=== PATIENT | female | born 1970 | race American Indian/Alaskan Native ===

== ENCOUNTER 2024-09-02 13:36 | Outpatient (AMB) | payer OTHER, SELFPAY ==
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
[2024-09-02 13:46] VITALS: BP 128/78; PULSE 73; BMI 44.6
== END 2024-09-02 14:50 | disposition home or self-care (01) ==
PROVIDERS: PCP Nurse Practitioner Family; Visit Provider Student in an Organized Health Care Education/Training Program
DX: E89.0 Postprocedural hypothyroidism (principal); E04.2 Nontoxic multinodular goiter; E66.813 Obesity, class 3; E66.01 Morbid (severe) obesity due to excess calories; Z68.41 Body mass index [BMI] 40.0-44.9, adult; R73.03 Prediabetes
CPT/HCPCS: 99204

== ENCOUNTER → 2024-09-02 13:36 | Outpatient (BNVA) | payer OTHER, SELFPAY | PROVIDERS: PCP Nurse Practitioner Family; Visit Provider Student in an Organized Health Care Education/Training Program | DX: E89.0 Postprocedural hypothyroidism (principal); E04.2 Nontoxic multinodular goiter; E66.01 Morbid (severe) obesity due to excess calories; E66.813 Obesity, class 3; R73.03 Prediabetes; Z68.41 Body mass index [BMI] 40.0-44.9, adult | CPT/HCPCS: 99202 ==

== ENCOUNTER 2024-09-04 15:09 | Outpatient (REF) | payer OTHER, SELFPAY ==
[2024-09-04 15:57] LABS: Estimated Average Glucose 126 mg/dL; Hemoglobin A1C 128.0057 umol/L; Total Hemoglobin (HGBA1C) 3021.5311 umol/L
[2024-09-04 16:56] LABS: Free T4 (Free Thyroxine) 1.19 ng/dL (0.71-1.85); Thyroid Stimulating Hormone 1.13 uIU/mL (0.32-4.0)
[2024-09-09 18:03] LABS: Thyroid Stimulating Immunoglob <89 % baseline (<140)
[2024-09-09 20:19] LABS: Thyroid Peroxidase Antibodies 153 IU/mL (<9)
== END 2024-09-04 15:10 | disposition home or self-care (01) ==
LOC: HO.LAB 15:09
PROVIDERS: PCP Nurse Practitioner Family; Visit Provider Student in an Organized Health Care Education/Training Program
DX: E03.9 Hypothyroidism, unspecified (principal); E66.9 Obesity, unspecified; R73.03 Prediabetes
CPT/HCPCS: 36415; 83036; 84439; 84443; 84445; 86376

== ENCOUNTER 2024-09-14 13:53 | Outpatient (REF) | payer OTHER, SELFPAY | END 2024-09-14 13:54 | disposition home or self-care (01) | LOC: HO.US 13:53 | PROVIDERS: PCP Nurse Practitioner Family; Visit Provider Student in an Organized Health Care Education/Training Program | DX: E04.2 Nontoxic multinodular goiter (principal) | CPT/HCPCS: 76536 ==

== ENCOUNTER → 2024-09-14 13:55 | Outpatient (BNV) | payer OTHER, SELFPAY | PROVIDERS: PCP Nurse Practitioner Family; Visit Provider Radiology Diagnostic Radiology | DX: E04.2 Nontoxic multinodular goiter (principal) | CPT/HCPCS: 76536 ==

== ENCOUNTER 2024-10-26 10:43 | Outpatient (AMB) | payer OTHER, SELFPAY ==
[2024-10-26 10:58] VITALS: BP 114/78; PULSE 54; BMI 43.6
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
--- OUTSIDE RECORDS SUMMARY | 2024-10-26 15:28 | XMS_ITS | Encounter Summary ---
Author Organization [facility] Address [address] [place] [address] Care Team Providers Care Ui Engineer Name Role Phone Marycruz Martinez MD Primary Care Provider [phone] Deepthi Parada DOCK LOADER Primary Care Provide r Reason for Visit * Reason Comments E-prescribing Refill Request Encounter Details Date Type Department Care Team (Late st Contact Info) Description 06/28/2023 Refill [facility] Urology [address] [facility] [address] [place] [address] Suly Martinez, DOCK LOADER [address] [place] [address] E-prescribing Refill Request Social History Tobacco Use Types Packs/Day Years Used Date Smoking Tobacco: Never Smokeless Tobacco: Never Alcohol Use Standard Drinks/Week Comments Yes 0 (1 standard drink = 0.6 oz pure alcohol) socially - wine or beer/cider on weekends Intimate Partner Violence Answer Date R ecorded Fear of Current or Ex-Partner Not on file Emotionally Abused Not on file 05/31/2023 Physically Abused Not on file 05/31/2023 Sexually Abused Not on file 05/31/2023 Feel Safe at Home Not on file 05/31/2023 Comments No Sex and Gender Information Value Date Recorded Sex Assigned at Female 04/27/2022 2:04 PM EDT Legal Sex Female 2:36 AM EDT Gender Identity Female 04/27/2022 2:04 PM EDT Sexual Orientation Straight 04/27/2022 2: 04 PM EDT documented as of this encounter Miscellaneous Notes * Telephone Encounter - Adam Montana LPN - 06/28/2023 7:56 AM EDT Seen 06/10/2020 documented in this encounter Plan of Treatment Not on file documented as of this encounter Visit Diagnoses Not on filedocumented in this encounter Care Teams Ui Engineer Relationship Specialty Start Date End Date Marycruz Martinez MD [address] [address] PCP - General Family Medicine 10/05/20 11/21/23 Deepthi Parada NP [facility], [address] [place] [address] PCP - General Family Medicine 11/22/23 documented as of this encounter
--- OUTSIDE RECORDS SUMMARY | 2024-10-26 15:28 | XMS_ITS | Encounter Summary ---
Author Organization [facility] Address [address] [place] [address] Care Team Providers Care Library Attendant Name Role Phone Jericho Braun MD Primary Care Provider [phone] Estrella Zamudio NP Primary Care Provider Marycruz Martinez MD Primary Care Provider Deepthi Parada CLAIMS COLLECTOR Primary Care Provide r Encounter Details Date Type Department Care Team (Late st Contact Info) Description 04/20/2019 Orders Only [facility] Orthopedic Surgery [address] [address] Prasanna Zaragoza MD [address] [place] [address] Social History Tobacco Use Types Packs/Day Years Used Date Smoking Tobacco: Never Smokeless Tobacco: Never Alcohol Use Standard Drinks/Week Comments Yes 0 (1 standard drink = 0.6 oz pure alcohol) socially - wine or beer/cider on weekends Comments No Sex and Gender Information Value Date Recorded Sex Assigned at Female 04/27/2022 2:04 PM EDT Legal Sex Female 2:36 AM EDT Gender Identity Female 04/27/2022 2:04 PM EDT Sexual Orientation Straight 04/27/2022 2: 04 PM EDT documented as of this encounter Plan of Treatment Scheduled Orders Name Type Priority Associated Diagnoses Orde r Schedule XR KNEE ORTHO - LT (DX: KNEE PAIN *NO INJURY* M25.562/ 719.46)(AGE>=35, CAN WEIGHT-BEAR) FC Imaging Routine Left knee pain, unspecified chronicity Expected: 04/20/2019 (Approximate), Expires: 04/20/2022 documented as of this encounter Visit Diagnoses Diagnosis Left knee pain, unspecified chronicity documented in this encounter Additional Health Concerns Infection Onset Date Last Indicated Resolved Time COVID-19 Rule-Out 02/07/2021 02/07/2021 2021 4:16 AM EDT documented as of this encounter Care Teams Library Attendant Relationship Specialty Start Date End Date Jericho Braun MD PCP - General Family Medicine 04/22/19 06/09/20 Estrella Zamudio NP [address] [address] PCP - General Nurse Practitioner 06/10/20 10/04/20 Marycruz Martinez MD [address] [address] PCP - General Family Medicine 10/05/20 11/21/23 Deepthi Parada NP [facility], [address] [place] [address] PCP - General Family Medicine 11/22/23 documented as of this encounter
--- OUTSIDE RECORDS SUMMARY | 2024-10-26 15:28 | XMS_ITS | Encounter Summary ---
Author Organization [facility] Address [address] [place] [address] Care Team Providers Care Animal Laboratory Helper Name Role Phone Marycruz Martinez MD Primary Care Provider [phone] Deepthi Parada NP Primary Care Provide r Reason for Visit * Reason Onset Date Comments Labs/orders 05/14/2022 Creatinine Order for Radiology with Contrast Encounter Details Date Type Department Care Team (Late st Contact Info) Description 05/14/2022 Telephone CALL CENTER [facility] [address] [place] [id number] Benny Foley MD [address] [place] [id number] Labs/orders (Creatinine Order for Radiology with Contrast) Social History Tobacco Use Types Packs/Day Years [...] encounter Miscellaneous Notes * Telephone Encounter - Martell Oconnor - 05/14/2022 5:05 PM EDT Benny Foley MD In compliance with established guidelines for the appropriate administration of intravenous contrast media during MRI studies, the Department of Radiology will require a Serum Creatinine within 30 days prior to the study date on all patients who meet the criteria. A creatinine order has been pended and attached for the patient in the appropriate time frame. Please sign the order. documented in this encounter Plan of Treatment Scheduled Orders Name Type Priority Associated Diagnoses Orde r Schedule CREATININE WITH GLOMERULAR FILTRATION RATE, ESTIMATED (EGFR) Lab Routine Paresthesia Expected: 05/15/2022 (Approximate), Expires: 05/14/2023 documented as of this encounter Visit Diagnoses Diagnosis Paresthesia Disturbance of skin sensation documented in this encounter Care Teams Animal Laboratory Helper Relationship Specialty Start Date End Date Marycruz Martinez MD [address] [address] PCP - General Family Medicine 10/05/20 11/21/23 Deepthi Parada NP [facility], [address] [place] [address] PCP - General Family Medicine 11/22/23 documented as of this encounter
--- OUTSIDE RECORDS SUMMARY | 2024-10-26 15:28 | XMS_ITS | Encounter Summary ---
Author Organization [facility] Address [address] [place] [address] Care Team Providers Care Professor Of Education Name Role Phone Deepthi Parada Aliza NAVIGATION OFFICER Primary Care Provide r Encounter Details Date Type Department Care Team (Latest Contact Info) Description 12/13/2023 Professional Billing [facility] [address] [place] [address] Steve Mahmood, MARCIA [address] [place] [address] Painful orthopaedic hardware (HCC) [T84.84XA] Social History Tobacco Use Types Packs/Day Years [...] as of this encounter Plan of Treatment Not on file documented as of this encounter Visit Diagnoses Diagnosis Painful orthopaedic hardware (HCC) [T84.84XA] Other complications due to other internal orthopedic device, implant, and graft documented in this encounter Care Teams Professor Of Education Relationship Specialty Start Date End Date Deepthi Parada NP [facility], [address] [place] [address] PCP - General Family Medicine 11/22/23 documented as of this encounter
--- OUTSIDE RECORDS SUMMARY | 2024-10-26 15:28 | XMS_ITS | Encounter Summary ---
Author Organization [facility] Address [address] [place] [address] Care Team Providers Care Proposal Review Analyst Name Role Phone Marycruz Martinez MD Primary Care Provider [phone] Deepthi Parada NP Primary Care Provide r Encounter Details Date Type Department Care Team (Late st Contact Info) Description 11/08/2022 Telephone [facility] [address] [place] [address] [address] [place] [address] Tristan Gonzales MD Social History Tobacco Use Types Packs/Day Years [...] encounter Miscellaneous Notes * Telephone Encounter - Gena Flores - 11/08/2022 10:[address] Ellis calling wanting to schedule a peer to peer with provider. Can be reached at [phone] documented in this encounter Plan of Treatment Not on file documented as of this encounter Visit Diagnoses Not on filedocumented in this encounter Care Teams Proposal Review Analyst Relationship Specialty Start Date End Date Marycruz Martinez MD [address] [address] PCP - General Family Medicine 10/05/20 11/21/23 Deepthi Parada NP [facility], [address] [place] [address] PCP - General Family Medicine 11/22/23 documented as of this encounter
--- OUTSIDE RECORDS SUMMARY | 2024-10-26 15:28 | XMS_ITS | Patient Health Record ---
Author Organization [facility] Address [address] [place] [id number] Care Team Providers Care Splitter Tender Name Role Phone LETY ADAIR, VICK Primary Care Provider Reji Davis [phone] ALLERGIES Allergen (clinical drug ingredient) Drug/Non Drug Allergy documented on EMR Reaction Allergy Type Onset Date Status morphine morphine Unknown Drug Allergy Active REASON FOR REFERRAL No Information MEDICATIONS Medication SIG (Take, Route, Frequency, Duration) Notes Start Date End Date Status traZODone 150 mg 1 tab(s) orally once a day (at bedtime) Active LaMICtal 150 mg 1 tab(s) orally 2 ti mes a day Active Neurontin 300 mg 1 cap(s) orally 3 ti mes a day Active Paxil 20 mg 1 tab(s) orally once a day Active diclofenac sodium 75 mg 1 tab(s) orally 2 times a day Active Valium 5 mg 1 tab(s) orally 3 ti mes a day Active Levoxyl 100 mcg (0.1 mg) 1 tab(s) orally once a day Active raNITIdine 150 mg 1 cap(s) orally 2 ti mes a day Active SOCIAL HISTORY Sex Assigned At : Social History Observation Description Sex Assigned At Unknown PROBLEMS Problem Type ICD Code Onset Dates Problem Status W/U Status Risk SNOMED Code Notes Problem Pain in left knee (M25.562) Active confirmed 77700281 Problem Pain in right knee (M25.561) Active confirmed 78500574 Problem Difficulty in walking (R26.2) Active confirmed [id number] PLAN OF TREATMENT No Information Insurance Providers Payer Name Payer Address Payer Phone Subscriber Number Group Number Insured Name Patient Relationship to Insured Coverage Start Date Coverage End Date [facility] [address] [place] [phone] [facility] [id number] JANEE BEY Self - patient is the insured MEDICAL (GENERAL) HISTORY Medical History History ICD Code bipolar disorder I PTSD multiple suicide attempts recurrent bilateral patella tendon ruptu res chronic bilateral knee pain Surgical History Surgery Date(Month/Year) 3 patella tendon surgeries on left knee, 1 meniscus surgery 2 patella tendon surgeries on right knee [phone] Hospitalization History Reason Date(Month/Year) 4 hospitalizations for suicide attempts from
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
--- OUTSIDE RECORDS SUMMARY | 2024-10-26 15:29 | XMS_ITS | Encounter Summary ---
Author Organization [facility] Address [phone] [facility] [address] [address] Care Team Providers Care Mussel Opener Name Role Phone Marycruz Martinez MD Primary Care Provider [phone] Unknown, Unknown Primary Care Provider Deepthi Rodriguez UTILIZATION ENGINEER Primary Care Provid er Ila Elder MELT SUPERVISOR Primary Care Provide r Reason for Visit * Reason Comments Med Change Request Encounter Details Date Type Department Care Team (Late st Contact Info) Description 08/19/2023 Refill [facility] Department of Orthopaedics [address] [place] [address] Shaun Leon MD [address] [place] [address], [facility] [address] [email or web address] Change Request Social History Tobacco Use Types Packs/Day [...] as of this encounter Plan of Treatment Upcoming Encounters Date Type Department Care Team (Late st Contact Info) Description 11/06/2024 1:00 PM EST Office Visit [facility] Pain Management [address] [place] [id number] Alejo Crespo MD [address] [place] [address] Department of Anesthesiology, Perioperative [place] [address] [email or web address] 12/22/2024 11:15 AM EDT Office Visit [facility] Department of [facility]opaedics [address] [place] [address] James Minaya MD [address] [place] [id number] 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 07/21/2024 1:22 AM EDT documented as of this encounter Care Teams Mussel Opener Relationship Specialty Start Date End Date Marycruz Martinez MD [address] [place] [phone] PCP - General Family Medicine 08/03/21 11/21/23 Unknown, Unknown, PCP - General 12/24/23 01/20/24 Deepthi Parada CNP [address] [place] [address], [address] [place] [address] [email or web address] PCP - General Family Medicine 01/21/24 03/01/24 Ila Elder NP [address] [place] [id number] PCP - General 03/02/24 Chika Tovar CNP Nurse Practitioner 08/10/22 documented as of this encounter Additional Source Comments The information contained in this document represents components of the legal health record. It is not the complete legal health record.[facility]
--- OUTSIDE RECORDS SUMMARY | 2024-10-26 15:29 | XMS_ITS | Clinical Summary ---
Author Organization [facility] Address [phone] Formerly [facility], [facility] [place] [address] Care Team Providers Care Parks Recreation Coordinator Name Role Phone Ila Elder NP Primary Care Provide r Allergies Active Allergy Reactions Criticality Noted Date Comments Ciprofloxacin Dermatitis Medium 01/23/2019 The patient was found to have spread of rash identified on 01/20 to her face and extremities after ~ 2 doses of daptomycin and ~4 doses of ciprofloxacin. It is not clear if this is new reaction or extension of prior drug rash. Daptomycin Dermatitis Medium 01/23/2019 The patient was found to have spread of rash identified on 01/20 to her face and extremities after ~ 2 doses of daptomycin and ~4 doses of ciprofloxacin. It is not clear if this is new reaction or extension of prior drug rash. Formaldehyde 08/31/2021 Latex Rash Low 05/13/2023 Morphine Unknown 04/10/2013 Ondansetron Hcl 08/10/2022 Piperacillin-Tazobacta m Dermatitis High 01/20/2019 Developed morbilliform rash after receiving 24 days of IV vancomycin and IV piperacillin-tazobact am with concurrent eosinophilia Vancomycin Dermatitis,Maculopa pular Rash High 01/20/2019 Severe Rash and diarrhea Rash developed while on both vancomycin and pieracillin-tazobacta m Medications Medication Sig Dispensed Refills Start Date End Date Status traZODone (DESYREL) 100 MG tablet Take 200 mg by mouth nightly at bedtime. Active hydrOXYzine (ATARAX) 25 MG tablet Take 25 mg by mouth as needed. Active famotidine (PEPCID) 20 MG tablet Take 20 mg by mouth daily. Active PARoxetine (PAXIL) 20 MG tablet Take 20 mg by mouth daily. Active therapeutic multivitamin tablet Take 1 tablet by mouth daily. Active docusate (COLACE) 100 mg tablet Take 1 tablet (100 mg total) by mouth 2 (two) times a day. 28 tablet 2 Active esomeprazole (NEXIUM) 20 MG capsule Take 20 mg by mouth nightly at bedtime. Active fluticasone propionate (FLONASE) 50 mcg/actuation nasal spray SPRAY 2 SPRAYS BY INTRANASAL ROUTE EVERY DAY 3 Active loratadine (CLARITIN) 10 mg tablet Take 10 mg by mouth daily. Active magnesium oxide (MAG-OX) 400 mg (241.3 mg elemental) tablet Take 400 mg by mouth daily. Active cholecalciferol (VITAMIN D3) 25 MCG (1,000 unit) tablet Take 1,000 Units by mouth daily. Active Medication-Free Text Take 500 mg by mouth daily. Turmeric/Curcumi n: Nekoma (OTC Brand) Active potassium gluconate 550 mg (90 mg) Tab Take 1 tablet by mouth daily. Active tiZANidine (ZANAFLEX) 4 MG tablet Take 1 tablet (4 mg total) by mouth nightly at bedtime as needed (spasm). 12 tablet 3 Active gabapentin (NEURONTIN) 300 MG capsule Take 1 capsule (300 mg total) by mouth 2 (two) times a day. 60 capsule 3 Active semaglutide (OZEMPIC) 0.25 mg or 0.5 mg (2 mg/3 mL) subcutaneous injection pen 0.25 mg. Active fluconazole (DIFLUCAN) 150 MG tabletIndication s:Infected prosthetic knee joint, subsequent encounter,Receiv ing intravenous antibiotic treatment as outpatient Takeone tablet for thrush; repeat if needed while on antibiotics 30 tablet 3 5 Active sulfamethoxazole -trimethoprim (BACTRIM DS) 800-160 mg per tablet TAKE 2 TABLETS BY MOUTH TWO TIMES A DAY 120 tablet 11 5 Active sulfamethoxazole -trimethoprim (BACTRIM DS) 800-160 mg per tablet Take 2 tablets (320 mg of trimethoprim total) by mouth 2 (two) times a day. 120 tablet 11 3 10/21/19 25 Discontinued fluconazole (DIFLUCAN) 150 MG tabletIndication s:Infected prosthetic knee joint, subsequent encounter,Receiv ing intravenous antibiotic treatment as outpatient Takeone tablet for thrush; repeat if needed while on antibiotics 30 tablet 3 4 10/13/19 25 Discontinued(Re order) Hospital, Clinic, or Other Facility Administered Medication Ordered Dose Route Frequency Start Date End Date Status iohexoL (OMNIPAQUE-180) 180 mg iodine/mL solution 0.5-10 mL 0.5 - 10 mL See Adm Inst Once 10/06/2024 10/06/2024 End ed BUPivacaine (PF) (MARCAINE) 0.25% injection 0.5-10 mL 0.5 - 10 mL See Adm Inst Once 10/06/2024 10/06/2024 En ded lidocaine (PF) (XYLOCAINE-MPF) 0.5% injection 0.5-50 mL 0.5 - 50 mL See Adm Inst Once 10/06/2024 10/06/2024 En ded methylprednisolone acetate (DEPO-Medrol) injection 2-40 mg 2 - 40 mg See Adm Inst Once 10/06/2024 10/06/2024 Ended Active Problems Patient Care Coordination No te Formatting of this note is d ifferent from the original. Risk Assessment and Prediction Tool (RAPT) Value Score 1. What is your age group? 50-65 years 66-75 years >75 years =2 2. Gender? Male Female =1 3. How far on average can you walk? (a block is 200 meters) Two blocks or more (+/- rest) 1-2 blocks (+/- rest) Housebound (most of time) =0 4. Which gait aid do you use? (more often than not) None Single-point stick Crutches/frame =0 5. Do you use community supports? (home help, meals on wheels, district nursing) None or one per week Two or more per week =1 6. Will you live with someone who can care for you after your operation? Yes No =3 Your score (out of 12) 7 Aviles: Destination at discharge from acute care predicted by score. ? ? Scores <6 -- extended inpatient rehabilitation ? ? Score 6-9 -- additional intervention to discharge directly home (ie home care services) ? ? Score >9 -- directly home Problem Noted Date Diagnosed Date Pain in joint of right shoulder 12/04/2023 Assessment & Plan (12/04/2023 1:57 PM EST): S/p ORIF at outside hospital. Now well healed and functioning nicely but with some crepitus. PT should help Gastroesophageal reflux disease 07/21/2023 07/21/2023 DEVORA (obstructive sleep apnea) 07/21/2023 Infection 07/18/2023 S/P TKR (total knee replacement), left Status post spinal surgery 08/17/2022 Anemia 01/13/2019 07/21/2023 Overview (07/21/2023): Last Assessment & Plan: Patient with past medical history of gastric ulcer, who presented with abdominal pain and diarrhea. Her hemoglobin on presentation was 8.2 from 10.7 on December 19, 2018. Patient reports bloody diarrhea. At the time of our evaluation, patient had a bowel movement which was orange in color. Patient reports that she had EGDs in the past showed gastric ulcer. She is on Pepcid 20 mg p.o. daily. Is unclear why she had this drop in her hemoglobin over the last month. - Trend H/H, stable - Hold Pepcid - On Protonix 40 mg IV daily - Iron study showed anemia of chronic disease Primary osteoarthritis of left knee Patellar tendon rupture, left, sequela DJD (degenerative joint disease) Encounters Date Type Department Care Team Description 10/19/2024 Refill [facility] Infectious Disease Medicine [address] [place] [address] Shaun Leon MD Medication Refill 10/15/2024 1:19 PM EST - 10/15/2024 11:59 PM EST Hospital Encounter [facility], X-Ray - [address] [place] [address] James Minaya MD Discharge Disposition: Home or Self Care 10/13/2024 Refill [facility] Infectious Disease Medicine [address] [place] [address] Shaun Leon MD Medication Refill 10/13/2024 Refill [facility] Infectious Disease Medicine [address] [place] [address] Shaun Leon MD Medication Refill 10/06/2024 2:40 PM EST Office Visit [facility] Pain Management [address] [address] Alejo Crespo MD Pain in joint of right shoulder (Primary Dx); AC joint arthropathy; Other chronic pain 09/29/2024 Orders Only [facility] Pain Management [address] [place] [id number] Mindy Alexandra Other chronic pain (Primary Dx) 09/28/2024 Orders Only [facility] Center for Inf[facility] & Reproductive Surgery [address] [facility] [place] [address] James Minaya MD Aftercare following left knee joint replacement surgery (Primary Dx); Pain 09/09/2024 12:50 PM EST Office Visit DEPARTMENT OF UROLOGY [address] [place] [address] Krista Sullivan MD Urinary frequency (Primary Dx); Urinary urgency 09/07/2024 3:00 PM EST Office Visit [facility] Pain Management [address] [place] [phone] Alejo Crespo MD Post-traumatic osteoarthritis of both knees (Primary Dx); Other chronic pain; AC joint arthropathy 08/31/2024 Orders Only [facility] Pain Management [address] [place] [address] Marah Key [place] Other chronic pain (Primary Dx) 08/05/2024 2:45 PM EST Office Visit [facility] Pain Management [address] [place] [address] Alejo Crespo MD Post-traumatic osteoarthritis of both knees (Primary Dx) from Last 3 Months Immunizations Name Administration Dates Next Due Influenza Quadrivalent Prese rvative Free IM 07/26/2023(Deferred: Patient Refused) Social History Tobacco Use Types Packs/Day Years Used Date Smoking Tobacco: Never Smokeless Tobacco: Never Tobacco Cessation:Counseling Given: Not Answered Alcohol Use Standard Drinks/Week Comments Not Currently [...] Orientation Straight 08/03/2021 12 :35 PM EDT Last Filed Vital Signs Vital Sign Reading Time Taken Comments Blood Pressure 135/81 10/06/2024 2:43 PM EST Pulse 90 10/06/2024 2:43 PM EST Temperature 36.6 ??C (97.9 ??F) 09/04/2023 1:22 PM ES T Respiratory Rate 18 07/26/2023 9:00 AM EDT Oxygen Saturation 98% 10/06/2024 2:43 PM EST Inhaled Oxygen Concentration 40% 05/13/2023 5 :00 PM EDT Weight 111.1 kg (245 lb) 04/01/2024 10:43 AM EDT Height 162.6 cm (5' 4 ) 04/01/2024 10:43 AM EDT Body Mass Index 42.05 04/01/2024 10:43 AM EDT Plan of Treatment Upcoming Encounters Date Type Department Care Team (Late st Contact Info) Description 11/06/2024 1:00 PM EST Office Visit [facility] Pain Management [address] [facility] [address] [place] [address] Alejo Crespo MD [address] [facility], [address] Department of Anesthesiology, Perioperative [place] [address] [email or web address] 12/22/2024 11:15 AM EDT Office Visit [facility] [address] [place] [address] James Minaya MD [address] [place] [address] [email or web address] Health Maintenance Due Date Last Done Comments HEPATITIS B SCREENING 02/09/1988 HEPATITIS C SCREENING 02/09/1988 HIV ONE-TIME SCREENING (18-65 YEARS) 02/09/1988 HEPATITIS B VACCINES (1 of 3 - 19+ 3-dose series) 1989 PAP SMEAR 1991 MAMMOGRAM 2010 COLOGUARD 2015 COLONOSCOPY 2015 COLORECTAL CANCER SCREENING 2015 FIT TEST 2015 FOBT 2015 SIGMOIDOSCOPY 2015 VIRTUAL COLONOSCOPY 2015 DEPRESSION SCREENING 07/16/2023 07/16/2022 INFLUENZA VACCINE (#1) 2024 05/31/2014, 2011 COVID-19 VACCINE ( season) 2024 POTASSIUM LEVEL 06/26/2025 06/26/2024, 12/30, 12/04/2023, Additional history exists SCREENING FOR DIABETES 06/26/2027 , 01/10/2023, 07/10/2017 LIPID PANEL 01/19/2029 01/20/2024 Adult Td,Tdap Booster 04/13/2032 04/13/2022 , 07/05/2017, 08/01/2015, Additional history exists ZOSTER VACCINES Completed 06/18/2021, 04/16/2021 PNEUMOCOCCAL VACCINES (50+ years) Completed 01/29/2022, 11/29/2011 SMOKING STATUS SCREENING (Once After 26 Yrs) Completed 04/07/2024 HEPATITIS A VACCINES Aged Out No long er eligible based on patient's age to complete this topic HIB VACCINES Aged Out No longer eligi ble based on patient's age to complete this topic MENINGOCOCCAL VACCINES (ACWY) Aged Out No longer eligible based on patient's age to complete this topic Medical Devices Implanted Type Area Sandblast Operator Device Identifier Shelf Expiration Date Model / Serial / Lot Mesh Synthetic 30cmxabdominal Non Absorbable Square Polypropylene Bx/3ea - [id number] Implanted:Qty: 1 on 05/13/2023 by James Minaya MD at [facility] STANDARD Left: Knee JNJ ETHICON / DIVISION OF J [id number] 12/29/2027 PML / / [id number] Restrictor Bone 25mm Cement Femoral Hand Hip 16b Bx/3ea - [id number] Implanted:Qty: 1 on 05/13/2023 by James Minaya MD at [facility] STANDARD Left: Knee GUERRIER [id number] 01/02/2033 [id number] / / [id number] Restrictor Bone 25mm Cement Femoral Hand Hip 16b Bx/3ea - [id number] Implanted:Qty: 1 on 05/13/2023 by James Minaya MD at [facility] STANDARD Left: Knee GUERRIER [id number] 01/02/2033 [id number] / / [id number] Knee Baseplate Sz 2 Legion Hk Cement Female Tapered Tibial Lt - [id number] Implanted:Qty: 1 on 05/13/2023 by James Minaya MD at [facility] STANDARD Left: Knee GUERRIER [id number] 06/30/2023 [id number] / / [id number] Knee Stem 120mm Od 10 Technical Staff Engineer Std Femoral Primary Cemented Straight Impl Legion - [id number] Implanted:Qty: 1 on 05/13/2023 by James Minaya MD at [facility] STANDARD Left: Knee GUERRIER [id number] 2031 [id number] / / [id number] Assembly Cemented Size 3 Component Femoral Knee Legion Hk Left - [id number] Implanted:Qty: 1 on 05/13/2023 by James Minaya MD at [facility] STANDARD Left: Knee GUERRIER [id number] 11/20/2028 [id number] / / [id number] Knee Stem 120mm Od 10 Technical Staff Engineer Std Femoral Primary Cemented Straight Impl Legion - [id number] Implanted:Qty: 1 on 05/13/2023 by James Minaya MD at [facility] STANDARD Left: Knee GUERRIER [id number] 09/09/2032 [id number] / / [id number] L Knee Screws B Foot Pins R Elbow Pin Screw Right: Shoulder Shoulder Screw Custom Bone [id number] - Replaced By Ps # [id number] - [id number] Implanted:Qty: 3 on 08/17/2022 by Nicola Jensen MD at [facility] N/A: Spine Cervical MEDTRONIC SPINE [id number] / / Screw Bone 5.0x3.0mm Spine Pedicle Centerpiece Self Tapping Posterior - [id number] Implanted:Qty: 3 on 08/17/2022 by Nicola Jensen MD at [facility] N/A: Spine Cervical [employer]IC SPINE [id number] / / Screw Custom Bone [id number] - Replaced By Ps # [id number] - [id number] Implanted:Qty: 6 on 08/17/2022 by Nicola Jensen MD at [facility] N/A: Spine Cervical MEDTRONIC SPINE [id number] / / Medtronic 14 Mm Plate Implanted:Qty: 1 on 08/17/2022 by Nicoal Jensen MD at [facility] N/A: Spine Cervical [id number] / / Kit Cement Bone Simplex P Tobramycin Antibiotic Impregnated Full Single Dose Bx/1ea - Discontinued Per Supplier [employer]om Issue Use Ps# [id number] - [id number] Implanted:Qty: 3 on 05/13/2023 by James Minaya MD at [facility] Left: Knee [employer] 07/30/2023 [id number] Knee Cone 18mm Tibial Short Legion - [id number] Implanted:Qty: 1 on 05/13/2023 by James Minaya MD at [facility] Left: Knee GUERRIER [id number] 09/29/2032 [id number] / / [id number] Knee Cone 22mm Tibial Short Legion - [id number] Implanted:Qty: 1 on 05/13/2023 by James Minaya MD at [facility] Left: Knee GUERRIER [id number] 02/07/2032 [id number] / / [id number] Knee Insert 3 18mm Size 2 Tibial Hinge Legion Gd Motion Left - [id number] Implanted:Qty: 1 on 05/13/2023 by James Minaya MD at [facility] Left: Knee GUERRIER [id number] 11/04/2031 [id number] / / [id number] [place] Spine 18mm Legion Hinge Coupling - [id number] Implanted:Qty: 1 on 05/13/2023 by James Minaya MD at [facility] Left: Knee FAREED [id number] 03/30/2025 [id number] / / [id number] Procedures Procedure Name Priority Date/Time Associated Diagnosis Comments XR KNEE 4 OR MORE VIEWS (BILATERAL) Routine 10/15/2024 1:59 PM EST Pain FL FLUOROSCOPY Routine 10/06/2024 2:19 PM EST Other chronic pain POCT URINE DIPSTICK Routine 09/09/2024 2 :25 PM EST Urinary frequency FL FLUOROSCOPY Routine 09/07/2024 3:19 PM EST Other chronic pain COMPREHENSIVE METABOLIC PANEL Routine 06/26/2024 11:52 AM EDT Infected prosthetic knee joint, subsequent encounter 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 Postsurgical and posttraumatic changes of the right knee with moderate to severe superimposed degenerative changes. Narrative 10/16/2024 12:49 PM EST XR KNEE 4 OR MORE VIEWS (BILATERAL) Referring clinician's provided indication for this examination in [facility]: Pain COMPARISON: XR KNEE 3 VIEW (LEFT) FINDINGS: Left Knee: Total knee arthroplasty. Hardware is intact and in anatomic position. No periprosthetic lucency or fracture. No effusion. Right Knee: Status post proximal tibia ORIF with fixation of the proximal tibiofibular syndesmosis which has partially ossified. Remote fracture deformity of the proximal fibula. Surgical hardware is intact without evidence of loosening. No acute fracture or dislocation. ??Moderate to severe superimposed degenerative changes. No joint effusion. Procedure Note Aaron Cerda MD - 10/16/2024 XR KNEE 4 OR MORE VIEWS (BILATERAL) Referring clinician's provided indication for this examination in [facility]:Pain COMPARISON: XR KNEE 3 VIEW (LEFT) FINDINGS: Left Knee: Total knee arthroplasty. Hardware is intact and in anatomicposition. No periprosthetic lucency or fracture. No effusion. Right Knee: Status post proximal tibia ORIF with fixation of the proximaltibiofibular syndesmosis which has partially ossified. Remote fracturedeformity of the proximal fibula. Surgical hardware is intact withoutevidence of loosening. No acute fracture or dislocation. Moderate tosevere superimposed degenerative changes. No joint effusion. IMPRESSION: Left total knee arthroplasty, no complication. Postsurgical and posttraumatic changes of the right knee with moderate tosevere superimposed degenerative changes. James Minaya MD IMG XR LOWER EX TREMITY * FL Fluoroscopy (10/06/2024 2:19 PM EST) Narrative [facility] - 10/06/2024 2:19 PM EST Fluoroscopy was provided during this procedure. Alejo Crespo MD [facility] Performing Organization Address [facility]/ZIP Co de Phone Number [facility] * (ABNORMAL) POCT Urine Dipstick [POC5] (09/09/2024 2:25 PM EST) Glucose, Urine - POC Negative Negative Ketones, Urine - POC Negative Negative Specific [place], Urine - POC 1.025 1.005, 1.010, 1.015, 1.020, 1.025, 1.030 Blood, Urine - POC Negative Negative pH, Urine - POC 7.0 5.0, 6.0, 7.0, 5.5, 5.8, 6.2, 6.4, 6.6, 6.8, 7.5, 6.5 Protein, Urine - POC 1+(A) Negative Nitrite, Urine - POC Negative Negative Leukocyte Esterase, Urine - POC Negative Negative Other 09/09/2024 2:25 PM EST Krista Sullivan MD POINT OF CARE TEST O RDERABLES * FL Fluoroscopy (09/07/2024 3:19 PM EST) Narrative [facility] - 09/07/2024 3:19 PM EST Fluoroscopy was provided during this procedure. Alejo Crespo MD [facility] Performing Organization Address City/[facility]/ZIP Co de Phone Number [facility] * (ABNORMAL) Comprehensive metabolic panel (06/26/2024 11:52 AM EDT) SODIUM 140 133 - 146 mmol/L [facility] POTASSIUM 4.5 3.3 - 5.1 mmol/L [facility] CHLORIDE 102 96 - 108 mmol/L [facility] CO2 29 21 - 35 mmol/L [facility] BUN 13 6 - 19 mg/dL [facility] CREATININE 0.50 0.5 - 1.5 mg/dL [facility] GLUCOSE 76 70 - 99 mg/dL [facility] ALBUMIN 3.8(L) 3.9 - 4.8 g/dL [facility] TOTAL PROTEIN 6.8 6.5 - 8.0 g/dL [facility] CALCIUM 9.2 8.4 - 10.3 mg/dL [facility] ALKALINE PHOSPHATASE 138(H) 39 - 117 U/L [facility] TOTAL BILIRUBIN <0.2 0.0 - 1.2 mg/dL [facility] AST 20 0 - 37 U/L [facility] ALT 20 0 - 40 U/L [facility] GLOBULIN 3.0 1 - 4.8 g/dL [facility] EGFR 111 >59 mL/min/1.7 3m2 [facility] Comment:Estimated glomerular filtration rate calculated using the CKD-EPI refit equation. ANION GAP 14 10 - 20 mmol/L [facility] Blood 06/26/2024 11:5 2 AM EDT 06/26/2024 12:02 PM EDT Shaun Leon MD LAB BLOOD ORDERABLES Performing Organization Address City/State/[facility] Co de Phone Number [address] [address] * (ABNORMAL) Lipid panel (01/20/2024 11:49 AM EDT) HDL 47 mg/dL [facility] Comment: ? Interpretation <40 mg/dL: Low HDL cholesterol (major risk factor for CHD) Greater than or equal to 60 mg/dL: High HDL cholesterol ( negative risk factor for CHD) HDL - cholesterol is affected by a number of factors, e.g. smoking, excerise, hormones, sex and age. CHOLESTEROL 247(H) 0 - 240 mg/dL [facility] TRIGLYCERIDES 340(H) 30 - 160 mg/dL [facility] LDL 132(H) 50 - 129 mg/dL [facility] Comment: LDL levels in terms of risk for coronary heart disease: <100 mg/dL: Optimal 100-129 mg/dL: Near or above optimal 130-159 mg/dL: Borderline high 160-189 mg/dL: High >190 mg/dL: Very High CARDIAC RISK RATIO 5.3(H) 3.3 - 4.4 [facility] Blood 01/20/2024 11:4 9 AM EDT 01/20/2024 11:54 AM EDT Edouard Lowe MD LAB BLOOD ORDERABLES [facility] [address] [place] [address] from Last 3 Months or Most Recently Relevant to Health Maintenance Additional Health Concerns Infection Onset Date Last Indicated 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 01/10/2023 Advance Directives Documents on File Type Date Recorded Patient Nurse Clinical Expl anation Healthcare Proxy 06/14/2022 2:35 PM healct hcare proxy 06/12/22 * Full Code (Latest Code Status on File) Date Activated Date Inactivated Comments 07/22/2023 3:15 PM Question Answer Comments Code Status Confirmed With: Patient * Full Code Date Activated Date Inactivated Comments 08/17/2022 7:05 PM 07/22/2023 3:15 PM Question Answer Comments Code Status Confirmed With: Patient Care Teams Parks Recreation Coordinator Relationship Specialty Start Date End Date Ila Elder NP [address] [place] [address] PCP - General 03/02/24 Chika Tovar CNP Nurse Practitioner 08/10/22 Additional Source Comments The information contained in this document represents components of the legal health record. It is not the complete legal health record.[facility]
--- OUTSIDE RECORDS SUMMARY | 2024-10-26 15:29 | XMS_ITS | Encounter Summary ---
Author Organization [facility] Address [address] [place] [address] Care Team Providers Care Optical Element Coater Name Role Phone Marycruz Martinez MD Primary Care Provider [phone] Deepthi Parada NP Primary Care Provide r Encounter Details Date Type Department Care Team ([facility] st Contact Info) Description 12/27/2020 Orders Only [facility] Orthopedic Surgery [address] [facility] [address] [place] [address] Arie Wilson MD 123 [facility] [address] [place] [address] Social History Tobacco Use Types Packs/Day Years [...] Orientation Straight 04/27/2022 2: 04 PM EDT COVID-19 Exposure Response Date Recorded In the last month, have you been in contact with someone who was confirmed or suspected to have Coronavirus / COVID-19? Unable to assess 12/27/2020 12:24 PM EDT documented as of this encounter Plan of Treatment Not on file documented as of this encounter Results * Due to [place] state law, this organization might not be sharing negative HIV tests. * XRAY SPINE, CERVICAL; 3 VIEWS OR LESS FC (12/27/2020 1:54 PM EDT) Anatomical Region Laterality Modality Spine Radiographic Ghislaine ging 12/27/2020 4:02 PM EDT Narrative 12/27/2020 4:02 PM EDT 2 views cervical spine Comparison: None Findings: There is 4 mm retrolisthesis C3 upon C4 which appears degenerative in nature. ?? Remaining vertebral heights and alignment are maintained.. No fractures, or traumatic subluxation. ??There is vertebral body spurring diffusely, more prominent C5-7, with some disc space narrowing at these levels. ??Findings are compatible degenerative disease. ??Bilateral facet arthropathy is present. ?? Prevertebral soft tissues normal. Lung apices are unremarkable. Impression: 1. ??Cervical degenerative changes described above. Procedure Note Faheem Palmer MD - 12/27/2020 2 views cervical spine Comparison: None Findings: There is 4 mm retrolisthesis C3 upon C4 which appears degenerative innature. Remaining vertebral heights and alignment are maintained.. No fractures,or traumatic subluxation. There is vertebral body spurring diffusely, more prominent C5-7, with some disc space narrowing at these levels. Findingsare compatible degenerative disease. Bilateral facet arthropathy is present. Prevertebral soft tissues normal. Lung apices are unremarkable. Impression: 1. Cervical degenerative changes described above. Arie Wilson MD IMG XRAY NO CONTRAST ORDERAB LES Final Result documented in this encounter Visit Diagnoses Diagnosis Back pain, unspecified back location, unspecified back pain laterality, unspecified chronicity Back pain, unspecified back location, unspecified back pain laterality, unspecified chronicity documented in this encounter Additional Health Concerns Infection Onset Date Last Indicated Resolved Time COVID-19 Rule-Out 02/07/2021 02/07/2021 2021 4:16 AM EDT documented as of this encounter Care Teams Optical Element Coater Relationship Specialty Start Date End Date Marycruz Martinez MD [address] [address] PCP - General Family Medicine 10/05/20 11/21/23 Deepthi Paraad NP [facility], [address] [place] [address] PCP - General Family Medicine 11/22/23 documented as of this encounter
--- OUTSIDE RECORDS SUMMARY | 2024-10-26 15:29 | XMS_ITS | Encounter Summary ---
Author Organization [facility] Address [phone] [place] [address] Care Team Providers Care Sliver Handler Name Role Phone Ila Elder FLOWER SHOP MANAGER Primary Care Provide r Encounter Details Date Type Department Care Team (Latest Contact Info) Description 10/15/2024 1:19 PM EST - 10/15/2024 11:59 PM EST Hospital Encounter [facility], X-Ray - [address] [place] [address] James Minaya MD [address] [place] [address] [email or web address] Discharge Disposition: Home or Self Care Social History Tobacco Use Types Packs/Day Years [...] PM EDT documented as of this encounter Medications at Time of Discharge Medication Sig Dispensed Refills Start Date End Date cholecalciferol (VITAMIN D3) 25 MCG (1,000 unit) tablet Take 1,000 Units by mouth daily. docusate (COLACE) 100 mg tablet Take 1 tablet (100 mg total) by mouth 2 (two) times a day. 28 tablet 08/18/2022 esomeprazole (NEXIUM) 20 MG capsule Take 20 mg by mouth nightly at bedtime. famotidine (PEPCID) 20 MG tablet Take 20 mg by mouth daily. fluconazole (DIFLUCAN) 150 MG tabletIndications:Inf ected prosthetic knee joint, subsequent encounter,Receiving intravenous antibiotic treatment as outpatient Takeone tablet for thrush; repeat if needed while on antibiotics 30 tablet 3 10/14/2024 fluticasone propionate (FLONASE) 50 mcg/actuation nasal spray SPRAY 2 SPRAYS BY INTRANASAL ROUTE EVERY DAY 07/10/2023 gabapentin (NEURONTIN) 300 MG capsule Take 1 capsule (300 mg total) by mouth 2 (two) times a day. 60 capsule 08/06/2023 hydrOXYzine (ATARAX) 25 MG tablet Take 25 mg by mouth as needed. loratadine (CLARITIN) 10 mg tablet Take 10 mg by mouth daily. magnesium oxide (MAG-OX) 400 mg (241.3 mg elemental) tablet Take 400 mg by mouth daily. Medication-Free Text Take 500 mg by mouth daily. Turmeric/Curcumin: [place] (OTC Brand) PARoxetine (PAXIL) 20 MG tablet Take 20 mg by mouth daily. potassium gluconate 550 mg (90 mg) Tab Take 1 tablet by mouth daily. semaglutide (OZEMPIC) 0.25 mg or 0.5 mg (2 mg/3 mL) subcutaneous injection pen 0.25 mg. therapeutic multivitamin tablet Take 1 tablet by mouth daily. tiZANidine (ZANAFLEX) 4 MG tablet Take 1 tablet (4 mg total) by mouth nightly at bedtime as needed (spasm). 12 tablet 07/25/2023 traZODone (DESYREL) 100 MG tablet Take 200 mg by mouth nightly at bedtime. sulfamethoxazole-trim ethoprim (BACTRIM DS) 800-160 mg per tablet Take 2 tablets (320 mg of trimethoprim total) by mouth 2 (two) times a day. 120 tablet 11 08/20/2023 10/21/2024 documented as of this encounter Plan of Treatment Upcoming Encounters Date Type Department Care Team (Late st Contact Info) Description 11/06/2024 1:00 PM EST Office Visit [facility] Pain Management [address] [address] Alejo Crespo MD [address] [place] [address] [address] Department of Anesthesiology, Perioperative [place] [address] [email or web address] 12/22/2024 11:15 AM EDT Office Visit [facility] Department of Orthopaedics 60 [place] [address] James Minaya MD [address] [place] [phone] [email or web address] documented as of this encounter Procedures Procedure Name Priority Date/Time Associated Diagnosis Comments XR KNEE 4 OR MORE VIEWS (BILATERAL) Routine 10/15/2024 1:59 PM EST Pain documented in this encounter Results * XR KNEE 4 OR MORE [...] clinician's provided indication for this examination in [facility]: Pain COMPARISON: XR KNEE 3 VIEW [...] clinician's provided indication for this examination in [facility]:Pain COMPARISON: XR KNEE 3 VIEW (LEFT) [...] Minaya MD IMG XR LOWER EX TREMITY documented in this encounter Visit Diagnoses Diagnosis Pain Generalized pain documented in this encounter Additional Health Concerns Infection Onset Date Last Indicated Resolved Time 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 01/10/2023 documented as of this encounter Care Teams Sliver Handler Relationship Specialty Start Date End Date Ila Elder NP [address] [place] [address] PCP - General 03/02/24 Chika Tovar LEAD JAVASCRIPT ENGINEER Nurse Practitioner 08/10/22 documented as of this encounter Additional Source Comments The information contained in this document represents components of the legal health record. It is not the complete legal health record.[facility]
--- OUTSIDE RECORDS SUMMARY | 2024-10-26 15:29 | XMS_ITS | Encounter Summary ---
Author Organization [facility] Address [phone] On license of [facility] [address] [place] [address] Care Team Providers Care Manager Investment Banking Name Role Phone Ila Elder BIOMASS FACILITATOR Primary Care Provide r Reason for Visit * Reason Comments Medication Refill Encounter Details Date Type Department Care Team (Late st Contact Info) Description 10/19/2024 Refill [facility] Infectious Disease Medicine [address] [place] [address] Shaun Leon MD [address] [place] [phone] [email or web address] Medication Refill Social History Tobacco Use Types Packs/Day Years [...] with a working camera? Not on file 05 / Intimate Partner Violence Answer Date R ecorded [...] Description 11/06/2024 1:00 PM EST Office Visit [facility] Pain Management [address] [place] [address] Alejo Crespo MD 850 [facility] 320 Department of Anesthesiology, Perioperative [place] [address] [email or web address] 12/22/2024 11:15 AM EDT Office Visit [facility] and Women's Department of Orthopaedics 60 [place] [address] James Minaya MD [address] [place] [phone] [email or web address] documented as of this encounter Visit Diagnoses Not on filedocumented in this encounter Additional Health Concerns Infection Onset Date Last Indicated Resolved Time 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 01/10/2023 documented as of this encounter Care Teams Manager Investment Banking Relationship Specialty Start Date End Date Ila Elder NP [address] [place] [address] PCP - General 03/02/24 Chika Tovar CNP Nurse Practitioner 08/10/22 documented as of this encounter Additional Source Comments The information contained in this document represents components of the legal health record. It is not the complete legal health record.[facility]
--- OUTSIDE RECORDS SUMMARY | 2024-10-26 15:29 | XMS_ITS | Encounter Summary ---
Author Organization [facility] Address [address] [place] [address] Care Team Providers Care Clinical Study Manager Name Role Phone Marycruz Martinez MD Primary Care Provider [phone] Deepthi Parada GYRO COMPASS TESTER Primary Care Provide r Encounter Details Date Type Department Care Team (Late st Contact Info) Description 05/10/2022 Orders Only [facility] Neurology [address] [facility] [address] [place] [address] Benny Foley MD 123 [place] [address] Social History Tobacco Use Types Packs/Day Years [...] on filedocumented in this encounter Care Teams Clinical Study Manager Relationship Specialty Start Date End Date Marycruz Martinez MD [phone] [place] [address] PCP - General Family Medicine 10/05/20 11/21/23 Deepthi Parada NP [facility], [address] [place] [address] PCP - General Family Medicine 11/22/23 documented as of this encounter
--- OUTSIDE RECORDS SUMMARY | 2024-10-26 15:29 | XMS_ITS | Encounter Summary ---
Author Organization [facility] Address [address] [place] [address] Care Team Providers Care Tool Marker Name Role Phone Marycruz Martinez MD Primary Care Provider [phone] Deepthi Parada NP Primary Care Provide r Reason for Visit * Reason Comments Return Call Encounter Details Date Type Department Care Team (Late st Contact Info) Description 11/05/2022 Telephone [facility] Orthopedic Surgery [address] [place] [address] [address] [place] [address] Tristan Gonzales MD Return Call Social History Tobacco Use Types Packs/Day Years [...] encounter Miscellaneous Notes * Telephone Encounter - Juan Manuel Kay - 11/05/2022 11:[address] Ellis called to request a peer to peer with Dr. Gonzales in regards of pt for an injection. Contact: Dr. Ellis documented in this encounter Plan of Treatment Not on file documented as of this encounter Visit Diagnoses Not on filedocumented in this encounter Care Teams Tool Marker Relationship Specialty Start Date End Date Marycruz Martinez MD [address] [address] PCP - General Family Medicine 10/05/20 11/21/23 Deepthi Parada NP [facility], [address] [place] [address] PCP - General Family Medicine 11/22/23 documented as of this encounter
--- OUTSIDE RECORDS SUMMARY | 2024-10-26 15:29 | XMS_ITS | Encounter Summary ---
Author Organization [facility] Address [phone] [facility] [place] [address] Care Team Providers Care Journeyman Apprentice Electricians Name Role Phone Ila Elder REGIONAL ENGAGEMENT CONSULTANT Primary Care Provide r Reason for Visit * Reason Comments Medication Refill Encounter Details Date Type Department Care Team (Late st Contact Info) Description 10/13/2024 Refill [facility] Infectious Disease Medicine 45 [place] [address] Shaun Leon MD [address] [place] [phone] [email or web address] Medication Refill Social History Tobacco Use [...] Description 11/06/2024 1:00 PM EST Office Visit [facility] Pain Management [address] [place] [address] Alejo Crespo MD 850 [facility] 320 Department of Anesthesiology, Perioperative [place] [address] [email or web address] 12/22/2024 11:15 AM EDT Office Visit [facility] and Women's Department of Orthopaedics 60 [place] [address] James Minaya MD [address] [place] [phone] [email or web address] documented as of this encounter Visit Diagnoses Diagnosis Infected prosthetic knee joint, subsequent encounter Receiving intravenous antibiotic treatment as outpatient documented in this encounter Additional Health Concerns Infection Onset Date Last Indicated Resolved Time 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 01/10/2023 documented as of this encounter Care Teams Journeyman Apprentice Electricians Relationship Specialty Start Date End Date Ila Elder NP [address] [place] [address] PCP - General 03/02/24 Chika Tovar CNP Nurse Practitioner 08/10/22 documented as of this encounter Additional Source Comments The information contained in this document represents components of the legal health record. It is not the complete legal health record.[facility]
--- OUTSIDE RECORDS SUMMARY | 2024-10-26 15:29 | XMS_ITS | Encounter Summary ---
Author Organization [facility] Address [phone] [place] [address] Care Team Providers Care Occupational Health And Safety Officer Name Role Phone Ila Elder BINGO ATTENDANT Primary Care Provide r Encounter Details Date Type Department Care Team ([facility] st Contact Info) Description 09/28/2024 Orders Only [facility] Center for Infertility & Reproductive Surgery [address] [place], [place] [address] [place] [address] James Minaya MD [address] [place] [phone] [email or web address] Aftercare following left knee joint replacement surgery (Primary Dx); Pain Social History Tobacco Use Types Packs/Day Years [...] Description 11/06/2024 1:00 PM EST Office Visit [facility] Pain Management [address] [address] Alejo Crespo MD [address] [place] [address] 320 Department of Anesthesiology, Peri[place] [address] [email or web address] 12/22/2024 11:15 AM EDT Office Visit [facility] and Women's Department of Orthopaedics 60 [place] [address] James Minaya MD [address] [place] [address] [email or web address] Scheduled Orders Name Type Priority Associated Diagnoses Orde r Schedule XR Knee (Left) Imaging Routine Aftercare following left knee joint replacement surgery Expected: 09/28/2024, Expires: 12/27/2024 documented as of this encounter Results * XR KNEE 4 [...] clinician's provided indication for this examination in [facility]: Pain COMPARISON: XR KNEE 3 [...] clinician's provided indication for this examination in [facility]:Pain COMPARISON: XR KNEE 3 VIEW [...] documented in this encounter Visit Diagnoses Diagnosis Aftercare following left knee joint replacement surgery- Primary Pain Generalized pain Pain Generalized pain documented in this encounter Additional Health Concerns Infection Onset Date Last Indicated Resolved Time 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 01/10/2023 documented as of this encounter Care Teams Occupational Health And Safety Officer Relationship Specialty Start Date End Date Ila Elder NP [address] [place] [address] PCP - General 03/02/24 Chika Tovar CNP Nurse Practitioner 08/10/22 documented as of this encounter Additional Source Comments The information contained in this document represents components of the legal health record. It is not the complete legal health record.[facility]
--- OUTSIDE RECORDS SUMMARY | 2024-10-26 15:29 | XMS_ITS | Encounter Summary ---
Author Organization [facility] Address [phone] [facility] [place] [address] Care Team Providers Care Pet Care Associate Name Role Phone Ila Elder NP Primary Care Provide r Encounter Details Date Type Department Care Team (Late st Contact Info) Description 09/29/2024 Orders Only [facility] Pain Management [address] [address] Mindy Alexandra [address] [place] [phone] [email or web address] Other chronic pain (Primary Dx) Social History Tobacco Use Types Packs/Day Years [...] Description 11/06/2024 1:00 PM EST Office Visit [facility] Pain Management [address] [place] [address] Alejo Crepso MD [address] [place] [address] 320 Department of Anesthesiology, Perioperative [place] [address] [email or web address] 12/22/2024 11:15 AM EDT Office Visit [facility] Department of Orthopaedics 60 [place] [address] James Minaya MD [address] [place] [address] [email or web address] documented as of this encounter Results * [place] Fluoroscopy (10/06/2024 2:19 PM EST) Narrative ABDIRASHID - 10/06/2024 2:19 PM EST Fluoroscopy was provided during this procedure. Alejo Crespo MD G [place] [facility] documented in this encounter Visit Diagnoses Diagnosis Other chronic pain- Primary Pain in joint of right shoulder- Primary AC joint arthropathy Other chronic pain documented in this encounter Additional Health Concerns Infection Onset Date Last Indicated Resolved Time 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 01/10/2023 documented as of this encounter Care Teams Pet Care Associate Relationship Specialty Start Date End Date Ila Elder NP [address] [place] [address] PCP - General 03/02/24 Chika Tovar CNP Nurse Practitioner 08/10/22 documented as of this encounter Additional Source Comments The information contained in this document represents components of the legal health record. It is not the complete legal health record.[facility]
--- OUTSIDE RECORDS SUMMARY | 2024-10-26 15:29 | XMS_ITS | Encounter Summary ---
Author Organization [facility] [place] Address [phone] [facility] [address] [place] [address] Care Team Providers Care Sharepoint Consultant Name Role Phone Ila Elder MEDICATION TECH Primary Care Provide r Reason for Visit * Reason Onset Date Comments Medication Refill 10/13/2024 Encounter Details Date Type Department Care Team (Late st Contact Info) Description 10/13/2024 Refill [facility] Infectious Disease Medicine 45 [place] [address] Shaun Leon MD 75 [facility], [address] [address] [email or web address] Medication Refill Social History Tobacco Use [...] Description 11/06/2024 1:00 PM EST Office Visit [facility] Pain Management [address] [address] Alejo Crespo MD 850 [facility] 320 Department of Anesthesiology, Per[place]operative [place] [address] [email or web address] 12/22/2024 11:15 AM EDT Office Visit [facility] and Women's Department of Orthopaedics 60 [place] [address] James Minaya MD [address] [place] [address] [email or web address] documented as of this encounter Visit Diagnoses Diagnosis Infected prosthetic knee joint, subsequent encounter Receiving intravenous antibiotic treatment as outpatient documented in this encounter Additional Health Concerns Infection Onset Date Last Indicated Resolved Time 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 01/10/2023 documented as of this encounter Care Teams Sharepoint Consultant Relationship Specialty Start Date End Date Ila Elder NP [address] [place] [address] PCP - General 03/02/24 Chika Tovar CNP Nurse Practitioner 08/10/22 documented as of this encounter Additional Source Comments The information contained in this document represents components of the legal health record. It is not the complete legal health record.[facility]
--- OUTSIDE RECORDS SUMMARY | 2024-10-26 15:29 | XMS_ITS | Encounter Summary ---
Author Organization [facility] Address [phone] [facility] [place] [address] [place] [address] Care Team Providers Care Cash Applications Analyst Name Role Phone Marycruz Martinez MD Primary Care Provider [phone] Unknown, Unknown Primary Care Provider Deepthi Rodriguez SENIOR FIREWALL ENGINEER Primary Care Provid er Ila Elder DIRECTOR SCRIPT Primary Care Provide r Encounter Details Date Type Department Care Team (Late st Contact Info) Description 07/22/[address] [facility] Periop [address] [place] [address] Social History Tobacco Use Types Packs/Day Years [...] Description 11/06/2024 1:00 PM EST Office Visit [facility] Pain Management [address] [place] [address] Alejo Crespo MD [address] [place] [address] 320 Department of Anesthesiology, Per[place] [address] [email or web address] 12/22/2024 11:15 AM EDT Office Visit [facility] Department of Orthopaedics 60 [place] [address] James Minaya MD [address] [place] [phone] 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 07/21/2024 1:22 AM EDT documented as of this encounter Care Teams Cash Applications Analyst Relationship Specialty Start Date End Date Marycruz Martinez MD [address] [place] [phone] PCP - General Family Medicine 08/03/21 11/21/23 Unknown, Unknown, PCP - General 12/24/23 01/20/24 Deepthi Parada CNP [address] [place] [address], [address] [place] [address] [email or web address] PCP - General Family Medicine 01/21/24 03/01/24 lIa Elder NP [address] [place] [address] PCP - General 03/02/24 Chika Tovar CNP Nurse Practitioner 08/10/22 documented as of this encounter Additional Source Comments The information contained in this document represents components of the legal health record. It is not the complete legal health record.[facility]
--- OUTSIDE RECORDS SUMMARY | 2024-10-26 15:29 | XMS_ITS | Encounter Summary ---
Author Organization [facility] Address [address] [place] [address] Care Team Providers Care Lens And Frames Prescription Clerk Name Role Phone Marycruz Martinez MD Primary Care Provider Deepthi Parada NP Primary Care Provide r Encounter Details Date Type Department Care Team (Late st Contact Info) Description 05/15/2022 Orders Only [facility] Neurology [address] [facility] [address] [place] [address] Benny Foley MD [address] [place] [address] Social History Tobacco Use Types Packs/Day Years [...] as of this encounter Miscellaneous Notes * Result Encounter Note - Cynthia Nagy MD - 05/15/2022 1:26 PM EDT Please notify pt that I am covering for Dr. Rhodes- her white count was a little high- that's probably because of the steroid injection she recently had Please also let her know that her blood sugar was low at just 58 so we will fax the results to her PCP (she may need an adjustment of her diabetes medications) Please fax copy to PCP * Result Encounter Note - Suly Wagner RN - 05/15/2022 1:26 PM EDT See tms * Result Encounter Note - Nhi Downing RN - 05/15/2022 1:26 PM EDT FYI- documented in this encounter Plan of Treatment Not on file documented as of this encounter Procedures * Due to [place] state law, this organization might not be sharing negative HIV tests. Procedure Name Priority Date/Time Associated Diagnosis Comments CBC INCLUDES DIFFERENTIAL AND PLATELET COUNT Routine 05/15/2022 1:30 PM EDT Weakness of right upper extremity VENIPUNCTURE Routine 05/15/2022 1:30 PM EDT Weakness of right upper extremity documented in this encounter Results * Due to [place] state law, this organization might not be sharing negative HIV tests. * (ABNORMAL) CBC INCLUDES DIFFERENTIAL AND PLATELET COUNT (05/15/2022 1:30 PM EDT) WBC 15.6(H) 3.8 - 10.8 Thousand/u L [facility] RBC 4.86 3.80 - 5.10 Million/uL [facility] Hemoglobin 13.5 11.7 - 15.5 g/dL [facility] Hematocrit 40.8 35.0 - 45.0 % [facility] MCV 84.0 80.0 - 100.0 fL [facility] MCH 27.8 27.0 - 33.0 pg [facility] MCHC 33.1 32.0 - 36.0 g/dL [facility] RDW 13.6 11.0 - 15.0 % [facility] PLT 341 140 - 400 Thousand/u L [facility] MPV 11.7 7.5 - 12.5 fL [facility] Neutrophils # 8658(H) 1500 - 7800 cells/uL [facility] Lymphocytes # 5881(H) 850 - 3900 cells/uL [facility] Monocytes # 936 200 - 950 cells/uL [facility] Eosinophils # 62 15 - 500 cells/uL [facility] Basophils # 62 0 - 200 cells/uL [facility] Neutrophils % 55.5 % [facility] Lymphocytes % 37.7 % [facility] Monocytes % 6.0 % [facility] Eosinophils % 0.4 % [facility] Basophils % 0.4 % [facility] 05/15/2022 1:30 PM EDT 05/16/2022 2:13 AM EDT Narrative Resulting Agency Comment [id number] Benny Foley MD LAB SAME DAY RESULT Final Result [facility] [address] [place] [address] * (ABNORMAL) BASIC METABOLIC PANEL WITH (GFR) (05/15/2022 1:30 PM EDT) Glucose 58(L) 65 - 99 mg/dL [facility] Comment:Fasting reference in terval Urea Nitrogen Blood (BUN) 14 7 - 25 mg/dL [facility] Creatinine 0.56 0.50 - 1.03 mg/dL [facility] EGFR 110 > OR = 60 mL/min/1. 73m2 [facility] Comment: The eGFR is based on the CKD-EPI 2020 equation. To calculate the new eGFR from a previous Creatinine or Cystatin C result, go to https://www.kidney.org/professionals/ kdoqi/gfr%5Fcalculator BUN/Creatinine Ratio NOT APPLICABLE 6 - 22 (calc) [facility] Sodium 137 135 - 146 mmol/L [facility] Potassium 4.8 3.5 - 5.3 mmol/L [facility] Chloride 101 98 - 110 mmol/L [facility] Carbon dioxide 31 20 - 32 mmol/L [facility] Calcium 9.4 8.6 - 10.4 mg/dL [facility] 05/15/2022 1:30 PM EDT 05/16/2022 2:13 AM EDT Narrative [facility] - 05/16/2022 7:35 AM EDT Please note that this estimated GFR does not include an adjustment for the patient's height or weight, and can therefore, be viewed as reliable only for patients with heights between 60 and 72 . More precise quantification using a 24-hour urine sample or height-based algorithm is recommended for patients outside of this range of height and for those individuals with more precise needs for GFR calculation. Resulting Agency Comment [id number] us Benny Foley MD LABORATORY Fin al Result [facility] [address] [place] [address] documented in this encounter Visit Diagnoses Diagnosis Weakness of right upper extremity Other musculoskeletal symptoms referable to limbs Paresthesia Disturbance of skin sensation documented in this encounter Care Teams Lens And Frames Prescription Clerk Relationship Specialty Start Date End Date Marycruz Martinez MD [address] [address] PCP - General Family Medicine 10/05/20 11/21/23 Deepthi Parada NP [facility], [address] [place] [address] PCP - General Family Medicine 11/22/23 documented as of this encounter
--- OUTSIDE RECORDS SUMMARY | 2024-10-26 15:29 | XMS_ITS | Encounter Summary ---
Author Organization [facility] Address [phone] [facility] [place] [address] Care Team Providers Care Radioisotope Technician Name Role Phone Marycruz Martinez MD Primary Care Provider [phone] Unknown, Unknown Primary Care Provider Deepthi Rodriguez LENS GENERATOR Primary Care Provid er Ila Elder SHUTTLE SPOTTER Primary Care Provide r Encounter Details Date Type Department Care Team (Late st Contact Info) Description 05/13/2023 Procedure Pass [facility] Periop [address] [place] [address] Social History Tobacco Use Types Packs/Day Years [...] with a working camera? Not on file Sex and Gender Information Value Date Recorded Sex Assigned at Female 08/03/2021 12:35 PM EDT Gender Identity Female 08/03/2021 12:35 PM EDT Sexual Orientation Straight 08/03/2021 12 :35 PM EDT documented as of this encounter Plan of Treatment Upcoming Encounters Date Type Department Care Team (Late st Contact Info) Description 11/06/2024 1:00 PM EST Office Visit [facility] Pain Management [address] [facility] [address] [place] [address] Alejo Crespo MD [address] [facility], [address] Department of Anesthesiology, [place] [address] [email or web address] 12/22/2024 11:15 AM EDT Office Visit [facility] of [facility]opaedics [address] [place] [address] James Minaya MD [address] [place] [address] [email or web address] documented as of this encounter Visit Diagnoses Not on filedocumented in this encounter Additional Health Concerns Infection Onset Date Last Indicated Resolved Time 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 07/21/2024 1:22 AM EDT documented as of this encounter Care Teams Radioisotope Technician Relationship Specialty Start Date End Date Marycruz Martinez MD [address] [place] [phone] PCP - General Family Medicine 08/03/21 11/21/23 Unknown, Unknown, PCP - General 12/24/23 01/20/24 Deepthi Parada, TRISTEN [address] [place] [address], [address] [place] [address] [email or web address] PCP - General Family Medicine 01/21/24 03/01/24 Ila Elder NP [address] [place] [address] PCP - General 03/02/24 Chika Tovar CNP Nurse Practitioner 08/10/22 documented as of this encounter Additional Source Comments The information contained in this document represents components of the legal health record. It is not the complete legal health record.[facility]
--- OUTSIDE RECORDS SUMMARY | 2024-10-26 15:30 | XMS_ITS | Encounter Summary ---
Author Organization [facility] Address [address] [place] [address] Care Team Providers Care Industrial Controls Technician Name Role Phone Marycruz Martinez MD Primary Care Provider [phone] Deepthi Parada NP Primary Care Provide r Reason for Visit * Reason Comments Medical Record Encounter Details Date Type Department Care Team (Late st Contact Info) Description 10/11/2020 [facility] [address] [place] [address] Unknown Social History Tobacco Use Types Packs/Day Years [...] or suspected to have Coronavirus / COVID-19? No / Unsure 10/05/2020 10:58 AM EST documented as of this encounter Plan of Treatment Not on file documented as of this encounter Visit Diagnoses Not on filedocumented in this encounter Additional Health Concerns Infection Onset Date Last Indicated Resolved Time COVID-19 Rule-Out 02/07/2021 02/07/2021 2021 4:16 AM EDT documented as of this encounter Care Teams Industrial Controls Technician Relationship Specialty Start Date End Date Marycruz Martinez MD [id number] [place] [address] PCP - General Family Medicine 10/05/20 11/21/23 Deepthi Parada NP [facility], [address] [place] [address] PCP - General Family Medicine 11/22/23 documented as of this encounter
--- OUTSIDE RECORDS SUMMARY | 2024-10-26 15:30 | XMS_ITS | Encounter Summary ---
Author Organization [facility] Address [phone] [facility] [place] [address] Care Team Providers Care Cable Maintainer Name Role Phone Ila Elder CABLE MAINTAINER Primary Care Provide r Encounter Details Date Type Department Care Team (Latest Contact Info) Description 06/29/2024 Transcribe Orders Virtual Department [address] [place] [address] Cassy Melendez PA-C [address] [place] [address] [email or web address] Bilateral hip pain (Primary Dx); Chronic left-sided low back pain without sciatica Social History Tobacco Use Types Packs/Day Years [...] 1:00 PM EST Office Visit [facility] Pain Management [address] [address] Aeljo Crespo MD [address] [place] [address] [address] Department of Anesthesiology, Per[place] [address] [email or web address] 12/22/2024 11:15 AM EDT Office Visit [facility] Department of Orthopaedics [address] [place] [address] James Minaya MD [address] [place] [address] [email or web address] documented as of this encounter Results * XR LUMBOSACRAL SPINE 2-3 VIEWS (07/06/2024 1:46 PM EDT) Anatomical Region Laterality Modality L-spine Computed Radiogr aphy 07/06/2024 3:43 PM EDT Impressions 07/06/2024 3:44 PM EDT Mild to moderate left and mild right hip degenerative changes. Degenerative changes of the lumbar spine, most pronounced at L4-5. Narrative 07/06/2024 3:44 PM EDT XR PELVIS AP PLUS FROG OR OUTLET 2 VIEWS, XR LUMBOSACRAL SPINE 2-3 VIEWS Referring clinician's provided indication for this examination in [facility]: Outside Radiology Order; Pain; BILATERAL HIP [...] left and mild right hip degenerative changes. No displaced fracture. Procedure Note Aaron Cerda MD - 07/06/2024 XR PELVIS AP PLUS FROG OR OUTLET 2 VIEWS, XR LUMBOSACRAL SPINE 2-3 VIEWS Referring clinician's provided indication for this examination in [facility]:Outside Radiology Order; Pain; BILATERAL HIP PAIN COMPARISON: XR PELVIS 1 VIEW ONLY FINDINGS: Levocurvature centered at L4. Straightened lumbar lordosis. Grade 1anterolisthesis of L4 on L5. Lumbar vertebral body heights are maintained.Multilevel disc height loss, moderate at L4-5. Multilevel facetarthropathy. Degenerative changes of the SI joints. Intact pubicsymphysis. Mild to moderate left and mild right hip degenerative changes.No displaced fracture. IMPRESSION: Mild to moderate left and mild right hip degenerative changes. Degenerative changes of the lumbar spine, most pronounced at L4-5. 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 It is not the complete legal health record.[facility]
--- OUTSIDE RECORDS SUMMARY | 2024-10-26 15:30 | XMS_ITS | Encounter Summary ---
Author Organization [facility] Address [phone] [facility] [place] [address] Care Team Providers Care Warehouse Supervisor 3Rd Shift Name Role Phone Ila Elder NP Primary Care Provide r Encounter Details Date Type Department Care Team (Late st Contact Info) Description 04/08/2024 Transcribe Orders [address] [address] Chiara Parker [address] [place] [address] [email or web address] Social History Tobacco Use Types Packs/Day Years [...] Description 11/06/2024 1:00 PM EST Office Visit [facility] Pain Management [address] [address] Alejo Crespo MD [address] [place] [address] [address] Department of Anesthesiology, Perioperative [place] [address] [email or web address] 12/22/2024 11:15 AM EDT Office Visit [facility] of [facility]edics [address] [place] [address] James Minaya MD [address] [place] [address] [email or web address] documented as of this encounter Visit Diagnoses Not on filedocumented in this encounter Additional Health Concerns Infection Onset Date Last Indicated Resolved Time 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 It is not the complete legal health record.[facility]
--- OUTSIDE RECORDS SUMMARY | 2024-10-26 15:30 | XMS_ITS | Encounter Summary ---
Author Organization [facility] Address [address] [place] [address] Care Team Providers Care Filling Carrier Name Role Phone Marycruz Martinez MD Primary Care Provider [phone] Deepthi Parada NP Primary Care Provide r Encounter Details Date Type Department Care Team (Late st Contact Info) Description 02/01/2021 Orders Only [facility] Pre-Admission Testing [address] [facility] [address] [place] [phone] Sheron Blunt NP Social History Tobacco Use Types Packs/Day Years [...] have Coronavirus / COVID-19? No / Unsure 02/01/2021 2:03 PM EDT documented as of this encounter Miscellaneous Notes * Result Encounter Note - Sheron Blunt NP - 02/01/2021 3:54 PM EDT Preop ECG with IA WP. No family history of heart disease, patient has no symptoms, no hypertension.Elevated BMI. Elevated triglycerides. * Result Encounter Note - Sheron Blunt NP - 02/01/2021 3:54 PM EDT MRSA negative documented in this encounter Plan of Treatment Not on file documented as of this encounter Procedures * Due to [place] [employer] law, this organization might not be sharing negative HIV tests. Procedure Name Priority Date/Time Associated Diagnosis Comments EKG-TO BE READ & BILLED BY ADULT OR PEDIATRIC CARDIOLOGY Routine 02/01/2021 4:17 PM EDT Hypothyroidism Sleep apnea, unspecified type Hyperglycemia VENIPUNCTURE Routine 02/01/2021 4:05 PM EDT Preoperative examination Hypothyroidism Sleep apnea, unspecified type Hyperglycemia BASIC METABOLIC PANEL WITH (GFR) Routine 02/01/2021 4:05 PM EDT Preoperative examination Hypothyroidism Sleep apnea, unspecified type Hyperglycemia MRSA CULTURE SCREEN, NASAL ONLY Routine 02/01/2021 3:54 PM EDT Preoperative examination documented in this encounter Results * Due to [place] state law, this organization might not be sharing negative HIV tests. * EKG-TO BE READ & BILLED BY ADULT OR PEDIATRIC CARDIOLOGY (02/01/2021 4:17 PM EDT) VENTRICULAR RATE 92 BPM MUS E EKG SYSTEM ATRIAL RATE 92 BPM MUSE EKG SYSTEM P-R INTERVAL 144 ms MUSE EK G SYSTEM QRS DURATION 86 ms MUSE EK G SYSTEM QT 366 ms MUSE EKG SYSTEM QTC 452 ms MUSE EKG SYSTEM P AXIS 35 degrees MUSE EKG SYSTEM R AXIS -28 degrees MUSE EKG SYSTEM T AXIS 1 degrees MUSE EKG SYSTEM EKG INTERPRETATION Normal sinus rhythm poor r wave progression, ??Possible Anterior infarct , age undetermined ??or from lead placement Abnormal ECG No previous ECGs available Confirmed by TOBI RAJPUT ([id number]) on 02/01/2021 8:17:17 PM MUSE EKG SYSTEM 02/01/2021 4:17 PM EDT 02/01/2021 8:17 PM EDT us Sheron Blunt [facility]-WITH INBSKT RTG Final Result MUSE EKG SYSTEM * (ABNORMAL) BASIC METABOLIC PANEL WITH (GFR) (02/01/2021 4:05 PM EDT) Glucose 130(H) 65 - 99 mg/dL [facility] Comment: ? Fasting reference interval For someone without known diabetes, a glucose value >125 mg/dL indicates that they may have diabetes and this should be confirmed with a follow-up test. Urea Nitrogen Blood (BUN) 15 7 - 25 mg/dL [facility] Creatinine 0.71 0.50 - 1.05 mg/dL [facility] Comment: For patients >49 years of age, the reference limit for Creatinine is approximately 13% higher for people identified as -Dominican. EGFR 99 > OR = 60 mL/min/1 .73m2 [facility] GFR () 115 > OR = 60 mL/min/1 .73m2 [facility] BUN/Creatinine Ratio NOT APPLICABLE 6 - 22 (calc) [facility] Sodium 135 135 - 146 mmol/L [facility] Potassium 4.0 3.5 - 5.3 mmol/L [facility] Chloride 101 98 - 110 mmol/L [facility] Carbon dioxide 23 20 - 32 mmol/L [facility] Calcium 9.3 8.6 - 10.4 mg/dL [facility] 02/01/2021 4:05 PM EDT 02/01/2021 10:52 PM EDT Narrative [facility] - 02/02/2021 1:24 AM EDT Please note that this estimated [...] needs for GFR calculation. Resulting Agency Comment [id number] Sheorn Blunt NP LABORATORY Final Result Performing Organization Address [facility] de Phone Number [facility] [address] [place] [address] * (ABNORMAL) HEMOGLOBIN A1C (02/01/2021 4:05 PM EDT) Hemoglobin A1C 5.8(H) <5.7 % of total Hgb [facility] Comment: For someone without known diabetes, a hemoglobin A1c value between 5.7% and 6.4% is consistent with prediabetes and should be confirmed with a follow-up test. For someone with known diabetes, a value <7% indicates that their diabetes is well controlled. A1c targets should be individualized based on duration of diabetes, age, comorbid conditions, and other considerations. This assay result is consistent with an increased risk of diabetes. Currently, no consensus exists regarding use of hemoglobin A1c for diagnosis of diabetes for children. Estimated Average Glucose 129 mg/dL (calc) [facility] 02/01/2021 4:05 PM EDT 02/01/2021 10:52 PM EDT Narrative Resulting Agency Comment [id number] Sheron Blunt NP LABORATORY Final Result Performing Organization Address [facility] de Phone Number [facility] [address] [place] [address] * MRSA CULTURE SCREEN, NASAL ONLY (02/01/2021 3:54 PM EDT) Methicillin Resistant Staphylococcus Aureus Screen SEE NOTE [facility] Comment: ??MRSA CULTURE SCREEN ??Micro Number: ?[id number] ??Test Status: ? Final ??Specimen Source: ?? NOT GIVEN ??Specimen Quality: ??Adequate ??Result: ?No methicillin resistant Staphylococcus aureus ? (MRSA) isolated. 02/01/2021 3:54 PM EDT 02/01/2021 10:04 PM EDT Narrative Resulting Agency Comment [id number] Sheron Blunt [facility] Final Result [facility] [address] [place] [address] documented in this encounter Visit Diagnoses Diagnosis Preoperative examination Preoperative examination, unspecified Hypothyroidism Unspecified hypothyroidism Sleep apnea, unspecified type Hyperglycemia Other abnormal glucose documented in this encounter Additional Health Concerns Infection Onset Date Last Indicated Resolved Time COVID-19 Rule-Out 02/07/2021 02/07/2021 2021 4:16 AM EDT documented as of this encounter Care Teams Filling Carrier Relationship Specialty Start Date End Date Marycruz Martinez MD [address] [address] PCP - General Family Medicine 10/05/20 11/21/23 Deepthi Parada NP [facility] [address] [place] [address] PCP - General Family Medicine 11/22/23 documented as of this encounter
--- OUTSIDE RECORDS SUMMARY | 2024-10-26 15:30 | XMS_ITS | Encounter Summary ---
Author Organization [facility] Address [address] [place] [address] Care Team Providers Care Marker Machine Name Role Phone Marycruz Martinez MD Primary Care Provider [phone] Deepthi Parada NP Primary Care Provide r Encounter Details Date Type Department Care Team (Late st Contact Info) Description 12/07/2020 Orders Only [facility] Orthopedic Surgery [address] [facility] [address] [place] [id number] Yuli Campo, PA Social History Tobacco Use Types Packs/Day Years [...] have Coronavirus / COVID-19? No / Unsure 11/22/2020 12:09 PM EST documented as of this encounter Plan of Treatment Not on file documented as of this encounter Results * Due to [place] state law, this organization might not be sharing negative HIV tests. * XR KNEE ORTHO-BILAT (DX: KNEE PAIN *NO INJURY* M25.569/ 719.46)(AGE>=35, CAN WEIGHT-BEAR) FC (12/09/2020 2:45 PM EST) Anatomical Region Laterality Modality LOWER EXTREMITY Radiographic Ghislaine ging 12/10/2020 10:2 8 AM EST Narrative 12/10/2020 10:28 AM EST 2 views right knee, 2 views left knee, AP bilateral knees standing Comparison: ??CR ??- ORTHO- KNEE ??- 06/14/2020 03:20 PM EDT Findings: Regarding the right knee, again noted is a sideplate across the proximal tibia with screws present. ??A sideplate is also noted across the posterior aspect of the tibia. ??No hardware-related complication. ??Severe 3 compartment osteoarthritis is again noted. ??This is most pronounced laterally. ??I see no acute fracture or dislocation. ??A healed proximal fibula fracture is likely present. Regarding the left knee, screws are noted through the proximal tibia from the anterior approach, 3 compartment osteoarthritis is again noted which is fairly uniform and throughout the joint. ??The patella is mildly deformed. ??The appearance is similar to the previous study. ??No large joint effusion. Impression: 1. ??ORIF changes bilaterally. ??No definite fracture noted. ??Findings are very similar to 06/14/2020. Procedure Note Maximiliano Andujar MD - 12/10/2020 2 views right knee, 2 views left knee, AP bilateral knees standing Comparison: CR - ORTHO- KNEE - 06/14/2020 03:20 PM EDT Findings: Regarding the right knee, again noted is a sideplate across the proximaltibia with screws present. A sideplate is also noted across the posterioraspect of the tibia. No hardware-related complication. Severe 3 compartment osteoarthritis is again noted. This is most pronounced laterally. I seeno acute fracture or dislocation. A healed proximal fibula fracture islikely present. Regarding the left knee, screws are noted through the proximal tibia fromthe anterior approach, 3 compartment osteoarthritis is again noted which isfairly uniform and throughout the joint. The patella is mildly deformed. The appearance is similar to the previous study. No large joint effusion. Impression: 1. ORIF changes bilaterally. No definite fracture noted. Findings arevery similar to 06/14/2020. us Yuli CENTENO IMG XRAY NO CONTRAST ORDERAB LES Final Result documented in this encounter Visit Diagnoses Diagnosis Pain in both knees, unspecified chronicity- Primary Pain in both knees, unspecified chronicity Right shoulder pain, unspecified chronicity documented in this encounter Additional Health Concerns Infection Onset Date Last Indicated Resolved Time COVID-19 Rule-Out 02/07/2021 02/07/2021 2021 4:16 AM EDT documented as of this encounter Care Teams Marker Machine Relationship Specialty Start Date End Date Marycruz Martinez MD [address] [address] PCP - General Family Medicine 10/05/20 11/21/23 Deepthi Parada NP [facility], [address] [place] [address] PCP - General Family Medicine 11/22/23 documented as of this encounter
--- OUTSIDE RECORDS SUMMARY | 2024-10-26 15:30 | XMS_ITS | Encounter Summary ---
Author Organization [facility] Address [phone] [facility] [place] [address] Care Team Providers Care Auto Body Builder Apprentice Name Role Phone Ila Elder NP Primary Care Provide r Encounter Details Date Type Department Care Team (Late st Contact Info) Description 04/07/2024 Procedure Pass [address] [address] Social History Tobacco Use Types Packs/Day Years [...] Description 11/06/2024 1:00 PM EST Office Visit [facility] Pain Management [address] [address] Alejo Crespo MD [address] [facility] [address] Department of Anesthesiology, Perioperative [place] [address] [email or web address] 12/22/2024 11:15 AM EDT Office Visit [facility] of [facility]ics [address] [place] [address] James Minaya MD [address] [place] [phone] [email or web address] documented as of this encounter Visit Diagnoses Not on filedocumented in this encounter Additional Health Concerns Infection Onset Date Last Indicated Resolved Time 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 It is not the complete legal health record.[facility]
--- OUTSIDE RECORDS SUMMARY | 2024-10-26 15:30 | XMS_ITS | Encounter Summary ---
Author Organization [facility] Address [phone] [facility] [place] [address] Care Team Providers Care Automobile Appraiser Name Role Phone Ila Elder NP Primary Care Provide r Encounter Details Date Type Department Care Team (Late st Contact Info) Description 07/15/2024 Telephone [facility] Pain Management [address] [address] [facility] [address] [place] [address] [email or web address] Social History Tobacco Use Types Packs/Day Years [...] PM EDT documented as of this encounter Progress Notes * Nadeen Allison - 07/15/2024 1:09 PM EDT Transfer the pt to [facility] to schedule a new pt appt documented in this encounter Plan of Treatment Upcoming Encounters Date Type Department Care Team (Late st Contact Info) Description 11/06/2024 1:00 PM EST Office Visit [facility] Pain Management [address] [place] [address] Alejo Crespo MD [address] [place] [address] [address] Department of Anesthesiology, Perioperative [place] [address] [email or web address] 12/22/2024 11:15 AM EDT Office Visit [facility] of [facility] [address] [place] [address] James Minaya MD [address] [place] [phone] [email or web address] documented as of this encounter Visit Diagnoses Not on filedocumented in this encounter Additional Health Concerns Infection Onset Date Last Indicated Resolved Time 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 It is not the complete legal health record.[facility]
--- OUTSIDE RECORDS SUMMARY | 2024-10-26 15:30 | XMS_ITS | Encounter Summary ---
Author Organization [facility] Address [address] [place] [address] Care Team Providers Care Recapper Name Role Phone Estrella Zamudio NP Primary Care Provider [phone] Marycruz Martinez MD Primary Care Provider [phone] Deepthi Parada [employer] Primary Care Provide r Reason for Visit * Reason Comments Return Call Encounter Details Date Type Department Care Team (Late st Contact Info) Description 08/17/2020 Telephone CALL [facility] [address] [place] [address] Prasanna Zaragoza MD [address] [place] [address] Return Call Social History Tobacco Use Types [...] have Coronavirus / COVID-19? No / Unsure 08/04/2020 12:41 PM EST documented as of this encounter Miscellaneous Notes * Telephone Encounter - Nayan Ordonez - 08/17/2020 2:29 PM EST Okay to continue? * Telephone Encounter - Kamila Sharma - 08/17/2020 10:40 AM EST Patient is calling requesting a order for therapy for more sessions. She just had her Last visit. Please assist pt , thank you. ( [facility]) documented in this encounter Plan of Treatment Not on file documented as of this encounter Visit Diagnoses Not on filedocumented in this encounter Additional Health Concerns Infection Onset Date Last Indicated Resolved Time COVID-19 Rule-Out 02/07/2021 02/07/2021 2021 4:16 AM EDT documented as of this encounter Care Teams Recapper Relationship Specialty Start Date End Date Estrella Zamudio NP [address] [address] PCP - General Nurse Practitioner 06/10/20 10/04/20 Marycruz Martinez MD [address] [address] PCP - General Family Medicine 10/05/20 11/21/23 Deepthi Parada NP [facility], [address] [place] [address] PCP - General Family Medicine 11/22/23 documented as of this encounter
--- OUTSIDE RECORDS SUMMARY | 2024-10-26 15:30 | XMS_ITS | Clinical Summary ---
Author Organization [facility] [employer] Address [address] [facility] [address] [place] [address] Care Team Providers Care Batting Machine Operator Insulation Name Role Phone Estrella Zamudio NP Primary Care Provider [phone] Social History Tobacco Use Types Packs/Day Years Used Date Smoking Tobacco: Never Assessed Comments Unknown Sex and Gender Information Value Date Recorded Sex Assigned at Not on file Legal Sex Female 7:20 PM EDT Gender Identity Not on file Sexual Orientation Not on file Plan of Treatment Health Maintenance Due Date Last Done Comments Colorectal Cancer: COLONOSCO PY Screening every 10 yrs (or Modifier) 1970 Depression: Screening Annual ly using PHQ-2/9 in Adults 18 yrs or above (or HM Modifier)([facility]) 02/09/1988 Hepatitis C Virus Infection in Adolescents and Adults: Screening (or Modifier) ([facility]) 02/09/1988 [facility] Screening Reminder: Nhi perla for all adults ([facility]) 02/09/1988 Tobacco Smoking Cessation: i n Adults excluding Women: Behavioral and Pharmacotherapy Interventions ([facility]) 02/09/1988 DTaP/Tdap/Td Vaccines ([facility]) (1 - Tdap) 1989 Cervical Cancer Screenin 1-65 yrs of age (or Modifier) 1991 Cervical Cancer Screening: P ap every 3 yrs pts age 21-65 1991 Cervical Cancer: Pap Screeni ng with Modifier timing ([facility]) 1991 Cervical Cancer: hrHPV alone or with cotesting Pap for Pts 30-65yrs screening every 5yrs ([facility]) 1991 Colorectal Cancer Screening 45 -75 Yrs (or HM Modifier) 2015 Colorectal Cancer: FLEXIBLE SIGMOIDOSCOPY Screening every 5 yrs 2015 Colorectal Cancer: Fecal Immunochemical Test (FIT) Annually [facility] 2015 Colorectal Cancer: High-sens itivity gFOBT Screening Annually [facility] 2015 Colorectal Cancer: Stool Col oguard Screening every 3 yrs 2015 Colorectal Cancer:CT Colonog consuelo Screening every 5 yrs 2015 Lipid Screening: Every 5 yrs for Women aged 45+ (or HM Modifier) ([facility]) 02/09/2016 Breast Cancer: Screening Nhi ually age 50-74 yrs (or HM Modifier)([facility]) 02/09/2020 Zoster/Shingles Vaccine Seri es Screening: Adults aged 18+ yrs (or HM Modifiers)([facility]) (1 of 2) 02/09/2020 Flu Vaccination: Yearly for ages 18mos through 64 years (or Modifier)([facility]) 04/30/2024 COVID-19 Vaccine Screening: Initial Series and Booster Status ([facility]) (2023- season) 2024 Pneumococcal Vaccination Scr eening: Pts 0-19 & 19-64 yrs of age ([facility]) Aged Out No longer eligible based on patient's age to complete this topic Medical Devices Not on file Care Teams Batting Machine Operator Insulation Relationship Specialty Start Date End Date Estrella Zamudio NP PCP - Airway Traffic Controller 02/20/20
--- OUTSIDE RECORDS SUMMARY | 2024-10-26 15:30 | XMS_ITS | Encounter Summary ---
Author Organization [facility] Address [phone] [facility] [place] [place] [address] Care Team Providers Care Rn Cardiology Name Role Phone Ila Elder NP Primary Care Provide r Encounter Details Date Type Department Care Team (Latest Contact Info) Description 06/29/2024 Transcribe Orders Virtual Department [address] [place] [address] Cassy Melendez PA-C [address] [place] [id number] [email or web address] Bilateral hip pain (Primary Dx) Social History Tobacco Use [...] 1:00 PM EST Office Visit [facility] Pain Management [address] [place] [address] lAejo Crespo MD [address] [place] [address] Department of Anesthesiology, Perioperative [place] [address] [email or web address] 12/22/2024 11:15 AM EDT Office Visit [facility] Department of [facility]edics [address] [place] [address] James Minaya MD [address] [place] [phone] [email or web address] documented as of this encounter Results * XR PELVIS AP PLUS FROG OR OUTLET 2 VIEWS (07/06/2024 1:46 PM EDT) Anatomical Region Laterality Modality Hip, Pelvis Computed Radiogr aphy 07/06/2024 3:43 PM EDT Impressions 07/06/2024 3:44 PM EDT Mild to moderate left and mild right hip degenerative changes. Degenerative changes of the lumbar spine, most pronounced at L4-5. Narrative 07/06/2024 3:44 PM EDT XR PELVIS AP PLUS FROG OR OUTLET 2 VIEWS, XR LUMBOSACRAL SPINE 2-3 VIEWS Referring clinician's provided indication for this examination in [facility]: Outside Radiology Order; Pain; BILATERAL HIP PAIN [...] clinician's provided indication for this examination in [facility]:Outside Radiology Order; Pain; BILATERAL HIP PAIN COMPARISON: [...] most pronounced at L4-5. 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 It is not the complete legal health record.[facility]
--- OUTSIDE RECORDS SUMMARY | 2024-10-26 15:30 | XMS_ITS | Patient Health Record ---
Author Organization [facility] Address [address] [facility] [address] [place], [place] [id number] Care Team Providers Care Registered Radiographer Name Role Phone Jericho Braun Primary Care Provider Unavailabl e Reason For Referral No Information Medications Medication SIG (Take, Route, Frequency, Duration) Notes Start Date End Date Status tiZANidine HCl 4 MG 1 tablet as needed Orally Three times a day Active Tumeric Active Levoxyl 200 MCG 1 tablet in the morning on an empty stomach Orally Once a day for 30 day(s) Active traZODone HCl 150 MG 1 tablet at bedtime Orally Once a day for 30 day(s) Active Centrum - as directed Orally A ctive Probiotic - as directed Orally Active Omeprazole 40 MG 1 capsule 30 minutes before morning meal Orally Once a day for 30 day(s) Active Acetaminophen 500 MG 1 tablet as needed Orally every 6 hrs am and pm Active Latuda 40 MG 1 tablet with food Orally Once a day for 30 day(s) Active Famotidine 40 MG 1 tablet at bedtime Orally Once a day for 30 day(s) Active Gabapentin 800 MG 1 tablet Orally Once a day for 30 day(s) 900mg am and pm Active Paxil 40 MG 1 tablet in the morning Orally Once a day for 30 day(s) Active Social History Tobacco Use: Social History Observation Description Date Details (start date - stop date) Never Smoker NA - NA Tobacco Question Answer Notes Are you a: never smoker Problems Problem Type SNOMED Code ICD Code Onset Dates Problem Status W/U Status Risk Notes Problem 405158992 Morbid (severe) obesity due to excess calories (E66.01) Active confirmed Problem 91043548 Hypersomnia (G47.10) Active confirmed Problem 75080221 Anxiety (F41.9) Active confirmed Problem 272404470 Acquired hypothyroidism (E03.9) Active confirmed Problem 36177076 Depression, unspecified depression type (F32.9) Active confirmed Problem 03567952 Bipolar disorder in full remission, most recent episode unspecified type (F31.70) Active confirmed Problem 49072159 DEVORA (obstructive sleep apnea) (G47.33) Active confirmed Problem 616627034 Body mass index [BMI] 45.0-49.9, adult (Z68.42) Active confirmed Problem 616470302 Gastroesophageal reflux disease, unspecified whether esophagitis present (K21.9) Active confirmed Plan Of Treatment Pending Test Test Name Order Date COVID 19 PCR 06/13/2021 Future Test Test Name Order Date SLEEP STUDY-SPLIT 05/16/2021 Insurance Providers Payer Name Payer Address Payer Phone Subscriber Number Group Number Insured Name Patient Relationship to Insured Coverage Start Date Coverage End Date [facility] [address] [place] [phone] [id number] Bill Del Valle Self - patient is the insured Medical (General) History Surgical History Surgery Date(Month/Year) Knee surgery Clavicle bone surgery Tonsillectomy Hospitalization History Reason Date(Month/Year) Same day surgery 01/2021
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
--- OUTSIDE RECORDS SUMMARY | 2024-10-26 15:31 | XMS_ITS | Encounter Summary ---
Author Organization [facility] Address [phone] [facility] [place] [address] Care Team Providers Care Internal Control Analyst Name Role Phone Marycruz Martinez MD Primary Care Provider [phone] Unknown, Unknown Primary Care Provider Deepthi Rodriguez PRODUCT DEVELOPMENT ECOLOGIST Primary Care Provid er Ila Elder DIE HOLDER Primary Care Provide r Encounter Details Date Type Department Care Team (Late st Contact Info) Description 08/15/[address] [facility] Periop [address] [place] [address] Social History Tobacco Use Types Packs/Day Years Used Date Smoking Tobacco: Never Smokeless Tobacco: Never Alcohol Use Standard Drinks/Week Comments Not Currently 0 (1 standard drink = 0.6 oz pur e alcohol) Sex and Gender Information Value Date Recorded Sex Assigned at Female 08/03/2021 12:35 PM EDT Gender Identity Female 08/03/2021 12:35 PM EDT Sexual Orientation Straight 08/03/2021 12 :35 PM EDT documented as of this encounter Plan of Treatment Upcoming Encounters Date Type Department Care Team (Late st Contact Info) Description 11/06/2024 1:00 PM EST Office Visit [facility] Pain Management [address] [address] Alejo Crespo MD 850 [facility], [address] Department of Anesthesiology, Perioperative [place] [address] [email or web address] 12/22/2024 11:15 AM EDT Office Visit [facility] Department of Orthopaedics [address] [place] [address] James Minaya MD [address] [place] [address] 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 07/21/2024 1:22 AM EDT documented as of this encounter Care Teams Internal Control Analyst Relationship Specialty Start Date End Date Marycruz Martinez MD [address] [place] [phone] PCP - General Family Medicine 08/03/21 11/21/23 Unknown, Kevin, PCP - General 12/24/23 01/20/24 Deepthi Parada CNP [address] [place] [address], [address] [place] [address] [email or web address] PCP - General Family Medicine 01/21/24 03/01/24 Ila Elder NP [address] [place] [address] PCP - General 03/02/24 Chika Tovar CNP Nurse Practitioner 08/10/22 documented as of this encounter Additional Source Comments The information contained in this document represents components of the legal health record. It is not the complete legal health record.[facility]
--- OUTSIDE RECORDS SUMMARY | 2024-10-26 15:31 | XMS_ITS | Encounter Summary ---
Author Organization [facility] Address [phone] [facility] [employer] [place] [address] Care Team Providers Care Director [employer] Name Role Phone Marycruz Martinez MD Primary Care Provider [phone] Unknown, Unknown Primary Care Provider Deepthi Rodriguez HEALTH PROGRAM MANAGER Primary Care Provid er Ila Elder SLEEP MEDICINE PHYSICIAN Primary Care Provide r Encounter Details Date Type Department Care Team (Late st Contact Info) Description 08/17/2022 Procedure Pass [facility] [address] [place] [phone] Social History Tobacco Use Types Packs/Day Years [...] Description 11/06/2024 1:00 PM EST Office Visit [facility] Pain Management [address] [address] Alejo Crespo MD 850 [facility], [address] Department of Anesthesiology, Peri[place] [address] [email or web address] 12/22/2024 11:15 AM EDT Office Visit [facility] Department of [facility]opaedics [address] [place] [address] James Minaya MD [address] [place] [address] [email or web address] documented as of this encounter Visit Diagnoses Not on filedocumented in this encounter Additional Health Concerns Infection Onset Date Last Indicated Resolved Time 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 PCP - General Family Medicine 01/21/24 03/01/24 Ila Elder NP [address] [place] [address] PCP - General 03/02/24 Chika Tovar CNP Nurse Practitioner 08/10/22 documented as of this encounter Additional Source Comments The information contained in this document represents components of the legal health record. It is not the complete legal health record.[facility]
--- OUTSIDE RECORDS SUMMARY | 2024-10-26 15:31 | XMS_ITS | Encounter Summary ---
Author Organization [facility] Address [address] [place] [address] Care Team Providers Care Scrub Technician Name Role Phone Ila Elder SAMANTA Primary Care Provider [phone] Encounter Details Date Type Department Care Team (Late st Contact Info) Description 08/14/2023 Lab Requisition [facility] Lab [address] [place] [address] Marycruz Martinez MD [address] [place] [address] Encounter for general adult medical examination without abnormal findings Social History Tobacco Use Types Packs/Day Years Used Date Smoking Tobacco: Never Smokeless Tobacco: Never Comments:: Alcohol Use Standard Drinks/Week Comments Yes [...] file 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 Procedure Name Priority Date/Time Associated Diagnosis Comments CBC AUTO DIFFERENTIAL Routine 08/14/2023 3:38 PM EST Encounter for general adult medical examination without abnormal findings BUN Routine 08/14/2023 3:38 PM EST Encounter for general adult medical examination without abnormal findings CREATININE Routine 08/14/2023 3:38 PM EST Encounter for general adult medical examination without abnormal findings HEPATIC FUNCTION PANEL Routine 08/14/2023 3:38 PM EST Encounter for general adult medical examination without abnormal findings documented in this encounter Results * Due to [facility] law, this organization might not be sharing negative HIV tests. * (ABNORMAL) Hepatic Function Panel (08/14/2023 3:38 PM EST) Total Protein 6.2(L) 6.6 - 8.7 g/dL 08/14/2023 4:31 PM EST [facility] Albumin 3.8 3.5 - 5.0 g/dL 08/14/2023 4:31 PM EST [facility] Globulin, Total 2.4 2.1 - 4.2 g/dL 08/14/2023 4:31 PM EST [facility] Albumin Globulin Ratio 1.6 08/14/2023 4:31 PM EST [facility] Bilirubin, Total 0.1(L) 0.2 - 1.2 mg/dL 08/14/2023 4:31 PM EST [facility] Bilirubin, Direct 0.0 <=0.3 mg/dL 08/14/2023 4:31 PM EST [facility] Alkaline Phosphatase 177(H) 40 - 129 U/L 08/14/2023 4:31 PM EST [facility] AST 21 0 - 33 U/L 08/14/2023 4:31 PM EST [facility] ALT 25 <=33 U/L 08/14/2023 4:31 PM EST [facility] Bilirubin, Indirect 0.10 <=0.70 mg/dL 08/14/2023 4:31 PM EST [facility] Blood Structure of peripheral vein / Unknown 08/14/2023 3:38 PM EST 08/14/2023 3:39 PM EST Marycruz Martinez MD LAB BLOOD ORDERABLES Final Res ult Performing Organization Address [facility] Co de Phone Number [facility] [address] [place] [address], [place] [phone] * Creatinine (08/14/2023 3:38 PM EST) Creatinine 0.63 0.50 - 1.12 mg/dL 08/14/2023 4:23 PM EST [facility] eGFR >90 >=60 mL/min/1. 73m2 08/14/2023 4:23 PM EST [facility] Comment:The estimated glomer ular filtration rate (eGFR) is calculated using a new formula developed by the NKF-ASN task force to eliminate race-based correction factors. The new formula uses serum/plasma creatinine, age, and gender to determine eGFR. A value below 60mls/min might indicate kidney disease and will be flagged. For additional information, see Jones et al, Am J Kidney Dis. 2021;79(2):268- 288, A Unifying Approach for GFR estimation: Recommendations of the NKF-ASN Task Force on Reassessing the Inclusion of Race in Diagnosing Kidney Disease . Blood Structure of peripheral vein / Unknown 08/14/2023 3:38 PM EST 08/14/2023 3:39 PM EST us Marycruz Martinez MD LAB BLOOD ORDERABLES Final Res ult Performing Organization Address [facility]/ZIP Co de Phone Number [facility] [address] [place] [address], [place] [phone] * BUN (08/14/2023 3:38 PM EST) BUN 12 6 - 20 mg/dL 08/14/2023 4:23 PM EST [facility] Blood Structure of peripheral vein / Unknown 08/14/2023 3:38 PM EST 08/14/2023 3:39 PM EST Marycruz Martinez MD LAB BLOOD ORDERABLES Final Res ult [facility] [address] [place] [address], [place] [phone] * (ABNORMAL) CBC Auto Differential (08/14/2023 3:38 PM EST) Pathologist [facility] WBC 10.9(H) 4.8 - 10.8 10*3/uL 08/14/2023 3:50 PM EST [facility] RBC 4.39 4.20 - 5.40 10*6/uL 08/14/2023 3:50 PM EST [facility] Hemoglobin 8.9(L) 11.7 - 15.5 g/dL 08/14/2023 3:50 PM EST [facility] Hematocrit 31.9(L) 35.7 - 45.8 % 08/14/2023 3:50 PM EST [facility] MCV 72.7(L) 81.0 - 99.0 fL 08/14/2023 3:50 PM EST [facility] MCH 20.3(L) 26.0 - 34.0 pg 08/14/2023 3:50 PM EST [facility] MCHC 27.9(L) 29.0 - 36.0 g/dL 08/14/2023 3:50 PM EST [facility] RDW Standard Deviation 51.8(H) 36.4 - 46.3 fL 08/14/2023 3:50 PM EST [facility] RDW 19.7(H) 11.0 - 15.0 % 08/14/2023 3:50 PM EST [facility] Platelets 586(H) 140 - 440 10*3/uL 08/14/2023 3:50 PM EST [facility] MPV 9.5 7.6 - 11.6 fL 08/14/2023 3:50 PM EST [facility] Segs % 53 50 - 75 % 08/14/2023 3:50 PM EST [facility] Immature Grans % 0.3 0.0 - 0.9 % 08/14/2023 3:50 PM EST [facility] Segs # 5.8 1.8 - 7.7 /??L 08/14/2023 3:50 PM EST [facility] Immature Grans # 0.03 0.00 - 0.03 10*3/uL 08/14/2023 3:50 PM EST [facility] nRBC % 0.0 0 - 0 /100 WBCs 08/14/2023 3:50 PM EST [facility] nRBC # 0.00 0.00 - 0.13 10*3/uL 08/14/2023 3:50 PM EST [facility] Lymphocyte % 37 20 - 44 % 08/14/2023 3:50 PM EST [facility] Lymphocyte # 4.01 1.00 - 4.75 10*3/uL 08/14/2023 3:50 PM EST [facility] Monocyte % 5 0 - 14 % 08/14/2023 3:50 PM EST [facility] Eosinophil % 4 0 - 5 % 08/14/2023 3:50 PM EST [facility] Basophil % 1 0 - 2 % 08/14/2023 3:50 PM EST [facility] Monocyte # 0.53 0.00 - 6.00 10*3/uL 08/14/2023 3:50 PM EST [facility] Eosinophil # 0.45 0 - 0.8 10*3/uL 08/14/2023 3:50 PM EST [facility] Basophil # 0.08 0.00 - 0.20 10*3/uL 08/14/2023 3:50 PM EST [facility] Blood Structure of peripheral vein / Unknown 08/14/2023 3:38 PM EST 08/14/2023 3:39 PM EST us Marycruz Martinez MD LAB BLOOD ORDERABLES Final Res ult [facility] [address] [place] [address], [place] [phone] documented in this encounter Visit Diagnoses Diagnosis Encounter for general adult medical examination without abnormal findings documented in this encounter Additional Health Concerns Infection Onset Date Last Indicated Resolved Time 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
--- OUTSIDE RECORDS SUMMARY | 2024-10-26 15:31 | XMS_ITS | Encounter Summary ---
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 Procedure Name Priority Date/Time Associated Diagnosis Comments CBC AUTO DIFFERENTIAL Routine 08/28/2023 4:36 PM EST BUN Routine 08/28/2023 4:36 PM EST CREATININE Routine 08/28/2023 4:36 PM EST HEPATIC FUNCTION PANEL Routine 08/28/2023 4:36 PM EST documented in this encounter Results * Due to [place] [employer] law, this organization might not be sharing negative HIV tests. * BUN (08/28/2023 4:36 PM EST) BUN 13 6 - 20 mg/dL 08/28/2023 5:19 PM EST [facility] Blood Structure of peripheral vein / Unknown 08/28/2023 4:36 PM EST 08/28/2023 5:04 PM EST Marycruz Martinez MD LAB BLOOD ORDERABLES Final Res ult Performing Organization Address City/State/[facility] Co de Phone Number [facility] [address] [place] [address] [address] [place] [address], [place] [phone] * Creatinine (08/28/2023 4:36 PM EST) Creatinine 0.55 0.50 - 1.12 mg/dL 08/28/2023 5:19 PM EST [facility] eGFR >90 >=60 mL/min/1. 73m2 08/28/2023 5:19 PM EST [facility] Comment:The estimated glomer ular filtration rate (eGFR) is calculated using a new formula developed by the NKF-ASN task force to eliminate race-based correction factors. The new formula uses serum/plasma creatinine, age, and gender to determine eGFR. A value below 60mls/min might indicate kidney disease and will be flagged. For additional information, see Karen et al, Am J Kidney Dis. 2021;79(2):268- 288, A Unifying Approach for GFR estimation: Recommendations of the NKF-ASN Task Force on Reassessing the Inclusion of Race in Diagnosing Kidney Disease . Blood Structure of peripheral vein / Unknown 08/28/2023 4:36 PM EST 08/28/2023 5:04 PM EST us Marycruz Martinez MD LAB BLOOD ORDERABLES Final Res ult [facility] [address] [place] [address] [address] [place] [address], * (ABNORMAL) CBC Auto Differential (08/28/2023 4:36 PM EST) WBC 11.9(H) 4.8 - 10.8 10*3/uL 08/28/2023 6:41 PM EST [facility] RBC 4.17(L) 4.20 - 5.40 10*6/uL 08/28/2023 6:41 PM EST [facility] Hemoglobin 8.5(L) 11.7 - 15.5 g/dL 08/28/2023 6:41 PM EST [facility] Hematocrit 30.4(L) 35.7 - 45.8 % 08/28/2023 6:41 PM EST [facility] MCV 72.9(L) 81.0 - 99.0 fL 08/28/2023 6:41 PM EST [facility] MCH 20.4(L) 26.0 - 34.0 pg 08/28/2023 6:41 PM EST [facility] MCHC 28.0(L) 29.0 - 36.0 g/dL 08/28/2023 6:41 PM EST [facility] RDW Standard Deviation 52.5(H) 36.4 - 46.3 fL 08/28/2023 6:41 PM EST [facility] RDW 19.9(H) 11.0 - 15.0 % 08/28/2023 6:41 PM EST [facility] Platelets 448(H) 140 - 440 10*3/uL 08/28/2023 6:41 PM EST [facility] MPV 10.0 7.6 - 11.6 fL 08/28/2023 6:41 PM EST [facility] Segs % 53 50 - 75 % 08/28/2023 6:41 PM EST [facility] Immature Grans % 0.2 0.0 - 0.9 % 08/28/2023 6:41 PM EST [facility] Lymphocyte % 37 20 - 44 % 08/28/2023 6:41 PM EST [facility] Monocyte % 6 0 - 14 % 08/28/2023 6:41 PM EST [facility] Eosinophil % 3 0 - 5 % 08/28/2023 6:41 PM EST [facility] Basophil % 1 0 - 2 % 08/28/2023 6:41 PM EST [facility] Segs # 6.3 1.8 - 7.7 /??L 08/28/2023 6:41 PM EST [facility] Immature Grans # 0.02 0.00 - 0.03 10*3/uL 08/28/2023 6:41 PM EST [facility] Lymphocyte # 4.39 1.00 - 4.75 10*3/uL 08/28/2023 6:41 PM EST [facility] Monocyte # 0.68 0.00 - 6.00 10*3/uL 08/28/2023 6:41 PM EST [facility] Eosinophil # 0.40 0 - 0.8 10*3/uL 08/28/2023 6:41 PM EST [facility] Basophil # 0.07 0.00 - 0.20 10*3/uL 08/28/2023 6:41 PM EST [facility] nRBC % 0.0 0 - 0 /100 WBCs 08/28/2023 6:41 PM EST [facility] nRBC # 0.00 0.00 - 0.13 10*3/uL 08/28/2023 6:41 PM EST [facility] Blood Structure of peripheral vein / Unknown 08/28/2023 4:36 PM EST 08/28/2023 6:33 PM EST Marycruz Martinez MD LAB BLOOD ORDERABLES Final Res ult [facility] [address] [place] [address] [address] [place] [address], [place] [phone] * (ABNORMAL) Hepatic Function Panel (08/28/2023 4:36 PM EST) Total Protein 6.1(L) 6.6 - 8.7 g/dL 08/28/2023 5:19 PM EST [facility] Albumin 3.5 3.5 - 5.0 g/dL 08/28/2023 5:19 PM EST [facility] Globulin, Total 2.6 2.1 - 4.2 g/dL 08/28/2023 5:19 PM EST [facility] Albumin Globulin Ratio 1.3 08/28/2023 5:19 PM EST [facility] Bilirubin, Total 0.1(L) 0.2 - 1.2 mg/dL 08/28/2023 5:19 PM EST [facility] Bilirubin, Direct 0.0 <=0.3 mg/dL 08/28/2023 5:19 PM EST [facility] Alkaline Phosphatase 162(H) 40 - 129 U/L 08/28/2023 5:19 PM EST [facility] AST 13 0 - 33 U/L 08/28/2023 5:19 PM EST [facility] ALT 17 <=33 U/L 08/28/2023 5:19 PM EST [facility] Bilirubin, Indirect 0.10 <=0.70 mg/dL 08/28/2023 5:19 PM EST [facility] Blood Structure of peripheral vein / Unknown 08/28/2023 4:36 PM EST 08/28/2023 5:04 PM EST us Marycruz Martinez MD LAB BLOOD ORDERABLES Final Res ult [facility] [address] [facility] [address] [place] [address], documented in this encounter Visit Diagnoses Diagnosis Post-traumatic stress disorder, unspecified documented in this encounter Additional Health Concerns Infection Onset Date Last Indicated Resolved Time 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
--- OUTSIDE RECORDS SUMMARY | 2024-10-26 15:31 | XMS_ITS | Encounter Summary ---
Author Organization [facility] Address [address] [place] [address] Care Team Providers Care Road Passenger Firer Name Role Phone Marycruz Martinez MD Primary Care Provider [phone] Deepthi Parada SPOOL SALVAGER Primary Care Provide r Reason for Visit * Reason Comments FYI Encounter Details Date Type Department Care Team (Late st Contact Info) Description 01/18/2022 Telephone [facility] [address] [place] [address] [address] [place] [address] Tristan Gonzales MD FYI Social History Tobacco Use Types Packs/Day Years [...] encounter Miscellaneous Notes * Telephone Encounter - Roman Best - 01/18/2022 4:06 PM EDT pt calling had inj with dr. gonzales wants to let him know her back is good documented in this encounter Plan of Treatment Not on file documented as of this encounter Visit Diagnoses Not on filedocumented in this encounter Care Teams Road Passenger Firer Relationship Specialty Start Date End Date Marycruz Martinez MD [address] [address] PCP - General Family Medicine 10/05/20 11/21/23 Deepthi Parada NP [facility], [address] [place] [address] PCP - General Family Medicine 11/22/23 documented as of this encounter
--- OUTSIDE RECORDS SUMMARY | 2024-10-26 15:31 | XMS_ITS | Continuity of Care Document ---
Author Organization [facility] Address [address] [place] [address] Care Team Providers Care Pile Header Name Role Phone Deepthi Parada Aliza EN[place] Primary Care Provide r Encounters Date Type Department Care Team Description 05/28/2024 1:20 PM EDT Office Visit [facility] [address] [place] [phone] Steve Mahmood DPM Ingrowing toenail (Primary Dx) 12/25/2023 11:40 AM EDT Office Visit [facility] [address] [place] [phone] Steve Mahmood DPM Painful orthopaedic hardware (HCC) [T84.84XA] (Primary Dx) 12/18/2023 Orders Only [facility] [address] [place] [phone] Ranjan Perez DPM Medications 12/18/2023 Telephone [facility] [address] [place] [phone] Steve Mahmood DPM VNA Communication 12/16/2023 Telephone [facility] [address] [place] [address] Steve Mahmood DPM Post Op 12/13/2023 Professional Billing [facility] [address] [place] [address] Steve Mahmood DPM Painful orthopaedic hardware (HCC) [T84.84XA] 12/13/2023 Minor Procedure/Test NON FC [address] [address] [facility], Unknown Provider 12/12/2023 Consult (Initial) NON FC SA [address] [address] [facility], Unknown Provider 12/11/2023 Minor Procedure/Test NON FC [address] [address], Unknown Provider 12/10/2023 Consult (Initial) NON FC [address] [address] Lenard Cho DPM 12/10/2023 ER NON FC [address] [address], Unknown Provider 12/10/2023 Hospital/Inpatient NON FC [address] [address] Shaun Holguin Parul, MD Dislocation of other internal joint prosthesis, initial encounter ([facility]); Acute respiratory failure with hypoxia; Hypotension, unspecified; Body mass index (BMI) 40.0-44.9, adult ([facility]); Iron deficiency anemia, unspecified; Morbid (severe) obesity due to excess calories; Influenza due to other identified influenza virus with other respiratory manifestations; Polyneuropathy, unspecified; Anxiety disorder, unspecified; Fibromyalgia; Personal history of Methicillin resistant Staphylococcus aureus infection; Non-pressure chronic ulcer of other part of right foot with unspecified severity ([facility]); Surgical operation with implant of artificial internal device as the cause of abnormal reaction of the patient, or of later complication, without mention of misadventure at the time of the procedure Discharge Disposition: Discharged to home or self care (routine discharge) 12/10/2023 Telephone [facility] [address] [place] [phone] Steve Mahmood DPM Procedure Follow Up 12/10/2023 Telephone [facility] [address] [place] [address] Steve Mahmood DPM Foot Pain 12/05/2023 1:45 PM EST Radiology [facility] [address] [place] [address] Chronic pain in right foot 12/05/2023 12:50 PM EST Office Visit [facility] [address] [place] [address] Steve Mahmood DPM Chronic pain in right foot (Primary Dx); Painful orthopaedic hardware (HCC) 09/11/2023 3:00 PM EST Office Visit [facility] [address] [place] [address] Steve Mahmood DPM Hallux malleus of right foot (Primary Dx); Painful orthopaedic hardware (HCC) 09/03/2023 12:15 PM EST Radiology [facility] [address] [place] [address] Pain of toe of right foot 08/27/2023 Telephone [facility] [address] [place] [phone] Steve Mahmood, MARCIA Appointment 07/03/2023 Refill [facility] [address] [facility] [address] [place] [address] [employer] Refill Request 06/28/2023 Refill [facility] [address] [facility] [address] [place] [address] Suly Martinez NP E-prescribing Refill Request 11/08/2022 Telephone [facility] [address] [facility] [address] [place] [address] Tristan Gonzales MD 11/06/2022 Telephone [facility] [address] [facility] [address] [place] [address] Tristan Gonzales MD Other ; Error 11/05/2022 Telephone [facility] [address] [facility] [address] [place] [address] Tristan Gonzales MD Return Call 10/17/2022 1:20 PM EST Office Visit [facility] [address] [place] [address] Steve Mahmood, DPSuzanne Ingrowing toenail (Primary Dx); Pain of toe of right foot 10/10/2022 Consult (Initial) CARDI UNSPECIFIED Edouard Lowe 10/08/2022 Telephone [facility] [address] [facility] [address] [place] [address] Tristan Gonzales MD Imm/Inj 07/09/2022 Refill [facility] [address] [facility] [address] [place] [address] Suly Martinez NP E-prescribing Refill Request 06/13/2022 Telephone [facility] [address] [facility] [address] [place] [address] Antonio Leigh MD Appointment 06/12/2022 Telephone [facility] [address] [facility] [address] [place] [address] Benny Foley MD Results (MRI ) 05/24/2022 10:00 AM EDT Radiology [facility] [address] [place] [address] Paresthesia; Weakness of right upper extremity; Gait abnormality; Family history of MS (multiple sclerosis); Urgency of urination; White matter abnormality on MRI of brain 05/16/2022 Telephone [facility] [address] [facility] [address] [place] [address] Benny Foley MD Results (Labs ) 05/15/2022 Orders Only [facility] [address] [facility] [address] [place] [address] Benny Foley MD 05/14/2022 Telephone CALL [facility] [address] [place] [address] Benny Foley MD Labs/orders (Creatinine Order for Radiology with Contrast) 05/10/2022 Orders Only [facility] [address] [facility] [address] [place] [address] Benny Foley MD 05/08/2022 3:00 PM EDT Office Visit [facility] [address] [place] [phone] Steve Mahmood DPM Ingrowing toenail (Primary Dx) 05/07/2022 12:40 PM EDT Minor Procedure/Test [facility] [address] [address] Tristan Gonzales MD Sacroiliac joint dysfunction (Primary Dx); Enthesopathy of sacroiliac joint 04/24/2022 Telephone [facility] [address] [facility] [address] [place] [address] Benny Foley MD Results (MRI) 04/24/2022 Orders Only [facility] [address] [facility] [address] [place] [address] Benny Foley MD 04/18/2022 Telephone [facility] Orthopedic Surgery [address] [place] [address] Tristan Gonzales MD Patient Questions 04/14/2022 2:00 PM EDT Radiology [facility] [address] [place] [address] Paresthesia; Weakness of right upper extremity; Gait abnormality; Family history of MS (multiple sclerosis); Urgency of urination 04/09/2022 Telephone [facility] [address] [facility] [address] [place] [address] Tristan Gonzales MD Prior Authorization Request 04/09/2022 2:40 PM EDT Minor Procedure/Test [facility] [address] [facility] [address] [place] [address] Tristan Gonzales MD Primary osteoarthritis of both knees (Primary Dx); Sacroiliac joint dysfunction; Enthesopathy of sacroiliac joint 03/28/2022 3:10 PM EDT Office Visit [address] [address] Steve Mahmood DPM Ingrowing toenail (Primary Dx) 03/26/[address] [address] Steve Mahmood DPM Patient Questions 03/26/2022 Telephone [facility] [address] [address] Tristan Gonzales MD Appointment (Appointment reminder) 03/20/2022 3:40 PM EDT Office Visit [address] [address] Steve Mahmood DPM Ingrowing toenail (Primary Dx) 03/20/2022 12:45 PM EDT Consult (Initial) [facility] [address] [facility] [address] [place] [address] Benny Foley MD Paresthesia (Primary Dx); Weakness of right upper extremity; Gait abnormality; Family history of MS (multiple sclerosis); Urgency of urination; White matter abnormality on MRI of brain 03/19/2022 Telephone [facility] [address] [place] [address] [employer] 03/08/2022 Telephone [facility] [address] [address] Tristan Gonzales MD Prior Authorization Request ; Appointment 03/07/2022 11:40 AM EDT Office Visit [facility] [address] [address] Tristan Gonzales MD Primary osteoarthritis of both knees (Primary Dx) 02/13/2022 1:00 PM EDT Office Visit [facility]. Podiatry [address] [place] [address] Steve Mahmood DPM Ingrowing toenail (Primary Dx) 01/18/2022 Telephone [facility] [address] [place] [address] Tristan Gonzales MD FYI 01/09/2022 11:40 AM EDT Minor Procedure/Test [facility] [address] [address] Tristan Gonzales MD Sacroiliac joint dysfunction (Primary Dx); Enthesopathy of sacroiliac joint 01/02/2022 Telephone [facility] [address] [address] Tristan Gonzales MD Prior Authorization Request ; Appointment 01/02/2022 1:40 PM EDT Office Visit [facility] [address] [address] Tristan Gonzales MD Primary osteoarthritis of both knees (Primary Dx); Sacroiliac joint dysfunction; Whiplash injuries, sequela 12/13/2021 1:15 PM EDT Radiology [facility] [address] [address] Right shoulder pain, unspecified chronicity 12/13/2021 1:30 PM EDT Consult (Initial) [facility] [address] [address] Remberto Ballard MD Rotator cuff strain, right, initial encounter (Primary Dx); Chronic neck pain 11/02/2021 1:00 PM EST Minor Procedure/Test [facility] Orthopedic Surgery [address] [place] [address] Tristan Gonzales MD Cervical radiculitis (Primary Dx) 10/09/2021 1:20 PM EST Office Visit [facility] [address] [place] [address] Steve Mahmood DPM Ingrowing toenail (Primary Dx) 09/20/2021 Telephone [facility] [address] [address] Tristan Gonzales MD Prior Authorization Request 09/20/2021 10:20 AM EST Office Visit [facility] [address] [address] Tristan Gonzales MD Cervical radiculitis (Primary Dx); Chronic neck pain; Foraminal stenosis of cervical region 09/04/2021 Orders Only [address] [address] [facility] Prov 08/04/2021 Consult (Initial) CARDI UNSPECIFIED Edouard Lowe 07/31/2021 Telephone [facility] [address] [address] Tristan Gonzales MD Patient Questions 07/22/2021 1:15 PM EDT Radiology [facility] [address] [place] [address] Chronic neck pain 07/21/2021 Refill [facility] [address] [facility] [address] [place] [address] Suly Martinez NP E-prescribing Refill Request 06/26/2021 11:40 AM EDT Minor Procedure/Test [facility] [address] [facility] [address] [place] [address] Tristan Gonzales MD Cervical radiculitis (Primary Dx); Chronic neck pain 04/21/2021 2:00 PM EDT Minor Procedure/Test [facility] [address] [place] [address] Aamir Dorman MD Cervical radiculopathy (Primary Dx) 04/19/2021 1:30 PM EDT [facility] [address] [place] [address] LDN CDE Morbid obesity (Primary Dx) 04/18/2021 2:15 PM EDT Radiology [facility] [address] [place] [address] 04/18/2021 1:20 PM EDT Office Visit [facility] [address] [place] [address] Steve Mahmood DPM Ingrowing toenail (Primary Dx) 03/01/2021 4:45 PM EDT Radiology [facility] [address] [place] [address] 03/01/2021 Travel 03/01/2021 4:30 PM EDT Office Visit [facility] [address] Steve Mahmood DPM Hallux valgus of right foot (Primary Dx) 02/20/2021 Orders Only [facility]. Nutrition [address] [place] [phone] Jose Martinez MD 02/20/2021 4:00 PM EDT Nutrition [facility] [address] [place] [phone] Morbid obesity with body mass index (BMI) of 40.0 to 49.9 (Primary Dx) 02/15/2021 12:15 PM EDT Radiology [facility]. X-Ray [address] [place] [address] 02/15/2021 Travel 02/15/2021 11:50 AM EDT Office Visit [facility] [address] [place] [phone] Steve Mahmood, MARCIA Hallux valgus of right foot (Primary Dx) 02/13/2021 Professional Billing [facility] [address] [place] [phone] Steve Mahmood, MARCIA Hallux valgus of right foot 02/13/2021 [facility] [address] Steve Mahmood DPM 02/10/2021 [facility] [phone] Steve Mahmood DPM Hallux valgus of right foot 02/09/2021 Surgery/Major Procedure [address] [address] Steve Mahmood DPM 02/07/2021 Orders Only [facility] MISCELLANEOUS [phone] Jose Martinez MD 02/01/2021 Orders Only [facility] [address] [facility] [address] [place] [address] Jany Dickerson MD 02/01/2021 Orders Only [facility] [address] [address] Sheron Blunt NP 02/01/2021 Travel 02/01/2021 2:20 PM EDT Office Visit [facility] 123 [facility] [address] [place] [address] Sheron Blunt NP Preoperative examination (Primary Dx); Hallux valgus (acquired), right foot; Hypothyroidism; Sleep apnea, unspecified type; Hyperglycemia; BMI 45.0-49.9, adult (HCC); Gastroesophageal reflux disease without esophagitis; Chronic superficial gastritis without bleeding; History of MRSA infection; Mood altered 01/20/2021 Travel 01/20/2021 1:30 PM EDT Consult (Initial) [facility] [address] [facility] [address] [place] [address] Aaron Barrios MD Rupture of left patellar tendon, initial encounter (Primary Dx) 01/17/2021 Travel 01/17/2021 1:05 PM EDT Minor Procedure/Test [facility] [address] [facility] [address] [place] [address] Tristan Gonzales MD Primary osteoarthritis of both knees (Primary Dx) 01/16/2021 Travel 01/16/2021 1:25 PM EDT Minor Procedure/Test [facility] [address] [address] Tristan Gonzales MD Myalgia (Primary Dx); Cervical radiculitis; Chronic neck pain 12/27/2020 1:45 PM EDT Radiology [facility] 123 [facility] [address] [place] [address] Back pain, unspecified back location, unspecified back pain laterality, unspecified chronicity 12/27/2020 Orders Only [facility] [address] [facility] [address] [place] [address] Arie Wilson MD 12/27/2020 Telephone [facility] [address] [facility] [address] [place] [address] Tristan Gonzales MD Prior Authorization Request 12/27/2020 Travel 12/27/2020 12:45 PM EDT Consult (Initial) [facility] [address] [address] Arie Wilson MD Cervical radiculopathy (Primary Dx); Whiplash injury to neck, sequela; S/P shoulder surgery 12/09/2020 2:45 PM EST Radiology [facility] 123 [facility] [address] [place] [address] Pain in both knees, unspecified chronicity; Right shoulder pain, unspecified chronicity 12/09/2020 2:45 PM EST Consult (Initial) [facility] [address] [facility] [address] [place] [address] Yuli Campo, PA Primary osteoarthritis of left knee (Primary Dx); Primary osteoarthritis of both knees; Post-traumatic osteoarthritis of both knees; Strain of right rotator cuff capsule, initial encounter 12/07/2020 Orders Only [facility] [address] [facility] [address] [place] [address] Yuli Campo PA 12/07/2020 Orders Only [facility] [address] [facility] [address] [place] [address] Yuli Campo, PA 11/22/2020 Telephone [facility] [address] [facility] [address] [place] [address] Tristan Gonzales MD Prior Authorization Request 11/22/2020 Travel 11/22/2020 Telephone [facility] Pod[facility] [address] [place] [address] Steve Mahmood DPM FYI 11/22/2020 1:45 PM EST Minor Procedure/Test [facility] [address] [facility] [address] [place] [address] Tristan Gonzales MD Primary osteoarthritis of left knee (Primary Dx) 11/16/[address] [facility] [address] [place] [address] Steve Mahmood DPM Surgery Cancellation 11/07/2020 Travel 10/24/2020 Telephone [facility] [address] [facility] [address] [place] [address] Suly Martinez NP No Show 10/11/2020 [facility] Medical Records [address] [place] [address] Unknown 10/05/2020 Telephone [facility] [address] [address] Tristan Gonzales MD Prior Authorization Request 10/05/2020 11:30 AM EST Radiology [facility] 123 [facility] [address] [place] [address] 10/05/2020 Travel 10/05/2020 11:00 AM EST Office Visit [facility] [address] [address] Tristan Gonzales MD Primary osteoarthritis of both knees (Primary Dx); Pain in joint of right shoulder 08/17/2020 Telephone CALL [address] [address] Prasanna Zaragoza MD Return Call 08/15/2020 Telephone [facility] [address] [place] [address] Steve Mahmood DPM Patient Questions 08/05/2020 Telephone [facility] [address] [place] [address] [address] [place] [address] [employer] Results 08/04/2020 Travel 08/04/2020 1:00 PM EST Radiology [facility] [address] [place] [address] 06/23/2020 Travel 06/14/2020 Travel 06/14/2020 2:30 PM EDT Radiology [facility] [address] [address] Pain in both knees, unspecified chronicity 06/14/2020 2:45 PM EDT Consult (Initial) [facility] [address] [address] Prasanna Zaragoza MD Primary osteoarthritis of both knees (Primary Dx) 06/13/2020 Orders Only [facility] [address] [facility] [address] [place] [address] Prasanna Zaragoza MD 06/10/2020 Travel 06/10/2020 11:15 AM EDT Consult (Initial) [facility] [address] [facility] [address] [place] [address] Suly Martinez NP Urinary urgency (Primary Dx); Urinary frequency; Urge incontinence 06/01/2020 4:00 PM EDT Radiology [facility]. X-Ray [address] [place] [address] Right foot pain 06/01/2020 Travel 06/01/2020 3:40 PM EDT Consult (Initial) [facility] Pod[facility] [address] [place] [address] Steve Mahmood DPM Acquired hallux valgus of right foot (Primary Dx) 05/16/2020 Orders Only [facility] [address] [place] [address] Steve Mahmood DPM 04/23/2019 10:15 AM EDT Consult (Initial) [facility] [address] [facility] [address] [place] [address] Prasanna Zaragoza MD Primary osteoarthritis of left knee (Primary Dx); MRSA infection; Quadriceps muscle rupture, left, sequela 04/20/2019 Orders Only [facility] [address] [facility] [address] [place] [address] Prasanna Zaragoza MD 04/18/2016 9:30 AM EDT Office Visit [facility] [place] [address] Concetta Rios CRNP Surveillance for control, intrauterine device (Primary Dx); Possible , not confirmed 02/29/2016 10:30 AM EDT Office Visit [facility] [address] [facility] [address] [place] [address] Concetta Rios CRNP Encounter for insertion of intrauterine contraceptive device (Primary Dx); examination or test, unconfirmed 12/30/2015 8:00 AM EDT Office Visit [facility] [address] [place] [address] Concetta Rios CRNP General counseling and advice for contraceptive management (Primary Dx); Breast cancer screening 08/17/2015 Flowsheet (Clinical) [facility] [address] [facility] [address] [place] [address] Provider, Unknown 04/13/2015 Telephone [facility] [address] [place] [address] Concetta Rios, Concetta Thurman [employer] [employer] 01/14/2015 Telephone [facility] [address] [place] [address] Concetta Rios CRNP [place], Denise [address] [employer] ; Vaginal Problem 10/22/2014 2:30 PM EST Office Visit [facility] [address] [place] [address] Concetta Rios CRNP Encounter for routine gynecological examination (Primary Dx); Screening for malignant neoplasm of cervix 07/05/2014 11:00 AM EDT Office Visit [facility] [address] [facility] [address] [place] [address] Aamir Layne MD Instability of joint (Primary Dx) 07/02/2014 Telephone [facility] 123 [facility] [address] [place] [address] Aamir Layne MD Patient Questions 05/27/2014 Telephone [facility] [address] [facility] [address] [place] [address] Aamir Layne MD Other (dr layne) 05/12/2014 10:30 AM EDT Office Visit [facility] [address] [facility] [address] [place] [address] Aamir Layne MD Internal derangement of knee joint (Primary Dx) 03/10/2014 10:00 AM EDT Office Visit [facility] [address] [address] Aamir Layne MD Sprain and strain of knee and leg (Primary Dx) 02/18/2014 Telephone [facility] [address] [address] Aamir Layne MD Patient Questions 01/19/2014 Telephone [facility] [address] [place] [address] Aamir Layne MD Labs/orders (Xi) 01/04/2014 2:15 PM EDT Office Visit [facility] [address] [address] Aamir Layne MD Sprain and strain of knee and leg (Primary Dx) 12/25/2013 Telephone [facility] [address] [address] Aamir Layne MD Patient Questions 11/23/2013 10:30 AM EST Office Visit [facility] [address] [address] Aamir Layne MD Sprain and strain of knee and leg (Primary Dx) 11/17/2013 Telephone [facility] [address] [address] Aamir Layne MD Patient Questions (Xi) 11/03/2013 Telephone [facility] [address] [place] [address] Aamir Layne MD Letter/form Request (xi) 10/19/2013 Telephone [facility] [address] [place] [address] Aamir Layne MD Patient Questions 10/19/2013 11:15 AM EST Office Visit [facility] [address] [address] Aamir Layne MD Sprain and strain of knee and leg (Primary Dx) 09/22/2013 11:00 AM EST Office Visit [facility] [address] [address] Aamir Layne MD Sprain and strain of knee and leg (Primary Dx) 09/15/2013 Telephone [facility] [address] [address] Aamir Layne MD Patient Questions 09/04/2013 Telephone [facility] [address] [phone] Aamir Layne MD Patient Questions 08/31/2013 Telephone [facility] [address] [phone] Aamir Layne MD Patient Questions 08/24/2013 2:15 PM EST Office Visit [facility] [address] [phone] Elver Crook PA Patellar tendon rupture (Primary Dx) 08/20/2013 Telephone [facility] [address] [phone] Aamir Layne MD Other (Dr. Layne) 08/15/2013 Orders Only NON [facility] [address] [place] [address] [facility], Unknown Provider 08/14/2013 Minor Procedure/Test NON [facility] [address] [place] [address] Aamir Layne MD 08/12/2013 Telephone [facility] [address] [phone] Aamir Layne MD Patient Questions 08/10/2013 Telephone [facility] [address] [phone] Aamir Layne MD ER F/U 08/09/[address] [facility] [address] [place] [address] [facility], Emergency Rm Provider 08/09/2013 Hospital/Inpatient NON FC [facility] [address] [place] [address] Aamir Layne MD 08/05/2013 Telephone [facility] [address] [place] [phone] Aamir Layne MD Appointment (Dr. Layne) 08/04/2013 Letter/Form 300 [facility] Magnetic Resonance Imaging [address] [place] [phone] 08/04/2013 12:15 PM EST Radiology [address] [place] [address] Magnetic Resonance Imaging [address] [place] [phone] Sprain and strain of knee and leg 08/03/2013 3:15 PM EST Office Visit [facility] [address] [place] [phone] Aamir Layne MD Sprain and strain of knee and leg (Primary Dx) 07/27/2013 Minor Procedure/Test NON [facility] [address] [place] [address] Aamir Layne MD 07/13/2013 Telephone [facility] [address] [place] [phone] Aamir Lanye MD Patient Questions 07/10/2013 Telephone [facility] [address] [place] [phone] Aamir Layne MD Patient Questions 07/06/2013 Telephone [facility] [address] [place] [phone] Aamir Layne MD Letter/form Request (dr layne) 06/29/2013 10:45 AM EDT Office Visit [facility] [address] [place] [phone] Elver Crook PA Rupture patellar tendon (Primary Dx) 06/26/2013 Telephone [facility] [address] [facility] [address] [place] [phone] Aamir Layne MD [facility] (Dr. Layne) 06/18/2013 Orders Only NON [facility] [address] [place], [place] [address], Unknown Provider 06/17/2013 Minor Procedure/Test NON [facility] [address] [place] [address] Aamir Layne MD 06/17/2013 Hospital/Inpatient NON [facility] [address] [address], Unknown Provider 06/17/2013 [facility] [address], Unknown Provider 06/17/2013 [facility] [address] [address], Unknown Provider 06/17/2013 Minor Procedure/Test NON [facility] [address] [address] Aamir Layne MD 06/15/2013 1:30 PM EDT Consult (Initial) [facility] [address] [place] [phone] Aamir Layne MD Sprain and strain of knee and leg (Primary Dx) 06/09/2013 Telephone [facility] [address] [place] [phone] Aamir Layne MD Letter/form Request (Dr. Layne) 06/09/2013 11:00 AM EDT Office Visit [facility] [address] [place] [phone] Ariel Barcenas PA S/P arthroscopy of left knee (Primary Dx); Tear of lateral cartilage or meniscus of knee, current; Left knee DJD; ACL tear 06/02/2013 Minor Procedure/Test NON FC [facility] [address] [address] Aamir Layne MD 06/02/2013 Minor Procedure/Test [facility] [address] [address] Aamir Layne MD 05/19/2013 1:15 PM EDT [facility] Visit [facility] 123 [facility] [address] [place] [address] Konrad Barros MD Preoperative examination (Primary Dx); OA (osteoarthritis) of knee; Hypothyroidism; Obesity; Bipolar disorder (HCC); Allergic rhinitis; Sleep apnea; Congenital hip dysplasia 05/12/2013 1:45 PM EDT Consult (Initial) [facility] [address] [facility] 320 [place] [address] Aamir Layne MD Osteoarthritis of knee (Primary Dx); Rupture of anterior cruciate ligament; Tear of lateral cartilage or meniscus of knee, current 04/17/2013 Telephone [facility] [address] [phone] Aamir Layne MD Error 04/13/2013 Telephone [facility] [address] [facility] 320 [place] [address] Ariel Barcenas PA Patient Questions 04/10/2013 Telephone [facility] [address] [phone] Aamir Layne MD Patient Questions 04/10/2013 3:00 PM EDT Consult (Initial) [facility] [address] [facility] 320 [place] [address] Ariel Barcenas PA ACL tear (Primary Dx); Tear of lateral cartilage or meniscus of knee, current; Left knee DJD 03/25/2013 Telephone [facility] [address] [phone] Sydni Issa MD Cancellation 03/20/2013 Telephone [facility] [address] [phone] [place] Downing PA Appointment 02/25/2013 Telephone [facility] [address] [phone] Sydni Issa MD Patient Questions (FABIANA) 02/19/2013 3:00 PM EDT Consult (Initial) [facility] [address] [place] [address] [address] [place] [address] Sydni Issa MD Sacroiliitis (Primary Dx); Unsteady gait 07/06/2005 Orders Only [place] [address] [address] Nikolas MCDUFF[place], [address] Provider, [place] Unknown Allergies Active Allergy Reactions Criticality Noted Date Comments Morphine 04/10/2013 Vancomycin Hcl Maculopapular Rash High 04/23/2019 Severe Rash and diarrhea Latex Pruritus (itching) 10/17/2022 Medications Lamotrigine (LAMICTAL) 150 MG Tab 1 TABLET TWICE DAILY Active Levothyroxine Sodium (LEVOXYL) 150 MCG Tab Take by mouth PATIENT TAKING 200 MCG Active Aripiprazole 5 MG Tab 1 TABLET DAILY Activ e Biotin 5000 MCG Cap 1 CAPSULE DAILY Acti ve traZODone HCl (DESYREL) 100 MG tablet Take 200 mg by mouth every night Active PARoxetine HCl (PAXIL) 20 MG tablet Take 30 mg by mouth 1 (one) time each day in the morning Active Lurasidone HCl (Latuda) tablet Take 60 mg by mouth 1 (one) time each day with breakfast Active Diclofenac Sodium (VOLTAREN) 75 MG EC tablet Take 75 mg by mouth 3 (three) times a day Active Gabapentin (NEURONTIN) 300 MG capsule Take 300 mg by mouth 3 (three) times a day 0 Active tiZANidine HCl (ZANAFLEX) 4 MG tablet Take 4 mg by mouth every 8 (eight) hours if needed PT TAKING 2 A NIGHT 0 Active Famotidine (PEPCID) 20 MG tablet TAKE 1 TABLET BY MOUTH EVERYDAY AT BEDTIME (PRODUCT IS ON BACKORDER CURRENTLY) 0 Active Omeprazole (PriLOSEC) [address] capsule Take 40 mg by mouth Active Multiple Vitamins-Mohave als (Multiple Vitamins/Women s) Tab Take 1 tablet by mouth 1 (one) time each day Active diphenhydrAMIN E (BENADRYL) 25 MG capsule Take 25 mg by mouth every 6 (six) hours if needed for itching Active hydrOXYzine HCl (ATARAX) 25 MG tablet 1 Active Trulicity 1.5 MG/0.5ML Solution Pen-injector 1 Active Semaglutide,0. 25 or 0.5MG/DOS, (Ozempic, 0.25 or 0.5 MG/DOSE,) 2 MG/1.5ML Solution Pen-injector Ozempic 0.25 mg or 0.5 mg (2 mg/1.5 mL) subcutaneous pen injector INJECT 0.5 MG EVERY WEEK BY SUBCUTANEOUS ROUTE IN THE MORNING FOR 56 DAYS. Active Foot Care Products [facility] Please evaluate for gait training at home partial weight bearing right foot in an equalizer boot. (T84.84XA) Painful orthopaedic hardware (HCC) [T84.84XA] (M79.671, G89.29) Chronic pain in right foot. 1 each 4 Active Oxybutynin Chloride (DITROPAN-XL) 10 MG 24 hr tablet Take one tablet (10 mg total) by mouth 1 (one) time each day. 90 tablet 3 3 10/10/19 25 Active Problems Problem Noted Date Diagnosed Date Chronic pain in right foot 12/05/2023 Painful orthopaedic hardware 09/11/2023 Hallux malleus of right foot 09/11/2023 Class 3 severe obesity due t o excess calories with serious comorbidity and body mass index (BMI) of 45.0 to 49.9 in adult 05/23/2021 Other specified eating disorder 05/23/2021 Hyperglycemia 01/31/2021 Inflammation of sacroiliac joint 01/31/2021 Hypertriglyceridemia 01/31/2021 Prediabetes 06/14/2020 Fibromyalgia 08/20/2017 Post traumatic stress disorder (PTSD) 07/06/2017 S/P arthroscopy of left knee 06/09/2013 Sleep apnea 05/19/2013 Hypothyroidism 05/19/2013 Overview (02/04/2015): Left knee DJD 04/10/2013 Overview (02/04/2015): Tear of lateral cartilage or meniscus of knee, c urrent 04/10/2013 ACL tear 04/10/2013 Bipolar 1 disorder 09/01/2010 Overview (01/31/2021): Last Assessment & Plan: Patient with history of bipolar disorder, with multiple hospitalization, and a history of suicidal attempt in February 2015. She is on Paxil 20 mg daily and trazodone 150 mg nightly. At the time of admission, patient's mood was appropriate. She denies suicidal, homicidal ideation. -Continue home meds Immunizations Name Administration Dates Next Due Influenza (SEASONAL) - 08/01/2015 Influenza,injectable,quad,Prsrv Fr 05/31/2014 Influenza,live,intranasal,tr ivalent (Flumist) 06/30/2012 PCV-20 01/29/2022 PPD/TST (Tuberculin Skin Test) 10/15/2018 PPV23 (Pneumovax) 11/29/2011 Td (adult), adsorbed 04/13/2022 Tdap 07/05/2017,08/01/2015,01/23/2013 Zoster (Shingrix) 06/18/2021,04/16/2021 Family History Medical History Relation Name Comments Autoimmune dz Father Depression Father Heart Disorder Father Thyroid Disorder Father Arthritis/Joint disorder Maternal grandmother Diabetes Maternal grandmother Arthritis/Joint disorder Mother Autoimmune dz Mother Depression Mother Gastrointestinal Disorder Mother Pulmonary Disorder Mother Thyroid Disorder Mother Cancer (?Type) Paternal grandfather skin to lungs Cancer (?Type) Paternal grandmother Alcohol/Drug Neg Hx Anesthesia Problems/Malignant Hyperthermia Neg Hx Asthma Neg Hx Autism Neg Hx Defect/Congenital Anomaly Neg Hx Blood Cell Disorder/Hemoglobinopathy Neg Hx Cancer - Breast Neg Hx Congenital heart dz Neg Hx <50 yrs for other reason Neg Hx Dementia Neg Hx Developmental delay/Learning Disability Neg Hx Headache/Migraine Neg Hx Hereditary/Genetic Disorder Neg Hx Hypertension Neg Hx Kidney Disorder Neg Hx Lipid/Cholesterol Abnormality Neg Hx No Known or Significant Medical History Neg Hx Osteoporosis/Bone Disorder Neg Hx Other Neg Hx Psych/Mental Health Neg Hx Skin Problems Neg Hx Stroke Neg Hx Tuberculosis Neg Hx Relation Name Status Comments Father Maternal grandmother Mother Paternal grandfather Paternal grandmother Social History Smoking Status as of 10/26/2024 Tobacco Use Types Packs/Day Years Used Date Smoking Tobacco: Never Assessed Intimate Partner Violence Answer Date R ecorded Fear of Current or Ex-Partner Not on file Emotionally Abused Not on file 05/31/2023 Physically Abused Not on file 05/31/2023 Sexually Abused Not on file 05/31/2023 Feel Safe at Home Not on file 05/31/2023 Sex and Gender Information Value Date Recorded Sex Assigned at Female 04/27/2022 2:04 PM EDT Legal Sex Female 2:36 AM EDT Gender Identity Female 04/27/2022 2:04 PM EDT Sexual Orientation Straight 04/27/2022 2: 04 PM EDT Last Filed Vital Signs Vital Sign Reading Time Taken Comments Blood Pressure 113/81 05/07/2022 12:33 PM EDT Pulse 52 05/07/2022 12:33 PM EDT Temperature 36.1 ??C (97 ??F) 05/07/2022 12:33 PM EDT Respiratory Rate 14 05/19/2013 12:56 PM EDT Oxygen Saturation - - Inhaled Oxygen Concentration - - Weight 124 kg (273 lb) 02/01/2021 2:13 PM EDT Height 162.6 cm (5' 4 ) 02/01/2021 2:13 PM EDT Body Mass Index 46.86 02/01/2021 2:13 PM EDT Plan of Treatment Not on file Procedures * Due to [place] state law, this organization might not be sharing negative HIV tests. Procedure Name Priority Date/Time Associated Diagnosis Comments GLUCOSE POINT OF CARE Routine 12/17/2023 7:48 AM EDT GLUCOSE POINT OF CARE Routine 12/16/2023 9:28 PM EDT GLUCOSE POINT OF CARE Routine 12/16/2023 11:04 AM EDT GLUCOSE POINT OF CARE Routine 12/16/2023 7:33 AM EDT RESPIRATORY VIRUS COVID-19 FLU A+B RSV PCR Routine 12/16/2023 1:31 AM EDT CHEST, PORTABLE INTRAOPERATIVE Routine 12/16/2023 1:10 AM EDT GLUCOSE POINT OF CARE Routine 12/15/2023 8:35 PM EDT GLUCOSE POINT OF CARE Routine 12/15/2023 4:02 PM EDT GLUCOSE POINT OF CARE Routine 12/15/2023 10:54 AM EDT GLUCOSE POINT OF CARE Routine 12/15/2023 7:02 AM EDT GLUCOSE POINT OF CARE Routine 12/14/2023 8:26 PM EDT GLUCOSE POINT OF CARE Routine 12/14/2023 4:00 PM EDT GLUCOSE POINT OF CARE Routine 12/14/2023 11:28 AM EDT GLUCOSE POINT OF CARE Routine 12/14/2023 7:41 AM EDT GLUCOSE POINT OF CARE Routine 12/13/2023 8:29 PM EDT GLUCOSE POINT OF CARE Routine 12/13/2023 4:16 PM EDT GLUCOSE POINT OF CARE Routine 12/13/2023 10:40 AM EDT GLUCOSE POINT OF CARE Routine 12/13/2023 7:53 AM EDT CPK Routine 12/13/2023 5:45 AM EDT PROCEDURE NOTE 12/13/2023 GLUCOSE POINT OF CARE Routine 12/12/2023 7:41 PM EDT GLUCOSE POINT OF CARE Routine 12/12/2023 11:46 AM EDT GLUCOSE POINT OF CARE Routine 12/12/2023 7:30 AM EDT GLUCOSE POINT OF CARE Routine 12/11/2023 9:29 PM EDT CULTURE ANAEROBIC Routine 12/11/2023 5:3 4 PM EDT CULTURE ANAEROBIC Routine 12/11/2023 5:3 3 PM EDT CULTURE TISSUE Routine 12/11/2023 5:33 PM EDT WOUND CULTURE Routine 12/11/2023 5:32 PM EDT FOOT 3 VIEW - RIGHT Routine 12/11/2023 4 :25 PM EDT GLUCOSE POINT OF CARE Routine 12/11/2023 11:15 AM EDT GLUCOSE POINT OF CARE Routine 12/11/2023 7:36 AM EDT THYROID STIMULATING HORMONE Routine 12/11/2023 7:26 AM EDT COMPREHENSIVE METABOLIC PANEL Routine 12/11/2023 7:26 AM EDT PROTHROMBIN TIME Routine 12/11/2023 7:26 AM EDT HEMOGLOBIN A1C Routine 12/11/2023 7:26 AM EDT CBC Routine 12/11/2023 7:26 AM EDT UNSPECIFIED MAJOR PROCEDURE 12/11/2023 PROCEDURE NOTE 12/11/2023 GLUCOSE POINT OF CARE Routine 12/10/2023 10:37 PM EDT XRAY FOOT COMPLETE MIN 3 VWS - RIGHT (DX: FOOT PAIN *NO INJURY*) Routine 12/05/2023 2:12 PM EST Chronic pain in right foot XRAY FOOT COMPLETE MIN 3 VWS - RIGHT (DX: FOOT PAIN *NO INJURY*) Routine 09/03/2023 12:24 PM EST Pain of toe of right foot MRI CERVICAL SPINE W AND W/O CONTRAST Routine 05/24/2022 10:40 AM EDT Paresthesia Weakness of right upper extremity Gait abnormality Family history of MS (multiple sclerosis) Urgency of urination White matter abnormality on MRI of brain CBC INCLUDES DIFFERENTIAL AND PLATELET COUNT Routine 05/15/2022 1:30 PM EDT Weakness of right upper extremity VENIPUNCTURE Routine 05/15/2022 1:30 PM EDT Weakness of right upper extremity MRI BRAIN W AND W/O CONTR (DX: ABNL REWEAVER FUNCTION, R/O MULT SCLEROSIS) (<1 MONTH) Routine 04/14/2022 3:09 PM EDT Paresthesia Weakness of right upper extremity Gait abnormality Family history of MS (multiple sclerosis) Urgency of urination DESTRUCTION BY NEUROLYTIC AGENT, GENICULAR NERVE BRANCHES INCLUDING IMAGING GUIDANCE, WHEN PERFORMED Routine 04/09/2022 2:36 PM EDT Primary osteoarthritis of both knees XRAY SHOULDER COMPLETE MIN 2 VWS - RIGHT Routine 12/13/2021 1:05 PM EDT Right shoulder pain, unspecified chronicity INJECTION(S) OF DIAGNOSTIC OR THERAPEUTIC SUSTANCES(S), CERVICAL OR THORACIC W/IMAGE Routine 11/02/2021 1:25 PM EST Cervical radiculitis CHEST 2 VIEWS Routine 09/04/2021 1:33 PM EST MRI CERVICAL SPINE W/O CONTRAST Routine 07/22/2021 1:53 PM EDT Chronic neck pain NERVE CONDUCTION STUDIES; 7-8 STUDIES Routine 04/21/2021 2:33 PM EDT Cervical radiculopathy NEEDLE ELECTROMYOGRAPHY (EMG) EACH EXTREM, W/WO PARASPINAL AREAS, COMPLETE, W/ PRIM PROC Routine 04/21/2021 2:33 PM EDT Cervical radiculopathy ELECTROMYOGRAM/NERVE CONDUCTION STUDY (EMG/NCS) 04/21/2021 XRAY FOOT COMPLETE MIN 3 VWS - RIGHT (DX: FOOT PAIN *NO INJURY*) Routine 04/18/2021 2:33 PM EDT XRAY FOOT COMPLETE MIN 3 VWS - RIGHT (DX: FOOT PAIN *NO INJURY*) Routine 03/01/2021 4:49 PM EDT XRAY FOOT COMPLETE MIN 3 VWS - RIGHT (DX: FOOT PAIN *NO INJURY*) Routine 02/15/2021 12:24 PM EDT UNSPECIFIED MAJOR PROCEDURE 02/09/2021 SARS COV 2 RNA(COVID 19), QUALITATIVE NAAT Routine 02/07/2021 1:03 PM EDT Encounter for preoperative screening laboratory testing for COVID-19 virus EKG-TO BE READ & BILLED BY ADULT OR PEDIATRIC CARDIOLOGY Routine 02/01/2021 4:17 PM EDT Hypothyroidism Sleep apnea, unspecified type Hyperglycemia BASIC METABOLIC PANEL WITH (GFR) Routine 02/01/2021 4:05 PM EDT Preoperative examination Hypothyroidism Sleep apnea, unspecified type Hyperglycemia VENIPUNCTURE Routine 02/01/2021 4:05 PM EDT Preoperative examination Hypothyroidism Sleep apnea, unspecified type Hyperglycemia MRSA CULTURE SCREEN, NASAL ONLY Routine 02/01/2021 3:54 PM EDT Preoperative examination DESTRUCTION, NEUROLYTIC; OTHER PERIPHERAL NERVE/BRANCH Routine 01/17/2021 1:16 PM EDT Primary osteoarthritis of both knees XRAY SPINE, CERVICAL; 3 VIEWS OR LESS Routine 12/27/2020 1:54 PM EDT Back pain, unspecified back location, unspecified back pain laterality, unspecified chronicity XRAY CLAVICLE COMPLETE - RIGHT Routine 12/09/2020 2:45 PM EST Right shoulder pain, unspecified chronicity XR KNEE ORTHO-BILAT (DX: KNEE PAIN *NO INJURY*)(AGE>=35, CAN WEIGHT-BEAR) Routine 12/09/2020 2:45 PM EST Pain in both knees, unspecified chronicity DESTRUCTION BY NEUROLYTIC AGENT, GENICULAR NERVE BRANCHES INCLUDING IMAGING GUIDANCE, WHEN PERFORMED Routine 11/22/2020 1:26 PM EST Primary osteoarthritis of left knee XRAY SHOULDER COMPLETE MIN 2 VWS- RIGHT (DX: SHOULDER PAIN *NO INJURY*) Routine 10/05/2020 11:25 AM EST US PELVIC TRANSABDOMINAL AND TRANS VAGINAL (DX: PELVIC PAIN) (WITHIN 1 WK) Routine 08/04/2020 1:56 PM EST XRAY KNEE FOR ORTHO - BILAT Routine 06/14/2020 3:33 PM EDT Pain in both knees, unspecified chronicity XRAY FOOT COMPLETE MIN 3 VWS - RIGHT Routine 06/01/2020 3:53 PM EDT Right foot pain TEST, URINE - STATION Routine 04/18/2016 9:46 AM EDT Possible , not confirmed INSERTION, INTRAUTERINE DEVICE Routine 02/29/2016 10:44 AM EDT Encounter for insertion of intrauterine contraceptive device TEST, URINE - STATION Routine 02/29/2016 10:03 AM EDT examination or test, unconfirmed [employer] FPGS PAP AND HR HPV DNA Routine 10/22/2014 CBC W/O DIFFERENTIAL Routine 08/16/2013 6:33 AM EST BASIC METABOLIC PANEL Routine 08/16/2013 6:33 AM EST BASIC METABOLIC PANEL Routine 08/15/2013 5:40 AM EST CBC W/O DIFFERENTIAL Routine 08/15/2013 5:40 AM EST BLOOD TYPE AND ANTIBODY SCREEN Routine 08/14/2013 9:28 AM EST HCG (QUALITATIVE) Routine 08/14/2013 6:0 5 AM EST UNSPECIFIED MAJOR PROCEDURE 08/14/2013 KNEE, 1 OR 2 VWS - RIGHT Routine 08/09/2013 6:19 PM EST MRI KNEE W/O CONTRAST - LEFT Routine 08/04/2013 12:34 PM EST Sprain and strain of knee and leg BASIC METABOLIC PANEL Routine 06/19/2013 5:45 AM EDT CBC W/O DIFFERENTIAL Routine 06/19/2013 5:45 AM EDT CBC W/O DIFFERENTIAL Routine 06/18/2013 6:04 AM EDT BASIC METABOLIC PANEL Routine 06/18/2013 6:04 AM EDT UNSPECIFIED MAJOR PROCEDURE 06/17/2013 UNSPECIFIED MAJOR PROCEDURE 06/02/2013 THYROID CASCADING REFLEX Routine 05/19/2013 1:16 PM EDT Preoperative examination OA (osteoarthritis) of knee Hypothyroidism Obesity BASIC METABOLIC PANEL WITH (GFR) Routine 05/19/2013 1:16 PM EDT Preoperative examination OA (osteoarthritis) of knee Hypothyroidism Obesity HIP UNILATERAL 2 VIEW - RIGH Routine 04/10/2013 3:23 PM EDT MAMMO BILATERAL ROUTINE Routine 07/06/20 3:16 PM EDT Results * Due to [place] state law, this organization might not be sharing negative HIV tests. * (ABNORMAL) GLUCOSE POINT OF CARE (12/17/2023 7:48 AM EDT) Only the most recent of23 resultswithin the time period is included. Glucose (Capillary Blood) 126(H) 70 - 105 mg/dL [facility] 12/17/2023 7:48 AM EDT 12/17/2023 7:48 AM EDT us Shaun De Jesus Ezio LABORAT[facility] Final Result Performing Organization Address [facility] Co de Phone Number [facility] [address] [place] [address] * (ABNORMAL) RESPIRATORY VIRUS COVID-19 FLU A+B RSV PCR (12/16/2023 1:31 AM EDT) [facility] SARS-COV-2 RNA Negative Negative [facility] Influenza A Positive(A) Negative [facility] Influenza B Negative Negative [facility] Respiratory syncytial virus RNA Negative Negative [facility] 12/16/2023 1:31 AM EDT 12/16/2023 1:[address] [facility] Final Result Performing Organization Address [facility] de Phone Number [facility] [address] [place] [address] * CHEST, PORTABLE INTRAOPERATIVE (12/16/2023 1:10 AM EDT) Pathologist [facility] RADRPT Patient Name: ? JANEE BEY ?Location: [place] [address]; [facility]; ? A [facility] [address] [facility] ?[place] [address]- ? Radiology ACCESSION ? EXAM DATE/TIME ??PROCEDURE ? ORDERING ? STATUS ?PROVIDER [id number] ??12/16/2023 ? 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 View Portable ?? TASHA ?(Verified) Reason For Exam (XR Chest 1 View Portable) Respiratory Failure Acute Report CHEST RADIOGRAPH, ONE VIEW TECHNIQUE: AP upright portable at 0104 hours on 12/16/2023. INDICATION: ??Respiratory failure; right toe infection. COMPARISON: ??Series of chest radiograph dating back to February 27, 2020, most recently June 10, 2021. FINDINGS: TUBES, LINES AND DEVICES: The right humeral hardware is partially imaged and redemonstrated. HEART AND MEDIASTINUM: The heart is normal in size. Upper mediastinum is within normal limits. LUNGS: ??The lungs are well inflated. No focal consolidation. The pulmonary vasculature is mildly prominent. PLEURA: No pneumothorax or pleural effusion. OSSEOUS STRUCTURES AND SOFT TISSUES: No acute osseous abnormality. The rightward thoracic curvature is grossly unchanged Unremarkable overlying soft tissue and visualized upper abdomen. IMPRESSION: 1.No acute cardiopulmonary process. 2.Grossly unchanged rightward thoracic curvature. resident care provider: Cory Brannon MD (Attending review by Dr. Ariel Kenyon M.D. I have personally reviewed the study and agree with the reported findings. ??READING SITE: [facility]) Final Report Dictated: 12/16/2023 8:43 am ?Dictated By: CORY BRANNON MD Electronic Signature: ??12/16/2023 8:57 am ?? Signed By: ARIEL KENYON MD Admitting: ?ANALY VASQUEZ MD Consulting: ?? JOANA ADAIR, ROBI MAHMOOD DPM, [facility] Anatomical Region Laterality Modality Other 12/16/2023 1:10 AM EDT us [address] [facility] Final Result * CPK (12/13/2023 5:45 AM EDT) CPK 65 24 - 173 U/L [facility] 12/13/2023 5:45 AM EDT 12/13/2023 6:02 AM EDT us Unknown Provider [facility] LABORATORY Final Resul t [facility] [address] [place] [address] * PROCEDURE NOTE (12/13/2023) Narrative 12/13/2023 Ordered by an unspecified provider. Procedure Note [facility], Unknown Provider - 12/13/2023 10:08 AM EDT DATE/TIME NOTE CREATED: 12/13/2023 10:07:03 DATE/TIME OF PROCEDURE: Procedure: Peripheral IV Insertion Indication: IV Access Complications: None A 20 gauge peripheral IV was inserted into left FA. There was a briskblood return and the IV was flushed with NS. A sterile Tegaderm was applied tothe site. Notified RN caring for the patient us Unknown Provider [facility] PROCEDURE NON-FC (HIWAY) Fi nal Result * CULTURE ANAEROBIC (12/11/2023 5:34 PM EDT) Only the most recent of2 resultswithin the time period is included. ANAEROBIC CULT Patient Name: ? JANEE BEY ?Location: [place] [address]; [facility]; A [facility] ? Medical ? Director(s): [address] [place] [address] ? [place], [place] [id number]- Ordering Physician: ?YEIMY WIGGINS MD ? Microbiology Procedure: ?Anaerobic Culture ?? Accession: ? [id number] ?[*1] Source: ? Tissue ?Body Site: ? Toe Right Collected ? 12/11/2023 17:34 ? Received ? 12/11/2023 17:45 Date/Time: ?EDT ? Date/Time: ? EDT Start Date/Time: ?12/11/2023 17:45 ? Free Text Source: ??Great r. toe ?EDT FINAL REPORTS Final Report ??[] Verified Date/Time: 12/15/2023 09:02 EDT No Anaerobes Isolated after 4 days PRELIMINARY REPORTS Preliminary Report ??[] Verified Date/Time: 12/13/2023 09:07 EDT Culture in progress Performing Locations *1: ?? This test was performed at: ?[facility], [address] [place] [address], [place], [address], , ?[phone] Legend: A = Abnormal, H = High, L = Low, ! = Critical, f = Footnote, r = Refere = Corrected, I = Interpretation [facility] 12/11/2023 5:34 PM EDT 12/11/2023 5:45 PM EDT us Unknown Provider [facility] LABORATORY Final Resul t [facility] [address] [place] [address] * CULTURE TISSUE (12/11/2023 5:33 PM EDT) TISSUE CULTURE Patient Name: ? JANEE BEY ?Location: [place] [address]; [facility]; A [facility] ? Medical ? Director(s): [address] [place] [address]. ? [place] [address]- Ordering Physician: ?YEIMY WIGGINS MD ? Microbiology Procedure: ?Tissue Culture ?Accession: ? [id number] ?[*1] Source: ? Tissue ?Body Site: ? Toe Right Collected ? 12/11/2023 17:33 ? Received ? 12/11/2023 17:46 Date/Time: ?EDT ? Date/Time: ? EDT Start Date/Time: ?12/11/2023 17:47 ? Free Text Source: ??great r. toe ?EDT FINAL REPORTS Final Report ??[] Verified Date/Time: 12/15/2023 09:02 EDT Light growth of Corynebacterium species PRELIMINARY REPORTS Preliminary Report ??[] Verified Date/Time: 12/13/2023 08:36 EDT Light growth of Corynebacterium species Preliminary Report ??[] Verified Date/Time: 12/12/2023 10:57 EDT Culture in progress STAINS GS ??[] Verified Date/Time: 12/11/2023 18:23 EDT Few White Blood Cells No bacteria seen Performing Locations *1: ?? This test was performed at: ?[facility], [address] [place] [address], [address], , ?[phone] Legend: A = Abnormal, H = High, L = Low, ! = Critical, f = Footnote, r = Refere = Corrected, I = Interpretation [facility] 12/11/2023 5:33 PM EDT 12/11/2023 5:46 PM EDT us Unknown Provider [facility] LABORATORY Final Resul t [facility] [address] [place] [id number] * WOUND CULTURE (12/11/2023 5:32 PM EDT) WOUND CULTURE Patient Name: ? JANEE BEY ?Location: [place] [address]; [facility]; [facility] ? Medical ? Director(s): [address] [place] [address] ? [place] [id number]- Ordering Physician: ?YEIMY WIGGINS MD ? Microbiology Procedure: ?Wound Culture ??[*1] Accession: ? [id number] Source: ? Wound ? Body Site: ? Toe Right Collected ? 12/11/2023 17:32 ? Received ? 12/11/2023 17:41 Date/Time: ?EDT ? Date/Time: ? EDT Start Date/Time: ?12/11/2023 17:41 ? Free Text Source: ??Great r. toe ?EDT FINAL REPORTS Final Report ??[] Verified Date/Time: 12/15/2023 09:04 EDT Light growth of Corynebacterium species Rare growth of Coagulase negative Staphylococcus PRELIMINARY REPORTS Preliminary Report ??[] Verified Date/Time: 12/15/2023 08:00 EDT Light growth of Corynebacterium species Rare growth of Coagulase negative Staphylococcus Preliminary Report ??[] Verified Date/Time: 12/13/2023 08:34 EDT Light growth of Corynebacterium species Preliminary Report ??[] Verified Date/Time: 12/12/2023 10:57 EDT Culture in progress STAINS GS ??[] Verified Date/Time: 12/11/2023 18:21 EDT No White Blood Cells seen. No bacteria seen Performing Locations *1: ?? This test was performed at: ?[facility], [address] [place] [address], [address], , ?[phone] Legend: A = Abnormal, H = High, L = Low, ! = Critical, f = Footnote, r = Refere = Corrected, I = Interpretation [facility] 12/11/2023 5:32 PM EDT 12/11/2023 5:41 PM EDT us Unknown Provider [facility] LABORATORY Final Resul t [facility] [address] [place] [address] * FOOT 3 VIEW - RIGHT (12/11/2023 4:25 PM EDT) RADRPT Patient Name: ? JANEE BEY ?Location: [facility] - 35; 3508; ? A [address] ?[place] [address]- ? Radiology ACCESSION ? EXAM DATE/TIME ??PROCEDURE ? ORDERING ? STATUS ?PROVIDER [id number] ??12/11/2023 ? XR Foot ? RILEY ADAIR, ?? Auth 54 ?16:32 EDT ? Complete Right ??NEILDA ? (Verified) Reason For Exam (XR Foot Complete Right) Injury Report FOOT, 3 VIEW REASON FOR EXAM: ??Infection TECHNIQUE: 3 views of the right foot are symmetric. COMPARISON: Right foot series of December 10, 2023 FINDINGS: Interval removal of the exposed first digit screw with cannulation tract demonstrated. Remaining screws remain unchanged. There is periprosthetic lucency at the tip of the metatarsophalangeal screw as seen on yesterday's radiograph as well. No significant interval change in the previously described degenerative changes of the tarsometatarsal joints as well as the deformities of the first and fifth metatarsals. Soft tissue swelling at the dorsum of the forefoot and the space between the first and second digit. IMPRESSION: Postoperative changes as noted above. Reading Site: [facility] Final Report Dictated: 12/11/2023 6:20 pm ?Dictated By: LIAT BARRIOS MD Electronic Signature: ??12/11/2023 6:24 pm ?? Signed By: LIAT BARRIOS MD Admitting: ?ANALY VASQUEZ MD Consulting: ?? JOANA ADAIR, ROBI MAHMOOD DPM, [facility] Anatomical Region Laterality Modality Other 12/11/2023 4:25 PM EDT us Lenard Cho DPM [facility] Final Result * (ABNORMAL) PROTHROMBIN TIME (12/11/2023 7:26 AM EDT) PT 10.1 9.1 - 12.0 sec [facility] INR 1.0(L) 2.0 - 3.5 [facility] Comment: INR reference interval applies to patients on anticoagulant therapy. Suggested INR therapeutic range for oral anticoagulant therapy: (Stabilized anticoagulated patients) Routine Therapy: 2.0-3.0 Recurrent Myocardial Infarction or Mechanical Prosthetic Valves: 2.5-3.5 12/11/2023 7:26 AM EDT 12/11/2023 7:59 AM EDT us Unknown Provider [facility] LABORATORY Final Resul t Performing Organization Address City/[facility]/ZIP Co de Phone Number [facility] [address] [place] [address] * (ABNORMAL) CBC (12/11/2023 7:26 AM EDT) Leukocytes^correc herber for nucleated erythrocytes 10.7 3.9 - 11.0 x10(3)/[facility] RBC 4.82 3.70 - 5.10 million/mc L [facility] Hemoglobin 10.0(L) 11.5 - 12.5 g/dL [facility] Hematocrit 34.9 34.0 - 44.0 % [facility] MCV 72(L) 80 - 100 fL [facility] MCH 21(L) 27 - 33 pg [facility] MCHC 29(L) 31 - 36 g/dL [facility] RDW 49.4(H) 39.0 - 46.0 fL [facility] Erythrocyte distribution width (RBC) 49 [facility] Erythrocyte distribution width (RBC) 18(H) 12 - 14 % [facility] PLT 485(H) 150 - 450 x10(3)/[facility] Platelet mean volume 9.2 7.0 - 11.0 fL [facility] 12/11/2023 7:26 AM EDT 12/11/2023 8:03 AM EDT us Unknown Provider [facility] LABORATORY Final Resul t Performing Organization Address City/[facility]/ZIP Co de Phone Number [facility] [address] [place] [address] * THYROID STIMULATING HORMONE (12/11/2023 7:26 AM EDT) TSH 4.450 0.450 - 4.500 uU/mL [facility] Comment: Thyroid [place]: If the TSH is normal, no additional testing is performed unless individually ordered. 12/11/2023 7:26 AM EDT 12/11/2023 7:59 AM EDT us Unknown Provider [facility] LABORATORY Final Resul t Performing Organization Address City/[facility] Co de Phone Number [facility] [address] [place] [address] * HEMOGLOBIN A1C (12/11/2023 7:26 AM EDT) Hemoglobin A1C 5.5 4.8 - 5.9 % [facility] Comment: Diabetic Adult: ?<7.0% Healthy Adult: ?4.8-5.9% Estimated Average Glucose 111 mg/dL [facility] 12/11/2023 7:26 AM EDT 12/11/2023 8:03 AM EDT us Unknown Provider [facility] LABORATORY [facility]ly [facility] Resul t Performing Organization Address [facility] Co de Phone Number [facility] [address] [place] [address] * (ABNORMAL) COMPREHENSIVE METABOLIC PANEL (12/11/2023 7:26 AM EDT) Sodium 138 134 - 144 mEq/L [facility] Potassium 4.0 3.6 - 5.6 mEq/L [facility] Chloride 102 96 - 109 mEq/L [facility] Carbon dioxide 29 20 - 32 mEq/L [facility] Glucose 96 65 - 99 mg/dL [facility] Urea Nitrogen Blood (BUN) 13 5 - 26 mg/dL [facility] Creatinine 0.64 0.50 - 1.50 mg/dL [facility] Anion gap 7.0(L) 8.0 - 15.0 [facility] BUN/Creatinine Ratio 20 8 - 27 [facility] Protein Total (Serum) 6.7 6.0 - 8.5 g/dL [facility] Albumin 3.7 3.5 - 5.5 g/dL [facility] Calcium 8.7 8.3 - 10.0 mg/dL [facility] Bilirubin Total <0.2 0.1 - 1.2 mg/dL [facility] Comment: ?Premature ? Full Term Cord ? <2.0 ?<2.0 0-1d ? <8.0 ?<8.0 1-2d ? <12.0 ?<8.0 3-5d ? <16.0 ?<12.0 5-10d ?<2.0 ? 0.2-1.0 >10d ? <2.0 ? 0.2-1.0 Alkaline phosphatase 115 25 - 150 U/L [facility] AST (SGOT) 9 0 - 40 U/L [facility] ALT (SGPT) 9 0 - 32 U/L [facility] Globulin 3.0 1.5 - 4.5 g/dL [facility] Osmolality 286 275 - 305 mmol/kg [facility] Albumin/Globulin 1.2 1.1 - 2.5 [facility] Calcium 9 mg/dL [facility] EGFR CKD-EPI >90 >=90 mL/min/1.7 3m2 [facility] 12/11/2023 7:26 AM EDT 12/11/2023 7:59 AM EDT us Unknown Provider [facility] LABORATORY Final Resul t [facility] [address] [place] [address] * PROCEDURE NOTE (12/11/2023) Narrative 12/11/2023 Ordered by an unspecified provider. Procedure Note [facility], Unknown Provider - 12/11/2023 11:52 AM EDT Procedure Note Procedure: Ultrasound Guided Peripheral IV Insertion Indication: Complications: None A __20g _ gauge peripheral IV was inserted under sterile ultrasound guidance into the __left arm ____ (vessel depth < 1 cm). There was abrisk blood return and the IV was flushed with NS. A sterile tegaderm wasapplied to the site. Notified RN caring for the patient. us Unknown Provider [facility] PROCEDURE NON-FC (HIWAY) Fi nal Result * XRAY FOOT COMPLETE MIN 3 VWS - RIGHT (DX: FOOT PAIN *NO INJURY*) (12/05/2023 2:12 PM EST) Only the most recent of5 resultswithin the time period is included. Anatomical Region Laterality Modality LOWER EXTREMITY Radiographic Ghislaine ging 12/08/2023 2:45 PM EDT Narrative 12/08/2023 2:45 PM EDT Patient History: follow up right foot , hardware problem CONTRAST: 3 views right foot Comparison: 09/03/2023 Findings: No acute fractures or dislocations. ?? There is healed remote fracture of 5th metatarsal Status post 1st MTP arthrodesis and 1st metatarsal healed osteotomy No radiopaque foreign body Impression: 1. First MTP arthrodesis with 2 screws, the fibular side screw tip is partially migrated into soft tissue surrounding the great toe, but unchanged in position from the previous exam. ?? 2. Lucency surrounding tibial side arthrodesis screw of 1st MTP arthrodesis consistent with loosening, unchanged in position and without migration when compared to the previous exam. ?? 3. Volar subluxation of the proximal phalanx of the little toe, not present on the previous exam. Procedure Note Andrew Allison MD - 12/08/2023 Patient History: follow up right foot , hardware problem CONTRAST: 3 views right foot Comparison: 09/03/2023 Findings: No acute fractures or dislocations. There is healed remote fracture of 5th metatarsal Status post 1st MTP arthrodesis and 1st metatarsal healed osteotomy No radiopaque foreign body Impression: 1. First MTP arthrodesis with 2 screws, the fibular side screw tip ispartially migrated into soft tissue surrounding the great toe, butunchanged in position from the previous exam. 2. Lucency surrounding tibial side arthrodesis screw of 1st MTParthrodesis consistent with loosening, unchanged in position and withoutmigration when compared to the previous exam. 3. Volar subluxation of the proximal phalanx of the little toe, notpresent on the previous exam. Steve Mahmood DPM IMG XRAY NO CONTRAST ORDERAB LES Final Result * MRI CERVICAL SPINE W AND W/O CONTRAST FC (05/24/2022 10:40 AM EDT) Anatomical Region Laterality Modality Spine Magnetic Resonan ce 05/24/2022 2:59 PM EDT Narrative 05/24/2022 2:59 PM EDT CONTRAST: 11 mL MULTIHANCE MR cervical spine with and without gadolinium Comparison: ??MR WI SD ??- CERVICAL SPINE WO CONTRAST MRI ??- 07/22/2021 01:19 PM EDT Findings: No acute findings on limited view of the intracranial contents. No cervical fluid collections or masses. Mass-effect on the cervical spinal cord at multiple levels. ??No significant cord signal abnormality. Vertebral alignment is within normal limits. No acute fractures or pathologic bone lesions. C2-C3: Mild uncovertebral joint proliferation. ??Mild facet osteoarthritis. ??No significant central canal narrowing. ??Minimal neural foraminal narrowing. ??No significant change. C3-C4: Large disc osteophyte complex, predominating on the left. ??Moderate mass-effect on the cervical spinal cord. ??Mild facet osteoarthritis. ??Moderate narrowing of bilateral neural foramina. ??No gross interval change. C4-C5: Large disc osteophyte complex with moderate mass-effect on the cervical spinal cord. ??Cord diameter reduced to approximately 5 mm. ??Mild facet osteoarthritis. ??Moderate stenosis of bilateral neural foramina. ??No significant change. C5-C6: Moderate disc osteophyte complex with mild mass-effect on the cervical spinal cord. ??Moderate bilateral neural foraminal narrowing. C6-C7: 5 mm left paracentral disc protrusion with mild mass-effect on the cervical spinal cord. ??Mild narrowing of the left neural foramen. ??No significant change. C7-T1: No significant central canal or neural foraminal stenosis. IMPRESSION: 1. ??Severe multilevel spondylosis with significant mass-effect on the cervical spinal cord at multiple levels. ??This is most pronounced at the C4-C5 level where cord diameter is reduced to 5 mm in AP dimension. ??Multilevel neural foraminal stenosis also noted. ??No significant change since the prior study. 2. ??5 mm left paracentral disc protrusion at C6-C7 without change. Procedure Note Veena Gray MD - 05/24/2022 CONTRAST: 11 mL MULTIHANCE MR cervical spine with and without gadolinium Comparison: MR WI SD - CERVICAL SPINE WO CONTRAST MRI - 101:19 PM EDT Findings: No acute findings on limited view of the intracranial contents. No cervical fluid collections or masses. Mass-effect on the cervical spinal cord at multiple levels. Nosignificant cord signal abnormality. Vertebral alignment is within normal limits. No acute fractures or pathologic bone lesions. C2-C3: Mild uncovertebral joint proliferation. Mild facet osteoarthritis.No significant central canal narrowing. Minimal neural foraminal narrowing.No significant change. C3-C4: Large disc osteophyte complex, predominating on the left. Moderate mass-effect on the cervical spinal cord. Mild facet osteoarthritis.Moderate narrowing of bilateral neural foramina. No gross interval change. C4-C5: Large disc osteophyte complex with moderate mass-effect on thecervical spinal cord. Cord diameter reduced to approximately 5 mm. Mild facet osteoarthritis. Moderate stenosis of bilateral neural foramina. No significant change. C5-C6: Moderate disc osteophyte complex with mild mass-effect on thecervical spinal cord. Moderate bilateral neural foraminal narrowing. C6-C7: 5 mm left paracentral disc protrusion with mild mass-effect on the cervical spinal cord. Mild narrowing of the left neural foramen. No significant change. C7-T1: No significant central canal or neural foraminal stenosis. IMPRESSION: 1. Severe multilevel spondylosis with significant mass-effect on thecervical spinal cord at multiple levels. This is most pronounced at the C4-M8fbuzb where cord diameter is reduced to 5 mm in AP dimension. Multilevel neural foraminal stenosis also noted. No significant change since the priorstudy. 2. 5 mm left paracentral disc protrusion at C6-C7 without change. Benny Foley MD IMG MR WITH CONTRAS T ORDERABLES Final Result * (ABNORMAL) CBC INCLUDES DIFFERENTIAL AND PLATELET [...] 2:13 AM EDT Narrative Resulting Agency Comment [id number] us Benny Foley MD LAB SAME DAY RESULT Final Result [facility] [address] [place] [address] * (ABNORMAL) BASIC METABOLIC PANEL WITH (GFR) (05/15/2022 1:30 PM EDT) Only the most recent of3 resultswithin the time period is included. Glucose 58(L) 65 - 99 mg/dL [facility] [...] needs for GFR calculation. Resulting Agency Comment [id number] us Benny Foley MD LABORATORY Fin al Result [facility] [address] [place] [address] * MRI BRAIN W AND W/O CONTR (DX: ABNL REWEAVER FUNCTION, R/O MULT SCLEROSIS R94.09/ 794.00) (<1 WK) FC (04/14/2022 3:09 PM EDT) Anatomical Region Laterality Modality HEAD/BRAIN Magnetic Resonan ce 04/15/2022 1:46 PM EDT Narrative 04/15/2022 1:46 PM EDT CONTRAST: 12 mL MULTIHANCE MR Brain with and without gadolinium. Comparison: None Findings: No restricted diffusion. No intracranial mass or hemorrhage. No midline shift. No hydrocephalus. Vascular flow voids are intact. Brain volume is appropriate. ??There is a solitary 4 mm focus of faint T2 and DWI hyperintensity within the deep white matter of the left temporal lobe immediately adjacent to the temporal horn. ??This demonstrates enhancement upon administration of contrast. ??No additional white matter lesion or abnormal focus of enhancement. Orbital contents are unremarkable. The sinuses and mastoid air cells are clear. No focal bone lesion. IMPRESSION: 1. ??Solitary enhancing 4 mm focus of T2 hyperintensity within the deep white matter immediately adjacent to the left temporal horn. ??This could represent a solitary focus of active demyelination, sequela of recent migraine or small vascular malformation. ??Recommend follow-up evaluation. Procedure Note Veena Gray MD - 04/15/2022 CONTRAST: 12 mL MULTIHANCE MR Brain with and without gadolinium. Comparison: None Findings: No restricted diffusion. No intracranial mass or hemorrhage. No midline shift. No hydrocephalus. Vascular flow voids are intact. Brain volume is appropriate. There is a solitary 4 mm focus of faint T2and DWI hyperintensity within the deep white matter of the left temporal lobe immediately adjacent to the temporal horn. This demonstrates enhancementupon administration of contrast. No additional white matter lesion or abnormal focus of enhancement. Orbital contents are unremarkable. The sinuses and mastoid air cells are clear. No focal bone lesion. IMPRESSION: 1. Solitary enhancing 4 mm focus of T2 hyperintensity within the deepwhite matter immediately adjacent to the left temporal horn. This couldrepresent a solitary focus of active demyelination, sequela of recent migraine orsmall vascular malformation. Recommend follow-up evaluation. us Benny Foely MD IMG MR WITH CONTRAS T ORDERABLES Final Result * XRAY SHOULDER COMPLETE MIN 2 VWS - RIGHT FC (12/13/2021 1:05 PM EDT) Anatomical Region Laterality Modality UPPER EXTREMITY Radiographic Ghislaine ging 12/14/2021 6:20 PM EDT Narrative 12/14/2021 6:20 PM EDT CONTRAST: 4 views of the right shoulder. Comparison October 05, 2020. Findings: Patient positioning limits the study. There has been internal fixation of a proximal humeral fracture. The appearance is similar to previous. The soft tissues are unremarkable. Impression: Operative changes as described. No definite suspicious bony abnormalities. One of the screws in the humeral head approaches the articular surface. Procedure Note Andrew Pierce MD - 12/14/2021 CONTRAST: 4 views of the right shoulder. Comparison October 05, 2020. Findings: Patient positioning limits the study. There has been internal fixation ofa proximal humeral fracture. The appearance is similar to previous. The soft tissues are unremarkable. Impression: Operative changes as described. No definite suspicious bony abnormalities. One of the screws in the humeral head approaches the articular surface. us Remberto Ballard MD IMG XRAY NO CONTRAST ORDERABLES Final Result * CHEST 2 VIEWS (09/04/2021 1:33 PM EST) RADIOLOGY REPORT DEPARTMENT OF RADIOLOGY ? ------ ?? Patient: JANEE BEY ?Unit #: [id number] ?? Ordering MD: DAJA GIBBS MD ?: 1970 ?? Procedure: Chest 2 Views ?Age: 51 ?? Location: C.XRAY ?Exam Date: 09/04/21 ?? Status: REG CLI ? Room/Bed: ? Primary MD: JOSE MARTINEZ MD ?Patient ?Order: [id number] ?? Additional Copy: ??DAJA GIBBS MD ?? JOSE MARTINEZ MD ? CHEST FRONTAL AND LATERAL: ? INDICATION: Acute bronchitis. ? COMPARISON: November 02, 2020. ? FINDINGS: ?? There is soft tissue attenuation artifact from the chest wall over the lower lung coley, which slightly limits evaluation on the frontal view. ? Lungs: The lungs are well inflated. ??No consolidation is seen. ??Lateral view best demonstrates subsegmental linear atelectasis or scarring projecting over the middle lobes, new compared to November 02, 2020. ? Pleura: ??There is no evidence for pleural effusion or pneumothorax. ? Mediastinum: ??Tortuous aorta is again noted. ? Heart: The heart size is mildly prominent. ? Osseous Structures: ??Extra convex thoracic scoliosis is again noted. Internal fixation hardware in the proximal right humerus is partially imaged. ? Additional Findings: ??None. ? IMPRESSION: ? No radiographic evidence for pneumonia. ? POI: ROBIN Mujica ? ELECTRONICALLY SIGNED BY: ??CHASE HOWELL MD 09/04/2021 1:35 PM [facility] Anatomical Region Laterality Modality Other 09/04/2021 1:33 PM EST Narrative 09/04/2021 1:38 PM EST Reason for Study/History: Acute bronchitis. TEST(S) PROCESSED BY [facility] us Daja Gibbs MD IMAGING-[facility] Final Result * MRI CERVICAL SPINE W/O CONTRAST FC (07/22/2021 1:53 PM EDT) Anatomical Region Laterality Modality Spine Magnetic Resonan ce 07/23/2021 8:48 PM EDT Narrative 07/23/2021 8:48 PM EDT CONTRAST: MR cervical spine without gadolinium. Comparison: ??CR WI ??- SPINE CERVICAL-AP / LAT XRAY ??- 12/27/2020 01:51 PM EDT . Findings: There is motion artifact degrading all sequences. Alignment unremarkable. No acute fracture or pathologic bone lesion. No mass or fluid collection. No cervical cord signal abnormalities. Moderate to severe multilevel disc and facet disease. Narrow AP diameter throughout the cervical canal, no greater than 10 mm. ??This suggests congenital spinal stenosis. C2-C3: Mild bilateral neural foraminal stenosis. C3-C4: 3 mm disc bulging. Effaces anterior thecal space. Cord deformity without signal abnormality. Severe bilateral neural foraminal stenosis. C4-C5: 3 mm disc bulge. Effaced anterior thecal space. Cord deformity. No signal abnormality. Severe bilateral neural foraminal stenosis. C5-C6: 2 mm disc bulge. Partially effaced anterior thecal space. Mild cortical deformity. No signal abnormality. Severe bilateral neural foraminal stenosis. C6-C7: 3 mm left paracentral disc protrusion. Focal effaced anterior thecal space. Slight cord deformity. No signal abnormality. Mild right and moderate left neural foraminal stenosis. C7-T1: No significant stenoses. Impression: 1. There is multilevel degenerative spondylosis. Visualization is limited by significant motion artifact. Procedure Note Tom Alvarado MD - 07/23/2021 CONTRAST: MR cervical spine without gadolinium. Comparison: CR WI - SPINE CERVICAL-AP / LAT XRAY - 12/27/2020 01:51 PMEDT . Findings: There is motion artifact degrading all sequences. Alignment unremarkable. No acute fracture or pathologic bone lesion. No mass or fluid collection. No cervical cord signal abnormalities. Moderate to severe multilevel disc and facet disease. Narrow AP diameter throughout the cervical canal, no greater than 10 mm.This suggests congenital spinal stenosis. C2-C3: Mild bilateral neural foraminal stenosis. C3-C4: 3 mm disc bulging. Effaces anterior thecal space. Cord deformitywithout signal abnormality. Severe bilateral neural foraminal stenosis. C4-C5: 3 mm disc bulge. Effaced anterior thecal space. Cord deformity. No signal abnormality. Severe bilateral neural foraminal stenosis. C5-C6: 2 mm disc bulge. Partially effaced anterior thecal space. Mildcortical deformity. No signal abnormality. Severe bilateral neural foraminalstenosis. C6-C7: 3 mm left paracentral disc protrusion. Focal effaced anteriorthecal space. Slight cord deformity. No signal abnormality. Mild right andmoderate left neural foraminal stenosis. C7-T1: No significant stenoses. Impression: 1. There is multilevel degenerative spondylosis. Visualization is limitedby significant motion artifact. Electronically signed by: Tom Alvarado MD on 120:48:04 us Tristan Gonzales MD IMG MR NO CONTRAST ORDERABLES Final Result * ELECTROMYOGRAM/NERVE CONDUCTION STUDY (EMG/NCS) FOR NEUROLOGY DEPT USE ONLY (04/21/2021) us Aamir Dorman MD PROCEDURES Final Result * UNSPECIFIED MAJOR PROCEDURE (02/09/2021) us Steve Mahmood DPM PROCEDURES Final Result * SARS COV 2 RNA(COVID 19), QUALITATIVE NAAT (02/07/2021 1:03 PM EDT) SARS-COV-2 RNA NOT DETECTED NOT DETECTED [facility] Comment: A Not Detected (negative) test result for this test means that SARS- CoV-2 RNA was not present in the specimen above the limit of detection. A negative result does not rule out the possibility of COVID-19 and should not be used as the sole basis for treatment or patient management decisions. ??If COVID-19 is still suspected, based on exposure history together with other clinical findings, re-testing should be considered in consultation with public health authorities. Laboratory test results should always be considered in the context of clinical observations and epidemiological data in making a final diagnosis and patient management decisions. Please review the Fact Sheets and FDA authorized labeling available for health care providers and patients using the following websites: https://[email or web address]/home/Covid-19/HCP/[facility]/fact- sheet.html https://[email or web address].[facility]/home/Covid-19/Patients/ [facility]/fact-sheet.html This test has been authorized by the FDA under an Emergency Use Authorization (EUA) for use by authorized laboratories. Due to the current public health emergency, [facility] is receiving a high volume of samples from a wide variety of swabs and media for COVID-19 testing. In order to serve patients during this public health crisis, samples from appropriate clinical sources are being tested. Negative test results derived from specimens received in non-commercially manufactured viral collection and transport media, or in media and sample collection kits not yet authorized by FDA for COVID-19 testing should be cautiously evaluated and the patient potentially subjected to extra precautions such as additional clinical monitoring, including collection of an additional specimen. Methodology: ??Nucleic Acid Amplification Test (NAAT) includes RT-PCR or TMA Additional information about COVID-19 can be found at the [facility] website: [email or web address].[email or web address]/[email or web address]. Anterior Nares 02/07/2021 1: 03 PM EDT 02/07/2021 9:55 PM EDT Narrative Resulting Agency Comment [id number] Jose Martinez MD LABORATORY Final Result [facility] [address] [place] [address] * EKG-TO BE READ & BILLED BY [...] ECG No previous ECGs available Confirmed by JANY DICKERSON ([id number]) on 02/01/2021 8:17:17 PM [facility] 02/01/2021 4:17 PM EDT 02/01/2021 8:17 PM EDT Sheron Blunt NP CARDIOVASCULAR-WITH INBSKT RTG Final Result [facility] * (ABNORMAL) HEMOGLOBIN A1C (02/01/2021 4:05 PM [...] children. Estimated Average Glucose 129 mg/dL (calc) [facility] 02/01/2021 4:05 PM EDT 02/01/2021 10:52 PM EDT Narrative Resulting Agency Comment [id number] Sheron Blunt NP LABORATORY Final Result [facility] [address] [place] [address] * MRSA CULTURE SCREEN, NASAL ONLY (02/01/2021 3:54 PM EDT) Methicillin Resistant Staphylococcus Aureus Screen SEE NOTE [facility] Comment: ??MRSA CULTURE SCREEN ??Micro Number: ?[id number] ??Test Status: ? Final ??Specimen Source: ?? NOT GIVEN ??Specimen Quality: ??Adequate ??Result: ?No methicillin resistant Staphylococcus aureus ? (MRSA) isolated. 02/01/2021 3:54 PM EDT 02/01/2021 10:04 PM EDT Narrative Resulting Agency Comment [id number] Sheron Jose Raul [facility] Final Result Performing Organization Address City/State/[facility] Co de Phone Number [facility] [address] [place] [address] * XRAY SPINE, CERVICAL; 3 VIEWS OR [...] XRAY NO CONTRAST ORDERAB LES Final Result * XRAY CLAVICLE COMPLETE - RIGHT FC (12/09/2020 2:45 PM EST) Anatomical Region Laterality Modality UPPER EXTREMITY Radiographic Ghislaine ging 12/10/2020 12:0 0 PM EST Narrative 12/10/2020 12:00 PM EST 2 views right clavicle Comparison: None Findings: The clavicle is intact. ??The acromioclavicular joint demonstrates minimal degenerative change. ??Hardware is partially visualized involving the right humeral head. Impression: 1. ??No acute abnormality involving that right clavicle. 2. ??I do not see a definite healing fracture involving the clavicle. Procedure Note Maximiliano Andujar MD - 12/10/2020 2 views right clavicle Comparison: None Findings: The clavicle is intact. The acromioclavicular joint demonstrates minimal degenerative change. Hardware is partially visualized involving the right humeral head. Impression: 1. No acute abnormality involving that right clavicle. 2. I do not see a definite healing fracture involving the clavicle. Yuli CENTENO IMG XRAY NO CONTRAST ORDERAB LES Final Result * XR KNEE ORTHO-BILAT (DX: KNEE PAIN [...] XRAY NO CONTRAST ORDERAB LES Final Result * XRAY SHOULDER COMPLETE MIN 2 VWS- RIGHT (DX: SHOULDER PAIN *NO INJURY* M25.511/ 719.41) FC (10/05/2020 11:25 AM EST) Anatomical Region Laterality Modality UPPER EXTREMITY Radiographic Ghislaine ging 10/05/2020 12:0 9 PM EST Narrative 10/05/2020 12:09 PM EST Three-view right shoulder. Comparison: None. Findings: Lateral fixation plate and multiple screws from the shaft through head of the proximal right humerus. ??Healed chronic fracture deformity of the humeral neck. ??Mild inferior subluxation of the humeral head on the Grashey view. ??This normal alignment on the external view. ??Mild widening of glenohumeral joint. ??Acromioclavicular joint space is preserved. ??Mild spurring involving the superior acromion and inferior distal clavicle. IMPRESSION: No acute bony abnormality. Findings suggest right glenohumeral joint effusion. Status post open reduction internal fixation proximal humerus with healed fracture at the humeral neck. Procedure Note Genia Renae MD - 10/05/2020 Three-view right shoulder. Comparison: None. Findings: Lateral fixation plate and multiple screws from the shaftthrough head of the proximal right humerus. Healed chronic fracture deformity ofthe humeral neck. Mild inferior subluxation of the humeral head on theGrashey view. This normal alignment on the external view. Mild widening of glenohumeral joint. Acromioclavicular joint space is preserved. Mildspurring involving the superior acromion and inferior distal clavicle. IMPRESSION: No acute bony abnormality. Findings suggest right glenohumeral joint effusion. Status post open reduction internal fixation proximal humerus with healed fracture at the humeral neck. us Tristan Gonzales MD IMG XRAY NO CONTRAST ORDERABLE S Final Result * US PELVIC TRANSABDOMINAL AND TRANS VAGINAL (DX: PELVIC PAIN R10.2/ 625.9) (WITHIN 1 WK) FC (08/04/2020 1:56 PM EST) Anatomical Region Laterality Modality Pelvis Ultrasound 08/04/2020 6:21 PM EST Narrative 08/04/2020 6:21 PM EST PELVIC TRANSABDOMINAL AND TRANSVAGINAL ULTRASOUND: ARTERIES ABDOMEN/PELVIS DOPPLER LIMITED ULTRASOUND: COMPARISON: No relevant priors are available for comparison TECHNIQUE: Transabdominal ultrasound of the pelvis obtained. ?? Transvaginal imaging was performed for additional detail. Grayscale, color and spectral Doppler analysis obtained. FINDINGS: The uterus measures 10.5 x 4.8 x 6.0 cm. ??There is no uterine lesion. ??The endometrium measures 3 mm in thickness. ??There is an intrauterine device in good position within the endometrial canal of the body of the uterus. ??There is a nabothian cyst The right ovary measures 2.9 x 2.5 x 3.1 cm. ??The left ovary is not visualized. There is normal Doppler color and spectral waveform arterial and venous flow to the right ovary. ??No adnexal mass or free fluid. IMPRESSION: Normal. ??Please note that the left ovary was not visualized. ??There is no adnexal mass. Intrauterine device in good position. Procedure Note Vin Awan MD - 08/04/2020 PELVIC TRANSABDOMINAL AND TRANSVAGINAL ULTRASOUND: ARTERIES ABDOMEN/PELVIS DOPPLER LIMITED ULTRASOUND: COMPARISON: No relevant priors are available for comparison TECHNIQUE: Transabdominal ultrasound of the pelvis obtained. Transvaginal imaging was performed for additional detail. Grayscale, color and spectral Doppler analysis obtained. FINDINGS: The uterus measures 10.5 x 4.8 x 6.0 cm. There is no uterine lesion. The endometrium measures 3 mm in thickness. There is an intrauterine devicein good position within the endometrial canal of the body of the uterus.There is a nabothian cyst The right ovary measures 2.9 x 2.5 x 3.1 cm. The left ovary is notvisualized. There is normal Doppler color and spectral waveform arterial and venousflow to the right ovary. No adnexal mass or free fluid. IMPRESSION: Normal. Please note that the left ovary was not visualized. There is no adnexal mass. Intrauterine device in good position. us Suly Martinez [employer] [employer] IMG US ORDERABLES Final Result * XRAY KNEE FOR ORTHO - BILAT FC (06/14/2020 3:33 PM EDT) Anatomical Region Laterality Modality LOWER EXTREMITY Radiographic Ghislaine ging 06/15/2020 12:5 5 PM EDT Narrative 06/15/2020 12:55 PM EDT Standing AP views of bilateral knees. Lateral sunrise view right knee. Lateral sunrise view left knee. Comparison: 08/04/2013 left knee MRI report. Findings: LEFT: 2 fixation screws at the anterior tibial tubercle for tenodesis. ??Mild to moderate medial joint space narrowing. ??Lateral joint space mildly widened. ?? Patellofemoral joint space is preserved for positioning. ??Mild osteophytosis involving the anterior femoral ridges. ??Small heterotopic bone formation along the anterior surface of the distal femoral metadiaphysis with a bony excrescence measuring 15 mm in length and 4.5 mm in thickness underneath the articular surfaces upper patellar pole. ??Hardware is intact. ??Neck for acute fracture. ??No suspicious bony lesions. ??No significant detected joint effusion. RIGHT: Lateral fixation plate and multiple screws traversing the proximal tibial metaphysis. ??Severe lateral joint space narrowing. 10 mm of lateral tibiofemoral subluxation. ??Widening in the medial joint space with genu valgus. Patellofemoral joint space mildly narrowed with minor minor suprapatellar joint effusion. ??Hardware is intact. IMPRESSION: LEFT: Post surgical changes for patellar tenodesis. ?? Degenerative joint disease. ?? Heterotopic bone formation anterior distal femur with a bony excrescence that extends into knee the superior patellar pole. RIGHT: Status post open reduction internal fixation involving the proximal tibia from apparent remote tibial plateau fracture. Severe degenerative joint disease in the lateral knee compartment with lateral tibial subluxation and genu valgus. Procedure Note Genia Renae MD - 06/15/2020 Standing AP views of bilateral knees. Lateral sunrise view right knee. Lateral sunrise view left knee. Comparison: 08/04/2013 left knee MRI report. Findings: LEFT: 2 fixation screws at the anterior tibial tubercle for tenodesis.Mild to moderate medial joint space narrowing. Lateral joint space mildlywidened. Patellofemoral joint space is preserved for positioning. Mildosteophytosis involving the anterior femoral ridges. Small heterotopic bone formationalong the anterior surface of the distal femoral metadiaphysis with a bony excrescence measuring 15 mm in length and 4.5 mm in thickness underneaththe articular surfaces upper patellar pole. Hardware is intact. Neck foracute fracture. No suspicious bony lesions. No significant detected jointeffusion. RIGHT: Lateral fixation plate and multiple screws traversing the proximal tibial metaphysis. Severe lateral joint space narrowing. 10 mm of lateral tibiofemoral subluxation. Widening in the medial joint space with genuvalgus. Patellofemoral joint space mildly narrowed with minor minor suprapatellar joint effusion. Hardware is intact. IMPRESSION: LEFT: Post surgical changes for patellar tenodesis. Degenerative joint disease. Heterotopic bone formation anterior distal femur with a bony excrescencethat extends into knee the superior patellar pole. RIGHT: Status post open reduction internal fixation involving the proximal tibiafrom apparent remote tibial plateau fracture. Severe degenerative joint disease in the lateral knee compartment withlateral tibial subluxation and genu valgus. Prasanna Zaragoza MD IMG XRAY NO CONTRAST ORDERABLE S Final Result * XRAY FOOT COMPLETE MIN 3 VWS - RIGHT FC (06/01/2020 3:53 PM EDT) Anatomical Region Laterality Modality LOWER EXTREMITY Radiographic Ghislaine ging 06/03/2020 1:25 PM EDT Narrative 06/03/2020 1:25 PM EDT 3 views of the right foot. Comparison: None. Findings: Mild hallux valgus. Postoperative changes to the proximal first metatarsal with [address] Prominent osseous protuberance medial to the screws. Varus curvature of the first metatarsal. Old healed displaced fracture of the distal fifth metatarsal. No acute fracture or misalignment. Mild dorsal midfoot DJD. Impression: 1. Mild hallux valgus with postoperative changes to the first metatarsal as above. 2. Old healed displaced distal fifth metatarsal fracture. 3. Mild dorsal midfoot DJD. Procedure Note Elver Paredes MD - 06/03/2020 3 views of the right foot. Comparison: None. Findings: Mild hallux valgus. Postoperative changes to the proximal first metatarsal with [address] Prominent osseous protuberance medial to the screws. Varus curvature of the first metatarsal. Old healed displaced fracture of the distal fifth metatarsal. No acute fracture or misalignment. Mild dorsal midfoot DJD. Impression: 1. Mild hallux valgus with postoperative changes to the first metatarsalas above. 2. Old healed displaced distal fifth metatarsal fracture. 3. Mild dorsal midfoot DJD. Steve Mahmood DPM IMG XRAY NO CONTRAST ORDERAB LES Final Result * TEST, URINE - STATION (04/18/2016 9:46 AM EDT) Only the most recent of2 resultswithin the time period is included. HCG, Qualitative, Urine neg Neg Urine specimen (specimen) 04/18/2016 9:46 AM EDT Concetta Rios SYS DIR [facility] Final Resul t * [facility] FPGS PAP AND HR HPV DNA (10/22/2014) Clinical information NONE GIVEN [facility] Comment:{CLINICAL INFORMATIO N: {[id number]) Date last menstrual period [id number] [facility] Comment:{LMP: {[id number]) Date of previous PAP smear ? LAST PAP [facility] Comment:{PREV. PAP: {[id number]) Date of previous biopsy NONE GIVEN [facility] Comment:{PREV. BX: {[id number]) Specimen source (Cvx/Vag) Cervix, Endocervix [facility] Comment:{SOURCE: {[id number]) Statement of Adequacy (Cvx/Vag) Satisfactory for evaluation. Endocervical/singh sformation zone component present. [facility] Comment:{STATEMENT OF ADEQUA CY: {[id number]) Cytology, Pap Smear Negative for intraepithelial lesion or malignancy. [facility] Comment:{INTERPRETATION/RESU LT: {[id number]) Cytology study comment (Cvx/Vag) This Pap test has been evaluated with computer assisted technology. [facility] Comment:{COMMENT: {[id number]) File Machine Operator (Cvx/Vag) MSM, CT(ASCP) [facility] Comment:{JEWELRY STORE MANAGER: { [id number]) File Machine Operator (Cvx/Vag) LP, CT(ASCP) [facility] Comment:{REVIEW CYTOTECHNOLO GIST: {[id number]) HPV MRNA E6/E7 Not Detected Not Detected [facility] Comment: {HPV mRNA E6/E7, [facility] VIAL {[id number]) This test was performed using the APTIMA HPV Assay ([employer] This assay detects E6/E7 viral messenger RNA (mRNA) from 14 high-risk HPV types (16,18,31,33,35,39,45,51,52,56,58,59,66,68). The analytical performance characteristics of this assay, when used to test [facility] specimens, have been determined by [facility] 10/22/2014 10/23/2014 4:0 1 AM EST us Concetta WALKER PATHOLOGY-INTERFACED Final Result [facility] [address] [place] [address] * (ABNORMAL) CBC W/O DIFFERENTIAL (08/16/2013 6:33 AM EST) Only the most recent of4 resultswithin the time period is included. WHITE BLOOD COUNT 14.4(H) 3.9 - 11.0 x1000/uL [facility] RBC 2.99(L) 3.70 - 5.10 mil/ul [facility] Hemoglobin 8.2(L) 11.5 - 15.0 g/dL [facility] HCT (HEMATOCRIT) 26.4(L) 34.0 - 44.0 % [facility] MCV 88 80 - 100 fL [facility] MCH 27 27 - 33 pg [facility] MCHC 31 31 - 36 g/dL [facility] RDW 15.3(H) 11.4 - 14.4 % [facility] PLATELETS 264 150 - 450 x1000/uL [facility] 08/16/2013 6:33 AM EST 08/16/2013 6:33 AM EST us Unknown Provider [facility] LABORATORY Final Resul t Performing Organization Address City/State/[facility] [place] Co de Phone Number [facility] [address] [place] [address] * (ABNORMAL) BASIC METABOLIC PANEL (08/16/2013 6:33 AM EST) Only the most recent of4 resultswithin the time period is included. Glucose 116(H) 65 - 99 mg/dL [facility] BUN 11 5 - 26 mg/dL [facility] CREATININE 0.55 0.5 - 1.5 mg/dL [facility] BUN/Creatinine Ratio 20 8 - 27 [facility] GLOM FILT RATE, EST 114.9 >59 mL/min [facility] IF -FLORES N 133.1 >59 mL/min [facility] SODIUM 139 134 - 144 mEq/L [facility] POTASSIUM 4.2 3.5 - 5.5 mEq/L [facility] CHLORIDE 105 96 - 109 mEq/L [facility] CARBON DIOXIDE 28 20 - 32 mEq/L [facility] ANION GAP 6.0(L) 8 - 12 [facility] CALCIUM 8.3(L) 8.7 - 10.2 mg/dL [facility] Comment: ? Effective 08/13/2013, please note that the reference ? range for this procedure has change. ?? 08/16/2013 6:33 AM EST 08/16/2013 6:33 AM EST us Unknown Provider [facility] LABORATORY Final Resul t Performing Organization Address [facility] Co de Phone Number [facility] [address] [place] [address] * BLOOD TYPE AND ANTIBODY SCREEN (08/14/2013 9:28 AM EST) BLOOD GROUP ABO B [facility] RH-(D) Positive [facility] ANTIBODY SCREEN Negative [facility] 08/14/2013 9:28 AM EST 08/14/2013 9:28 AM EST us Aamir Layne MD LABORATORY Final Result Performing Organization Address [facility] de Phone Number [facility] [address] [place] [address] * HCG (QUALITATIVE) (08/14/2013 6:05 AM EST) HCG, Qualitative NEGATIVE [facility] 08/14/2013 6:05 AM EST 08/14/2013 6:05 AM EST us Aamir Layne MD LABORATORY Final Result Performing Organization Address [facility] [place] Co de Phone Number [facility] [address] [place] [address] * UNSPECIFIED MAJOR PROCEDURE (08/14/2013) Narrative Transcriptions Aamir Layne MD - 08/14/2013 12:00 AM EST OPERATIVE REPORT DATE OF OPERATION: 08/14/2013 PREOPERATIVE DIAGNOSIS: Recurrent rupture of the patellar tendon, left knee and acute rupture of patellar tendon, right knee. POSTOPERATIVE DIAGNOSIS: Recurrent rupture of patellar tendon, leftknee and acute rupture of patellar tendon, right knee. NAME OF OPERATION: Bilateral patellar tendon reconstructions. SURGEON: Aamir Layne M.D. SOLAR PHOTOVOLTAIC SYSTEMS ENGINEER: TARYN Mcgovern. ANESTHESIA: General. DESCRIPTION OF PROCEDURE: With the patient in the supine position and following the satisfactory induction of general anesthesia, both knees were prepped and draped in a sterile manner. Upper thigh tourniquets were applied. The left upper thigh tourniquet was inflated to 300 mmHg after the extremity had been elevated and exsanguinated with an Esmarch tourniquet. A longitudinal midline skin incision was made over the anterior aspect of the knee including the healed surgical scar in this area and extending more proximally and distally. The incision was carried down through the superficial layers and down to the extensor mechanism. A complete rupture of the patellar tendon from itsattachment at the lower pole of the patella was noted. The patellar tendon was noted to be extremely thickened and fibrotic consistent with the recent repair. The proximal end of the tendon as well as the lower pole of the patella were debrided. Based on these findings and the patient's recent recurrent rupture, it was decided to proceed with repair of the tendonto the lower pole of the patella along with an allograft reconstruction. A #2 FiberWire suture was woven through the patellar tendon with the 2ends of the suture exiting through the proximal ends of the tendon. Two parallel drill holes were then made through the lower pole of thepatella in the area of the normal attachment of the patellar tendon and exiting through the anterior cortex of the patella. The 2 FiberWire sutureswere then directed proximally through these drill holes and tied. A satisfactory reapproximation of the tendon to the lower pole of the patella was noted. A posterior tibial tendon allograft was prepared. A whip stitch of #2 FiberWire was directed through each end of the tendon. The tendon was measured and noted to be 6 mm in diameter. A guidewire was directed transversely through the central area of the patella from medial to lateral. A 6 mm cannulated reamer was directed over this guidewire and was used to create a 6 mm diameter bone tunnel transversely through the patella. A second 6 mm tunnel was created in the same fashion through the proximal tibia immediately posterior to the tibial tubercle. The posterior tibial tendon allograft was thendirected in [id number] fashion through these two bone tunnels. The tendon was sutured to itself in multiple locations thus creating a secure reconstruction. The knee was taken through a range of motion andflexion to 45 degrees without undue tension on the repair and reconstruction was noted. The upper thigh tourniquet was deflated following the initial exposure after a tourniquet time of 14 minutes. The subcutaneoustissues were closed with interrupted sutures of 2-0 and 3-0 Vicryl. The skinwas reapproximated with skin clips. Attention was directed to the right knee. The upper thigh tourniquetwas inflated to 300 mmHg after the extremity had been elevated and exsanguinated with an Esmarch tourniquet. A longitudinal midline skin incision was made over the anterior aspect of the knee. The incisionwas carried down through the superficial layers and down to the extensor mechanism. A complete rupture of the mid substance of the patellar tendon was noted. The tendon margins were sharply debrided. A #2 FiberWire suture was woven in modified [place] fashion through the proximal end of the tendon with the 2 limbs of the suture exitingthrough the tendon margins. A second FiberWire suture was directed in the same fashion through the distal tendon segment. The tendon ends were reapproximated and the sutures were tied. A satisfactoryreapproximation of the tendon ends was noted. Based on the patient's recent recurrent rupture of the left patellar tendon, it was decided to augment this repair with an allograft. A posterior tibial tendon allograft was prepared in the usual manner. A whip stitch of #2 FiberWire wasdirected through each end of the tendon. The tendon was measured and noted to be 6 mm in diameter. A 6 mm diameter tunnels were then created through the mid portion of the patella as well as posterior to the tibial tubercle. The allograft was directed in [id number] fashion through these two bone tunnels. With satisfactory tensioning maintained on the allograft, the graft was sutured to itself in multiple locations thus creating a secure reconstruction. Flexion to 45 degrees without undue tension on the repair and reconstruction was noted. The medial retinaculum wasalso repaired with interrupted sutures of #2 FiberWire. The upper thigh tourniquet was deflated after a tourniquet time of 82 minutes. Hemostasis was achieved with electrocautery. The subcutaneous tissues were closed with interrupted sutures of 2-0 and 3-0 Vicryl. The skinwas reapproximated with skin clips. Sterile dressings were applied to both knees. Knee immobilizers were applied to both lower extremities.Sponge and needle counts were correct. Estimated blood loss for the 2 procedures was 150 to 175 mL. The patient tolerated the procedure well and was returned to the recovery room in stable condition. Electronically Authenticated By: Aamir Layne M.D. 09/25/2013 16:28 Aamir Layne M.D. ES TD: 12:54 P TT: 5:17 P Doc #: [id number] cc: Ann Castillo MD us Aamir Layne MD PROCEDURES Final Result * KNEE, 1 OR 2 VWS - RIGHT (08/09/2013 6:19 PM EST) RADIOLOGY REPORT [facility] Department of Radiology [address] [place] [address], [address] Name: JANEE MARTIN : 70 Date of Service: 08/09/131752 Acct Number: [id number] Order Number: ??[id number] ?Location: [facility] Report Number: [id number] ?Service: ADM Nicho/MED Requesting Physician: Yung Menchaca Category: RADIOLOGY ??[facility] Exam: KNEE 1 OR 2 VIEWS ?? Right Signs/Symptoms: Pain;Injury Report Status: Signed Study: Right knee, two views. Indication: Pain, injury. Comparison: None. Findings: The the patella is high riding but intact. ??Soft tissue swelling/edema noted inferior to the patella in the region of the patellar tendon in the region of the insertion of the patellar tendon on the patella. ??No bony fracture identified. Impression: Patella edy with soft tissue abnormality in the region of the patellar tendon at the insertion on the patella with question of tendinous injury/tear. MRI would be more sensitive for internal derangement of the knee. ??No bony fracture identified. LUNCH COOK: Salty Fisher M.D. Interpreting Resident: Salty Fisher Date/Time of Dictation: 08/09/13 1816 Approved Electronically By/Date: Aaron Barajas 08/10/13 0739 [facility] Department of Radiology [address] [place] [address], [address] ? [phone] ? [facility] RAD Anatomical Region Laterality Modality Other 08/09/2013 6:19 PM EST Narrative 08/10/2013 7:39 AM EST Reason for Study/History: Department of Radiology TEST(S) PROCESSED BY [facility] XRAY Blaiselorena Menchaca [facility] Final Result * MRI KNEE W/O CONTRAST - LEFT FC (08/04/2013 12:34 PM EST) BI-RADS CODE [facility] (CLIA# [id number]) Anatomical Region Laterality Modality LOWER EXTREMITY Magnetic Resonan ce 08/05/2013 10:3 6 AM EST Narrative 08/05/2013 10:36 AM EST MRI of the left knee. History left knee pain since fall and ruptured patella tendon history of surgery on 06/16/2013.. Comparison 04/03/2013. Procedure multiplanar multiecho images were obtained. There is patella edy. There is a rupture of the patella tendon at and near its insertion on the inferior aspect of the patella. There is lateral subluxation of the patella in the position that the patient is imaged. There is a large amount of fluid seen in the pre-patella bursa... The cruciates are intact. The collaterals are intact. There is a radial tear of the juncture of the posterior horn and body of the medial meniscus. There is mucoid degeneration seen in the posterior horn. There is undersurface irregularity seen in the posterior horn. There is an intrameniscal tear of the posterior horn of the lateral meniscus. The tricompartmental cartilage is normal. The bone marrow demonstrates normal signal. There is a large joint effusion. There is no Coronado's cyst. Conclusion rupture patella tendon. Abnormal medial and lateral meniscus as described above. Large joint effusion. Large amount of fluid in the prepatellar bursa. Procedure Note Gianfranco Polk MD - 08/05/2013 MRI of the left knee. History left knee pain since fall and ruptured patella tendon history of surgery on 06/16/2013.. Comparison 04/03/2013. Procedure multiplanar multiecho images were obtained. There is patella edy. There is a rupture of the patella tendon at and near its insertion on the inferior aspect of the patella. There is lateral subluxation of the patella in the position that the patient is imaged. There is a large amount of fluid seen in the pre-patella bursa... The cruciates are intact. The collaterals are intact. There is a radial tear of the juncture of the posterior horn and body of the medial meniscus. There is mucoid degeneration seen in the posterior horn. There is undersurface irregularity seen in the posterior horn. There is an intrameniscal tear of the posterior horn of the lateral meniscus. The tricompartmental cartilage is normal. The bone marrow demonstrates normal signal. There is a large joint effusion. There is no Coronado's cyst. Conclusion rupture patella tendon. Abnormal medial and lateral meniscus as described above. Large joint effusion. Large amount of fluid in the prepatellar bursa. Aamir Layne MD IMG MR NO CONTRAST ORDERABLES Fi nal Result * UNSPECIFIED MAJOR PROCEDURE (06/17/2013) Narrative Transcriptions Aamir Layne MD - 06/17/2013 12:00 AM EDT OPERATIVE REPORT DATE OF OPERATION: 06/17/2013 PREOPERATIVE DIAGNOSIS: Ruptured patellar tendon, left knee. POSTOPERATIVE DIAGNOSIS: Ruptured patellar tendon, left knee. NAME OF OPERATION: Repair of ruptured patellar tendon, left knee. SURGEON: Aamir Layne M.D. SOLAR PHOTOVOLTAIC SYSTEMS ENGINEER: Monica Chaudhary ANESTHESIA: General. DESCRIPTION OF PROCEDURE: With the patient in the supine position and following the satisfactory induction of general anesthesia, thepatient's left knee was prepped and draped in a sterile manner. An upper thigh tourniquet was applied and inflated to 320 mmHg after the extremity had been elevated. A longitudinal midline skin incision was made over the anterior aspect of the knee. The incision was carried down through the superficial layers where a large hemarthrosis was evacuated. A complete rupture of the mid substance of the patellar tendon was noted. The tendon margins were debrided. A #5 FiberWire was directed through the proximal end of the tendon in a modified [place] fashion with the suture ends exiting through the medial and lateral margins of the tear. A second FiberWire suture was directed in the same fashion through the distal segment of the tendon. The tendon ends were reapproximated with the knee in extension and the sutures were tied. An anatomic reapproximation of the tendon was noted. The upper thigh tourniquet was deflated after a tourniquet time of 25 minutes. The knee was carefully taken through range of motion and the knee could be flexed to 90 degrees without undue tension on the repair. The medial and lateral retinaculum adjacent to the tendon were repaired anatomically with interrupted sutures of #1 Vicryl. The subcutaneous tissues were closed with interrupted sutures of 2-0 and 3-0 Vicryl. The skin was reapproximated with skin clips. A sterile dressing was applied to the wound. A knee immobilizer was applied to the lower extremity. Sponge and needlecounts were correct. Blood loss was negligible. The patient tolerated the procedure well and was returned to the recovery room in stable condition. Electronically Authenticated By: Aamir Layne M.D. 07/10/2013 14:38 Aamir Layne M.D. 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 NAME OF OPERATION: Arthroscopy of left knee with partial lateral meniscectomy and chondroplasty of lateral femoral condyle. SURGEON: Aamir Layne M.D. SOLAR PHOTOVOLTAIC SYSTEMS ENGINEER: Monica Shaw ANESTHESIA: General. DESCRIPTION OF PROCEDURE: With the patient in the supine position and following the satisfactory induction of general anesthesia, thepatient's left knee was examined and significant was noted, although thiswas symmetrical with the right knee. The ligamentous exam demonstrated significant anterior laxity. The left knee was prepped and draped in a sterile manner. The arthroscope was introduced into the knee through an anterolateral portal and a probe introduced through an anteromedial portal. The suprapatellar region and the patellofemoral joint were examined. Grade II changes were noted on the inferior medial facet of the patella. The femoral trochlea appeared smooth and intact. The medial compartment was examined and the articular surfaces appeared smooth and intact. The medial meniscus was visualized and probed and noted to be intact and without any evidence of tears or detachments. The intercondylar region was examined and a chronic-appearing tear ofthe anterior cruciate ligament was noted. The remaining ACL fibers were noted to be extremely redundant. The posterior cruciate ligament appeared normal. The lateral compartment was examined and significant degenerative changes were noted including large areas of grade III articular cartilage degeneration involving the lateral femoral condyle including the weightbearing region. Multiple small unstable flap tears of articular cartilage were noted. A chondroplasty was performed with the use of a shaver. There were no areas of exposed subchondral bone, but the remaining articular cartilage in the affected areas was noted to be extremely thin consistent with grade III change. The lateralmeniscus was visualized and probed. A superficial tear was noted involving the free edge of the posterior third of the meniscus. This free edge was debrided with the use of a basket punch and further contoured with the use of a shaver. The remainder of the meniscus appeared intact. The knee was irrigated and drained and the instruments were removed. The portals were closed with simple sutures of 4-0 nylon. A steriledressing was applied to the knee. The patient tolerated the procedure well and was returned to the Recovery Room in good condition. Electronically Authenticated By: Aamir Layne M.D. 06/05/2013 11:20 Aamir Layne M.D. ES TD: 8:54 A TT: 9:47 A Doc #: [id number] cc: Ann Castillo MD us Aamir Layne MD PROCEDURES Final Result * THYROID CASCADING REFLEX (05/19/2013 1:16 PM EDT) TSH 4.31 mIU/L [facility] Comment: {TSH {[id number]) ?Reference Range ?> or = 20 Years ??0.40-4.50 ? Ranges ?First trimester ?0.26-2.66 ?Second trimester ?? 0.55-2.73 ?Third trimester ?0.43-2.91 INTERPRETATION SEE NOTE [facility] Comment: {INTERPRETATION {[id number]) TSH within normal range. Consistent with euthyroid patient. Interference from heterophilic antibodies (more common) or autoantibody (less common) should be considered when the TSH value does not fit the clinical picture. TSH with HAMA Treatment (test code 73385) or TSH Antibody (test code 19694) may help identify such interferences. 05/19/2013 1:16 PM EDT 05/19/2013 10:06 PM EDT Narrative Resulting Agency Comment [id number] us Konrad Barros MD LABORATORY Final Result [facility] [address] [place] [address] * HIP UNILATERAL 2 VIEW - [facility] (04/10/2013 3:23 PM EDT) RADIOLOGY REPORT [facility] Department of Radiology [address] [place] [address], [address] Name: JANEE MARTIN : 70 Date of Service: 04/10/13 1516 Acct Number: [id number] Order Number: ??[id number] ?Location: [facility] Report Number: [id number] ?Service: REG REF/ Requesting Physician: Ariel Barcenas ([facility]) Category: ORTHOPEDIC RADIOLOGY ??[facility] Exam: HIP UNILAT 2 VIEWS ?? Right Signs/Symptoms: RIGHT HIP PAIN Report Status: Signed Right hip: Two views. Indication: Pain. No fracture, dislocation or other bone or joint abnormality is seen. ??The soft tissues are normal. ?? Impression: No bony abnormality. ?? Interpreting Resident: Date/Time of Dictation: 04/10/13 1523 Approved Electronically By/Date: Erick Saldaña 04/10/13 1523 [facility] Department of Radiology [address] [place] [address], [address] ? [phone] ? [facility] RAD Anatomical Region Laterality Modality Other 04/10/2013 3:23 PM EDT Narrative 04/10/2013 3:23 PM EDT Reason for Study/History: Department of Radiology TEST(S) PROCESSED BY [facility] XRAY us Ariel CENTENO [facility] Final Result * MAMMO BILATERAL ROUTINE (07/06/2005 3:16 PM EDT) RADIOLOGY REPORT [address] [address] __ DIAGNOSTIC IMAGING Name: ?MARIO WELLER ? Acct Num: ? [id number] Age: ? 35 ? MR Num: ? [id number] : ? 1970 ? Sex: ?F Phone Num: [phone] ? Film Num: ? [id number] Stay Type: O/P ?Room: Admit Phys:PINGETON D ? Ordering Phys: Admit Date:07/06/05 ? Discharge Date: 07/06/05 Unsigned Transcriptions are Preliminary reports and do not represent medical or legal documents. __ MAMMO BILATERAL ROUTINE ? [id number] ?COMPLETE: 5 15:16 ??ANDREW ?? ==>MAMMO ORDER<== ?COMPLETE: 5 15:16 ??ANDREW ?? REASON FOR PROCEDURE: ??CYSTIC DISEASE Reviewed and Electronically Signed by: Andrzej Vazquez MD Radiologist Tx date: ?? 07/07/05 09:49 Tx by: ? PD Signing Phys: ?? CSS ROUTINE MAMMOGRAM. This is a baseline study. Moderate stromal density lowers the sensitivity of mammography. No dominant mass or calcification suggestive of malignancy is seen. ??No architectural distortion or skin thickening is seen. IMPRESSION: ??NO EVIDENCE OF MALIGNANCY. BIRADS CATEGORY 1 ? NEGAT LUPE MAMMOGRAM. ??REGULAR FOLLOW UP. Dictating Phys: Esther VAZQUEZ M.D. Copy for: File copy printer # [id number] Copy for: RAJNI KEN MD Copy for: [address] [employer] L RECORDS [facility] (CLIA# [id number]) Anatomical Region Laterality Modality Other 07/06/2005 3:16 PM EDT Narrative 07/06/2005 3:16 PM EDT Ordered by JESUS MANUEL URBAN Reason for Study/History: CYSTIC DISEASE Test(s) processed by : [facility] Provider [facility] Final R esult Visit Diagnoses Diagnosis Start Date Sacroiliitis Sacroiliitis, not elsewhere classified 02/19/2013 Unsteady gait Abnormality of gait 02/19/2013 ACL tear Sprain of cruciate ligament of knee 04/10/2013 Tear of lateral cartilage or meniscus of knee, current 04/10/2013 Left knee DJD Osteoarthrosis, unspecified whether generalized or localized, lower leg 04/10/2013 Osteoarthritis of knee Osteoarthrosis, unspecified whether generalized or localized, lower leg 05/12/2013 Rupture of anterior cruciate ligament Sprain of cruciate ligament of knee 05/12/2013 Tear of lateral cartilage or meniscus of knee, current 05/12/2013 Preoperative examination Preoperative examination, unspecified 05/19/2013 OA (osteoarthritis) of knee Osteoarthrosis, unspecified whether generalized or localized, lower leg 05/19/2013 Hypothyroidism Unspecified hypothyroidism 05/19/2013 Obesity Obesity, unspecified 05/19/2013 Bipolar disorder (HCC) Bipolar disorder, unspecified 05/19/2013 Allergic rhinitis Allergic rhinitis, cause unspecified 05/19/2013 Sleep apnea Unspecified sleep apnea 05/19/2013 Congenital hip dysplasia (HHS) Other congenital deformity of hip (joint) 05/19/2013 Tear of lateral cartilage or meniscus of knee, current 06/09/2013 Left knee DJD Osteoarthrosis, unspecified whether generalized or localized, lower leg 06/09/2013 ACL tear Sprain of cruciate ligament of knee 06/09/2013 S/P arthroscopy of left knee Other postprocedural status 06/09/2013 Sprain and strain of knee and leg Sprain and strain of unspecified site of knee and leg 06/15/2013 Rupture patellar tendon Sprain and strain of other specified sites of knee and leg 06/29/2013 Sprain and strain of knee and leg Sprain and strain of unspecified site of knee and leg 08/03/2013 Sprain and strain of knee and leg Sprain and strain of unspecified site of knee and leg 08/04/2013 Patellar tendon rupture Sprain and strain of other specified sites of knee and leg 08/24/2013 Sprain and strain of knee and leg Sprain and strain of unspecified site of knee and leg 09/22/2013 Sprain and strain of knee and leg Sprain and strain of unspecified site of knee and leg 10/19/2013 Sprain and strain of knee and leg Sprain and strain of unspecified site of knee and leg 11/23/2013 Sprain and strain of knee and leg Sprain and strain of unspecified site of knee and leg 01/04/2014 Sprain and strain of knee and leg Sprain and strain of unspecified site of knee and leg 03/10/2014 Internal derangement of knee joint Unspecified internal derangement of knee 05/12/2014 Instability of joint Other joint derangement, not elsewhere classified, unspecified site 07/05/2014 Encounter for routine gynecological examination Routine gynecological examination 10/22/2014 Screening for malignant neoplasm of cervix Screening for malignant neoplasm of the cervix 10/22/2014 General counseling and advice for contraceptive management 12/30/2015 examination or test, unconfirmed 02/29/2016 Encounter for insertion of intrauterine contraceptive device 02/29/2016 Surveillance for control, intrauterine device Surveillance of previously prescribed intrauterine contraceptive device 04/18/2016 Possible , not confirmed examination or test, unconfirmed 04/18/2016 Left knee pain, unspecified chronicity 04/20/2019 Primary osteoarthritis of left knee Primary localized osteoarthrosis, lower leg 04/23/2019 MRSA infection Methicillin resistant Staphylococcus aureus in conditions classified elsewhere and of unspecified site 04/23/2019 Quadriceps muscle rupture, left, sequela 04/23/2019 Right foot pain Pain in limb 05/16/2020 Right foot pain Pain in limb 06/01/2020 Acquired hallux valgus of right foot Hallux valgus (acquired) 06/01/2020 Urinary urgency Urgency of urination 06/10/2020 Urinary frequency 06/10/2020 Urge incontinence 06/10/2020 Pain in both knees, unspecified chronicity 06/13/2020 Pain in both knees, unspecified chronicity 06/14/2020 Primary osteoarthritis of both knees Primary localized osteoarthrosis, lower leg 06/14/2020 Primary osteoarthritis of both knees Primary localized osteoarthrosis, lower leg 10/05/2020 Pain in joint of right shoulder Pain in joint, shoulder region 10/05/2020 Primary osteoarthritis of left knee Primary localized osteoarthrosis, lower leg 11/22/2020 Pain in both knees, unspecified chronicity 12/07/2020 Right shoulder pain, unspecified chronicity 12/07/2020 Pain in both knees, unspecified chronicity 12/09/2020 Right shoulder pain, unspecified chronicity 12/09/2020 Primary osteoarthritis of left knee Primary localized osteoarthrosis, lower leg 12/09/2020 Primary osteoarthritis of both knees Primary localized osteoarthrosis, lower leg 12/09/2020 Post-traumatic osteoarthritis of both knees Secondary localized osteoarthrosis, lower leg 12/09/2020 Strain of right rotator cuff capsule, initial encounter 12/09/2020 Back pain, unspecified back location, unspecified back pain laterality, unspecified chronicity 12/27/2020 Back pain, unspecified back location, unspecified back pain laterality, unspecified chronicity 12/27/2020 Cervical radiculopathy Brachial neuritis or radiculitis nos 12/27/2020 Whiplash injury to neck, sequela 12/27/2020 S/P shoulder surgery Other postprocedural status 12/27/2020 Myalgia Mylagia and myositis, unspecified 01/16/2021 Cervical radiculitis Brachial neuritis or radiculitis nos 01/16/2021 Chronic neck pain Cervicalgia 01/16/2021 Primary osteoarthritis of both knees Primary localized osteoarthrosis, lower leg 01/17/2021 Rupture of left patellar tendon, initial encounter 01/20/2021 Hypothyroidism, unspecified type 02/01/2021 Preoperative examination Preoperative examination, unspecified 02/01/2021 Hypothyroidism Unspecified hypothyroidism 02/01/2021 Sleep apnea, unspecified type 02/01/2021 Hyperglycemia Other abnormal glucose 02/01/2021 Preoperative examination Preoperative examination, unspecified 02/01/2021 Hallux valgus (acquired), right foot 02/01/2021 Hypothyroidism Unspecified hypothyroidism 02/01/2021 Sleep apnea, unspecified type 02/01/2021 Hyperglycemia Other abnormal glucose 02/01/2021 BMI 45.0-49.9, adult ([facility]) Body Mass Index 45.0-49.9, adult 02/01/2021 Gastroesophageal reflux disease without esophagitis Esophageal reflux 02/01/2021 Chronic superficial gastritis without bleeding Atrophic gastritis without mention of hemorrhage 02/01/2021 History of MRSA infection Personal history of Methicillin resistant Staphylococcus aureus 02/01/2021 Mood altered Unspecified episodic mood disorder 02/01/2021 Encounter for preoperative screening laboratory testing for COVID-19 virus 02/07/2021 Hallux valgus of right foot 02/10/2021 Hallux valgus of right foot 02/13/2021 Hallux valgus of right foot 02/15/2021 Morbid obesity with body mass index (BMI) of 40.0 to 49.9 ([facility]) 02/20/2021 Hallux valgus of right foot 03/01/2021 Ingrowing toenail Ingrowing nail 04/18/2021 Morbid obesity ([facility]) Morbid obesity 04/19/2021 Cervical radiculopathy Brachial neuritis or radiculitis nos 04/21/2021 Cervical radiculitis Brachial neuritis or radiculitis nos 06/26/2021 Chronic neck pain Cervicalgia 06/26/2021 Chronic neck pain Cervicalgia 07/22/2021 Cervical radiculitis Brachial neuritis or radiculitis nos 09/20/2021 Chronic neck pain Cervicalgia 09/20/2021 Foraminal stenosis of cervical region Spinal stenosis in cervical region 09/20/2021 Ingrowing toenail Ingrowing nail 10/09/2021 Cervical radiculitis Brachial neuritis or radiculitis nos 11/02/2021 Right shoulder pain, unspecified chronicity 12/13/2021 Rotator cuff strain, right, initial encounter 12/13/2021 Chronic neck pain Cervicalgia 12/13/2021 Primary osteoarthritis of both knees Primary localized osteoarthrosis, lower leg 01/02/2022 Sacroiliac joint dysfunction Disorders of sacrum 01/02/2022 Whiplash injuries, sequela 01/02/2022 Sacroiliac joint dysfunction Disorders of sacrum 01/09/2022 Enthesopathy of sacroiliac joint Enthesopathy of unspecified site 01/09/2022 Ingrowing toenail Ingrowing nail 02/13/2022 Primary osteoarthritis of both knees Primary localized osteoarthrosis, lower leg 03/07/2022 Ingrowing toenail Ingrowing nail 03/20/2022 Paresthesia Disturbance of skin sensation 03/20/2022 Weakness of right upper extremity Other musculoskeletal symptoms referable to limbs 03/20/2022 Gait abnormality Abnormality of gait 03/20/2022 Family history of MS (multiple sclerosis) Family history of other neurological diseases 03/20/2022 Urgency of urination 03/20/2022 White matter abnormality on MRI of brain Nonspecific (abnormal) findings on radiological and other examination of skull and head 03/20/2022 Ingrowing toenail Ingrowing nail 03/28/2022 Primary osteoarthritis of both knees Primary localized osteoarthrosis, lower leg 04/09/2022 Sacroiliac joint dysfunction Disorders of sacrum 04/09/2022 Enthesopathy of sacroiliac joint Enthesopathy of unspecified site 04/09/2022 Paresthesia Disturbance of skin sensation 04/14/2022 Weakness of right upper extremity Other musculoskeletal symptoms referable to limbs 04/14/2022 Gait abnormality Abnormality of gait 04/14/2022 Family history of MS (multiple sclerosis) Family history of other neurological diseases 04/14/2022 Urgency of urination 04/14/2022 Weakness of right upper extremity Other musculoskeletal symptoms referable to limbs 04/24/2022 Sacroiliac joint dysfunction Disorders of sacrum 05/07/2022 Enthesopathy of sacroiliac joint Enthesopathy of unspecified site 05/07/2022 Ingrowing toenail Ingrowing nail 05/08/2022 Paresthesia Disturbance of skin sensation 05/14/2022 Weakness of right upper extremity Other musculoskeletal symptoms referable to limbs 05/15/2022 Paresthesia Disturbance of skin sensation 05/15/2022 Paresthesia Disturbance of skin sensation 05/24/2022 Weakness of right upper extremity Other musculoskeletal symptoms referable to limbs 05/24/2022 Gait abnormality Abnormality of gait 05/24/2022 Family history of MS (multiple sclerosis) Family history of other neurological diseases 05/24/2022 Urgency of urination 05/24/2022 White matter abnormality on MRI of brain Nonspecific (abnormal) findings on radiological and other examination of skull and head 05/24/2022 Weakness of right upper extremity Other musculoskeletal symptoms referable to limbs 06/12/2022 Paresthesia Disturbance of skin sensation 06/12/2022 Cervical spondylosis with myelopathy and radiculopathy 06/12/2022 Ingrowing toenail Ingrowing nail 10/17/2022 Pain of toe of right foot Pain in limb 10/17/2022 Pain of toe of right foot Pain in limb 09/03/2023 Hallux malleus of right foot 09/11/2023 Painful orthopaedic hardware Other complications due to other internal orthopedic device, implant, and graft 09/11/2023 Chronic pain in right foot Pain in limb 12/05/2023 Chronic pain in right foot Pain in limb 12/05/2023 Painful orthopaedic hardware Other complications due to other internal orthopedic device, implant, and graft 12/05/2023 Dislocation of other internal joint prosthesis, initial encounter 12/10/2023 Acute respiratory failure with hypoxia (HCC) Acute respiratory failure 12/10/2023 Hypotension, unspecified 12/10/2023 Body mass index (BMI) 40.0-44.9, adult (HCC) 12/10/2023 Iron deficiency anemia, unspecified 12/10/2023 Morbid (severe) obesity due to excess calories (HCC) 12/10/2023 Influenza due to other identified influenza virus with other respiratory manifestations 12/10/2023 Polyneuropathy, unspecified 12/10/2023 Anxiety disorder, unspecified 12/10/2023 Fibromyalgia Mylagia and myositis, unspecified 12/10/2023 Personal history of Methicillin resistant Staphylococcus aureus infection 12/10/2023 Non-pressure chronic ulcer of other part of right foot with unspecified severity (HCC) 12/10/2023 Surgical operation with implant of artificial internal device as the cause of abnormal reaction of the patient, or of later complication, without mention of misadventure at the time of the procedure 12/10/2023 Painful orthopaedic hardware (HCC) [T84.84XA] Other complications due to other internal orthopedic device, implant, and graft 12/13/2023 Painful orthopaedic hardware (HCC) [T84.84XA] Other complications due to other internal orthopedic device, implant, and graft 12/18/2023 Chronic pain in right foot Pain in limb 12/18/2023 Painful orthopaedic hardware (HCC) [T84.84XA] Other complications due to other internal orthopedic device, implant, and graft 12/25/2023 Ingrowing toenail Ingrowing nail 05/28/2024 Care Teams Pile Header Relationship Specialty Start Date End Date Deepthi Parada NP [facility], [address] [place] [address] PCP - General Family Medicine 11/22/23
--- OUTSIDE RECORDS SUMMARY | 2024-10-26 15:31 | XMS_ITS | Clinical Summary ---
Author Organization [facility] Address [address] [place] [address] Care Team Providers Care Clinical Data Research Name Role Phone JerrodElinorIla SAMANTA Primary Care Provider [phone] Allergies Active Allergy Reactions Criticality Noted Date [...] propionate (FLONASE) 50 mcg/actuation nasal spray SMARTSI [place]) Both Nares Daily Active esomeprazole (NexIUM) 20 [...] 50 PLUS ORAL) as directed Orally Active pyshckf-yqtq-qun fj-hdnn-ddloay 100 mg-150 mg- 50 mg-150 mg capsule [...] ankle 08/26/2023 Bipolar disorder in full remission ([facility]) Bipolar disorder, in full re mission, most recent episode depressed ([facility]) 08/26/2023 Closed fracture of right proximal humerus [...] of knee on December 26, 2018 at [facility]. Preoperative culture grew MRSA and ampicillin susceptible [...] daily. - Hold Dilaudid - Continue Tramadol jail (current) use of antibiotics 9 Open wound [...] 23 Valent 11/29/2011 Pneumococcal conjugate PCV20 ,polysaccharide [id number] conjugate, adjuvant, PF (Prevnar 20) 01/29/2022 Tetanus Toxoid, Reduced Diph theria Toxoid, and Acellular Pertussis Vaccine, Adsorbed 07/05/2017,08/01/2015,01/23/2013 Tetanus and Diphtheria Toxoi ds, Adsorbed, Preservative Free (2 Lf of Tetanus Toxoid and 2 Lf of Diphtheria Toxoid) 04/13/2022 Zoster Vaccine Recombinant 06/18/2021,04/16/2021 Family History Medical History Relation Name Comments Depression Father Heart disease Father Diabetes Maternal Grandmother Arthritis Mother Bipolar disorder Mother Osteoporosis Mother Relation Name Status Comments Father Maternal Grandmother Mother Alive Social History Tobacco Use Types Packs/Day Years [...] file Not on file Not on file 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 Not on file Not on file [...] 03/27/2024 11:42 AM EDT Plan of Treatment Health Maintenance Due Date Last Done Comments Cologuard 1970 Colon Cancer Screening 1970 Colonoscopy 1970 FOBT / Fit Test 1970 HIV Screening 1970 Hepatitis C Screening 1970 Sigmoidoscopy 1970 Hepatitis B Vaccines (1 of 3 - 19+ 3-dose series) 1989 Pap Smear 05/15/2014 05/15/2011, 03/30, 09/20/2008, Additional history exists Mammogram 06/12/2014 06/12/2012, 05/16/2010 Cervical Cancer Screening 05/15/2016 HPV and Pap Smear 05/15/2016 05/15/2011, , 09/20/2008, Additional history exists Basic Metabolic Panel 01/16/2020 01/15/2019 , 01/14/2019, 01/13/2019, Additional history exists COVID-19 Vaccine ( season) 2024 Influenza Vaccine (#1) 2024 5, 05/31/2014, 06/30/2012 Alcohol/Substance Use Screening 09/30/2024 Depression Evaluation 09/30/2024 Social Drivers of Health Annual Screening 09/30/2024 DTaP,Tdap,and Td Vaccines (5 - Td or Tdap) 04/13/2032 04/13/2022, 07/05/2017, 08/01/2015, Additional history exists RSV Vaccine (60+ years old and patients) (1 - 1-dose 75+ series) 2045 Zoster Vaccines Completed 06/18/2021, 04/16/2021 Pneumococcal Vaccine: Pediatric (0-5 Years) and At-Risk Patients (6-64 Years) Aged Out 01/29/2022, 11/29/2011 No longer eligibl e based on patient's age to complete this topic Procedures * Due to [place] state law, this organization might not be sharing negative HIV tests. Procedure Name Priority Date/Time Associated Diagnosis Comments BASIC METABOLIC PANEL Timed 01/15/2019 9:14 AM EDT RIMA SCREENING DIGITAL MAMMO Routine 06/12/2012 10:40 AM EDT PAP W/REFLEX HPV, CONVERSION Routine 05/15/2011 11:46 AM EDT from Last 3 Months or Most Recently Relevant to Health Maintenance Results * Due to [place] state law, this organization might not be sharing negative HIV tests. * (ABNORMAL) Basic Metabolic Panel (01/15/2019 9:14 AM EDT) NA 141 135 - 145 mmol/L 01/15/2019 9:57 AM EDT [facility] K 3.1(L) 3.5 - 5.3 mmol/L 01/15/2019 9:57 AM EDT [facility] Cl 108 97 - 110 mmol/L 01/15/2019 9:57 AM EDT [facility] CO2 25 24 - 32 mmol/L 01/15/2019 9:57 AM EDT [facility] BUN 2(L) 7 - 23 mg/dL 01/15/2019 9:57 AM EDT [facility] Creatinine 0.90 0.50 - 1.20 mg/dL 01/15/2019 9:57 AM EDT [facility] Glucose 124(H) 70 - 99 mg/dL 01/15/2019 9:57 AM EDT [facility] Calcium 7.7(L) 8.7 - 10.7 mg/dL 01/15/2019 9:57 AM EDT [facility] Anion Gap 8 5 - 15 01/15/2019 9:57 AM EDT [facility] eGFR Non- 76(L) >=90 mL/min/BSA 01/15/2019 9:57 AM EDT [facility] eGFR 87(L) >=90 mL/min/BSA 01/15/2019 9:57 AM EDT [facility] Comment: Units = [...] Ruiz MD LAB BLOOD ORDERABLES Final Result [facility] [address] [place] [address], * RIMA Screening Digital Mammogram (06/12/2012 10:40 AM EDT) Anatomical Region Laterality Modality Breast Mammography 06/12/2012 10:4 1 AM EDT Narrative 06/18/2012 1:08 PM EDT ? DEPARTMENT OF RADIOLOGY Patient: JANEE MARTIN ? Unit #: [id number] Ordering MD: FADUMO HALE MD ?: 1970 Procedure: Digital Screening Mammo ?Age: 42 Location: W.MAMMO ? Exam Date: 06/12/12 Status: REG CLI ? Room/Bed: Primary MD: ROBI ALONSO MD ? Patient ?Order: [id number] Additional Copy: ??FADUMO HALE MD, GEORGE P MD - #[id number] - DIGSCRMAM #BILATERAL DIGITAL SCREENING MAMMOGRAM WITH CAD: 06/12/2012 CLINICAL: Routine. Comparison is made to exams dated: ??05/16/2010 mammogram - [facility] and 07/06/2005 mammogram - [facility]. There are scattered fibroglandular elements in [...] BI-RADS: 0 INCOMPLETE:NEED ADDITIONAL IMAGING EVALUATION ?? [facility] Procedure Note Sydni Kapadia MD - 06/29/2023 DEPARTMENTOF RADIOLOGY Amber t: JANEE MARTIN Unit #:[id number] Ordering MD: FADUMO HALE MD :1970 Procedure: Digital Screening Mammo Age:42 Location: W.MAMMO ExamDate: 06/12/12 Status: REG [facility]/Bed: Primary MD: ROBI ALONSO MD PatientAcct #: [id number] Order:[id number] Additional Copy: FADUMO HALE MD, GEORGE P MD - #[id number] - DIGSCRMAM #BILATERAL DIGITAL SCREENING MAMMOGRAM WITH CAD: 06/12/2012 CLINICAL: Routine. Comparison is made to exams dated: 05/16/2010 mammogram - [facility] and 07/06/2005 mammogram - [facility]. There are scattered fibroglandular elements in [...] Mammogram BI-RADS: 0 INCOMPLETE:NEED ADDITIONAL IMAGING EVALUATION [facility] us Fadumo Hale MD IMG BI PROCEDURES Final Resu lt * Pap w/Reflex HPV (05/15/2011 11:46 AM EDT) Path Procedure TPGAS (407407) 1 ?? Edited by: [id number] - [id number] [facility] Specimen Labeled As: 1 CERVICAL/ENDOCERVI LEDA CYTO MATERIAL - Edited by: [id number] [facility] Diagnosis [...] be useful in other clinical applications. ??See [place] ?? Journal of Obstetrics and Gynecology 197(4):346-355, 2006. ??This Pap test was ?? examined in accordance with the [facility] Cytopathology Laboratory written policy. ? This Pap test was examined by the ThinPrep Imaging System, [employer], [place], [place]. ?? Edited by: [id number] - [id number] VALERIA [facility] Gynecologic Clinical Data Specimen source:, THINPREP (CERVICAL AND ENDOCERVICAL) [facility] Gynecologic Clinical Data First date of LMP:, NOT GIVEN [facility] - [facility] Gynecologic Clinical Data Clinical Data:, DYSPLASIA [facility] - [facility] Marker 1 NILM,NILM [facility] Marker 2 GERARDO,JANEE [facility]OM[facility] PATHOLOG[facility] - [facility] Cc Results To RAJNI Palacios LINSEED OIL ORDER FILLER [id number] [facility] - [facility] Signature REPORT SIGNED: JANEE ALVARADO 05/23/11 [facility] Sign Out Audit JANEE ALVARADO [id number] FINAL ASHELY VALERIA [id number] [facility] Cytology / Unknown 11:46 AM EDT 05/16/2011 11:46 AM EDT us Kourtney Hay LAB HISTORICAL RESULTS Final Re sult [facility] [address] [place] [address] from Last 3 Months or Most Recently Relevant to Health Maintenance Additional Health Concerns Infection Onset Date Last Indicated 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
--- OUTSIDE RECORDS SUMMARY | 2024-10-26 15:31 | XMS_ITS | Encounter Summary ---
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 Procedure Name Priority Date/Time Associated Diagnosis Comments CBC AUTO DIFFERENTIAL Routine 08/21/2023 12:55 PM EST BUN Routine 08/21/2023 12:55 PM EST CREATININE Routine 08/21/2023 12:55 PM EST HEPATIC FUNCTION PANEL Routine 08/21/2023 12:55 PM EST documented in this encounter Results * Due to [employer] law, this organization might not be sharing negative HIV tests. * (ABNORMAL) Hepatic Function Panel (08/21/2023 12:55 PM EST) Total Protein 6.1(L) 6.6 - 8.7 g/dL 08/21/2023 5:38 PM EST [facility] Albumin 3.4(L) 3.5 - 5.0 g/dL 08/21/2023 5:38 PM EST [facility] Globulin, Total 2.7 2.1 - 4.2 g/dL 08/21/2023 5:38 PM EST [facility] Albumin Globulin Ratio 1.3 08/21/2023 5:38 PM EST [facility] Bilirubin, Total 0.1(L) 0.2 - 1.2 mg/dL 08/21/2023 5:38 PM EST [facility] Bilirubin, Direct 0.0 <=0.3 mg/dL 08/21/2023 5:38 PM EST [facility] Alkaline Phosphatase 160(H) 40 - 129 U/L 08/21/2023 5:38 PM EST [facility] AST 16 0 - 33 U/L 08/21/2023 5:38 PM EST [facility] ALT 18 <=33 U/L 08/21/2023 5:38 PM EST [facility] Bilirubin, Indirect 0.10 <=0.70 mg/dL 08/21/2023 5:38 PM EST [facility] Blood Structure of peripheral vein / Unknown 08/21/2023 12:55 PM EST 08/21/2023 4:44 PM EST us Marycruz Martinez MD LAB BLOOD ORDERABLES Final Res ult Performing Organization Address [facility] Co de Phone Number [facility] [address] [address], * Creatinine (08/21/2023 12:55 PM EST) Creatinine 0.54 0.50 - 1.12 mg/dL 08/21/2023 5:38 PM EST [facility] eGFR >90 >=60 mL/min/1. 73m2 08/21/2023 5:38 PM EST [facility] Comment:The estimated glomer ular filtration rate [...] Blood Structure of peripheral vein / Unknown 08/21/2023 12:55 PM EST 08/21/2023 4:44 PM EST us Marycruz Martinez MD LAB BLOOD ORDERABLES Final Res ult Performing Organization Address [facility]/ZIP Co de Phone Number [facility] [address] [address], [place] [phone] * BUN (08/21/2023 12:55 PM EST) BUN 12 6 - 20 mg/dL 08/21/2023 5:38 PM EST [facility] Blood Structure of peripheral vein / Unknown 08/21/2023 12:55 PM EST 08/21/2023 4:44 PM EST us Marycruz Martinez MD LAB BLOOD ORDERABLES Final Res ult [facility] [address] [place] [address], [place] [phone] * (ABNORMAL) CBC Auto Differential (08/21/2023 12:55 PM EST) WBC 10.6 4.8 - 10.8 10*3/uL 08/21/2023 5:15 PM EST [facility] RBC 4.15(L) 4.20 - 5.40 10*6/uL 08/21/2023 5:15 PM EST [facility] Hemoglobin 8.5(L) 11.7 - 15.5 g/dL 08/21/2023 5:15 PM EST [facility] Hematocrit 30.2(L) 35.7 - 45.8 % 08/21/2023 5:15 PM EST [facility] MCV 72.8(L) 81.0 - 99.0 fL 08/21/2023 5:15 PM EST [facility] MCH 20.5(L) 26.0 - 34.0 pg 08/21/2023 5:15 PM EST [facility] MCHC 28.1(L) 29.0 - 36.0 g/dL 08/21/2023 5:15 PM EST [facility] RDW Standard Deviation 51.4(H) 36.4 - 46.3 fL 08/21/2023 5:15 PM EST [facility] RDW 19.9(H) 11.0 - 15.0 % 08/21/2023 5:15 PM EST [facility] Platelets 462(H) 140 - 440 10*3/uL 08/21/2023 5:15 PM EST [facility] MPV 10.2 7.6 - 11.6 fL 08/21/2023 5:15 PM EST [facility] Segs % 50 50 - 75 % 08/21/2023 5:15 PM EST [facility] Immature Grans % 0.2 0.0 - 0.9 % 08/21/2023 5:15 PM EST [facility] Segs # 5.3 1.8 - 7.7 /??L 08/21/2023 5:15 PM EST [facility] Immature Grans # 0.02 0.00 - 0.03 10*3/uL 08/21/2023 5:15 PM EST [facility] nRBC % 0.0 0 - 0 /100 WBCs 08/21/2023 5:15 PM EST [facility] nRBC # 0.00 0.00 - 0.13 10*3/uL 08/21/2023 5:15 PM EST [facility] Lymphocyte % 39 20 - 44 % 08/21/2023 5:15 PM EST [facility] Lymphocyte # 4.16 1.00 - 4.75 10*3/uL 08/21/2023 5:15 PM EST [facility] Monocyte % 6 0 - 14 % 08/21/2023 5:15 PM EST [facility] Eosinophil % 4 0 - 5 % 08/21/2023 5:15 PM EST [facility] Basophil % 1 0 - 2 % 08/21/2023 5:15 PM EST [facility] Monocyte # 0.67 0.00 - 6.00 10*3/uL 08/21/2023 5:15 PM EST [facility] Eosinophil # 0.38 0 - 0.8 10*3/uL 08/21/2023 5:15 PM EST [facility] Basophil # 0.08 0.00 - 0.20 10*3/uL 08/21/2023 5:15 PM EST [facility] Blood Structure of peripheral vein / Unknown 08/21/2023 12:55 PM EST 08/21/2023 4:44 PM EST us Marycruz Martinez MD LAB BLOOD ORDERABLES Final Res ult [facility] [address] [place] [address], documented in this encounter Visit Diagnoses Diagnosis Encounter for general adult medical examination without abnormal findings documented in this encounter Additional Health Concerns Infection Onset Date Last Indicated Resolved Time Multidrug resistant organisms MRSA 12/19/20182018 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
--- OUTSIDE RECORDS SUMMARY | 2024-10-26 15:32 | XMS_ITS | Encounter Summary ---
Author Organization [facility] Address [phone] [facility] [place] [address] Care Team Providers Care Pressroom Supervisor Name Role Phone Marycruz Martinez MD Primary Care Provider [phone] Unknown, Unknown Primary Care Provider Deepthi Rodriguez LEAD WELDER Primary Care Provid er Ila Elder MOVIE PRODUCER Primary Care Provide r Encounter Details Date Type Department Care Team (Late st Contact Info) Description 06/18/[address] [facility] Periop [address] [place] [address] Social History Tobacco Use Types Packs/Day Years [...] 11/06/2024 1:00 PM EST Office Visit [facility] Pain Management [address] [address] Alejo Crespo MD [address] [facility], [address] Department of Anesthesiology, Perioperative [place] [address] [email or web address] 12/22/2024 11:15 AM EDT Office Visit [facility] Department of Orthopaedics [address] [place] [address] James Minaya MD [address] [place] [address] 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 07/21/2024 1:22 AM EDT documented as of this encounter Care Teams Pressroom Supervisor Relationship Specialty Start Date End Date Marycruz Martinez MD [address] [place] [phone] PCP - General Family Medicine 08/03/21 11/21/23 Unknown, Kevin, PCP - General 12/24/23 01/20/24 Deepthi Parada CNP [address] [place] [address], [address] [place] [address] [email or web address] PCP - General Family Medicine 01/21/24 03/01/24 Ila Elder NP [address] [place] [address] PCP - General 03/02/24 Chika Tovar CNP Nurse Practitioner 08/10/22 documented as of this encounter Additional Source Comments The information contained in this document represents components of the legal health record. It is not the complete legal health record.[facility]
--- OUTSIDE RECORDS SUMMARY | 2024-10-26 15:32 | XMS_ITS | Encounter Summary ---
Author Organization [facility] Address [address] [place] [address] Care Team Providers Care Press Writer Name Role Phone Marycruz Martinez MD Primary Care Provider Deepthi Parada BOILER RELINER Primary Care Provide r Encounter Details Date Type Department Care Team (Late st Contact Info) Description 02/13/2021 Professional Billing [facility] [address] [place] [phone] Steve Mahmood DPM [address] [place] [address] Social History Tobacco Use Types Packs/Day Years [...] have Coronavirus / COVID-19? No / Unsure 02/15/2021 11:42 AM EDT documented as of this encounter Plan of Treatment Not on file documented as of this encounter Visit Diagnoses Not on filedocumented in this encounter Care Teams Press Writer Relationship Specialty Start Date End Date Marycruz Martinez MD [address] [address] PCP - General Family Medicine 10/05/20 11/21/23 Deepthi Parada NP [facility], [address] [place] [address] PCP - General Family Medicine 11/22/23 documented as of this encounter
--- OUTSIDE RECORDS SUMMARY | 2024-10-26 15:32 | XMS_ITS | Encounter Summary ---
Author Organization [facility] Address [phone] [facility] [place] [address] Care Team Providers Care Coal Mill Operator Name Role Phone Unknown, Unknown Primary Care Provider Deepthi Rodriguez FIRST AID DIRECTOR Primary Care Provid er Ila Elder APPRENTICESHIP REPRESENTATIVE Primary Care Provide r Encounter Details Date Type Department Care Team (Late st Contact Info) Description 12/04/2023 Ancillary Orders [facility] Department of Orthopaedics [address] [place] [address] Reji Guardado MD [address] [place] [id number] [email or web address] Pain (Primary Dx) Social History Tobacco Use Types [...] Description 11/06/2024 1:00 PM EST Office Visit [facility] Pain Management [address] [place] [address] Alejo Crespo MD [address] [place] [address] [address] Department of Anesthesiology, [place] [address] [email or web address] 12/22/2024 11:15 AM EDT Office Visit [facility] Department of Orthopaedics [address] [place] [address] James Minaya MD [address] [place] [id number] [email or web address] documented as of this encounter Results * XR SHOULDER 2 VIEWS (LEFT) (12/04/2023 1:27 PM EST) Anatomical Region Laterality Modality Shoulder Left Computed Radiogr aphy 12/04/2023 3:55 PM EST Impressions 12/04/2023 3:57 PM EST Moderate bilateral glenohumeral osteoarthritis. Narrative 12/04/2023 3:57 PM EST XR SHOULDER 2 OR MORE VIEWS (LEFT), XR SHOULDER 2 OR MORE VIEWS (RIGHT) Referring clinician's provided indication for this examination in [facility]: Pain COMPARISON: None FINDINGS: Dedicated views left shoulder demonstrates no fracture. Mild glenohumeral cartilage space narrowing. Moderate-sized marginal osteophytes about the humeral head neck junction. Partially visualized cervical spine spinous process hardware. Mild acromioclavicular arthropathy. Dedicated views of the right shoulder demonstrate plate and screw fixation of the proximal humerus. There are marginal osteophytes but humeral head neck junction. Normal cartilage space. Mild acromioclavicular arthropathy. Procedure Note Remberto Lockhart MD - 12/04/2023 XR SHOULDER 2 OR MORE VIEWS (LEFT), XR SHOULDER 2 OR MORE VIEWS (RIGHT) Referring clinician's provided indication for this examination in Epic:Pain COMPARISON: None FINDINGS: Dedicated views left shoulder demonstrates no fracture. Mild glenohumeralcartilage space narrowing. Moderate-sized marginal osteophytes about thehumeral head neck junction. Partially visualized cervical spine spinousprocess hardware. Mild acromioclavicular arthropathy. Dedicated views of the right shoulder demonstrate plate and screw fixationof the proximal humerus. There are marginal osteophytes but humeral headneck junction. Normal cartilage space. Mild acromioclaviculararthropathy. IMPRESSION: Moderate bilateral glenohumeral osteoarthritis. 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 07/21/2024 1:22 AM EDT documented as of this encounter Care Teams Coal Mill Operator Relationship Specialty Start Date End Date Unknown, Unknown, PCP - General 12/24/23 01/20/24 Deepthi Parada CNP [address] [place] [address], [address] [place] [address] [email or web address] PCP - General Family Medicine 01/21/24 03/01/24 Ila Elder NP [address] [place] [id number] PCP - General 03/02/24 Chika Tovar CNP Nurse Practitioner 08/10/22 documented as of this encounter Additional Source Comments The information contained in this document represents components of the legal health record. It is not the complete legal health record.[facility]
== END 2024-10-26 11:20 | disposition home or self-care (01) ==
PROVIDERS: PCP Nurse Practitioner Family; Visit Provider Student in an Organized Health Care Education/Training Program
DX: E89.0 Postprocedural hypothyroidism (principal); E04.2 Nontoxic multinodular goiter; E66.813 Obesity, class 3; E66.01 Morbid (severe) obesity due to excess calories; Z68.41 Body mass index [BMI] 40.0-44.9, adult; R73.03 Prediabetes
CPT/HCPCS: 99213

== ENCOUNTER → 2024-10-26 10:43 | Outpatient (BNVA) | payer OTHER, SELFPAY | PROVIDERS: PCP Nurse Practitioner Family; Visit Provider Student in an Organized Health Care Education/Training Program | DX: E89.0 Postprocedural hypothyroidism (principal); E66.9 Obesity, unspecified; R73.03 Prediabetes; R91.1 Solitary pulmonary nodule; E04.2 Nontoxic multinodular goiter; E66.813 Obesity, class 3; E66.01 Morbid (severe) obesity due to excess calories; Z68.41 Body mass index [BMI] 40.0-44.9, adult | CPT/HCPCS: 99212 ==

== ENCOUNTER 2025-04-15 12:34 | Outpatient (REF) | payer OTHER, SELFPAY ==
[2025-04-15 14:05] LABS: Hemoglobin A1C 133.8238 umol/L; Total Hemoglobin (HGBA1C) 3157.7827 umol/L
[2025-04-15 14:53] LABS: Free T4 (Free Thyroxine) 1.07 ng/dL (0.71-1.85); Thyroid Stimulating Hormone 3.50 uIU/mL (0.32-4.0)
== END 2025-04-15 12:35 | disposition home or self-care (01) ==
LOC: HO.LAB 12:34
PROVIDERS: PCP Nurse Practitioner Family; Visit Provider Student in an Organized Health Care Education/Training Program
DX: E89.0 Postprocedural hypothyroidism (principal); E04.2 Nontoxic multinodular goiter; R73.03 Prediabetes; E66.813 Obesity, class 3; E66.01 Morbid (severe) obesity due to excess calories; Z68.41 Body mass index [BMI] 40.0-44.9, adult; Z79.85 Long-term (current) use of injectable non-insulin antidiabetic drugs; Z79.899 Other long term (current) drug therapy; Z98.890 Other specified postprocedural states
CPT/HCPCS: 36415; 83036; 84439; 84443; 99212

== ENCOUNTER 2025-04-15 12:34 | Outpatient (AMB) | payer OTHER, SELFPAY ==
[2025-04-15 12:35] VITALS: BP 126/84; PULSE 85; O2SAT 96; BMI 47.9
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
--- OUTSIDE RECORDS SUMMARY | 2025-04-15 13:02 | XMS_ITS | Patient Health Record ---
Author Organization [facility] Address [address] [place] [address] Care Team Providers Care Supervisor Modern Languages Name Role Phone VICK DAVIDSON MD Primary Care Provider Reji Davis [phone] Allergies Allergen (clinical drug ingredient) Drug/Non Drug Allergy documented on EMR Reaction Allergy Type Onset Date Status morphine morphine Unknown Drug Allergy Active Reason For Referral No Information Medications Medication SIG (Take, Route, Frequency, Duration) Notes Start Date End Date Status traZODone 150 mg tablet 1 tab(s) orally once a day (at bedtime) Active LaMICtal 150 mg tablet 1 tab(s) orally 2 times a day Active Neurontin 300 mg capsule 1 cap(s) orally 3 times a day Active Paxil 20 mg tablet 1 tab(s) orally once a day Active diclofenac sodium 75 mg delayed release tablet 1 tab(s) orally 2 times a day Active Valium 5 mg tablet 1 tab(s) orally 3 ti mes a day Active Levoxyl 100 mcg (0.1 mg) tablet 1 tab(s) orally once a day A ctive raNITIdine 150 mg capsule 1 cap(s) orall y 2 times a day Active Social History Social History Additional Details Category Social Info Options Details Social History Occupation: on SSDI, unem ployed Alcohol: socially Type: , Frequenc y: ,Years: , Determination: Drug use: no Exercise: no Marital Status: single Children: none Problems Problem Type SNOMED Code ICD Code Onset Dates Problem Status W/U Status Risk Notes Problem Pain of right knee region (finding) (39324445399853 5) Pain in right knee (M25.561) Active confirmed Problem Pain of left knee joint (finding) (49290627948887 7) Pain in left knee (M25.562) Active confirmed Problem Walking disability ([id number]) Difficulty in walking (R26.2) Active confirmed Plan Of Treatment No Information Insurance Providers Payer Name Payer Address Payer Phone Subscriber Number Group Number Insured Name Patient Relationship to Insured Coverage Start Date Coverage End Date [facility] [address] [place] [id number] MAIDA JANEE Self - patient is the insured Medical (General) History Medical History History ICD Code bipolar disorder I PTSD multiple suicide attempts recurrent bilateral patella tendon ruptu res chronic bilateral knee pain Surgical History Surgery Date(Month/Year) 3 patella tendon surgeries on left knee, 1 meniscus surgery 2 patella tendon surgeries on right knee Hospitalization History Reason Date(Month/Year) 4 hospitalizations for suicide attempts from
--- OUTSIDE RECORDS SUMMARY | 2025-04-15 13:02 | XMS_ITS | Encounter Summary ---
Author Organization [facility] Address [address] [place] [address] Care Team Providers Care Channeling Machine Operator Name Role Phone Jericho Braun MD Primary Care Provider Estrella Zamudio NP Primary Care Provider [phone] Marycruz Martinez MD Primary Care Provider Deepthi Parada REAL ESTATE BRANCH MANAGER Primary Care Provide r Encounter Details Date Type Department Care Team (Late st Contact Info) Description 04/20/2019 Orders Only [facility] [address] [phone] Prasanna Zaragoza MD [address] [place] [address] Social History Tobacco Use Types Packs/Day Years [...] documented as of this encounter Care Teams Channeling Machine Operator Relationship Specialty Start Date End Date Jericho Braun MD PCP - General Family Medicine 04/22/19 06/09/20 Estrella Zamudio NP [address] [address] PCP - General Nurse Practitioner 06/10/20 10/04/20 Marycruz Martinez MD [address] [address] PCP - General Family Medicine 10/05/20 11/21/23 Deepthi Parada NP [facility], [address] [place] [address] PCP - General Family Medicine 11/22/23 documented as of this encounter
--- OUTSIDE RECORDS SUMMARY | 2025-04-15 13:03 | XMS_ITS | Data Portability ---
Author Organization [facility] [employer], svmg_admin Address [address] [place] [id number] Care Team Providers Care Advice Clerk Name Role Phone BRADEN WHITMORE Pipefitter KRISTIE BAILEY Referring Provider [phone] LANA AMATO OTHER TEMO GAMBOA Primary Care Provider [phone] Assessment Encounter Date Assessment Date Assessment LastModified by Organization Details LastModified Time 05/08/2023 05/08/2023 53-year-old female with a multiple endocrine problems aomer Not available 05/08/2023 11:10:20 09/25/2023 09/25/2023 53-year-old female with a multiple endocrine problems aomer Not available 09/25/2023 12:01:41 01/06/2024 01/06/2024 53-year-old female with a multiple endocrine problems aomer Not available 01/06/2024 14:31:31 05/08/2024 05/08/2024 54-year-old female with a multiple endocrine problems aomer Not available 05/08/2024 12:28:57 Plan of Treatment Reminders Order Date Submit Date Provider Last Modified By Organization Details Last Modified Time Details Appointments None recorde d. Lab TSH + free T4, serum 2023 024 [facility], [address] , [place], [address], 04:05:49 lipid panel, serum 2023 024 [facility], [address] [place], [address], 4 09:03:18 TSH + free T4, serum 2023 024 [facility], [address] [place], [place] [address], [place], [address], 4 17:22:54 hemoglo bin A1C, fingers tick 2023 024 [facility], [address] [place] [address], [address], 4 16:25:20 glucose , fingers tick, blood 2023 024 [facility], [address] [place] [address], [address], 4 16:27:02 TSH + free T4, serum 2022 023 [facility], [address] [place] [address], [address], 3 13:06:51 hemoglo bin A1C, fingers tick 2022 023 [facility], [address] [place] [address], [address], 3 15:06:23 Referral None recorde d. Procedures None recorde d. Surgeries None recorde d. Imaging electro cardiog saurabh 2023 024 [email or web address] In-Office Order, Internal Use Only DO Not Attach Compendium DO Not Attach Compendium, Do Not Delete/merge, [id number] 4 15:46:54 US, thyroid 2022 023 [facility] [address] [place] [address], [address], 4 21:31:56 Medication Orders Ozempic 2 mg/dose (8 mg/3 mL) subcuta neous pen injecto r 2023 024 [facility], [address], [place], [address], 5 12:45:34 OneTouc h Verio test strips 2023 024 [facility], [address], [place], [address], 4 12:28:56 Ozempic 0.25 mg or 0.5 mg (2 mg/3 mL) subcuta neous pen injecto r 2023 024 aomer [facility], [address], [place], [address], 4 12:25:33 Trulici ty 4.5 mg/0.5 mL subcuta neous pen injecto r 2022 023 des [id number], [address] [place], [address], 4 12:08:46 Patient TargetsNo targets recorded. Patient Instructions Encounter Date Encounter Id Patient Instructions Last Modified By Organization Details Last Modified Time 01/06/2024 [id number] hypoglycemia: care instructions aomer Not available 01/06/2024 14:43:43 05/08/2024 [id number] hypoglycemia: care instructions aomer Not available 05/08/2024 12:28:53 Reason for Referral None Reported. Results Created Date Observation Date Name Description Value Unit Range Abnormal Flag Note LastModifiedBy Organization Detail LastModifiedTime 04/18/20 23 04/19/2023 CBC WITH DIFFE RENTI AL/PL ATELE T WBC 10.7 x10e3 /uL 3.4-10 .8 Not Available [facility] ([facility]) [address] [facility], [place], [address], 04/19/2023 13:07:05 04/18/20 23 04/19/2023 CBC WITH DIFFE RENTI AL/PL ATELE T RBC 5.25 x10e6 /uL 3.77-5 .28 Not Available [facility] ([facility]) [address] [place], [address], 04/19/2023 13:07:05 04/18/20 23 04/19/2023 CBC WITH DIFFE RENTI AL/PL ATELE T hemoglobin 14.3 g/dL 11.1-1 5.9 Not Available [facility] ([facility]) [address] [place], [address], 04/19/2023 13:07:05 04/18/20 23 04/19/2023 CBC WITH DIFFE RENTI AL/PL ATELE T hematocrit 45.0 % 34.0-4 6.6 Not Available [facility] ([facility]) [address] [place], [address], 04/19/2023 13:07:05 04/18/20 23 04/19/2023 CBC WITH DIFFE RENTI AL/PL ATELE T MCV 86 fL 79-97 Not Available [facility] ([facility]) [address] [place], [address], 04/19/2023 13:07:05 04/18/20 23 04/19/2023 CBC WITH DIFFE RENTI AL/PL ATELE T MCH 27.2 pg 26.6-3 3.0 Not Available [facility] ([facility]) [address] [place], [address], 04/19/2023 13:07:05 04/18/20 23 04/19/2023 CBC WITH DIFFE RENTI AL/PL ATELE T MCHC 31.8 g/dL 31.5-3 5.7 Not Available [facility] ([facility]) [address] [place], [address], 04/19/2023 13:07:05 04/18/20 23 04/19/2023 CBC WITH DIFFE RENTI AL/PL ATELE T RDW 14.3 % 11.7-1 5.4 Not Available [facility] ([facility]) [address] [facility], [place], [address], 04/19/2023 13:07:05 04/18/20 23 04/19/2023 CBC WITH DIFFE RENTI AL/PL ATELE T platelets 314 x10e3 /uL 150-45 0 Not Available [facility] ([facility]) [address] [facility], [place], [address], 04/19/2023 13:07:05 04/18/20 23 04/19/2023 CBC WITH DIFFE RENTI AL/PL ATELE T neutrophils 52 % not estab. Not Available [facility] ([facility]) [address] [facility], [place], [address], 04/19/2023 13:07:05 04/18/20 23 04/19/2023 CBC WITH DIFFE RENTI AL/PL ATELE T lymphs 39 % not estab. Not Available [facility] ([facility]) [address] [place], [address], 04/19/2023 13:07:05 04/18/20 23 04/19/2023 CBC WITH DIFFE RENTI AL/PL ATELE T monocytes 6 % not estab. Not Available [facility] ([facility]) [address] [facility], [place], [address], 04/19/2023 13:07:05 04/18/20 23 04/19/2023 CBC WITH DIFFE RENTI AL/PL ATELE T eos 2 % not estab. Not Available [facility] ([facility]) [address] [place], [address], 04/19/2023 13:07:05 04/18/20 23 04/19/2023 CBC WITH DIFFE RENTI AL/PL ATELE T basos 1 % not estab. Not Available [facility] ([facility]) [address] [place], [address], 04/19/2023 13:07:05 04/18/20 23 04/19/2023 CBC WITH DIFFE RENTI AL/PL ATELE T immature cells TECHNICAL PUBLICATIONS MANAGER Not Available [facility] ([facility]) [address] [facility], [place], [address], 04/19/2023 13:07:05 04/18/20 23 04/19/2023 CBC WITH DIFFE RENTI AL/PL ATELE T neutrophils (absolute) 5.7 x10e3 /uL 1.4-7. 0 Not Available [facility] ([facility]) [address] [facility], [place], [address], 04/19/2023 13:07:05 04/18/20 23 04/19/2023 CBC WITH DIFFE RENTI AL/PL ATELE T lymphs (absolute) 4.2 x10e3 /uL 0.7-3. 1 above high normal Not Available [facility] ([facility]) [address] [place], [address], 04/19/2023 13:07:05 04/18/20 23 04/19/2023 CBC WITH DIFFE RENTI AL/PL ATELE T monocytes(ab solute) 0.6 x10e3 /uL 0.1-0. 9 Not Available [facility] ([facility]) [address] [place], [address], 04/19/2023 13:07:05 04/18/20 23 04/19/2023 CBC WITH DIFFE RENTI AL/PL ATELE T eos (absolute) 0.2 x10e3 /uL 0.0-0. 4 Not Available [facility] ([facility]) [address] [place], [address], 04/19/2023 13:07:05 04/18/20 23 04/19/2023 CBC WITH DIFFE RENTI AL/PL ATELE T baso (absolute) 0.1 x10e3 /uL 0.0-0. 2 Not Available [facility] ([facility]) [address] [facility], [place], [address], 04/19/2023 13:07:05 04/18/20 23 04/19/2023 CBC WITH DIFFE RENTI AL/PL ATELE T immature granulocytes 0 % not estab. Not Available [facility] ([facility]) [address] [facility], [place], [address], 04/19/2023 13:07:05 04/18/20 23 04/19/2023 CBC WITH DIFFE RENTI AL/PL ATELE T immature grans (abs) 0.0 x10e3 /uL 0.0-0. 1 Not Available [facility] ([facility]) [address] [facility], [place], [address], 04/19/2023 13:07:05 04/18/20 23 04/19/2023 CBC WITH DIFFE RENTI AL/PL ATELE T NRBC TECHNICAL PUBLICATIONS MANAGER Not Available [facility] ([facility]) [address] [facility], [place], [address], 04/19/2023 13:07:05 04/18/20 23 04/19/2023 CBC WITH DIFFE RENTI AL/PL ATELE T hematology comments: TECHNICAL PUBLICATIONS MANAGER Not Available [facility] ([facility]) [address] [facility], [place], [address], 04/19/2023 13:07:05 04/18/20 23 04/19/2023 COMP. METAB OLIC PANEL (14) glucose 75 mg/dL 70-99 Not Available [facility] ([facility]) [address] [place], [address], 04/19/2023 13:07:05 04/18/20 23 04/19/2023 COMP. METAB OLIC PANEL (14) BUN 12 mg/dL 6-24 Not Available [facility] ([facility]) [address] [place], [address], 04/19/2023 13:07:05 04/18/20 23 04/19/2023 COMP. METAB OLIC PANEL (14) creatinine 0.63 mg/dL 0.57-1 .00 Not Available [facility] ([facility]) [address] [facility], [place], [address], 04/19/2023 13:07:05 04/18/20 23 04/19/2023 COMP. METAB OLIC PANEL (14) eGFR 106 mL/mi n/1.7 3 >59 Not Available [facility] ([facility]) [address] [facility], [place], [address], 04/19/2023 13:07:05 04/18/20 23 04/19/2023 COMP. METAB OLIC PANEL (14) BUN/creatini ne ratio 19 9-23 Not Available [facility] ([facility]) [address] [facility], [place], [address], 04/19/2023 13:07:05 04/18/20 23 04/19/2023 COMP. METAB OLIC PANEL (14) sodium 138 mmol/ L 134-14 4 Not Available [facility] ([facility]) [address] [facility], [place], [address], 04/19/2023 13:07:05 04/18/20 23 04/19/2023 COMP. METAB OLIC PANEL (14) potassium 4.9 mmol/ L 3.5-5. 2 Not Available [facility] ([facility]) [address] [facility], [place], [address], 04/19/2023 13:07:05 04/18/20 23 04/19/2023 COMP. METAB OLIC PANEL (14) chloride 100 mmol/ L 96-106 Not Available [facility] ([facility]) [address] [facility], [place], [address], 04/19/2023 13:07:05 04/18/20 23 04/19/2023 COMP. METAB OLIC PANEL (14) carbon dioxide, total 22 mmol/ L 20- Not Available [facility] ([facility]) [address] [facility], [place], [address], 04/19/2023 13:07:05 04/18/20 23 04/19/2023 COMP. METAB OLIC PANEL (14) calcium 9.7 mg/dL 8.7-10 .2 Not Available [facility] ([facility]) [address] [facility], [place], [address], 04/19/2023 13:07:05 04/18/20 23 04/19/2023 COMP. METAB OLIC PANEL (14) protein, total 7.0 g/dL 6.0-8. 5 Not Available [facility] ([facility]) [address] [facility], [place], [address], 04/19/2023 13:07:05 04/18/20 23 04/19/2023 COMP. METAB OLIC PANEL (14) albumin 4.2 g/dL 3.8-4. 9 Ple ase note refer ence inter brooklynn almaraz e Not Available [facility] ([facility]) [address] [facility], [place], [address], 04/19/2023 13:07:05 04/18/20 23 04/19/2023 COMP. METAB OLIC PANEL (14) globulin, total 2.8 g/dL 1.5-4. 5 Not Available [facility] ([facility]) [address] [facility], [place], [address], 04/19/2023 13:07:05 04/18/20 23 04/19/2023 COMP. METAB OLIC PANEL (14) A/G ratio 1.5 1.2-2. 2 Not Available [facility] ([facility]) [address] [facility], [place], [address], 04/19/2023 13:07:05 04/18/20 23 04/19/2023 COMP. METAB OLIC PANEL (14) bilirubin, total 0.3 mg/dL 0.0-1. 2 Not Available [facility] ([facility]) [address] [place], [address], 04/19/2023 13:07:05 04/18/20 23 04/19/2023 COMP. METAB OLIC PANEL (14) alkaline phosphatase 139 IU/L 44-121 above high normal Not Available [facility] ([facility]) [address] [place], [address], 04/19/2023 13:07:05 04/18/20 23 04/19/2023 COMP. METAB OLIC PANEL (14) AST (SGOT) 19 IU/L 0-40 Not Available [facility] ([facility]) [address] [place], [address], 04/19/2023 13:07:05 04/18/20 23 04/19/2023 COMP. METAB OLIC PANEL (14) ALT (SGPT) 22 IU/L 0-32 Not Available [facility] ([facility]) [address] [place], [address], 04/19/2023 13:07:05 04/18/20 23 04/19/2023 LIPID PANEL cholesterol, total 213 mg/dL 100-19 9 above high normal Not Available [facility] ([facility]) [address] [place], [address], 04/19/2023 13:07:06 04/18/20 23 04/19/2023 LIPID PANEL triglyceride s 321 mg/dL 0-149 above high normal Not Available [facility] ([facility]) [address] [place], [address], 04/19/2023 13:07:06 04/18/20 23 04/19/2023 LIPID PANEL HDL cholesterol 42 mg/dL >39 Not Available [facility] ([facility]) [address] [place], [address], 04/19/2023 13:07:06 04/18/20 23 04/19/2023 LIPID PANEL VLDL cholesterol leda 56 mg/dL 5-40 above high normal Not Available [facility] ([facility]) [address] [facility], [place], [address], 04/19/2023 13:07:06 04/18/20 23 04/19/2023 LIPID PANEL LDL chol calc ([facility]) 115 mg/dL 0-99 above high normal Not Available [facility] ([facility]) [address] [place], [address], 04/19/2023 13:07:06 04/18/20 23 04/19/2023 LIPID PANEL comment: TECHNICAL PUBLICATIONS MANAGER Not Available [facility] ([facility]) [address] [facility], [place], [address], 04/19/2023 13:07:06 04/18/20 23 04/19/2023 HCV ANTIB SHELLEY RFX TO QUANT PCR HCV Ab Non Reacti ve non reacti ve Not Available [facility] ([facility]) [address] [facility], [place], [address], 04/19/2023 13:07:07 04/18/20 23 04/19/2023 HCV ANTIB SHELLEY RFX TO QUANT PCR interpretati on: Commen t Not infec herber with HCV unles s early or acute infec tion is suspe cted (whic h may be delay ed in an immun ocomp romis ed indiv idual ), or other evide nce exist s to indic ate HCV infec tion. Not Available [facility] ([facility]) [address] [facility], [place], [address], 04/19/2023 13:07:07 04/18/20 23 04/19/2023 HEMOG LOBIN A1C hemoglobin A1C 5.9 % 4.8-5. 6 above high normal Predi abete s: 5.7 - 6.4 Diabe jemma: >6.4 Glyce tyshawn contr ol for adult s with diabe jemma: <7.0 Not Available [facility] ([facility]) [address] [place], [address], 04/19/2023 13:07:07 04/18/20 23 04/19/2023 TSH TSH 4.500 uIU/m L 0.450- 4.500 Not Available [facility] ([facility]) [address] [place], [address], 04/19/2023 13:07:08 09/25/20 23 09/26/2023 TSH+F REE T4 TSH 2.440 uIU/m L 0.450- 4.500 Not Available [facility] ([facility]) [address] [place], [address], 09/26/2023 13:06:51 09/25/20 23 09/26/2023 TSH+F REE T4 T4,free(dire ct) 1.00 NG/dL 0.82-1 .77 Not Available [facility] ([facility]) [address] [place] [address], [address], 09/26/2023 13:06:51 09/25/20 23 09/25/2023 hemog lobin A1C, finge rstic k Hemoglobin A1c 5.7% Not Available [facility] [address] [place] [address], [address], 09/25/2023 12:32:12 11/20/19 24 11/21/2023 NON-G YN CYTOL OGY REPOR T non-nurse obgyn cytology report Patie nt Name: JANEE BEY [id number] Locat ion: [facility] - [facility] Direc tor(s ): [address] [place] [id number] - Order ing Physi pankaj: oJhnny Wheeler Anato tyshawn Patho logy Resul ts Acces dana: [id number] Colle cted 2023 09:11 date/ time: EST Respo nsibl lev Mckee MD, Felix Recei jose 2023 14:12 Patho logis t: Date/ Time: EST NON-G YN CYTOL OGY REPOR T - 2023 15:52 EST - Auth (Veri fied) DIAGN OSIS: A. THYRO ID, LEFT LOBE, FINE NEEDL E ASPIR ATION : BENIG N. Benig n folli cular cells and Hurth le cells . Lymph ocyte s. Collo id. In the prope r clini leda cheri xt, the findi ngs are consi stent with Yung barbara 's thyro iditi s. Appro priat e follo w up is recom sandy d to ensur e that the sampl e is repre senta tive of the under lying lesio n. B. THYRO ID, LEFT ISTHM US, FINE NEEDL E ASPIR ATION : BENIG N. Benig n folli cular cells and Hurth le cells . Lymph ocyte s and macro phage s. Collo id. In the prope r clini leda cheri xt, the findi ngs are consi stent with Yung barbara 's thyro iditi s. Appro priat e follo w up is recom sandy d to ensur e that the sampl e is repre senta tive of the under lying lesio n. Cytot echno logis t:RB, JAVON 11.21 Henna d on: Elvira Mckee MD, PhD (Elec troni c signa ture) 11.21 15:52 EST SPECI MEN(S ) RECEI JOSE: A. left thyro id bx 1.7cm B. Isthm us left thyro id nodul e bx 1.2cm CLINI LEDA HISTO RY: Clini leda Histo ry/Pr e-op Diagn osis: nodul e Proce dure: Left thyro id FNA 27g x 3 GROSS DESCR IPTIO N: A. Left thyro id Recei jose: 30 mL clear pale pink fluid in CytoL yt Cell Block : ThinP rep: 1 Speci al Stain s: Patie nt Name: JANEE BEY [id number] Locat ion: [facility] Dire[facility](s ): [address] [place] [id number] - [phone] Order ing Physi pankaj: Johnny Wheeler Anato tyshawn Patho logy Resul ts Acces dana: [id number] Colle cted 2023 09:11 date/ time: EST Respo nsibl e Rafi ADAIR, Felix Recei jose 2023 14:12 Patho logis t: Date/ Time: EST GROSS DESCR IPTIO N: B. Thyro id Isthm us Recei jose: 30 mL clear pale pink fluid in CytoL yt Cell Block : ThinP rep: 1 Speci al Stain s: Not Available [facility] ([facility]) [address] [place], [address], 11/21/2023 15:52:24 01/06/20 24 01/06/2024 gluco se, finge rstic k, blood Glucose, Fingerstick 59 Not Available [facility] [address] [place] [address], [address], 01/06/2024 14:41:01 01/06/20 24 01/06/2024 hemog lobin A1C, finge rstic k Hemoglobin A1c 5.7 Not Available [facility] [address] [place] [address], [address], 01/06/2024 14:31:33 02/14/20 24 02/15/2024 TSH+F REE T4 TSH 13.900 uIU/m L 0.450- 4.500 above high normal Not Available [facility] ([facility]) [address] [place], [address], 02/15/2024 03:06:01 02/14/20 24 02/15/2024 TSH+F REE T4 T4,free(dire ct) 0.81 NG/dL 0.82-1 .77 below low normal Not Available [facility] ([facility]) [address] [facility], [place], [address], 02/15/2024 03:06:01 05/12/2005/13/2024 TSH+F REE T4 TSH 2.040 uIU/m L 0.450- 4.500 normal Not Available [facility] ([facility]) [address] [facility], [place], [address], 05/13/2024 04:05:49 05/12/20 24 05/13/2024 TSH+F REE T4 T4,free(dire ct) 1.46 NG/dL 0.82-1 .77 normal Not Available [facility] ([facility]) [address] [facility], [place], [address], 05/13/2024 04:05:49 10/22/19 24 10/21/2023 US, thyro id Amber dorantes Name: JANEE BEY [id number] Locati on: [facility] - [facility] [address] [place] [address]- Radiol ogy ACCESS ION EXAM DATE/T CHE PROCED URE ORDERI NG STATUS PROVID ER [id number] -24 07 10/21/ 024 US Head/N samira BRITANY ADAIR, Auth 61 12:24 EST Soft Tissue ABDULK ADIR (Verif ied) Reason For Exam (US Head/N samira Soft Tissue ) NON-TO XIC MULTIN ODULAR GOITER Report THYROI D ULTRAS OUND TECHNI QUE: Ultras ound evalua tion of the thyroi d gland was perfor med with barber scale and color Dopple r imagin g. INDICA TION: Nontox ic multin odular goiter COMPAR SHON: December 07 0.33 FINDIN GS: RIGHT THYROI D: Right thyroi d lobe demons trates nodula r hetero geneou s echote xture measur ing 1.2 x 2.8 x 1 cm. Nodule s in right lobe are as: 1. Nodule in right superi or thyroi d lobe is solid (2), hypoec hoic (2), wider than tall (0), with smooth margin s (0) and withou t internal grinder set up operator al echoge wilver foci (0). Nodule measur es 0.9 x 0.7 x 0.7 cm .As per ACR TI-RAD S nodule is catego rized as TR-4 (moder ately suspic ious). No specif ic follow up or fine needle aspira tion is recomm ended. 2. Nodule in the right inferi or thyroi d lobe is solid (2), isoech oic(1) , taller than wide (3), with smooth margin s (0) and withou t internal grinder set up operator al echoge wilver foci (0). Nodule measur es 0.9 x 0.8 x 1 cm .As per ACR TI-RAD S nodule is catego rized as TR-4 (moder ately suspic ious). One year follow up ultras ound is recomm ended. LEFT THYROI D: Left thyroi d lobe demons trates nodula r homoge neous echote xture measur ing 1.8 x 3.9 x 1.7 cm. Nodule (s) in the left lobe are descri bed below. 1. Nodule in left mid thyroi d lobe is solid (2), isoech oic(1) , wider than tall (0), with smooth margin s (0) and withou t internal grinder set up operator al echoge wilver foci (0). Nodule measur es 1.7 x 1.7 x 1.2 cm .As per ACR TI-RAD S nodule is catego rized as TR-3 (mildl y suspic ious). One year follow up ultras ound is recomm ended. ISTHMU S: The isthmu s is 0.8 cm wide. Nodule (s) in the isthmu s are descri bed below. Admitt ing: BRITANY ADAIR, ANGEL PEOPLES Consul ting: Amber dorantes Name: JANEE BEY [id number] Locati on: [facility] [address] [place] [address]- Radiol ogy Report 1. Nodule in left isthmu s is almost solid (2), very hypoec hoic (3), wider than tall (0), with lobula herber margin s (2) and with macroc alcifi cation s (1). Nodule measur es 1.2 x 0.8 x 0.7 cm .As per ACR TI-RAD S nodule is catego rized as TR-5 (highl y suspic ious). No specif ic follow up or fine needle aspira tion is recomm ended. Color dopple r demons trates increa sed vascul arity in the bilate ral thyroi d lobes. IMPRES DANA: 1.Mult inodul ar goiter with left isthmu s 1.2 cm TR-5 nodule ; this meets ACR criter ia for fine needle aspira tion. 2.Zander mmend one-ye ar follow -up for TR-4 right inferi or thyroi d lobe and TR-3 left mid thyroi d lobe nodula rities . Radiol ogy reside nt Cory Brannon MD (Atten ding review by Dr. Ariel Kenyon M.D. I have person ally review ed the study and agree with the report ed veronique [place]. EVELYNE Schmitt SITE: [facility]) ____ Fin al Report Dictat ed: 2023 2:10 pm Dictat ed By: MICHAEL ADAIR, CORY Rahman onjustyn Signat ure: 2023 9:01 am Signed By: SHAYLA ADAIR, ARIEL Johnson ing: BRITANY ADAIR, ANGEL PEOPLES Consul ting: [email or web address] (Radiology) [address] [place] [address], [id number], 11/12/2023 21:31:56 10/27/19 24 07/18/2023 elect rocar diogr am No observ ation record ed. [email or web address] Not Available 2023 21:16:16 11/20/19 24 11/20/2023 fine needl e aspir ation , ultra sound guide d, thyro id (PROC ) Patien t Name: JANEE BEY [id number] Locati on: [facility] - IR [facility] [address] [place] [id number]- Radiol ogy ACCESS ION EXAM DATE/T CHE PROCED URE ORDERI NG STATUS PROVID ER [id number] [phone] IR Fine Needle BRITANY ADAIR, Auth 22 12:18 EST Aspira tion+U SG ABDULK ADIR (Verif ied) uide1s tLesn Reason For Exam (IR Fine Needle Aspira tion+U SGuide 1stLes n) 1.1.2 CM ISTHMI C NODLE, 2.1.7 CM LEFT LOBE THYROI D NODULE FNA Report PROCED URE: Ultras ound-g uided biopsy Proced ural Person nunu Attend ing physic oracio(s) : Aman Bonds MD Fellow physic oracio(s) : None Reside nt physic oracio(s) : Johnny Cruz DO. Gema Aguilera MD. Proced ure Date (mm/dd /yyyy) : 024 Pre-pr ocedur e diagno sis: TR 5 nodule of the left isthmu s, TR 3 nodule of the left lobe of the thyroi d Post-p rocedu re diagno sis: Same Indica tion: Histop atholo gi diagno sis Previo us biopsy of same target (QCDR) : No Additi onal clinic al histor y: None Compli cation s: No immedi ate compli cation s. IMPRES DANA: Ultras ound-g uided biopsy of thyroi d nodule s. Plan: Specim en(s) sent for evalua tion. ___ PROCED URE SUMMAR Y: - Percut aneous US-nena ded fine needle aspira tion biopsy - Additi onal proced ure(s) : None Pre-pr ocedur e Refere nce imagin g for biopsy target : Ultras ound of the neck 024 Consen t: Inform ed consen t for the proced ure includ ing risks, benefi ts and altern atives was obtain ed and time-o ut was perfor med prior to the proced ure. Admitt ing: BRITANY ADAIR, ANGEL PEOPLES Consul ting: Patien t Name: JANEE BEY [phone] Locati on: [facility] [address] [place] [address]- Radiol ogy Report Prepar ation: The site was prepar ed and draped using kelley l steril e sheela r techni que includ ing cutane ous antise psis. Anesth esia/s edatio n Level of anesth esia/s edatio n: No sedati on Imagin g prior to biopsy The patien t was positi oned supine . Initia l imagin g was perfor med. Biopsy target : - Organ or target locati on: Other- thyroi d - Latera lity: Left isthmu s and left lobe of the thyroi d nodule - Kelley l diamet er (cm): Isthmu s nodule 1.2cm , Left lobe nodule 1.7 cm Other findin gs: None Biopsy Local anesth esia was admini stered . Under US guidlorena ce, the fine-n eedle aspira tion was perfor med for the left thyroi d nodule . Separa te fine-n eedle aspira tion was perfor med for the isthmu s nodule . Fine needle aspira tion device : 10 cc Syring e Fine needle size: 27 gauge Number of FNA specim ens: 3 from the left thyroi d nodule ; 4 from the isthmu s nodule . On-sit e assess ment of biopsy adequa cy: No Additi onal sampli ng recomm endati ons: None Prelim inary assess ment of sample adequa cy: Not applic able Needle remova l The biopsy needle was remove d and a steril e dressi ng was applie d. Tract emboli zation : None Additi onal Detail s Additi onal descri ption of proced ure: None Regist ry event: None Specim ens remove d: Biopsy sample s as detail ed above Estima herber blood loss (mL): Less than 10 Standa rdized report : _Artemio opsyUS _v3.1 Attest ation Signer name: Amna Bonds I attest that I was presen t for the entire proced ure. I review ed the stored images and agree with the report as writte n. Admitt ing: BRITANY ADAIR, ANGEL PEOPLES Consul ting: Patikeeley t Name: JANEE BEY [phone] Locati on: [facility] - [place] [facility] [address] [place] [address]- Radiol ogy Report Evelyne schmitt Site: [facility] ____ Fin al Report Dictat ed: 2023 1:24 pm Dictat ed By: KLEBER ADAIR, GEMA OCONNOR Electr onic Signat ure: 2023 3:17 pm Signed By: NAKUL ADAIR, AMAN DELGADO Admitt ing: BRITANY ADAIR, ANGEL PEOPLES Consul ting: [facility] [place] [address] [place], [address], 01/06/2024 14:30:19 01/06/20 24 12/16/2023 XR, chest No observ ation record ed. [email or web address] Not Available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
--- OUTSIDE RECORDS SUMMARY | 2025-04-15 13:03 | XMS_ITS | Referral Summary ---
Author Organization [facility] Address [address] [place] [address] Care Team Providers Care Supervisor Mixing Name Role Phone JerrodElinorIla NP Primary Care Provider Allergies Active Allergy Reactions Criticality Noted Date [...] propionate (FLONASE) 50 mcg/actuation nasal spray SMARTSI [place](s) Both Nares Daily Active esomeprazole (NexIUM) 20 [...] 50 PLUS ORAL) as directed Orally Active fcgurfd-kqsr-rsu ij-zqho-mwbeab 100 mg-150 mg- 50 mg-150 mg capsule [...] ankle 08/26/2023 Bipolar disorder in full remission 08/26/2023 Bipolar disorder, in full re mission, most recent episode depressed 08/26/2023 Closed fracture of right proximal humerus [...] of knee on December 26, [address] [facility]. Preoperative culture grew MRSA and ampicillin [...] daily. 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 Not on file Not on file Not on file Last Filed Vital Signs Vital Sign Reading Time Taken Comments Blood Pressure 136/91 07/05/2022 2:18 PM EDT Pulse 91 07/05/2022 2:18 PM EDT Temperature 36.1 C (96.9 F) 03/27/2024 11:42 AM EDT Respiratory Rate 16 07/05/2022 2:18 PM EDT Oxygen Saturation 93% 07/05/2022 2:18 PM EDT Inhaled Oxygen Concentration - - Weight 113.4 kg (250 lb) 03/27/2024 11:42 AM EDT Height 162.6 cm (5' 4 ) 03/27/2024 11:42 AM EDT Body Mass Index 42.91 03/27/2024 11:42 AM EDT Plan of Treatment Not on file Procedures * Due to [place] state law, this organization might not be sharing negative HIV tests. Procedure Name Priority Date/Time Associated Diagnosis Comments BASIC METABOLIC PANEL Timed 01/15/2019 9:14 AM EDT RIMA SCREENING DIGITAL MAMMO Routine 06/12/2012 10:40 AM EDT PAP W/REFLEX HPV, CONVERSION Routine 05/15/2011 11:46 AM EDT from Last 3 Months or Most Recently Relevant to Health Maintenance Results * Due to [place] state law, this organization might not be sharing negative HIV tests. * (ABNORMAL) Basic Metabolic Panel (01/15/2019 9:14 AM EDT) NA 141 135 - 145 mmol/L 01/15/2019 9:57 AM EDT [facility] K 3.1(L) 3.5 - 5.3 mmol/L 01/15/2019 9:57 AM EDT [facility] Cl 108 97 - 110 mmol/L 01/15/2019 9:57 AM EDT [facility] CO2 25 24 - 32 mmol/L 01/15/2019 9:57 AM EDT [facility] BUN 2(L) 7 - 23 mg/dL 01/15/2019 9:57 AM EDT [facility] Creatinine 0.90 0.50 - 1.20 mg/dL 01/15/2019 9:57 AM EDT [facility] Glucose 124(H) 70 - 99 mg/dL 01/15/2019 9:57 AM EDT [facility] Calcium 7.7(L) 8.7 - 10.7 mg/dL 01/15/2019 9:57 AM EDT [facility] Anion Gap 8 5 - 15 01/15/2019 9:57 AM EDT [facility] eGFR Non- 76(L) >=90 mL/min/BSA 01/15/2019 9:57 AM EDT [facility] eGFR 87(L) >=90 mL/min/BSA 01/15/2019 9:57 AM EDT [facility] Comment: Units = mL/min/1.73 m2 Glomerular Filtration Rate (GFR) is estimated based on the CKD-EPI Creatinine Equation (2009). Stage Description GFR 1 Normal >=90 mL/min/BSA 2 Mildly decreased GFR 60-89 mL/min/BSA 3 Moderately decreased GFR 30-59 mL/min/BSA 4 Severely decreased GFR 15-29 mL/min/BSA 5 Kidney Failure <15 mL/min/BSA Blood specimen (specimen) Structure of peripheral vein / Unknown Venipuncture / Unknown 01/15/2019 9:14 AM EDT 01/15/2019 9:29 AM EDT us Molly Ruiz MD LAB BLOOD ORDERABLES Final Result [facility] [address] [place] [address], [place] * [facility] Screening Digital Mammogram (06/12/2012 10:40 AM EDT) Anatomical Region Laterality Modality Breast Mammography 06/12/2012 10:4 1 AM EDT Narrative 06/18/2012 1:08 PM EDT DEPARTMENT OF RADIOLOGY Patient: JANEE MARTIN Unit #: [id number] Ordering MD: FADUMO HALE MD : 1970 Procedure: Digital Screening Mammo Age: 42 Location: W.MAMMO Exam Date: 06/12/12 Status: [facility] Room/Bed: Primary MD: ROBI ALONSO MD Patient Order: [id number] Additional Copy: FADUMO HALE MD, GEORGE P MD - #[id number] - DIGSCRMAM #BILATERAL DIGITAL SCREENING MAMMOGRAM WITH CAD: 06/12/2012 CLINICAL: Routine. Comparison is made to exams dated: 05/16/2010 mammogram - [facility] and 07/06/2005 mammogram - [facility]. There are scattered fibroglandular elements [...] Mammogram BI-RADS: 0 INCOMPLETE:NEED ADDITIONAL IMAGING EVALUATION [facility] Procedure Note Sydni Kapadia MD - 06/29/2023 DEPARTMENTOF RADIOLOGY Amber t: JANEE MARTIN Unit #:[id number] Ordering MD: FADUMO HALE MD :1970 Procedure: Digital Screening Mammo Age:42 Location: W.MAMMO ExamDate: 06/12/12 Status: [facility]: Primary MD: ROBI ALONSO MD PatientAcct #: [id number] Order:[id number] Additional Copy: FADUMO HALE MD, GEORGE P MD - #[id number] - DIGSCRMAM #BILATERAL DIGITAL SCREENING MAMMOGRAM WITH CAD: 06/12/2012 CLINICAL: Routine. Comparison is made to exams dated: 05/16/2010 mammogram - [facility] and 07/06/2005 mammogram - [facility]. There are scattered fibroglandular elements [...] (05/15/2011 11:46 AM EDT) Path Procedure TPGAS ([id number]) 1 Edited by: [id number] - [address] [facility] ANATOMIC PATHOLOGY - [facility] Specimen Labeled As: 1 CERVICAL/ENDOCERVI LEDA CYTO MATERIAL - Edited by: [id number] - 1147 [facility] ANATOMIC PATHOLOGY - [facility] Diagnosis ThinPrep Pap Test Adequacy: Satisfactory for evaluation Interpretation: Negative for Intraepithelial Lesion or Malignancy Remarks/Recommenda tions: This is the result of a morphological screening test with an inherent probability of a false negative interpretation. HPV testing in combination with a morphological Pap test reduces the probability of a serious cervical epithelial abnormality in patients over age 30 and is cost-effective. HPV testing can be useful in other clinical applications. See [place] Journal of Obstetrics and Gynecology 197(4):346-355, 2007. This Pap test was examined in accordance with the [facility] Cytopathology Laboratory written policy. This Pap test was examined by the ThinPrep Imaging System, [employer], [place], [place]. Edited by: [id number] - 0853 [address]ER[address] [facility]ATOMIC [facility]OLOGY - [facility] Gynecologic Clinical Data Specimen source:, THINPREP (CERVICAL AND ENDOCERVICAL) [facility] Gynecologic Clinical Data First date of LMP:, NOT GIVEN [facility]OLOG[facility] - [facility] Gynecologic Clinical Data Clinical Data:, DYSPLASIA [facility] ANATOMIC PATHOLOGY - [facility] Marker 1 NILM,NILM [facility] ANATOMIC PATHOLOGY - [facility] Marker 2 TW,JANEE [facility] ANATOMIC PATHOLOGY - [facility] Cc Results To RAJNI Palacios LAUNCH LEADER [id number] [facility] Signature REPORT SIGNED: JANEE ALVARADO 05/23/11 [facility] Sign Out Audit JANEE ALVARADO [id number] FINAL ASHELY SHAW [id number] [facility] Cytology / Unknown 1 11:46 AM EDT 05/16/2011 11:46 AM EDT us Kourtney Hay LAB HISTORICAL RESULTS Final Mary butler [facility] [address] [place] [address], from Last 3 Months or Most Recently Relevant to Health Maintenance Additional Health Concerns Infection Onset Date Last Indicated 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 [employer] Advance Directives Documents on File Type Date Recorded Patient Automatic Outsole Cutter Expl anation Advance Directive 02/03/2019 2:58 PM MOLST/POLST 01/15/2019 9:25 AM 01/01/2019 MOLST/POLST 12/20/2018 6:37 AM 10/23/2018 Advance Directive 10/21/2018 2:39 PM * Full Code (Latest Code Status on File) Date Activated Date Inactivated Comments 01/13/2019 2:54 PM 01/16/2019 4:51 PM Care Teams Supervisor Mixing Relationship Specialty Start Date End Date Ila Elder NP [address] [place] [address] PCP - General Family Medicine 03/27/24
--- OUTSIDE RECORDS SUMMARY | 2025-04-15 13:03 | XMS_ITS | Patient Health Record ---
Author Organization [facility] Address [address] [place], [place] [id number] Care Team Providers Care Damper Fitter Name Role Phone Jericho Braun Primary Care Provider Unavailabl e Reason For Referral No Information Medications Medication SIG (Take, Route, Frequency, Duration) Notes Start Date End Date Status tiZANidine HCl 4 MG 1 tablet as needed Orally Three times a day Active Tumeric Active Levoxyl 200 MCG 1 tablet in the morning on an empty stomach Orally Once a day; Duration: 30 day(s) Active traZODone HCl 150 MG 1 tablet at bedtime Orally Once a day; Duration: 30 day(s) Active Centrum - as directed Orally A ctive Probiotic - as directed Orally Active Omeprazole 40 MG 1 capsule 30 minutes before morning meal Orally Once a day; Duration: 30 day(s) Active Acetaminophen 500 MG 1 tablet as needed Orally every 6 hrs am and pm Active Latuda 40 MG 1 tablet with food Orally Once a day; Duration: 30 day(s) Active Famotidine 40 MG 1 tablet at bedtime Orally Once a day; Duration: 30 day(s) Active Gabapentin 800 MG 1 tablet Orally Once a day; Duration: 30 day(s) 900mg am and pm Active Paxil 40 MG 1 tablet in the morning Orally Once a day; Duration: 30 day(s) Active Social History Tobacco Use: Social History Observation Description Date Details (start date - stop date) Never Smoker NA - NA Tobacco Question Answer Notes Are you a: never smoker Problems Problem Type SNOMED Code ICD Code Onset Dates Problem Status W/U Status Risk Notes Problem Morbid obesity (disorder) (932650857) Morbid (severe) obesity due to excess calories (E66.01) Active confirmed Problem Hypersomnia (14464566) Hypersomnia (G47.10) Active confirmed Problem Anxiety (76455112) Anxiety (F41.9) Active confi rmed Problem Acquired hypothyroidism (811681443) Acquired hypothyroidism (E03.9) Active confirmed Problem Depressive disorder (disorder) (48748281) Depression, unspecified depression type (F32.9) Active confirmed Problem Bipolar I disorder (813729548) Bipolar disorder in full remission, most recent episode unspecified type (F31.70) Active confirmed Problem Obstructive sleep apnea syndrome (88457299) DEVORA (obstructive sleep apnea) (G47.33) Active confirmed Problem Body mass index 40+ - severely obese (371755580) Body mass index [BMI] 45.0-49.9, adult (Z68.42) Active confirmed Problem Gastroesophageal reflux disease (961764628) Gastroesophageal reflux disease, unspecified whether esophagitis present (K21.9) Active confirmed Plan Of Treatment Pending Test Test Name Order Date COVID 19 PCR 06/13/2021 Future Test Test Name Order Date SLEEP STUDY-SPLIT 05/16/2021 Insurance Providers Payer Name Payer Address Payer Phone Subscriber Number Group Number Insured Name Patient Relationship to Insured Coverage Start Date Coverage End Date [facility] One Plan [facility] [address] [place] [phone] [id number] Bill Del Valle Self - patient is the insured Medical (General) History Surgical History Surgery Date(Month/Year) Knee surgery Clavicle bone surgery Tonsillectomy Hospitalization History Reason Date(Month/Year) Same day surgery 01/2021
--- OUTSIDE RECORDS SUMMARY | 2025-04-15 13:03 | XMS_ITS | Clinical Summary ---
Author Organization [facility] Address [address] [place] [address] Care Team Providers Care Beading Sawyer Name Role Phone Estrella Zamudio NP Primary Care Provider [phone] Social History Tobacco Use Types Packs/Day Years [...] Adults 18 yrs or above (or HM Modifier)([facility]) 02/09/1988 Hepatitis C Virus Infection in Adolescents and Adults: Screening (or Modifier) ([facility]) 02/09/1988 [facility] Screening Reminder: Nhi perla for all adults ([facility]) 02/09/1988 Tobacco Smoking Cessation: i n Adults excluding Women: Behavioral and Pharmacotherapy Interventions ([facility]) 02/09/1988 DTaP/Tdap/Td Vaccines ([facility]) (1 - Tdap) 1989 Cervical Cancer Screenin 1-65 yrs of age (or Modifier) 1991 Cervical Cancer Screening: P ap every 3 yrs pts age 21-65 1991 Cervical Cancer: Pap Screeni ng with Modifier timing ([facility]) 1991 Cervical Cancer: hrHPV alone or with cotesting Pap for Pts 30-65yrs screening every 5yrs ([facility]) 1991 Colorectal Cancer Screening 45 -75 Yrs (or HM Modifier ) 2015 Colorectal Cancer: FLEXIBLE SIGMOIDOSCOPY Screening every 5 yrs 2015 Colorectal Cancer: Fecal Imm unochemical Test (FIT) Annually [facility] 2015 Colorectal Cancer: High-sens itivity gFOBT Screening Annually [facility] 2015 Colorectal Cancer: Stool Col oguard Screening every 3 yrs 2015 Colorectal Cancer:CT Colonography Screening every 5 yr s 2015 Breast Cancer: Screening Nhi uallhaley age 50-74 yrs (or HM Modifier)([facility]) 02/09/2020 Pneumococcal Vaccination Scr eening: Patients 50+ yrs of age ([facility]) (1 of 1 - PCV) 02/09/2020 Zoster/Shingles Vaccine Seri es Screening: Adults aged 18+ yrs (or HM Modifiers)([facility]) (1 of 2) 02/09/2020 COVID-19 Vaccine Screening: Initial Series and Booster Status ([facility]) (2023- season) 2024 Flu Vaccination: Yearly for ages 18mos through 64 years (or Modifier)([facility]) 04/30/2025 Medical Devices Not on file Care Teams Beading Sawyer Relationship Specialty Start Date End Date Estrella Zamudio NP PCP - Enrollment Management Manager 02/20/20
== END 2025-04-15 13:22 | disposition home or self-care (01) ==
LOC: HO.ENCR 12:34
PROVIDERS: PCP Nurse Practitioner Family; Visit Provider Student in an Organized Health Care Education/Training Program
DX: E89.0 Postprocedural hypothyroidism (principal); E04.2 Nontoxic multinodular goiter; E66.813 Obesity, class 3; E66.01 Morbid (severe) obesity due to excess calories; Z68.41 Body mass index [BMI] 40.0-44.9, adult; R73.03 Prediabetes
CPT/HCPCS: 99214

== ENCOUNTER 2025-05-12 09:39 | Outpatient (REF) | payer OTHER, SELFPAY ==
--- OUTSIDE RECORDS SUMMARY | 2025-05-12 10:10 | XMS_ITS | Encounter Summary ---
Author Organization [facility] Address [facility] [employer] [facility] [address] [place] [address] Phone Care Team Providers Care Regulatory Technician Name Role Phone Marycruz Martinez MD Primary Care Provider [phone] Unknown, Unknown Primary Care Provider Deepthi Rodriguez SALES ARCHITECT Primary Care Provid er Ila Elder CONE CLEANER Primary Care Provide r Encounter Details Date Type Department Care Team (Late st Contact Info) Description 07/22/2023 Procedure Pass [facility] Periop [address] [place] [address] Social History Tobacco Use Types Packs/Day Years [...] or tries to control you? No 07/18/2023 Comments No Sex and Gender Information Value Date Recorded Sex Assigned at Female 08/03/2021 12:35 PM EDT Legal Sex Female 12:29 PM EDT Gender Identity Female 08/03/2021 12:35 PM EDT Sexual Orientation Straight 08/03/2021 12 :35 PM EDT documented as of this encounter Plan of Treatment Upcoming Encounters Date Type Department Care Team (Late st Contact Info) Description 06/15/2025 2:20 PM EDT Office Visit DEPARTMENT OF UROLOGY [address] [place] [address] Krista Sullivan MD [address] [place] [email or web address] 06/29/2025 10:00 AM EDT Telemedicine [facility] Orthopedics at [address] [address] Cassy Melendez PA-C [address] [place] [phone] [email or web address] 07/08/2025 Procedure Pass [facility] Periop [address] [place] [address] 07/08/2025 2:06 PM EDT Hospital Encounter [facility] Periop [address] [place] [address] James Minaya MD [address] [place] [address] [email or web address] 07/08/2025 2:06 PM EDT - 07/08/2025 6:17 PM EDT Surgery [facility] Periop [address] [place] [address] James Minaya MD [address] [place] [address] [email or web address] TIBIA REMOVAL HARDWARE KNEE 07/28/2025 12:00 PM EDT Office Visit [facility] Department of Orthopaedics [address] [place] [address] James Minaya MD [address] [place] [address] [email or web address] Scheduled Procedures Name Priority Associated Diagnoses Date/Ti me REMOVAL HARDWARE KNEE Bone disorder Primary osteoarthritis of right knee 07/08/2025 2:06 PM EDT documented as of this encounter Visit Diagnoses Not on filedocumented in this encounter Additional Health Concerns Infection Onset Date Last Indicated Resolved Time 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 01/10/2023 01/09/2025 1:22 AM EDT 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 07/21/2024 1:22 AM EDT documented as of this encounter Care Teams Regulatory Technician Relationship Specialty Start Date End Date Marycruz Martinez MD [address] [place] [address] PCP - General Family Medicine 08/03/21 11/21/23 Unknown, Kevin, PCP - General 12/24/23 01/20/24 Deepthi Parada, SALES ARCHITECT [address] [place] [address], [address] [place] [address] [email or web address] PCP - General Family Medicine 01/21/24 03/01/24 Ila Elder, SAMANTA [address] [place] [address] PCP - General 03/02/24 Chika Tovar CNP Nurse Practitioner 08/10/22 documented as of this encounter Additional Source Comments The information contained in this document represents components of the legal health record. It is not the complete legal health record.[facility]
--- OUTSIDE RECORDS SUMMARY | 2025-05-12 10:10 | XMS_ITS | Encounter Summary ---
Author Organization [facility] Address [address] [place] [address] Care Team Providers Care Highway Administrative Engineer Name Role Phone Jericho Braun MD Primary Care Provider [phone] Estrella Zamudio NP Primary Care Provider [phone] Marycruz Martinez MD Primary Care Provider [phone] Deepthi Parada RESOURCE DEVELOPMENT DIRECTOR Primary Care Provide r Encounter Details Date Type Department Care Team (Late st Contact Info) Description 04/20/2019 Orders Only [facility] Orthopedic Surgery [address] [address] Prasanna Zaragoza MD [address] [place] [address] Social History Tobacco Use Types Packs/Day Years [...] documented as of this encounter Care Teams Highway Administrative Engineer Relationship Specialty Start Date End Date Jericho Braun MD PCP - General Family Medicine 04/22/19 06/09/20 Estrella Zamudio NP [address] [address] PCP - General Nurse Practitioner 06/10/20 10/04/20 Marycruz Martinez MD [address] [address] PCP - General Family Medicine 10/05/20 11/21/23 Deepthi Parada NP [facility], [address] [place] [address] PCP - General Family Medicine 11/22/23 documented as of this encounter
--- OUTSIDE RECORDS SUMMARY | 2025-05-12 10:10 | XMS_ITS | Patient Health Record ---
Author Organization [facility] Address [address] [place] [address] Care Team Providers Care Splicing Supervisor Name Role Phone VICK DAVIDSON MD Primary Care Provider Reji Davis [phone] Allergies Allergen (clinical drug ingredient) Drug/Non Drug [...] Problem Pain of right knee region (finding) (46812200925839 5) Pain in right knee (M25.561) Active confirmed Problem Pain of left knee joint (finding) (31657916205634 7) Pain in left knee (M25.562) Active confirmed Problem Walking disability (922122975) Difficulty in walking (R26.2) Active confirmed Plan Of Treatment No Information Insurance Providers Payer Name Payer Address Payer Phone Subscriber Number Group Number Insured Name Patient Relationship to Insured Coverage Start Date Coverage End Date [facility] [address] [place] [id number] MAIDA JANEE Self - patient is the [...]
--- OUTSIDE RECORDS SUMMARY | 2025-05-12 10:10 | XMS_ITS | Patient Health Record ---
Author Organization [facility] [place] Address [address] [place], [place] [id number] Care Team Providers Care Plant Changer Name Role Phone Jericho Braun Primary Care [...] Status Risk Notes Problem Morbid obesity (disorder) (637740901) Morbid (severe) obesity due to excess calories (E66.01) Active confirmed Problem Hypersomnia (99096057) Hypersomnia (G47.10) Active confirmed Problem Anxiety (26269984) Anxiety (F41.9) Active confi rmed Problem Acquired hypothyroidism (575880561) Acquired hypothyroidism (E03.9) Active confirmed Problem Depressive disorder (disorder) (57499370) Depression, unspecified depression type (F32.9) Active confirmed Problem Bipolar I disorder (184154471) Bipolar disorder in full remission, most recent episode unspecified type (F31.70) Active confirmed Problem Obstructive sleep apnea syndrome (34354660) DEVORA (obstructive sleep apnea) (G47.33) Active confirmed Problem Body mass index 40+ - severely obese (287993046) Body mass index [BMI] 45.0-49.9, adult (Z68.42) Active confirmed Problem Gastroesophageal reflux disease (938996525) Gastroesophageal reflux disease, unspecified whether esophagitis present (K21.9) Active confirmed Plan Of Treatment Pending Test Test Name Order Date COVID 19 PCR 06/13/2021 Future Test Test Name Order Date SLEEP STUDY-SPLIT 05/16/2021 Insurance Providers Payer Name Payer Address Payer Phone Subscriber Number Group Number Insured Name Patient Relationship to Insured Coverage Start Date Coverage End Date [facility] One Plan [facility] [address] [place] [phone] [id number] Bill Del Valle Self - patient is the insured Medical (General) History Surgical History Surgery Date(Month/Year) Knee surgery Clavicle bone surgery Tonsillectomy Hospitalization History Reason Date(Month/Year) Same day surgery 01/2021
--- OUTSIDE RECORDS SUMMARY | 2025-05-12 10:10 | XMS_ITS | Clinical Summary ---
Author Organization [facility] [employer] [facility] Address [address] [place] [address] Care Team Providers Care Director Underwriter Sales Name Role Phone Estrella Zamudio NP Primary Care Provider [phone] Social History Tobacco Use Types Packs/Day Years [...] Modifier) ([facility]) 02/09/1988 [facility] Screening Reminder: Nhi perla for all adults ([facility]) 02/09/1988 Tobacco Smoking Cessation: i n Adults excluding Women: Behavioral and Pharmacotherapy Interventions ([facility]) 02/09/1988 DTaP/Tdap/Td Vaccines ([facility]) (1 - Tdap) 1989 Cervical Cancer [...] Cancer: Fecal Imm unochemical Test (FIT) Annually [facility] 2015 Colorectal Cancer: High-sens itivity gFOBT Screening Annually [facility] 2015 Colorectal Cancer: Stool Col oguard Screening every 3 yrs 2015 Colorectal Cancer:CT Colonography Screening every 5 yr s 2015 Breast Cancer: Screening Nhi uallhaley age 50-74 yrs (or HM Modifier)([facility]) 02/09/2020 Pneumococcal Vaccination Scr eening: Patients 50+ yrs of age ([facility]) (1 of 1 - PCV) 02/09/2020 Zoster/Shingles Vaccine Seri es Screening: Adults aged 18+ yrs (or HM Modifiers)([facility]) (1 of 2) 02/09/2020 COVID-19 Vaccine Screening: Initial Series and Booster Status ([facility]) (2023- season) 2024 Flu Vaccination: Yearly for ages 18mos through 64 years (or Modifier)([facility]) 04/30/2025 Medical Devices Not on file Care Teams Director Underwriter Sales Relationship Specialty Start Date End Date Estrella Zamudio NP PCP - Sales Support Rep 02/20/20
--- OUTSIDE RECORDS SUMMARY | 2025-05-12 10:10 | XMS_ITS | Referral Summary ---
Author Organization [facility] Address [address] [place] [address] Care Team Providers Care Wardrobe Consultant Name Role Phone JerrodElinorIla SAMANTA Primary Care Provider [phone] Allergies Active Allergy Reactions Criticality Noted Date [...] propionate (FLONASE) 50 mcg/actuation nasal spray SM[employer] [place](s) Both Nares Daily Active esomeprazole (NexIUM) 20 [...] 50 PLUS ORAL) as directed Orally Active vacutbp-ceai-ter zc-ueeq-clkwyu 100 mg-150 mg- 50 mg-150 mg capsule [...] knee on December 26, 2018 at [facility]. Preoperative culture grew MRSA and ampicillin susceptible [...] daily. - Hold Dilaudid - Continue Tramadol rn long term care (current) use of antibiotics [...] 23 Valent 11/29/2011 Pneumococcal conjugate PCV20 ,polysaccharide UTI913 conjugate, adjuvant, PF (Prevnar 20) 01/29/2022 Tetanus [...] file Not on file Not on file hadoop administrator Not on file Not on file [...] Not on file Procedures * Due to [place] state law, this organization might not be sharing negative HIV tests. Procedure Name Priority Date/Time Associated Diagnosis Comments BASIC METABOLIC PANEL Timed 01/15/2019 9:14 AM EDT RIMA SCREENING DIGITAL MAMMO Routine 06/12/2012 10:40 AM EDT PAP W/REFLEX HPV, CONVERSION Routine 05/15/2011 11:46 AM EDT from Last 3 Months or Most Recently Relevant to Health Maintenance Results * Due to [place] state law, this organization might not be sharing negative HIV tests. * (ABNORMAL) Basic Metabolic Panel (01/15/2019 9:14 AM EDT) NA 141 135 - 145 mmol/L 01/15/2019 9:57 AM EDT [facility] K 3.1(L) 3.5 - 5.3 mmol/L 01/15/2019 9:57 AM EDT [facility] Cl 108 97 - 110 mmol/L 01/15/2019 9:57 AM EDT [facility] CO2 25 24 - 32 mmol/L 01/15/2019 9:57 AM EDT [facility] BUN 2(L) 7 - 23 mg/dL 01/15/2019 9:57 AM EDT [facility] Creatinine 0.90 0.50 - 1.20 mg/dL 01/15/2019 9:57 AM EDT [facility] Glucose 124(H) 70 - 99 mg/dL 01/15/2019 9:57 AM EDT [facility] Calcium 7.7(L) 8.7 - 10.7 mg/dL 01/15/2019 9:57 AM EDT [facility] Anion Gap 8 5 - 15 01/15/2019 9:57 AM EDT [facility] eGFR Non- 76(L) >=90 mL/min/BSA 01/15/2019 9:57 AM EDT [facility] eGFR 87(L) >=90 mL/min/BSA 01/15/2019 9:57 AM EDT [facility] Comment: Units = [...] Ruiz MD LAB BLOOD ORDERABLES Final Result [facility] [address] [place] [address], [place] * [facility] Screening Digital Mammogram (06/12/2012 10:40 AM EDT) Anatomical Region Laterality Modality Breast Mammography 06/12/2012 10:4 1 AM EDT Narrative 06/18/2012 1:08 PM EDT DEPARTMENT OF RADIOLOGY Patient: JANEE MARTIN Unit #: [id number] Ordering MD: FADUMO HALE MD : 1970 Procedure: Digital Screening Mammo Age: 42 Location: W.MAMMO Exam Date: 06/12/12 Status: [facility] Room/Bed: Primary MD: ROBI ALONSO MD Patient Order: [id number] Additional Copy: FADUMO HALE MD, GEORGE P MD - #[id number] - DIGSCRMAM #BILATERAL DIGITAL SCREENING MAMMOGRAM WITH CAD: 06/12/2012 CLINICAL: Routine. Comparison is made to exams dated: 05/16/2010 mammogram - [facility] and 07/06/2005 mammogram - [facility]. There are scattered fibroglandular elements in both [...] Mammogram BI-RADS: 0 INCOMPLETE:NEED ADDITIONAL IMAGING EVALUATION [facility] Procedure Note Sydni Kapadia MD - 06/29/2023 DEPARTMENTOF RADIOLOGY Amber t: JANEE MARTIN Unit #:[id number] Ordering MD: FADUMO HALE MD :1970 Procedure: Digital Screening Mammo Age:42 Location: W.MAMMO ExamDate: 06/12/12 Status: REG [facility]/Bed: Primary MD: ROBI ALONSO MD PatientAcct #: [id number] Order:[id number] Additional Copy: FADUMO HALE MD, GEORGE P MD - #[id number] - DIGSCRMAM #BILATERAL DIGITAL SCREENING MAMMOGRAM WITH CAD: 06/12/2012 CLINICAL: Routine. Comparison is made to exams dated: 05/16/2010 mammogram - [facility] and 07/06/2005 mammogram - [facility]. There are scattered fibroglandular elements in both [...] (05/15/2011 11:46 AM EDT) Path Procedure TPGAS ([id number]) 1 Edited by: [id number] - [address] [facility] Specimen Labeled As: 1 CERVICAL/ENDOCERVI LEDA CYTO MATERIAL - Edited by: [id number] - 1147 [facility]ATOM[facility]OLOG[facility] - [facility] Diagnosis [...] be useful in other clinical applications. See [place] Journal of Obstetrics and Gynecology 197(4):346-355, 2007. This Pap test was examined in accordance with the [facility] Cytopathology Laboratory written policy. This Pap test was examined by the ThinPrep Imaging System, [employer], [place], [place]. Edited by: [id number] - 0853 [facility] Gynecologic Clinical Data Specimen source:, THINPREP (CERVICAL AND ENDOCERVICAL) [facility] Gynecologic Clinical Data First date of LMP:, NOT GIVEN [facility] Gynecologic Clinical Data Clinical Data:, DYSPLASIA [facility] Marker 1 NILM,NILM [facility] Marker 2 TW,JANEE [facility] AN[facility]OM[facility]OLOG[facility] - [facility] Cc Results To RAJNI Palacios BOX ESTIMATOR [id number] [facility] Signature REPORT SIGNED: JANEE ALVARADO 05/23/11 [facility] Sign Out Audit JANEE ALVARADO [id number] FINAL ASHELY SHAW [id number] [facility] Cytology / Unknown 1 11:46 AM EDT 05/16/2011 11:46 AM EDT us Kourtney [facility] LAB HISTORICAL RESULTS Final Mary butler [facility] [address] [place] [address], from Last 3 Months or Most Recently Relevant to Health Maintenance Additional Health Concerns Infection Onset Date Last Indicated 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
--- NOTE | 2025-05-12 10:29 | PCN2_ITS ---
Brief Operative Note Date of procedure: 05/12/25 Pre-op diagnosis: right lower pole 1 cm thyroid nodule FNA biopsy Post-op diagnosis: same Procedure: THYROID FINE NEEDLE ASPIRATION PROCEDURE NOTE ? PROCEDURE PERFORMED: Ultrasound-guided FNA of thyroid nodule ? OPERATORS: Dr. Aimee Cantu ? INDICATION: right lower pole 1 cm thyroid nodule ; FNA performed to assess for malignancy ? DESCRIPTION OF PROCEDURE: The indications for FNA (to assess for malignancy) were reviewed with the patient in detail. Potential complications (e.g., bleeding, infection, damage to local structures, absence of clear diagnosis after FNA) were reviewed. Alternatives to FNA including conservative observation or surgery were described. The patient understood and agreed to proceed. This was documented by the signing of the written informed consent form. A time-out was performed to confirm the patient's identity and the site of planned FNA. The nodule of interest was identified using ultrasound (14 MHz linear array probe). The site of FNA was then draped in the usual fashion and c arefully cleaned and prepared using alcohol swabs. The skin at the previously-identified site of needle insertion was iced and sprayed with numbing spray. Under ultrasound guidance, _4_ passes were performed using a 1.5-inch, 25-gauge needle, and sample was obtained via capillary action. The needle tip was clearly visualized to be within the nodule at the time of sampling for 4__ of _4_ passes [Insert image recorded as part of the procedure] The patient tolerated the procedure well. There were no immediate complications. A small adhesive bandage was applied, and the patient was advised to take acetaminophen (rather than NSAIDs) for any discomfort and to report any signs of inflammation/infection or marked swelling. IMPRESSION: Technically successful ultrasound-guided fine needle aspiration of right lower pole 1 cm thyroid nodule . PLAN: The patient was advised that I will provide follow-up regarding the cytology result and any subsequent plans. Aimee Cantu MD Endocrinology Attending Condition: stable Disposition: same day
== END 2025-05-12 09:40 | disposition home or self-care (01) ==
LOC: HO.US 09:39
PROVIDERS: PCP Nurse Practitioner Family; Visit Provider Student in an Organized Health Care Education/Training Program
DX: E04.2 Nontoxic multinodular goiter (principal)
CPT/HCPCS: 10005; 88173; 88305

== ENCOUNTER → 2025-05-12 09:39 | Outpatient (BNV) | payer OTHER, SELFPAY | PROVIDERS: PCP Nurse Practitioner Family; Visit Provider Student in an Organized Health Care Education/Training Program | DX: E04.1 Nontoxic single thyroid nodule (principal) | CPT/HCPCS: 10005 ==

== ENCOUNTER 2025-05-26 13:08 | Outpatient (AMB) | payer OTHER, SELFPAY ==
[2025-05-26 13:11] VITALS: BP 110/58; PULSE 89; O2SAT 92; BMI 47.9
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
--- OUTSIDE RECORDS SUMMARY | 2025-05-26 13:41 | XMS_ITS | Encounter Summary ---
Author Organization [facility] Address [address] [place] [address] Care Team Providers Care Simulation Educator Name Role Phone Marycruz aMrtinez MD Primary Care Provider [phone] Deepthi Parada INSPECTOR PLUMBING Primary Care Provide r Reason for Visit * Reason Comments E-prescribing Refill Request Encounter Details Date Type Department Care Team (Late st Contact Info) Description 06/28/2023 Refill [facility] Urology [address] [facility] [address] [place] [address] Suly Martinez, INSPECTOR PLUMBING [address] [place] [address] E-prescribing Refill Request Social History Tobacco Use [...] on filedocumented in this encounter Care Teams Simulation Educator Relationship Specialty Start Date End Date Marycruz Martinez MD [address] [address] PCP - General Family Medicine 10/05/20 11/21/23 Deepthi Parada NP [facility], [address] [place] [address] PCP - General Family Medicine 11/22/23 documented as of this encounter
--- OUTSIDE RECORDS SUMMARY | 2025-05-26 13:41 | XMS_ITS | Encounter Summary ---
Author Organization [facility] Address [address] [place] [address] Care Team Providers Care Press Supervisor Name Role Phone Marycruz Martinez MD Primary Care Provider Deepthi Parada NP Primary Care Provide r Reason for Visit * Reason Onset Date Comments Labs/orders 05/14/2022 Creatinine Order for Radiology with Contrast Encounter Details Date Type Department Care Team (Late st Contact Info) Description 05/14/2022 Telephone CALL CENTER [facility] [address] [place] [address] Benny Foley MD [address] [place] [phone] Labs/orders (Creatinine Order for Radiology with Contrast) [...] sensation documented in this encounter Care Teams Press Supervisor Relationship Specialty Start Date End Date Marycruz Martinez MD [address] [address] PCP - General Family Medicine 10/05/20 11/21/23 Deepthi Parada NP [facility], [address] [place] [address] PCP - General Family Medicine 11/22/23 documented as of this encounter
--- OUTSIDE RECORDS SUMMARY | 2025-05-26 13:41 | XMS_ITS | Encounter Summary ---
Author Organization [facility] Address [address] [place] [address] Care Team Providers Care Tibco Developer Name Role Phone Deepthi Parada Aliza GOVERNMENT RELATIONS ANALYST Primary Care Provide r Encounter Details Date Type Department Care Team (Latest Contact Info) Description 12/13/2023 Professional Billing [facility] [address] [place] [address] Steve Mahmood, MARCIA [address] [place] [address] Painful orthopaedic hardware (HCC) [T84.84XA] Social History [...] graft documented in this encounter Care Teams Tibco Developer Relationship Specialty Start Date End Date Deepthi Parada NP [facility], [address] [place] [address] PCP - General Family Medicine 11/22/23 documented as of this encounter
--- OUTSIDE RECORDS SUMMARY | 2025-05-26 13:41 | XMS_ITS | Patient Health Record ---
Author Organization [facility] Address [address] [place] [address] Care Team Providers Care Ink Blender Name Role Phone VICK DAVIDSON MD Primary Care Provider Reji Davis [phone] Allergies Allergen (clinical drug ingredient) Drug/Non Drug [...] Problem Pain of right knee region (finding) (66634306032508 5) Pain in right knee (M25.561) Active confirmed Problem Pain of left knee joint (finding) (78573540169141 7) Pain in left knee (M25.562) Active confirmed Problem Walking disability ([id number]) Difficulty in walking (R26.2) Active confirmed Plan Of Treatment No Information Insurance Providers Payer Name Payer Address Payer Phone Subscriber Number Group Number Insured Name Patient Relationship to Insured Coverage Start Date Coverage End Date [facility] [address] [place] [id number] MAIDA JANEE Self - patient is the [...]
--- OUTSIDE RECORDS SUMMARY | 2025-05-26 13:41 | XMS_ITS | Encounter Summary ---
Author Organization [facility] Address [address] [place] [address] Care Team Providers Care Inside Meter Tester Name Role Phone Marycruz Martinez MD Primary Care Provider [phone] Deepthi Parada NP Primary Care Provide r Encounter Details Date Type Department Care Team (Late st Contact Info) Description 11/08/2022 Telephone [facility] Orthopedic Surgery [address] [place] [address] [address] [place] [address] Tristan Gonzales MD Social History [...] peer with provider. Can be reached at [phone] documented in this encounter Plan of Treatment Not on file documented as of this encounter Visit Diagnoses Not on filedocumented in this encounter Care Teams Inside Meter Tester Relationship Specialty Start Date End Date Marycruz Martinez MD [address] [address] PCP - General Family Medicine 10/05/20 11/21/23 Deepthi Parada NP [facility], [address] [place] [address] PCP - General Family Medicine 11/22/23 documented as of this encounter
--- OUTSIDE RECORDS SUMMARY | 2025-05-26 13:41 | XMS_ITS | Encounter Summary ---
Author Organization [facility] Address [address] [place] [address] Care Team Providers Care Rd Scientist Name Role Phone Marycruz Martinez MD Primary Care Provider Deepthi Parada NP Primary Care Provide r Encounter Details Date Type Department Care Team (Late st Contact Info) Description 05/15/2022 Orders Only [facility] Neurology [address] [facility] [address] [place] [address] Benny Foley MD [address] [place] [address] Social History Tobacco Use Types Packs/Day Years [...] of this encounter Procedures * Due to [place] state law, this organization might not be sharing negative HIV tests. Procedure Name Priority Date/Time Associated Diagnosis Comments CBC INCLUDES DIFFERENTIAL AND PLATELET COUNT Routine 05/15/2022 1:30 PM EDT Weakness of right upper extremity VENIPUNCTURE Routine 05/15/2022 1:30 PM EDT Weakness of right upper extremity documented in this encounter Results * Due to [place] state law, this organization might not be [...] 2:13 AM EDT Narrative Resulting Agency Comment [id number] Benny Foley MD LAB SAME DAY RESULT Final Result [facility] [address] [place] [address] * (ABNORMAL) BASIC METABOLIC PANEL WITH (GFR) [...] needs for GFR calculation. Resulting Agency Comment [id number] us Benny Foley MD LABORATORY Fin al Result [facility] [address] [place] [address] documented in this encounter Visit Diagnoses Diagnosis Weakness of right upper extremity Other musculoskeletal symptoms referable to limbs Paresthesia Disturbance of skin sensation documented in this encounter Care Teams Rd Scientist Relationship Specialty Start Date End Date Marycruz Martinez MD [address] [address] PCP - General Family Medicine 10/05/20 11/21/23 Deepthi Parada NP [facility], [address] [place] [address] PCP - General Family Medicine 11/22/23 documented as of this encounter
--- OUTSIDE RECORDS SUMMARY | 2025-05-26 13:41 | XMS_ITS | Encounter Summary ---
Author Organization [facility] Address [address] [place] [address] Care Team Providers Care Bootmaker Name Role Phone Jericho Braun MD Primary Care Provider [phone] Estrella Zamudio NP Primary Care Provider [phone] Marycruz Martinez MD Primary Care Provider Deepthi Parada SECURITY CONTROL ROOM OFFICER Primary Care Provide r Encounter Details Date Type Department Care Team (Late st Contact Info) Description 04/20/2019 Orders Only [facility] Orthopedic Surgery [address] [address] Prasanna Zaragoza MD [address] [place] [address] Social History Tobacco Use Types Packs/Day Years [...] documented as of this encounter Care Teams Bootmaker Relationship Specialty Start Date End Date Jericho Braun MD PCP - General Family Medicine 04/22/19 06/09/20 Estrella Zamudio NP [address] [address] PCP - General Nurse Practitioner 06/10/20 10/04/20 Marycruz Martinez MD [address] [address] PCP - General Family Medicine 10/05/20 11/21/23 Deepthi Parada NP [facility], [address] [place] [address] PCP - General Family Medicine 11/22/23 documented as of this encounter
--- OUTSIDE RECORDS SUMMARY | 2025-05-26 13:42 | XMS_ITS | Encounter Summary ---
Author Organization [facility] Address [address] [place] [address] Care Team Providers Care Test Tech Name Role Phone Marycruz Martinez MD Primary Care Provider Deepthi Parada POT SANDER Primary Care Provide r Encounter Details Date Type Department Care Team (Late st Contact Info) Description 05/10/2022 Orders Only [facility] Neurology [address] [facility] [address] [place] [address] Benny Foley MD [address] [place] [address] Social History Tobacco Use Types Packs/Day Years [...] on filedocumented in this encounter Care Teams Test Tech Relationship Specialty Start Date End Date Marycruz Martinez MD [address] [place] [address] PCP - General Family Medicine 10/05/20 11/21/23 Deepthi Parada NP [facility], [address] [place] [address] PCP - General Family Medicine 11/22/23 documented as of this encounter
--- OUTSIDE RECORDS SUMMARY | 2025-05-26 13:42 | XMS_ITS | Encounter Summary ---
Author Organization [facility] Address [address] [place] [address] Care Team Providers Care Pulmonary Fellow Name Role Phone Marycruz Martinez MD Primary Care Provider [phone] Deepthi Parada NP Primary Care Provide r Reason for Visit * Reason Comments Return Call Encounter Details Date Type Department Care Team (Late st Contact Info) Description 11/05/2022 Telephone [facility] Orthopedic Surgery [address] [place] [address] [address] [place] [address] Tristan Gonzales MD Return Call [...] on filedocumented in this encounter Care Teams Pulmonary Fellow Relationship Specialty Start Date End Date Marycruz Martinez MD [address] [address] PCP - General Family Medicine 10/05/20 11/21/23 Deepthi Parada NP [facility], [address] [place] [address] PCP - General Family Medicine 11/22/23 documented as of this encounter
--- OUTSIDE RECORDS SUMMARY | 2025-05-26 13:43 | XMS_ITS | Encounter Summary ---
Author Organization [employer] [facility] Address [facility] [employer] [facility] [address] [place] [phone] Phone Care Team Providers Care Hydraulic Technician Name Role Phone Marycruz Martinez MD Primary Care Provider [phone] Unknown, Unknown Primary Care Provider Deepthi Rodriguez ONBOARDING SPECIALIST Primary Care Provid er Ila Elder CORPORATE COUNSELOR Primary Care Provide r Reason for Visit * Reason Comments Med Change Request Encounter Details Date Type Department Care Team (Late st Contact Info) Description [facility] [address] [place] [address] Shaun Leon MD [address] [place] [address], [facility] [address] [email or web address] Change Request Social History Tobacco [...] Upcoming Encounters Date Type Department Care Team (Latest Contact Info) Description 06/15/2025 2:20 PM EDT Office Visit DEPARTMENT OF UROLOGY [address] [place] [address] [address] [place] [address] Krista Sullivan MD [address] [place] [phone] [email or web address] 06/29/2025 10:00 AM EDT Telemedicine [facility] Orthopedics at [place] [id number] [address] Cassy Melendez PA-C [address] [place] [phone] [email or web address] 07/08/2025 Procedure Pass [facility] Periop [address] [place] [address] 07/08/2025 10:47 AM EDT Hospital Encounter [facility] Periop [address] [place] [address] James Minaya MD [address] [place] [phone] [email or web address] 07/08/2025 10:47 AM EDT - 07/08/2025 2:58 PM EDT Surgery [facility] Periop [address] [place] [address] James Minaya MD [address] [place] [phone] [email or web address] TIBIA REMOVAL HARDWARE KNEE 07/28/2025 12:00 PM EDT Office Visit [facility] Department of Orthopaedics [address] [place] [address] James Minaya MD [address] [place] [phone] [email or web address] 08/03/2025 10:00 AM EST Telemedicine [facility] Orthopedics at [address] [address] Cassy Melendez PA-C [address] [place] [phone] [email or web address] 08/16/2025 Procedure Pass [facility] Periop [address] [place] [address] 08/16/2025 11:20 AM EST Hospital Encounter [facility] Periop [address] [place] [address] James Minaya MD [address] [place] [phone] [email or web address] 08/16/2025 11:20 AM EST - 08/16/2025 2:40 PM EST Surgery [facility] Periop [address] [place] [address] James Minaya MD [address] [place] [address] [email or web address] RT ARTHROPLASTY TOTAL KNEE 09/15/2025 12:00 PM EST Office Visit [facility] Department of Orthopaedics [address] [place] [address] James Minaya MD [address] [place] [address] [email or web address] Scheduled Procedures Name Priority Associated Diagnoses Date/Ti me REMOVAL HARDWARE KNEE Bone disorder Primary osteoarthritis of right knee 07/08/2025 10:47 AM EDT ARTHROPLASTY TOTAL KNEE Primary osteoarthritis of right knee 08/16/2025 11:20 AM EST documented as of this encounter Visit Diagnoses Diagnosis Infected prosthetic knee joint, subsequent encounter Receiving intravenous antibiotic treatment as outpatient Bone disorder Disorder of bone and cartilage, unspecified Primary osteoarthritis of right knee Primary osteoarthritis of right knee documented in this encounter Additional Health Concerns Infection Onset Date Last Indicated Resolved Time 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 01/10/2023 01/09/2025 1:22 AM EDT 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 07/21/2024 1:22 AM EDT documented as of this encounter Care Teams Hydraulic Technician Relationship Specialty Start Date End Date Marycruz Martinez MD [address] [place] [address] PCP - General Family Medicine 08/03/21 11/21/23 Unknown, Kevin, PCP - General 12/24/23 01/20/24 Deepthi Parada, TRISTEN [address] [place] [address], [address] [place] [address] [email or web address] PCP - General Family Medicine 01/21/24 03/01/24 Ila Elder NP [address] [place] [phone] PCP - General 03/02/24 Chika Tovar CNP Nurse Practitioner 08/10/22 documented as of this encounter Additional Source Comments The information contained in this document represents components of the legal health record. It is not the complete legal health record.[facility]
--- OUTSIDE RECORDS SUMMARY | 2025-05-26 13:43 | XMS_ITS | Encounter Summary ---
Author Organization [facility] Address [address] [place] [address] Care Team Providers Care Traveling Phlebotomist Name Role Phone Estrella Zamudio NP Primary Care Provider [phone] Marycruz Martinez MD Primary Care Provider [phone] Deepthi Parada [employer] CORE FEEDER Primary Care Provide r Reason for Visit * Reason Comments Return Call Encounter Details Date Type Department Care Team (Late st Contact Info) Description 08/17/2020 Telephone CALL [facility]ENTER [facility] [address] [place] [address] Prasanna Zaragoza MD [address] [place] [phone] Return Call Social History Tobacco Use Types [...] Please assist pt , thank you. ( [facility]) documented in this encounter Plan of Treatment Not on file documented as of this encounter Visit Diagnoses Not on filedocumented in this encounter Additional Health Concerns Infection Onset Date Last Indicated Resolved Time COVID-19 Rule-Out 02/07/2021 02/07/2021 2021 4:16 AM EDT documented as of this encounter Care Teams Traveling Phlebotomist Relationship Specialty Start Date End Date Estrella Zamudio NP [address] [address] PCP - General Nurse Practitioner 06/10/20 10/04/20 Marycruz Martinez MD [address] [address] PCP - General Family Medicine 10/05/20 11/21/23 Deepthi Parada NP [facility], [address] [place] [address] PCP - General Family Medicine 11/22/23 documented as of this encounter
--- OUTSIDE RECORDS SUMMARY | 2025-05-26 13:43 | XMS_ITS | Encounter Summary ---
Author Organization [facility] Address [address] [place] [address] Care Team Providers Care Layaway Clerk Name Role Phone Marycruz Martinez MD Primary Care Provider [phone] Deepthi Parada NP Primary Care Provide r Reason for Visit * Reason Comments Medical Record Encounter Details Date Type Department Care Team (Late st Contact Info) Description 10/11/2020 [facility] [address] [place] [address] Unknown Social History Tobacco Use Types Packs/Day [...] documented as of this encounter Care Teams Layaway Clerk Relationship Specialty Start Date End Date Marycruz Martinez MD [place] [phone] [place] [address] PCP - General Family Medicine 10/05/20 11/21/23 Deepthi Parada NP [facility], [address] [place] [address] PCP - General Family Medicine 11/22/23 documented as of this encounter
--- OUTSIDE RECORDS SUMMARY | 2025-05-26 13:43 | XMS_ITS | Clinical Summary ---
Author Organization [facility] Address [address] [place] [phone] Phone Care Team Providers Care Derrick Man Name Role Phone Ila Elder [employer] Primary Care Provide r Allergies Active Allergy [...] on both vancomycin and pieracillin-tazobacta m Medications traZODone (DESYREL) 100 MG tablet Take 200 [...] Text Take 500 mg by mouth daily. Turmeric/Curcum in: Hughes (OTC Brand) Active potassium gluconate 550 mg (90 mg) Tab Take 1 tablet by mouth daily. Active tiZANidine (ZANAFLEX) 4 MG tablet Take 1 tablet (4 mg total) by mouth nightly at bedtime as needed (spasm). 12 tablet 3 Active gabapentin (NEURONTIN) 300 MG capsule Take 1 capsule (300 mg total) by mouth 2 (two) times a day. 60 capsule 3 Active fluconazole (DIFLUCAN) 150 MG tabletIndication s:Infected prosthetic knee joint, subsequent encounter,Receiv ing intravenous antibiotic treatment as outpatient Takeone tablet for thrush; repeat if needed while on antibiotics 30 tablet 3 5 Active sulfamethoxazole -trimethoprim (BACTRIM DS) 800-160 mg per tablet TAKE 2 TABLETS BY MOUTH TWO TIMES A DAY 120 tablet 11 5 Active TRULICITY 3 mg/0.5 mL subcutaneous injection 5 Active VRAYLAR 1.5 mg capsule 4 Active vibegron (GEMTESA) 75 mg tablet Take 1 tablet (75 mg total) by mouth daily. 30 tablet 12 5 Active Hospital, Clinic, or Other Facility Administered Medication Ordered Dose Route Frequency Start Date End Date Status botulinum toxin type A (BOTOX) injection 150 Units 150 Units See Adm Inst Once 03/08/2025 06/06/2025 Active Active Problems Patient Care Coordination No te [...] discharge from acute care predicted by score. Scores <6 -- extended inpatient rehabilitation Score 6-9 -- additional intervention to discharge directly home (ie home care services) Score >9 -- directly home Problem Noted Date Diagnosed Date Pain in joint of right shoulder 12/04/2023 Assessment & Plan (12/04/2023 1:57 PM EST): S/p ORIF at outside hospital. Now well healed and functioning nicely but with some crepitus. PT should help Gastroesophageal reflux disease 07/21/2023 07/21/2023 DEVORA (obstructive sleep apnea) 07/21/2023 Infection 07/18/2023 S/P TKR (total knee replacement), left 3 Status post spinal surgery 08/17/2022 Anemia 01/13/2019 [...] Encounters Date Type Department Care Team Description 05/19/2025 Orders Only [facility] Department of Orthopaedics [address] [place] [address] James Minaya MD 04/27/2025 Orders Only [facility] Department of Orthopaedics [address] [place] [address] James Minaya MD 04/21/2025 1:26 PM EDT - 04/21/2025 11:59 PM EDT Hospital Encounter 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 MSK Diagnostic X-ray Imaging, [place] [address] [place] [address] James Minaya MD Discharge Disposition: Home or Self Care 04/13/2025 Orders Only [facility] Department of Orthopaedics [address] [place] [address] Johnny Vizcaino [place] Pain (Primary Dx) 03/31/2025 Orders Only VIRTUAL DEPARTMENT [address] [place] [id number] Krista Sullivan MD 03/08/2025 12:50 PM EDT Office Visit DEPARTMENT OF UROLOGY [address] [facility], [address] [place] [phone] Krista Sullivan MD Lower urinary tract symptoms (LUTS) (Primary Dx); Urinary urgency; Urinary frequency from Last 3 Months Immunizations Immunization Administration Dates Next Due Influenza Quadrivalent Prese [...] Sign Reading Time Taken Comments Blood Pressure 137/80 12/01/2024 3:18 PM EST Pulse 75 12/01/2024 3:18 PM EST Temperature 36.6 C (97.9 F) 09/04/2023 1:22 PM EST Respiratory Rate 18 07/26/2023 9:00 AM EDT Oxygen Saturation 100% 12/01/2024 3:18 PM EST Inhaled Oxygen Concentration 40% 05/13/2023 5 :00 PM EDT Weight 117.9 kg (260 lb) 12/22/2024 11:31 AM EDT Height 162.6 cm (5' 4 ) 12/22/2024 11:31 AM EDT Body Mass Index 44.63 12/22/2024 11:31 AM EDT Plan of Treatment Upcoming Encounters Date Type Department Care Team (Latest Contact Info) Description 06/15/2025 2:20 PM EDT Office Visit DEPARTMENT OF UROLOGY [address] [facility], [facility] [address] [place] [address] Krista Sullivan MD [address] [place] [phone] [email or web address] 06/29/2025 10:[address] [facility] Orthopedics at [place] [id number] [address] Cassy Melendez PA-C [address] [place] [address] [email or web address] 07/08/[address] [facility] Periop [address] [place] [address] 07/08/2025 10:47 AM EDT Hospital Encounter [facility] Periop [address] [place] [address] James Minaya MD [address] [place] [phone] [email or web address] 07/08/2025 10:47 AM EDT - 07/08/2025 2:[address] [facility] Periop [address] [place] [address] James Minaya MD [address] [place] [address] [email or web address] TIBIA REMOVAL HARDWARE KNEE 07/28/2025 12:00 PM EDT Office Visit [facility] Department of Orthopaedics [address] [place] [address] James Minaya MD [address] [place] [address] [email or web address] 08/03/2025 10:[address] [facility] Orthopedics at [address] [address] Cassy Melendez PA-C [address] [place] [address] [email or web address] 08/16/[address] [facility] Periop [address] [place] [phone] 08/16/2025 11:20 AM EST Hospital Encounter [facility] Periop [address] [place] [address] James Minaya MD [address] [place] [address] [email or web address] 08/16/2025 11:20 AM EST - 08/16/2025 2:[address] [facility] Periop [address] [place] [address] James Minaya MD [address] [place] [address] [email or web address] ARTHROPLASTY TOTAL KNEE 09/15/2025 12:00 PM EST Office Visit [facility] Department of Orthopaedics [address] [place] [address] James Minaya MD [address] [place] [address] [email or web address] Scheduled Procedures Name Priority Associated Diagnoses Date/Ti me REMOVAL HARDWARE KNEE Bone disorder Primary osteoarthritis of right knee 07/08/2025 10:47 AM EDT ARTHROPLASTY TOTAL KNEE Primary osteoarthritis of right knee 08/16/2025 11:20 AM EST Health Maintenance Due Date Last Done Comments HEPATITIS C SCREENING 02/09/1988 HIV ONE-TIME SCREENING (18-65 YEARS) 02/09/1988 PAP SMEAR 1991 MAMMOGRAM 2010 COLOGUARD 2015 COLONOSCOPY 2015 COLORECTAL CANCER SCREENING 2015 FIT TEST 2015 FOBT 2015 SIGMOIDOSCOPY 2015 VIRTUAL COLONOSCOPY 2015 DEPRESSION SCREENING 07/16/2023 07/16/2022 COVID-19 VACCINE ( season) 2024 INFLUENZA VACCINE (#1) 2025 05/31/2014, 2011 POTASSIUM LEVEL 04/21/2026 04/21/2025, 04/2 01/2025, 06/26/2024, Additional history exists SCREENING FOR DIABETES 04/21/2028 , 04/21/2025, 07/10/2017 LIPID PANEL 01/19/2029 01/20/2024 Adult Td,Tdap [...] age to complete this topic MENINGOCOCCAL VACCINES (B) Aged Out N o longer eligible based on patient's age to complete this topic Medical Devices Implanted Type Area Director Dance Device Identifier Shelf Expiration Date Model / Serial / Lot Mesh Synthetic 30cmxabdominal Non Absorbable Square Polypropylene Bx/3ea - [id number] Implanted:Qty: 1 on 05/13/2023 by James Minaya MD at [facility] STANDARD Left: Knee [facility] / DIVISION OF J [id number] 12/29/2027 PML / / [id number] Restrictor Bone 25mm Cement Femoral Hand Hip 16b Bx/3ea - [id number] Implanted:Qty: 1 on 05/13/2023 by James Minaya MD at [facility] STANDARD Left: Knee GUERRIER [id number] 01/02/2033 [id number] / / [id number] Restrictor Bone 25mm Cement Femoral Hand Hip 16b Bx/3ea - [id number] Implanted:Qty: 1 on 05/13/2023 by James Minaya MD at [facility] STANDARD Left: Knee GUERRIER [id number] 01/02/2033 [id number] / / [id number] Knee Baseplate Sz 2 Legion Hk Cement Female Tapered Tibial Lt - [id number] Implanted:Qty: 1 on 05/13/2023 by James Minaya MD at [facility] STANDARD Left: Knee GUERRIER [id number] 06/30/2023 [id number] / / [id number] Knee Stem 120mm Od 10 Market Manager Std Femoral Primary Cemented Straight Impl Legion - [id number] Implanted:Qty: 1 on 05/13/2023 by James Minaya MD at [facility] STANDARD Left: Knee GUERRIER [id number] 2031 [id number] / / [id number] Assembly Cemented Size 3 Component Femoral Knee Legion Hk Left - [id number] Implanted:Qty: 1 on 05/13/2023 by James Minaya MD at [facility] STANDARD Left: Knee GUERRIER [id number] 11/20/2028 [id number] / / [id number] Knee Stem 120mm Od 10 Market Manager Std Femoral Primary Cemented Straight Impl Legion - [id number] Implanted:Qty: 1 on 05/13/2023 by James Minaya MD at [facility] STANDARD Left: Knee GUERRIER [id number] 09/09/2032 [id number] / / [id number] L Knee Screws B Foot Pins R Elbow Pin Screw Right: Shoulder Shoulder Screw Custom Bone [id number] - Replaced By Ps # [id number] - [id number] Implanted:Qty: 3 on 08/17/2022 by Nicola Jensen MD at [facility] N/A: Spine Cervical [employer] [id number] / / Screw Bone 5.0x3.0mm Spine Pedicle Centerpiece Self Tapping Posterior - [id number] Implanted:Qty: 3 on 08/17/2022 by Nicola Jensen MD at [facility] N/A: Spine Cervical [employer] 853-505 / / Screw Custom Bone 2.7vot6on - Replaced By Ps # [id number] - [id number] Implanted:Qty: 6 on 08/17/2022 by Nicola Jensen MD at [facility] N/A: Spine Cervical [employer] [id number] / / Medtronic 14 Mm Plate Implanted:Qty: 1 on 08/17/2022 by Nicola Jensen MD at [facility] N/A: Spine Cervical [id number] / / Kit Cement Bone Simplex P Tobramycin Antibiotic Impregnated Full Single Dose Bx/1ea - Discontinued Per Supplier [employer]om Issue Use Ps# 93025 - [id number] Implanted:Qty: 3 on 05/13/2023 by James Minaya MD at [facility] Left: Knee [facility] 07/30/2023 [id number] [id number] / / [id number] Knee Cone 18mm Tibial Short Legion - [id number] Implanted:Qty: 1 on 05/13/2023 by James Minaya MD at [facility] Left: Knee FAREED [id number] 09/29/2032 [id number] / / [id number] Knee Cone 22mm Tibial Short Legion - [id number] Implanted:Qty: 1 on 05/13/2023 by James Minaya MD at [facility] Left: Knee FAREED [id number] 02/07/2032 [id number] / / [id number] Knee Insert 3 18mm Size 2 Tibial Hinge Legion Gd Motion Left - [id number] Implanted:Qty: 1 on 05/13/2023 by James Minaya MD at [facility] Left: Knee FAREED [id number] 11/04/2031 [id number] / / [id number] Cross Spine 18mm Legion Hinge Coupling - [id number] Implanted:Qty: 1 on 05/13/2023 by James Minaya MD at [facility] Left: Knee FAREED [id number] 03/30/2025 [id number] / / [id number] Procedures Procedure Name Priority Date/Time Associated Diagnosis Comments PREALBUMIN Routine 04/21/2025 1:34 PM EDT Primary osteoarthritis of right knee C-REACTIVE PROTEIN, HIGH SENSITIVITY Routine 04/21/2025 1:34 PM EDT Primary osteoarthritis of right knee HEMOGLOBIN A1C Routine 04/21/2025 1:34 PM EDT Primary osteoarthritis of right knee 25-OH VITAMIN D Routine 04/21/2025 1:34 PM EDT Disorder of bone, unspecified CBC AND DIFFERENTIAL Routine 04/21/2025 1:34 PM EDT Primary osteoarthritis of right knee COMPREHENSIVE METABOLIC PANEL Routine 04/21/2025 1:34 PM EDT Primary osteoarthritis of right knee XR KNEE 3 VIEW (RIGHT) Routine 04/21/2025 12:15 PM EDT Pain XR KNEE 1-2 VIEWS (LEFT) Routine 04/21/2025 12:15 PM EDT Pain POCT URINE DIPSTICK Routine 03/08/2025 1 2:38 PM EDT Lower urinary tract symptoms (LUTS) LIPID PANEL Routine 01/20/2024 11:49 AM EDT Hyperlipidemia, unspecified hyperlipidemia type from Last 3 Months or Most Recently Relevant to Health Maintenance Results * (ABNORMAL) C-reactive protein, high sensitivity (04/21/2025 1:34 PM EDT) Pathologist [facility] CRP, HIGH SENSITIVITY 12.8(H) 0.0 - 3.0 mg/L [facility] Comment: For cardiac risk assessment, reference range is <3.0mg/L. For inflammation assessment, reference range is <10.0mg/L. Blood 04/21/2025 1:34 PM EDT 04/21/2025 1:43 PM EDT us James Minaya MD LAB BLOOD ORDERABLES Final Re sult Performing Organization Address City/State/[facility] Co de Phone Number [facility] [address] [place] [phone] * (ABNORMAL) Comprehensive metabolic panel (04/21/2025 1:34 PM EDT) SODIUM 139 136 - 145 mmol/L [facility] POTASSIUM 4.9 3.4 - 5.1 mmol/L [facility] CHLORIDE 101 98 - 107 mmol/L [facility] CO2 29 22 - 31 mmol/L [facility] BUN 17 6 - 23 mg/dL [facility] CREATININE 0.76 0.50 - 1.20 mg/dL [facility] GLUCOSE 107(H) 70 - 100 mg/dL [facility] ALBUMIN 4.1 3.5 - 5.2 g/dL [facility] TOTAL PROTEIN 7.0 6.4 - 8.3 g/dL [facility] CALCIUM 9.0 8.8 - 10.7 mg/dL [facility] ALKALINE PHOSPHATASE 143(H) 35 - 130 U/L [facility] TOTAL BILIRUBIN <0.2 0.0 - 1.0 mg/dL [facility] AST 14 10 - 50 U/L [facility] ALT 21 10 - 50 U/L [facility] GLOBULIN 2.9 2.2 - 4.2 g/dL [facility] EGFR 92 >59 mL/min/1. 73m2 [facility] Comment:Estimated glomerular filtration rate calculated using the CKD-EPI refit equation. ANION GAP 9 7 - 17 mmol/L [facility] Blood 04/21/2025 1:34 PM EDT 04/21/2025 1:43 PM EDT James Minaya MD LAB BLOOD ORDERABLES Final Re sult Performing Organization Address [facility] Co de Phone Number [facility] [address] [place] [phone] * 25-OH vitamin D (04/21/2025 1:34 PM EDT) 25 OH VIT D (TOTAL) 30 20 - 50 ng/mL [facility] Blood 04/21/2025 1:34 PM EDT 04/21/2025 1:43 PM EDT James Minaya MD LAB BLOOD ORDERABLES Final Re sult Performing Organization Address [facility] de Phone Number [facility] [address] [place] [address] * (ABNORMAL) CBC and differential (04/21/2025 1:34 PM EDT) WBC 10.94 4.00 - 11.00 K/uL [facility] RBC 4.70 4.00 - 5.20 M/uL [facility] HGB 12.0 12.0 - 16.0 g/dL [facility] HCT 39.7 36.0 - 46.0 % [facility] PLT 347 150 - 450 K/uL [facility] MCV 84.5 80.0 - 100.[address] [facility] MCH 25.5(L) 27.0 - 31.[address] [facility] MCHC 30.2(L) 32.0 - 36.0 g/dL [facility] RDW 16.2(H) 11.5 - 14.5 % [facility] MPV 10.2 8.4 - 12.[address] [facility] NRBC 0.00 0.00 /[address] [facility] ABSOLUTE NRBC 0.00 0.00 K/uL [facility] DIFF METHOD Auto [facility] NEUTS 57.3 48.0 - 76.0 % [facility] LYMPHS 34.4 18.0 - 41.0 % [facility] MONOS 5.3 4.0 - 11.0 % [facility] EOS 2.2 0.0 - 5.0 % [facility] BASOS 0.5 0.0 - 1.5 % [facility] % IMMATURE GRANS 0.3 0.0 - 0.9 % [facility] ABSOLUTE NEUTS 6.27 1.92 - 7.60 K/uL [facility] Comment:1.21-5.39 cells/KL i s the reference range for individuals with the Nguyễn null phenotype ABSOLUTE LYMPHS 3.76 0.72 - 4.10 K/uL [facility] ABSOLUTE MONOS 0.58 0.16 - 1.10 K/uL [facility] ABSOLUTE EOS 0.24 0.00 - 0.50 K/uL [facility] ABSOLUTE BASOS 0.06 0.00 - 0.15 K/uL [facility] ABS IMMATURE GRANS 0.03 0.00 - 0.09 K/uL [facility] ABSOLUTE NEUTROPHIL COUNT 6.27 1.92 - 7.60 K/uL [facility] Comment: Automated cell count. Manual ANC may differ if performed. 1.21-5.39 cells/KL is the reference range for individuals with the Nguyễn null phenotype Blood 04/21/2025 1:34 PM EDT 04/21/2025 1:43 PM EDT us James Minaya MD LAB BLOOD ORDERABLES Final Re sult Performing Organization Address [facility] Co de Phone Number [facility] [address] [place] [address] * Prealbumin (04/21/2025 1:34 PM EDT) PREALBUMIN 25 20 - 40 mg/dL [facility] Blood 04/21/2025 1:34 PM EDT 04/21/2025 1:43 PM EDT James Minaya MD LAB BLOOD ORDERABLES Final Re sult Performing Organization Address [facility] de Phone Number [address] [address] * (ABNORMAL) Hemoglobin A1c (04/21/2025 1:34 PM EDT) HEMOGLOBIN A1C 6.3(H) 4.2 - 5.6 % [facility] Comment: HbA1c levels 5.7-6.4% represent pre-diabetes, indicating impaired glucose control and an increased risk of developing diabetes. The diagnostic HbA1c level for diabetes is 6.5% or greater. HbA1c is performed by the Alessio Tarsha-quant immunoassay method which does not detect (incidental) hemoglobin variants. Hemoglobin electrophoresis should be ordered in patients with suspected hemoglobinopathies. CALC MEAN BLD GLUC 134 mg/dL [facility] Comment:The Calculated Mean Blood Glucose (CMBG) represents the estimated average glucose calculated from the measured hemoglobin A1c (HbA1c). There is no established normal range for the CMBG, however a 5.6% HbA1c (upper limit of normal) represents a CMBG of 114 mg/dL. Blood 04/21/2025 1:34 PM EDT 04/21/2025 1:43 PM EDT us James Minaya MD LAB BLOOD ORDERABLES Final Re sult Performing Organization Address [facility] Co de Phone Number [address] [address] * XR KNEE 3 VIEW (RIGHT) (04/21/2025 12:15 PM EDT) Anatomical Region Laterality Modality Knee Right Computed Radiogr aphy 04/21/2025 3:14 PM EDT Impressions 04/21/2025 3:49 PM EDT 1. Left total knee arthroplasty, no complication. 2. Status post right proximal tibia ORIF, no complication. Moderate osteoarthritis in the right knee. ATTESTATION: Kehinde Martinez, as teaching physician have reviewed the images, if any, for this patient's exam, and if necessary, have edited the report originally created by Andrzej Damian. Narrative 04/21/2025 3:49 PM EDT XR KNEE 3 VIEW (RIGHT), XR KNEE 1-2 VIEWS (LEFT) Referring clinician's provided indication for this examination in [facility]: Pain COMPARISON: XR KNEE 3 VIEW (LEFT) ; XR KNEE 4 OR MORE VIEWS (BILATERAL) (accession [id number]), XR KNEE 3 VIEW (LEFT) (accession [id number]) FINDINGS: Left knee: Total knee arthroplasty. Hardware is intact and in anatomic position. No periprosthetic lucency or fracture. No effusion. Right knee: Status post proximal tibia ORIF. Fixation of the proximal tibiofibular syndesmosis with partial ossification. Remote fracture deformity proximal fibula. No evidence of hardware fracture or saskia-hardware lucency. Moderate tricompartmental joint space narrowing and osteophyte formation. No effusion. Procedure Note Kehinde Sanchez MD - 04/21/2025 XR KNEE 3 VIEW (RIGHT), XR KNEE 1-2 VIEWS (LEFT) Referring clinician's provided indication for this examination in [facility]:Pain COMPARISON: XR KNEE 3 VIEW (LEFT) ; XR KNEE 4 OR MORE VIEWS(BILATERAL) (accession [id number]), XR KNEE 3 VIEW (LEFT) (accession [id number]) FINDINGS: Left knee: Total knee arthroplasty. Hardware is intact and in anatomicposition. No periprosthetic lucency or fracture. No effusion. Right knee: Status post proximal tibia ORIF. Fixation of the proximaltibiofibular syndesmosis with partial ossification. Remote fracturedeformity proximal fibula. No evidence of hardware fracture orperi-hardware lucency. Moderate tricompartmental joint space narrowing andosteophyte formation. No effusion. IMPRESSION: 1. Left total knee arthroplasty, no complication. 2. Status post right proximal tibia ORIF, no complication. Moderateosteoarthritis in the right knee. ATTESTATION: Kehinde Martinez, as teaching physician have reviewed theimages, if any, for this patient's exam, and if necessary, have edited thereport originally created by Andrzej Damian. us James Minaya MD IMG XR LOWER EXTREMITY Final Result * XR KNEE 1-2 VIEWS (LEFT) (04/21/2025 12:15 PM EDT) Anatomical Region Laterality Modality Knee Left Computed Radiogr aphy 04/21/2025 3:14 PM EDT Impressions 04/21/2025 3:49 PM EDT 1. Left total knee arthroplasty, no complication. 2. Status post right proximal tibia ORIF, no complication. Moderate osteoarthritis in the right knee. ATTESTATION: Kehinde Martinez, as teaching physician have reviewed the images, if any, for this patient's exam, and if necessary, have edited the report originally created by Andrzej Damian. Narrative 04/21/2025 3:49 PM EDT XR KNEE 3 VIEW (RIGHT), XR KNEE 1-2 VIEWS (LEFT) Referring clinician's provided indication for this examination in Epic: Pain COMPARISON: XR KNEE 3 VIEW (LEFT) ; XR KNEE 4 OR MORE VIEWS (BILATERAL) (accession [id number]), XR KNEE 3 VIEW (LEFT) (accession [id number]) FINDINGS: Left knee: Total knee arthroplasty. Hardware is intact and in anatomic position. No periprosthetic lucency or fracture. No effusion. Right knee: Status post proximal tibia ORIF. Fixation of the proximal tibiofibular syndesmosis with partial ossification. Remote fracture deformity proximal fibula. No evidence of hardware fracture or saskia-hardware lucency. Moderate tricompartmental joint space narrowing and osteophyte formation. No effusion. Procedure Note Kehinde Sanchez MD - 04/21/2025 XR KNEE 3 VIEW (RIGHT), XR KNEE 1-2 VIEWS (LEFT) Referring clinician's provided indication for this examination in [facility]:Pain COMPARISON: XR KNEE 3 VIEW (LEFT) ; XR KNEE 4 OR MORE VIEWS(BILATERAL) (accession [id number]), XR KNEE 3 VIEW (LEFT) (accession [id number]) FINDINGS: Left knee: Total knee arthroplasty. Hardware is intact and in anatomicposition. No periprosthetic lucency or fracture. No effusion. Right knee: Status post proximal tibia ORIF. Fixation of the proximaltibiofibular syndesmosis with partial ossification. Remote fracturedeformity proximal fibula. No evidence of hardware fracture orperi-hardware lucency. Moderate tricompartmental joint space narrowing andosteophyte formation. No effusion. IMPRESSION: 1. Left total knee arthroplasty, no complication. 2. Status post right proximal tibia ORIF, no complication. Moderateosteoarthritis in the right knee. ATTESTATION: IKehinde, as teaching physician have reviewed theimages, if any, for this patient's exam, and if necessary, have edited thereport originally created by Andrzej Damian. James Minaya MD IM XR LOWER EXTREMITY Final Result * (ABNORMAL) POCT Urine Dipstick [POC5] (03/08/2025 12:38 PM EDT) Glucose, Urine - POC Negative Negative Ketones, Urine - POC Negative Negative Specific [place], Urine - POC < = 1.005(A) 1.005, 1.010, 1.015, 1.020, 1.025, 1.030 Blood, Urine - POC Negative Negative pH, Urine - POC 5.5 5.0, 6.0, 7.0, 5.5, 5.8, 6.2, 6.4, 6.6, 6.8, 7.5, 6.5 Protein, Urine - POC Negative Negative Nitrite, Urine - POC Negative Negative Leukocyte Esterase, Urine - POC Negative Negative Other 03/08/2025 12:3 8 PM EDT us Krista Sullivan MD POINT OF CARE TEST ORDERABLES Fi nal Result * (ABNORMAL) Lipid panel (01/20/2024 11:49 AM EDT) HDL 47 mg/dL [facility] Comment: Interpretation <40 mg/dL: Low HDL cholesterol (major risk factor for CHD) Greater than or equal to 60 mg/dL: High HDL cholesterol ( negative risk factor for CHD) HDL - cholesterol is affected by a number of factors, e.g. smoking, excerise, hormones, sex and age. CHOLESTEROL 247(H) 0 - 240 mg/dL [facility] TRIGLYCERIDES 340(H) 30 - 160 mg/dL [facility] LDL 132(H) 50 - 129 mg/dL [facility] Comment: LDL levels in terms of risk for coronary heart disease: <100 mg/dL: Optimal 100-129 mg/dL: Near or above optimal 130-159 mg/dL: Borderline high 160-189 mg/dL: High >190 mg/dL: Very High CARDIAC RISK RATIO 5.3(H) 3.3 - 4.4 C [facility] Blood 01/20/2024 11:4 9 AM EDT 01/20/2024 11:54 AM EDT us Edouard Lowe MD LAB BLOOD ORDERABLES Final Resul t [facility] [address] [place] [address] from Last 3 Months or Most Recently Relevant to Health Maintenance Insurance [facility] ONE CARE MEDICARE REPLACEMENT MEDICARE PART A & B CARE MEDICARE REPLACEMENT Member Subscriber Plan / Payer ( fective 2019-Present) Name:Bill Del Valle Relation to Subscriber:Self Name:Bill Del Valle Payer ID:[id number] (NAIC) Group ID:[id number] Type:Medicare Address: [place] [id number] MEDICARE PART A & [place] [address] CARE MEDICARE REPLACEMENT [facility] MEDICARE REPLACEMENT [facility] MEDICARE REPLACEMENT [place] PART [place] [id number] [facility] MEDICARE REPLACEMENT [facility] MEDICARE REPLACEMENT MEDICARE PART A [place] [id number] [facility] MEDICARE REPLACEMENT MEDICARE PART A & B ONE CARE MEDICARE REPLACEMENT [place] [id number] MEDICARE PART A & B Advance Directives For more information, please contact: [phone] (9AM - 5PM [facility], Saturday-Saturday) Documents on File Type Date Recorded Patient Hitcher Expl anation Healthcare Proxy 06/14/2022 2:35 PM healct hcare proxy 06/12/22 * Full Code (Latest Code Status on File) Date Activated Date Inactivated Comments 07/22/2023 3:15 PM Question Answer Comments Code Status Confirmed With: Patient * Full Code Date Activated Date Inactivated Comments 08/17/2022 7:05 PM 07/22/2023 3:15 PM Question Answer Comments Code Status Confirmed With: Patient Care Teams Derrick Man Relationship Specialty Start Date End Date Ila Elder NP [address] [place] [address] PCP - General 03/02/24 Chika Tovar CNP Nurse Practitioner 08/10/22 Additional Source Comments The information contained in this document represents components of the legal health record. It is not the complete legal health record.[facility]
--- OUTSIDE RECORDS SUMMARY | 2025-05-26 13:43 | XMS_ITS | Encounter Summary ---
Author Organization [facility] Address [facility] [address] [place] [address] Phone Care Team Providers Care Hydraulic Press Operator Name Role Phone Marycruz Martinez MD Primary Care Provider [phone] Unknown, Unknown Primary Care Provider Deepthi Rodriguez ALLIED HEALTH TEACHER Primary Care Provid er Ila Elder MAIL PROCESSING MACHINE OPERATOR Primary Care Provide r Encounter Details Date Type Department Care Team (Late st Contact Info) Description 07/22/[address] [facility] Periop [address] [place] [address] Social History Tobacco Use Types Packs/Day Years [...] EDT Office Visit DEPARTMENT OF UROLOGY 52 [facility] [address] [place] [address] Krista Sullivan MD [address] [place] [phone] [email or web address] 06/29/2025 10:[address] [facility] Orthopedics at [address] [address] Cassy Melendez PA-C [address] [place] [id number] [email or web address] 07/08/[address] [facility] Periop [address] [place] [address] 07/08/2025 10:47 AM EDT Hospital Encounter [facility] Periop [address] [place] [address] James Minaya MD [address] [place] [address] [email or web address] 07/08/2025 10:47 AM EDT - 07/08/2025 2:[address] [facility] Periop [address] [place] [address] James Minaya MD [address] [place] [id number] [email or web address] RT TIBIA REMOVAL HARDWARE KNEE 07/28/2025 12:00 PM EDT Office Visit [facility]'s Department of Orthopaedics [address] [place] [address] James Minaya MD [address] [place] [address] [email or web address] 08/03/2025 10:[address] [facility] Orthopedics at [address] [address] Cassy Melendez PA-C [address] [place] [address] [email or web address] 08/16/[address] [facility] Periop [address] [place] [address] 08/16/2025 11:20 AM EST Hospital Encounter [facility] Periop [address] [place] [address] James Minaya MD [address] [place] [address] [email or web address] 08/16/2025 11:20 AM EST - 08/16/2025 2:[address] [facility] Periop [address] [place] [address] James Minaya MD [address] [place] [address] [email or web address] RT ARTHROPLASTY TOTAL KNEE 09/15/2025 12:00 PM EST Office Visit [facility] Department of [facility]edics [address] [place] [address] James Minaya MD [address] [place] [address] [email or web address] Scheduled Procedures Name Priority Associated [...] as of this encounter Care Teams Hydraulic Press Operator Relationship Specialty Start Date End Date Marycruz Martinez MD [address] [place] [phone] PCP - General Family Medicine 08/03/21 11/21/23 Unknown, Unknown, PCP - General 12/24/23 01/20/24 Deepthi Parada CNP [address] [place] [address], [address] [place] [address] PCP - General Family Medicine 01/21/24 03/01/24 Ila Elder NP [address] [place] [address] PCP - General 03/02/24 Chika Tovar CNP Nurse Practitioner 08/10/22 documented as of this encounter Additional Source Comments The information contained in this document represents components of the legal health record. It is not the complete legal health record.[facility]
--- OUTSIDE RECORDS SUMMARY | 2025-05-26 13:43 | XMS_ITS | Encounter Summary ---
Author Organization [facility] Address [address] [place] [address] Care Team Providers Care Sales And Marketing Administrator Name Role Phone Marycruz Martinez MD Primary Care Provider [phone] Deepthi Parada NP Primary Care Provide r Encounter Details Date Type Department Care Team (Late st Contact Info) Description 12/07/2020 Orders Only [facility] Orthopedic Surgery [address] [facility] [address] [place] [id number] Yuli Campo, [place] Social History Tobacco Use [...] left knee, AP bilateral knees standing Comparison: - ORTHO- KNEE - 06/14/2020 03:20 PM EDT Findings: Regarding the right knee, again noted is a sideplate across the proximal tibia with screws present. A sideplate is also noted across the posterior aspect of the tibia. No hardware-related complication. Severe 3 compartment osteoarthritis is again noted. This is most pronounced laterally. I see no acute fracture or dislocation. A healed proximal fibula fracture is likely present. Regarding the left knee, screws are noted through the proximal tibia from the anterior approach, 3 compartment osteoarthritis is again noted which is fairly uniform and throughout the joint. The patella is mildly deformed. The appearance is similar to the previous study. No large joint effusion. Impression: 1. ORIF changes bilaterally. No definite fracture noted. Findings are very similar to 06/14/2020. Procedure Note Maximiliano Andujar MD - 12/10/2020 2 views right knee, 2 views left knee, AP bilateral knees standing Comparison: - ORTHO- KNEE - 06/14/2020 03:20 PM [...] Findings arevery similar to 06/14/2020. us Yuli Suzanne [facility] IMG XRAY NO CONTRAST ORDERAB LES Final Result documented in this encounter Visit Diagnoses Diagnosis Pain in both knees, unspecified chronicity- Primary Pain in both knees, unspecified chronicity Right shoulder pain, unspecified chronicity documented in this encounter Additional Health Concerns Infection Onset Date Last Indicated Resolved Time COVID-19 Rule-Out 02/07/2021 02/07/2021 2021 4:16 AM EDT documented as of this encounter Care Teams Sales And Marketing Administrator Relationship Specialty Start Date End Date Marycruz Martinez MD [address] [address] PCP - General Family Medicine 10/05/20 11/21/23 Deepthi Parada NP [facility], [address] [place] [address] PCP - General Family Medicine 11/22/23 documented as of this encounter
--- OUTSIDE RECORDS SUMMARY | 2025-05-26 13:43 | XMS_ITS | Encounter Summary ---
Author Organization [facility] Address [facility] [employer] [facility] [address] [place] [address] Phone Care Team Providers Care Career Guidance Counselor Name Role Phone Mayrcruz Martinez MD Primary Care Provider [phone] Unknown, Unknown Primary Care Provider Deepthi Rodriguez BATCH ATTENDANT Primary Care Provid er Ila Elder BILLIARD PARLOR MANAGER Primary Care Provide r Encounter Details Date Type Department Care Team (Late st Contact Info) Description 05/13/2023 Procedure Pass [facility] Periop [address] [place] [address] Social History Tobacco Use Types Packs/Day Years [...] with a working camera? Not on file Comments No Sex and Gender Information Value Date Recorded Sex Assigned at Female 08/03/2021 12:35 PM EDT Legal Sex Female 12:29 PM EDT Gender Identity Female 08/03/2021 12:35 PM EDT Sexual Orientation Straight 08/03/2021 12 :35 PM EDT documented as of this encounter Functional Status * Calculated C-SSRS Risk Score (Lifetime/Recent) Answer Date of Assessment Author No Risk Indicated 05/13/2023 6:00 PM EDT Mady Tang RN * [place] Suicide Severity Rating Scale (Screener/Recent Self-Report) Question Answer Date of Assessment Author 1. Wish to be (Past 1 Month) No 05/13/2023 6:00 PM EDT Terence Winchester RN 2. Non-Specific Active Suicidal Thoughts (Past 1 Month) No 05/13/2023 6:00 PM EDT Terence Winchester RN 6. Suicidal Behavior (Lifetime) No 05/13/2023 6:00 PM EDT Terence Winchester RN documented as of this encounter Plan of Treatment Upcoming Encounters Date Type Department Care Team (Latest Contact Info) Description 06/15/2025 2:20 PM EDT Office Visit DEPARTMENT OF UROLOGY [address] [place] [address] [address] [place] [address] Krista Sullivan MD [address] [place] [phone] [email or web address] 06/29/2025 10:00 AM EDT Telemedicine [facility] Orthopedics at [place] [phone] [address] Cassy Melendez PA-C [address] [place] [id number] [email or web address] [email or web address] 07/08/2025 Procedure Pass [facility] Periop [address] [place] [address] 07/08/2025 10:47 AM EDT Hospital Encounter [facility] Periop [address] [place] [address] James Minaya MD [address] [place] [address] [email or web address] 07/08/2025 10:47 AM EDT - 07/08/2025 2:58 PM EDT Surgery [facility] Periop [address] [place] [address] James Minaya MD [address] [place] [address] [email or web address] RT TIBIA REMOVAL HARDWARE KNEE 07/28/2025 12:00 PM EDT Office Visit [facility] Department of Orthopaedics [address] [place] [address] James Minaya MD [address] [place] [address] [email or web address] 08/03/2025 10:00 AM EST Telemedicine [facility] Orthopedics at [address] [address] Cassy Melendez PA-C [address] [place] [phone] [email or web address] 08/16/2025 Procedure Pass [facility] Periop [address] [place] [address] 08/16/2025 11:20 AM EST Hospital Encounter [facility] Periop [address] [place] [address] James Minaya MD [address] [place] [address] [email or web address] 08/16/2025 11:20 AM EST - 08/16/2025 2:40 PM EST Surgery [facility] Periop [address] [place] [address] James Minaya MD [address] [place] [address] [email or web address] RT ARTHROPLASTY TOTAL KNEE 09/15/2025 12:00 PM EST Office Visit [facility] Department of Orthopaedics [address] [place] [address] James Minaya MD [address] [place] [address] [email or web address] Scheduled Procedures Name Priority Associated Diagnoses [...] documented as of this encounter Care Teams Career Guidance Counselor Relationship Specialty Start Date End Date Marycruz Martinez MD [address] [place] [phone] PCP - General Family Medicine 08/03/21 11/21/23 Unknown, Unknown, PCP - General 12/24/23 01/20/24 Deepthi Parada, BATCH ATTENDANT [address] [place] [address], 2[address] [place] [address] PCP - General Family Medicine 01/21/24 03/01/24 Ila Elder, SAMNATA [address] [place] [address] PCP - General 03/02/24 Chika Tovar CNP Nurse Practitioner 08/10/22 documented as of this encounter Additional Source Comments The information contained in this document represents components of the legal health record. It is not the complete legal health record.[facility]
--- OUTSIDE RECORDS SUMMARY | 2025-05-26 13:43 | XMS_ITS | Encounter Summary ---
Author Organization [facility] Address [address] [place] [address] Care Team Providers Care Rn Office Name Role Phone Marycruz Martinez MD Primary Care Provider Deepthi Parada NP Primary Care Provide r Encounter Details Date Type Department Care Team ([facility] st Contact Info) Description 12/27/2020 Orders Only [facility] Orthopedic Surgery [address] [facility] [address] [place] [address] Arie Wilson MD [address] [facility] [address] [place] [address] Social History Tobacco Use Types Packs/Day Years [...] of this encounter Results * Due to [place] state law, this organization might not be sharing negative HIV tests. * XRAY SPINE, CERVICAL; 3 VIEWS OR LESS FC (12/27/2020 1:54 PM EDT) Anatomical Region Laterality Modality Spine Radiographic Ghislaine ging 12/27/2020 4:02 PM EDT Narrative 12/27/2020 4:02 PM EDT 2 views cervical spine Comparison: None Findings: There is 4 mm retrolisthesis C3 upon C4 which appears degenerative in nature. Remaining vertebral heights and alignment are maintained.. No fractures, or traumatic subluxation. There is vertebral body spurring diffusely, more prominent C5-7, with some disc space narrowing at these levels. Findings are compatible degenerative disease. Bilateral facet arthropathy is present. Prevertebral soft tissues normal. Lung apices are unremarkable. Impression: 1. Cervical degenerative changes described above. Procedure Note Faheem [...] as of this encounter Care Teams Rn Office Relationship Specialty Start Date End Date Marycruz Martinez MD [address] [address] PCP - General Family Medicine 10/05/20 11/21/23 Deepthi Parada NP [facility], [address] [place] [address] PCP - General Family Medicine 11/22/23 documented as of this encounter
--- OUTSIDE RECORDS SUMMARY | 2025-05-26 13:43 | XMS_ITS | Clinical Summary ---
Author Organization [facility] [employer] [facility] Address [address] [place] [address] Care Team Providers Care Fruit Pitter Name Role Phone Estrella Zamudio NP Primary Care Provider [phone] Social History Tobacco Use Types Packs/Day Years [...] Adults 18 yrs or above (or HM Modifier)([facility]) 02/09/1988 Hepatitis C Virus Infection in Adolescents and Adults: Screening (or Modifier) ([facility]) 02/09/1988 [facility] Screening Reminder: Nhi perla for all adults ([facility]) 02/09/1988 Tobacco Smoking Cessation: i n Adults excluding Women: Behavioral and Pharmacotherapy Interventions ([facility]) 02/09/1988 DTaP/Tdap/Td Vaccines ([facility]) (1 - Tdap) 1989 Cervical Cancer Screenin 1-65 yrs of age (or Modifier) 1991 Cervical Cancer Screening: P ap every 3 yrs pts age 21-65 1991 Cervical Cancer: Pap Screeni ng with Modifier timing ([facility]) 1991 Cervical Cancer: hrHPV alone or with cotesting Pap for Pts 30-65yrs screening every 5yrs ([facility]) 1991 Colorectal Cancer Screening 45 -75 Yrs (or HM Modifier ) 2015 Colorectal Cancer: FLEXIBLE SIGMOIDOSCOPY Screening every 5 yrs 2015 Colorectal Cancer: Fecal Imm unochemical Test (FIT) Annually [facility] 2015 Colorectal Cancer: High-sens itivity gFOBT Screening Annually [facility] 2015 Colorectal Cancer: Stool Col oguard Screening every 3 yrs 2015 Colorectal Cancer:CT Colonography Screening every 5 yr s 2015 Breast Cancer: Screening Nhi uallhaley age 50-74 yrs (or HM Modifier)([facility]) 02/09/2020 Pneumococcal Vaccination Scr eening: Patients 50+ yrs of age ([facility]) (1 of 1 - PCV) 02/09/2020 Zoster/Shingles Vaccine Seri es Screening: Adults aged 18+ yrs (or HM Modifiers)([facility]) (1 of 2) 02/09/2020 COVID-19 Vaccine Screening: Initial Series and Booster Status ([facility]) (2023- season) 2024 Flu Vaccination: Yearly for ages 18mos through 64 years (or Modifier)([facility]) 04/30/2025 Medical Devices Not on file Care Teams Fruit Pitter Relationship Specialty Start Date End Date Estrella Zamudio NP PCP - Process Environmental Technician 02/20/20
--- OUTSIDE RECORDS SUMMARY | 2025-05-26 13:44 | XMS_ITS | Encounter Summary ---
Author Organization [facility] Address [facility] [employer] [facility] [address] [place] [address] Phone Care Team Providers Care Circuit Breaker Supervisor Name Role Phone Ila Elder EDI COORDINATOR Primary Care Provide r Encounter Details Date Type Department Care Team (Latest Contact Info) Description 06/29/2024 Transcribe Orders Virtual Department [address] [place] [address] Cassy Melendez PA-C [address] [place] [address] [email or web address]. [facility] Bilateral hip pain (Primary Dx); Chronic left-sided [...] PM EDT Office Visit DEPARTMENT OF UROLOGY [address] [place] [address] [place] [address] Krista Sullivan MD [address] [place] [address] [email or web address] 06/29/2025 10:00 AM EDT Telemedicine [facility] Orthopedics at [address] [address] Cassy Melendez PA-C [address] [place] [address] [email or web address]. [facility] 07/08/2025 Procedure Pass [facility] Periop [address] [place] [address] 07/08/2025 10:47 AM EDT Hospital Encounter [facility] Periop [address] [place] [address] James Minaya MD [address] [place] [address] [email or web address] 07/08/2025 10:47 AM EDT - 07/08/2025 2:58 PM EDT Surgery [facility] Periop [address] [place] [address] James Minaya MD [address] [place] [address] [email or web address] RT TIBIA REMOVAL HARDWARE KNEE 07/28/2025 12:00 PM EDT Office Visit [facility] Department of Orthopaedics [address] [place] [address] James Minaya MD [address] [place] [address] [email or web address] 08/03/2025 10:00 AM EST Telemedicine [facility] Orthopedics at [place] [phone] [address] Cassy Melendez PA-C [address] [place] [phone] [email or web address] 08/16/2025 Procedure Pass [facility] Periop [address] [place] [address] 08/16/2025 11:20 AM EST Hospital Encounter [facility] Periop [address] [place] [address] James Minaya MD [address] [place] [address] [email or web address] 08/16/2025 11:20 AM EST - 08/16/2025 2:40 PM EST Surgery [facility] Periop [address] [place] [address] James Minaya MD [address] [place] [address] [email or web address] RT ARTHROPLASTY TOTAL KNEE 09/15/2025 12:00 PM EST Office Visit [facility] Department of Orthopaedics [address] [place] [address] James Minaya MD [address] [place] [address] [email or web address] Scheduled Procedures Name Priority Associated Diagnoses Date/Ti me REMOVAL HARDWARE KNEE Bone disorder Primary osteoarthritis of right knee 07/08/2025 10:47 AM EDT ARTHROPLASTY TOTAL KNEE Primary osteoarthritis of right knee 08/16/2025 11:20 AM EST documented as of this encounter Results * [...] provided indication for this examination in Epic: Outside Radiology Order; Pain; BILATERAL HIP PAIN [...] clinician's provided indication for this examination in Epic:Outside Radiology Order; Pain; BILATERAL HIP PAIN COMPARISON: [...] at L4-5. 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 It is not the complete legal health record.[facility]
--- OUTSIDE RECORDS SUMMARY | 2025-05-26 13:44 | XMS_ITS | Encounter Summary ---
Author Organization [facility] Address [address] [place] [address] Care Team Providers Care Cloth Washer Back Tender Name Role Phone Marycruz Martinez MD Primary Care Provider Deepthi Parada NP Primary Care Provide r Encounter Details Date Type Department Care Team (Late st Contact Info) Description 02/01/2021 Orders Only [facility] Pre-Admission Testing [address] [place] [phone] Sheron Blunt NP Social History Tobacco Use [...] 02/01/2021 3:54 PM EDT Preop ECG with TX WP. No family history of heart disease, patient has no symptoms, no hypertension.Elevated BMI. Elevated triglycerides. * Result Encounter Note - Sheron Blunt NP - 02/01/2021 3:54 PM EDT MRSA negative documented in this encounter Plan of Treatment Not on file documented as of this encounter Procedures * Due to [place] [employer] law, this organization might not be sharing [...] in this encounter Results * Due to [employer] law, this organization might not be sharing [...] Normal sinus rhythm poor r wave progression, Possible Anterior infarct , age undetermined or from lead placement Abnormal ECG No previous ECGs available Confirmed by TOBI RAJPUT ([id number]) on 02/01/2021 8:17:17 PM [facility]USE EKG SYSTEM 02/01/2021 4:17 PM EDT 02/01/2021 8:17 PM EDT us Sheron Blunt DIRECTOR MARKETING CARDIOVASCULAR-WITH INBSKT RTG Final Result [facility] E[facility] * (ABNORMAL) BASIC METABOLIC PANEL WITH (GFR) (02/01/2021 4:05 PM EDT) Glucose 130(H) 65 - 99 mg/dL [facility] Comment: Fasting reference interval For someone without known [...] approximately 13% higher for people identified as -[place]. EGFR 99 > OR = 60 mL/min/1 [...] needs for GFR calculation. Resulting Agency Comment [id number] Sheron Blunt NP LABORATORY Final Result Performing Organization Address [facility] [address] [facility] Co de Phone Number [facility] [address] [place] [address] * (ABNORMAL) HEMOGLOBIN A1C (02/01/2021 4:05 PM EDT) Hemoglobin A1C 5.8(H) <5.7 % of total Hgb [facility] Comment: For someone without known diabetes, [...] children. Estimated Average Glucose 129 mg/dL (calc) [facility] 02/01/2021 4:05 PM EDT 02/01/2021 10:52 PM EDT Narrative Resulting Agency Comment [id number] Sheron Blunt NP LABORATORY Final Result Performing Organization Address [facility] de Phone Number [facility] [address] [place] [address] * MRSA CULTURE SCREEN, NASAL ONLY (02/01/2021 3:54 PM EDT) Methicillin Resistant Staphylococcus Aureus Screen SEE NOTE [facility] Comment: MRSA CULTURE SCREEN Micro Number: [id number] Test Status: Final Specimen Source: NOT GIVEN Specimen Quality: Adequate Result: No methicillin resistant Staphylococcus aureus (MRSA) isolated. 02/01/2021 3:54 PM EDT 02/01/2021 10:04 PM EDT Narrative Resulting Agency Comment [id number] Sheron Blunt DIRECTOR MARKETING LABORATORY Final Result Performing Organization Address [facility] [address]/[facility] Co de Phone Number [facility] [address] [place] [address] documented in this encounter Visit Diagnoses Diagnosis Preoperative examination Preoperative examination, unspecified Hypothyroidism Unspecified hypothyroidism Sleep apnea, unspecified type Hyperglycemia Other abnormal glucose documented in this encounter Additional Health Concerns Infection Onset Date Last Indicated Resolved Time COVID-19 Rule-Out 02/07/2021 02/07/2021 2021 4:16 AM EDT documented as of this encounter Care Teams Cloth Washer Back Tender Relationship Specialty Start Date End Date Marycruz Martinez MD [address] [address] PCP - General Family Medicine 10/05/20 11/21/23 Deepthi Parada NP [facility], [address] [place] [address] PCP - General Family Medicine 11/22/23 documented as of this encounter
--- OUTSIDE RECORDS SUMMARY | 2025-05-26 13:44 | XMS_ITS | Encounter Summary ---
Author Organization [facility] Address [facility] [employer] [facility] [address] [place] [address] Phone Care Team Providers Care Delivery Stock Clerk Name Role Phone Ila Elder WRAPPER DIPPER Primary Care Provide r Encounter Details Date Type Department Care Team (Late st Contact Info) Description 04/08/2024 Transcribe Orders [address] [address] Chiara Parker [address] [place] [address] [email or web address] .[email or web address] Social History Tobacco Use Types Packs/Day Years [...] EDT Office Visit DEPARTMENT OF UROLOGY [facility] [address] [place] [address] Krista Sullivan MD [address] [place] [phone] @[email or web address] 06/29/2025 10:00 AM EDT Telemedicine [facility] Orthopedics at [address] [address] Cassy Melendez PA-C [address] [place] [address] [email or web address] 07/08/2025 Procedure Pass [facility] Periop [address] [place] [address] 07/08/2025 10:47 AM EDT Hospital Encounter [facility] Periop [address] [place] [address] James Minaya MD [address] [place] [address] [email or web address] 07/08/2025 10:47 AM EDT - 07/08/2025 2:58 PM EDT Surgery [facility] Periop [address] [place] [address] James Minaya MD [address] [place] [phone] [email or web address] RT TIBIA REMOVAL HARDWARE KNEE 07/28/2025 12:00 PM EDT [facility] Visit [facility] Department [facility]ed[facility] [address] [place] [address] James Minaya MD [address] [place] [address] [email or web address] 08/03/2025 10:00 AM EST Telemedicine [facility] Orthopedics at [address] [address] Cassy Melendez PA-C [address] [place] [phone] [email or web address] 08/16/2025 Procedure Pass [facility] Periop [address] [place] [address] 08/16/2025 11:20 AM EST Hospital Encounter [facility] Periop [address] [place] [address] James Minaya MD [address] [place] [phone] [email or web address] 08/16/2025 11:20 AM EST - 08/16/2025 2:40 PM EST Surgery [facility] Periop [address] [place] [address] James Minaya MD [address] [place] [address] [email or web address] RT ARTHROPLASTY TOTAL KNEE 09/15/2025 12:00 PM EST [facility] Department of Orthopaedics [address] [place] [address] James Minaya MD [address] [place] [address] [email or web address] Scheduled Procedures Name Priority Associated Diagnoses [...] documented as of this encounter Care Teams Delivery Stock Clerk Relationship Specialty Start Date End Date Ila Elder NP [address] [place] [address] PCP - General 03/02/24 Chika Tovar CNP Nurse Practitioner 08/10/22 documented as of this encounter Additional Source Comments The information contained in this document represents components of the legal health record. It is not the complete legal health record.[facility]
--- OUTSIDE RECORDS SUMMARY | 2025-05-26 13:44 | XMS_ITS | Encounter Summary ---
Author Organization [facility] Address [address] [place] [address] Phone Care Team Providers Care Board Certified Behavioral Analyst Name Role Phone Marycruz Martinez MD Primary Care Provider Unknown, Unknown Primary Care Provider Deepthi Rodriguez ASSOCIATE FINANCIAL REPRESENTATIVE Primary Care Provid er Ila Elder GLOVE PARTS INSPECTOR Primary Care Provide r Encounter Details Date Type Department Care Team (Late st Contact Info) Description 08/15/2022 Procedure Pass [facility] Periop [address] [place] [address] Social History Tobacco Use Types Packs/Day Years Used Date Smoking Tobacco: Never Smokeless Tobacco: Never Alcohol Use Standard Drinks/Week Comments Not Currently 0 (1 standard drink = 0.6 oz pur e alcohol) Comments No Sex and Gender Information Value [...] EDT Office Visit DEPARTMENT OF UROLOGY [address] [facility], [address] [place] [address] Krista Sullivan MD [address] [facility] 7th [place] [address] @[email or web address] 06/29/2025 10:00 AM EDT Telemedicine [facility] Orthopedics at [address] [address] Cassy Melendez PA-C [address] [place] [address] [email or web address] 07/08/2025 Procedure Pass [facility] Periop [address] [place] [address] 07/08/2025 10:47 AM EDT Hospital Encounter [facility] Periop [address] [place] [address] James Minaya MD [address] [place] [address] [email or web address] 07/08/2025 10:47 AM EDT - 07/08/2025 2:58 PM EDT Surgery [facility] [address] [address] James Minaya MD [address] [place] [address] [email or web address] RT TIBIA REMOVAL HARDWARE KNEE 07/28/2025 12:00 PM EDT Office Visit [facility] Department of [facility]edics [address] [place] [address] James Minaya MD [address] [place] [address] [email or web address] 08/03/2025 10:00 AM EST Telemedicine [facility] Orthopedics at [address] [place] [address] Cassy Melendez PA-C [address] [place] [address] [email or web address] 08/16/2025 Procedure Pass [facility] Periop [address] [place] [address] 08/16/2025 11:20 AM EST Hospital Encounter [facility] Peri [address] [place] [address] James Minaya MD [address] [place] [address] [email or web address] 08/16/2025 11:20 AM EST - 08/16/2025 2:40 PM EST Surgery [facility] [address] [address] James Minaya MD [address] [place] [phone] [email or web address] RT ARTHROPLASTY TOTAL KNEE 09/15/2025 12:00 PM EST Office Visit [facility] Department of [facility]edics [address] [place] [address] James Minaya MD [address] [place] [phone] [email or web address] Scheduled Procedures Name Priority Associated Diagnoses Date/Ti [...] documented as of this encounter Care Teams Board Certified Behavioral Analyst Relationship Specialty Start Date End Date Marycruz Martinez MD [address] [place] [address] PCP - General Family Medicine 08/03/21 11/21/23 Unknown, Unknown, PCP - General 12/24/23 01/20/24 Deepthi Parada CNP [address] [place] [address], 2nd [place] [address] PCP - General Family Medicine 01/21/24 03/01/24 Ila Elder NP [address] [place] [address] PCP - General 03/02/24 Chika Tovar CNP Nurse Practitioner 08/10/22 documented as of this encounter Additional Source Comments The information contained in this document represents components of the legal health record. It is not the complete legal health record.[facility]
--- OUTSIDE RECORDS SUMMARY | 2025-05-26 13:44 | XMS_ITS | Patient Health Record ---
Author Organization [facility] Address [address] [place], [place] [address] Care Team Providers Care Aquatic Performer Name Role Phone Jericho Braun Primary Care [...] Status Risk Notes Problem Morbid obesity (disorder) (006775671) Morbid (severe) obesity due to excess calories (E66.01) Active confirmed Problem Hypersomnia (71382275) Hypersomnia (G47.10) Active confirmed Problem Anxiety (21310181) Anxiety (F41.9) Active confi rmed Problem Acquired hypothyroidism (847455436) Acquired hypothyroidism (E03.9) Active confirmed Problem Depressive disorder (disorder) (55402136) Depression, unspecified depression type (F32.9) Active confirmed Problem Bipolar I disorder (507102208) Bipolar disorder in full remission, most recent episode unspecified type (F31.70) Active confirmed Problem Obstructive sleep apnea syndrome (46682957) DEVORA (obstructive sleep apnea) (G47.33) Active confirmed Problem Body mass index 40+ - severely obese (456446722) Body mass index [BMI] 45.0-49.9, adult (Z68.42) Active confirmed Problem Gastroesophageal reflux disease (208671510) Gastroesophageal reflux disease, unspecified whether esophagitis present (K21.9) Active confirmed Plan Of Treatment Pending Test Test Name Order Date COVID 19 PCR 06/13/2021 Future Test Test Name Order Date SLEEP STUDY-SPLIT 05/16/2021 Insurance Providers Payer Name Payer Address Payer Phone Subscriber Number Group Number Insured Name Patient Relationship to Insured Coverage Start Date Coverage End Date [facility] [address] [place] [phone] [id number] Bill Del Valle Self - patient is the insured Medical (General) History Surgical History Surgery Date(Month/Year) Knee surgery Clavicle bone surgery Tonsillectomy Hospitalization History Reason Date(Month/Year) Same day surgery 01/2021
--- OUTSIDE RECORDS SUMMARY | 2025-05-26 13:44 | XMS_ITS | Clinical Summary ---
Author Organization [facility] Address [address] [place] [address] Care Team Providers Care Clinical Biochemical Geneticist Name Role Phone JerrodIla SAMANTA Primary Care Provider [phone] Allergies Active Allergy Reactions Criticality Noted Date [...] propionate (FLONASE) 50 mcg/actuation nasal spray SMARTSI [place](s) Both Nares Daily Active esomeprazole (NexIUM) 20 [...] 50 PLUS ORAL) as directed Orally Active kcfmsis-euuk-put pt-vibf-crgsyz 100 mg-150 mg- 50 mg-150 mg capsule [...] of knee on December 26, 2018 at [facility]. Preoperative culture grew MRSA and ampicillin susceptible [...] daily. 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 Not on file Not on file [...] 01/13/2019, Additional history exists COVID-19 Vaccine ( - 2023-2 5 season) 2024 Alcohol/Substance Use Screening 09/30/2024 Depression Screening and Follow-Up 09/30/2024 Social Drivers of Health Nhi ual Screening 09/30/2024 Influenza Vaccine (#1) 2025 5, 05/31/2014, 06/30/2012 DTaP,Tdap,and Td Vaccines (5 - Td or Tdap) 04/13/2032 04/13/2022, 07/05/2017, 08/01/2015, Additional history exists RSV Vaccine (60+ years old a nd patients) (1 - 1-dose 75+ series) 2045 Zoster Vaccines Completed 06/18/2021, 04/16/2021 Pneumococcal Vaccine: 50+ Years Completed 2, 11/29/2011 Procedures * Due to [place] state law, this organization might not be sharing negative HIV tests. Procedure Name Priority Date/Time Associated Diagnosis Comments BASIC METABOLIC PANEL Timed 01/15/2019 9:14 AM EDT RIMA SCREENING DIGITAL MAMMO Routine 06/12/2012 10:40 AM EDT PAP W/REFLEX HPV, CONVERSION Routine 05/15/2011 11:46 AM EDT from Last 3 Months or Most Recently Relevant to Health Maintenance Results * Due to [place] state law, this organization might not be sharing negative HIV tests. * (ABNORMAL) Basic Metabolic Panel (01/15/2019 9:14 AM EDT) NA 141 135 - 145 mmol/L 01/15/2019 9:57 AM EDT [facility] K 3.1(L) 3.5 - 5.3 mmol/L 01/15/2019 9:57 [facility] Cl 108 97 - 110 mmol/L 01/15/2019 9:57 AM [facility] CO2 25 24 - 32 mmol/L 01/15/2019 9:57 AM [facility] BUN 2(L) 7 - 23 mg/dL 01/15/2019 9:57 AM [facility] Creatinine 0.90 0.50 - 1.20 mg/dL 01/15/2019 9:57 AM [facility] Glucose 124(H) 70 - 99 mg/dL 01/15/2019 9:57 AM [facility] Calcium 7.7(L) 8.7 - 10.7 mg/dL 01/15/2019 9:57 AM [facility] Anion Gap 8 5 - 15 01/15/2019 9:57 AM [facility] eGFR Non- 76(L) >=90 mL/min/BSA 01/15/2019 9:57 AM [facility] eGFR 87(L) >=90 mL/min/BSA 01/15/2019 9:57 AM [facility] Comment: Units = [...] MD LAB BLOOD ORDERABLES Final Result [facility] [address] [place] [address], [place] * [facility] Screening Digital Mammogram (06/12/2012 10:40 AM EDT) Anatomical Region Laterality Modality Breast Mammography 06/12/2012 10:4 1 AM EDT Narrative 06/18/2012 1:08 PM EDT DEPARTMENT OF RADIOLOGY Patient: JANEE MARTIN Unit #: [id number] Ordering MD: FADUMO HALE MD : 1970 Procedure: Digital Screening Mammo Age: 42 Location: W.MAMMO Exam Date: 06/12/12 Status: [facility] Room/Bed: Primary MD: ROBI ALONSO MD Patient Order: [id number] Additional Copy: FADUMO HALE MD, GEORGE P MD - #[id number] - [id number] #BILATERAL DIGITAL SCREENING MAMMOGRAM WITH CAD: 06/12/2012 CLINICAL: Routine. Comparison is made to exams dated: 05/16/2010 mammogram - [facility] and 07/06/2005 mammogram - [facility]. There are scattered fibroglandular elements in both [...] DEPARTMENTOF RADIOLOGY Amber t: JANEE MARTIN Unit #:[id number] Ordering MD: FADUMO HALE MD :1970 Procedure: Digital Screening Mammo Age:42 Location: MAMMO ExamDate: 06/12/12 Status: [facility]/Bed: Primary MD: ROBI ALONSO MD PatientAcct #: [id number] Order:[id number] Additional Copy: FADUMO HALE MD, GEORGE P MD - #[id number] - DIGSCRMAM #BILATERAL DIGITAL SCREENING MAMMOGRAM WITH CAD: 06/12/2012 CLINICAL: Routine. Comparison is made to exams dated: 05/16/2010 mammogram - [facility] and 07/06/2005 mammogram - [facility]. There are scattered fibroglandular elements in both [...] (05/15/2011 11:46 AM EDT) Path Procedure TPGAS ([id number]) 1 Edited by: [id number] - 6921 [facility] Specimen Labeled As: 1 CERVICAL/ENDOCERVI LEDA CYTO MATERIAL - Edited by: [id number] - 2090 [facility] Diagnosis [...] be useful in other clinical applications. See [place] Journal of Obstetrics and Gynecology 197(4):346-355, 2007. This Pap test was examined in accordance with the [facility] Cytopathology Laboratory written policy. This Pap test was examined by the ThinPrep Imaging System, [employer], [place], [place]. Edited by: [id number] - 0861 [address] [facility] - [facility] Gynecologic Clinical Data Specimen source:, THINPREP (CERVICAL AND ENDOCERVICAL) [facility] - [facility] Gynecologic Clinical Data First date of LMP:, NOT GIVEN [facility] - [facility] Gynecologic Clinical Data Clinical Data:, DYSPLASIA [facility] - [facility] Marker 1 NILM,NILM [facility] PATH[facility] - [facility] Marker 2 JANEE CARRILLO [facility] ANATOM[facility] PATHOLOGY - [facility] Cc Results To RAJNI Palacios CHIROPRACTIC NEUROLOGIST [id number] [facility] - [facility] Signature REPORT SIGNED: JENNYMARTHAY 05/23/11 [facility] - [facility] Sign Out Audit JANEE ALVARADO [id number] FINAL ASHELY SHAW [id number] [facility] - [facility] Cytology / Unknown 1 11:46 AM EDT 05/16/2011 11:46 AM EDT us Kourtney [facility] LAB HISTORICAL RESULTS Final Re sult [facility] [place] [address], from Last 3 Months or Most Recently Relevant to Health Maintenance Additional Health Concerns Infection Onset Date Last Indicated 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 01/13/2019 Insurance [facility] TARYN AREVALO [id number] [employer] [place] [id number] Advance Directives Documents on File Type Date Recorded Patient Needleworker Expl anation Advance Directive 02/03/2019 2:58 PM MOLST/POLST 01/15/2019 9:25 AM 01/01/2019 MOLST/POLST 12/20/2018 6:37 AM 10/23/2018 Advance Directive 10/21/2018 2:39 PM * Full Code (Latest Code Status on File) Date Activated Date Inactivated Comments 01/13/2019 2:54 PM 01/16/2019 4:51 PM Care Teams Clinical Biochemical Geneticist Relationship Specialty Start Date End Date Ila Elder NP [address] [place] [address] PCP - General Family Medicine 03/27/24
--- OUTSIDE RECORDS SUMMARY | 2025-05-26 13:44 | XMS_ITS | Encounter Summary ---
Author Organization [facility] Address [facility] [address] [place] [address] Phone Care Team Providers Care Assistant Restaurant General Manager Name Role Phone Ila Elder WARDROBE MISTRESS Primary Care Provide r Encounter Details Date Type Department Care Team (Late st Contact Info) Description 04/07/2024 Procedure Pass [address] [address] Social History Tobacco Use Types Packs/Day Years [...] PM EDT Office Visit DEPARTMENT OF UROLOGY [address] [place] [address] [address] [place] [address] Krista Sullivan MD [address] [place] [address] [email or web address] 06/29/2025 10:[address] [facility] Orthopedics at [address] [address] Cassy Melendez PA-C [address] [place] [phone] [email or web address] 07/08/[address] [facility] Periop [address] [place] [address] 07/08/2025 10:47 AM EDT Hospital Encounter [facility] Periop [address] [place] [address] James Minaya MD [address] [place] [address] [email or web address] 07/08/2025 10:47 AM EDT - 07/08/2025 2:[address] [facility] Periop [address] [place] [address] James Minaya MD [address] [place] [address] [email or web address] RT TIBIA REMOVAL HARDWARE KNEE 07/28/2025 12:00 PM EDT Office Visit [facility] Department of Orthopaedics [address] [place] [address] James Minaya MD [address] [place] [phone] [email or web address] 08/03/2025 10:[address] [facility] Orthopedics at [address] [address] Cassy Melendez PA-C [address] [place] [phone] [email or web address] 08/16/[address] [facility] Periop [address] [place] [address] 08/16/2025 11:20 AM EST Hospital Encounter [facility] Periop [address] [place] [address] James Minaya MD [address] [place] [phone] [email or web address] 08/16/2025 11:20 AM EST - 08/16/2025 2:[address] [facility] Periop [address] [place] [address] James Minaya MD [address] [place] [phone] [email or web address] RT ARTHROPLASTY TOTAL KNEE 09/15/2025 12:00 PM EST Office Visit [facility] Department of Orthopaedics [address] [place] [address] James Minaya MD [address] [place] [phone] [email or web address] Scheduled Procedures Name Priority [...] documented as of this encounter Care Teams Assistant Restaurant General Manager Relationship Specialty Start Date End Date Ila Elder NP [address] [place] [address] PCP - General 03/02/24 Chika Tovar ICING MAKER Nurse Practitioner 08/10/22 documented as of this encounter Additional Source Comments The information contained in this document represents components of the legal health record. It is not the complete legal health record.[facility]
--- OUTSIDE RECORDS SUMMARY | 2025-05-26 13:44 | XMS_ITS | Encounter Summary ---
Author Organization [facility] Address Replaced by [facility] Anson Tang Song [facility] [address] [place] [address] Phone Care Team Providers Care Flooring Sales Manager Name Role Phone Ila Elder CEMENT CONVEYOR OPERATOR Primary Care Provide r Encounter Details Date Type Department Care Team (Latest Contact Info) Description 06/29/2024 Transcribe Orders Virtual Department [address] [place] [address] Cassy Melendez PA-C [address] [place] [phone] [email or web address] Bilateral hip pain (Primary Dx) Social History [...] EDT Office Visit DEPARTMENT OF UROLOGY [address] [facility] [address] [place] [address] Krista Sullivan MD [address] [place] [address] [email or web address] 06/29/2025 10:00 AM EDT Telemedicine [facility] Orthopedics at [address] [address] Cassy Melendez PA-C [address] [place] [phone] [email or web address] 07/08/2025 Procedure Pass [facility] Periop [address] [place] [address] 07/08/2025 10:47 AM EDT Hospital Encounter [facility] Periop [address] [place] [address] James Minaya MD [address] [place] [address] [email or web address] 07/08/2025 10:47 AM EDT - 07/08/2025 2:58 PM EDT Surgery [facility] Periop [address] [place] [address] James Minaya MD [address] [place] [address] [email or web address] RT TIBIA REMOVAL HARDWARE KNEE 07/28/2025 12:00 PM EDT Office Visit [facility] Department of Orthopaedics [address] [place] [address] James Minaya MD [address] [place] [phone] [email or web address] 08/03/2025 10:00 AM EST Telemedicine [facility] Orthopedics at [address] [address] Cassy Melendez PA-C [address] [place] [phone] [email or web address] 08/16/2025 Procedure Pass [facility] Periop [address] [place] [address] 08/16/2025 11:20 AM EST Hospital Encounter [facility] Periop [address] [place] [address] James Minaya MD [address] [place] [phone] [email or web address] 08/16/2025 11:20 AM EST - 08/16/2025 2:40 PM EST Surgery [facility] Periop [address] [place] [address] James Minaya MD [address] [place] [phone] [email or web address] RT ARTHROPLASTY TOTAL KNEE 09/15/2025 12:00 PM EST Office Visit [facility] Department of Orthopaedics [address] [place] [address] James Minaya MD [address] [place] [address] [email or web address] Scheduled Procedures Name Priority [...] clinician's provided indication for this examination in [facility]:Outside Radiology Order; Pain; BILATERAL HIP PAIN [...] L4-5. 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 It is not the complete legal health record.[facility]
--- OUTSIDE RECORDS SUMMARY | 2025-05-26 13:45 | XMS_ITS | Encounter Summary ---
Author Organization [facility] Address [address] [place] [address] Care Team Providers Care Oracle Programmer Name Role Phone Marycruz Martinez MD Primary Care Provider [phone] Deepthi Parada PUBLIC HEALTH INFORMATICIAN Primary Care Provide r Reason for Visit * Reason Comments FYI Encounter Details Date Type Department Care Team (Late st Contact Info) Description 01/18/2022 Telephone [facility] Orthopedic Surgery [address] [place] [address] [address] [place] [address] Tristan Gonzales MD FYI Social [...] on filedocumented in this encounter Care Teams Oracle Programmer Relationship Specialty Start Date End Date Marycruz Martinez MD [address] [address] PCP - General Family Medicine 10/05/20 11/21/23 Deepthi Parada NP [facility], [address] [place] [address] PCP - General Family Medicine 11/22/23 documented as of this encounter
--- OUTSIDE RECORDS SUMMARY | 2025-05-26 13:45 | XMS_ITS | Encounter Summary ---
Author Organization [facility] Address [address] [place] [address] Care Team Providers Care Code Enforcement Supervisor Name Role Phone Ila Elder SAMANTA Primary Care Provider [phone] Encounter Details Date Type Department Care Team (Late st Contact Info) Description 08/28/2023 Lab Requisition [facility] [address] [place] [address] Marycruz Martinez MD [address] [place] [phone] Post-traumatic stress disorder, unspecified Social History Tobacco [...] file Not on file Not on file campus administrator Not on file Not on file Not on file documented as of this encounter Plan of Treatment Not on file documented as of this encounter Procedures * Due to [place] [employer] law, this organization might not be sharing negative HIV tests. Procedure Name Priority Date/Time Associated Diagnosis Comments CBC AUTO DIFFERENTIAL Routine 08/28/2023 4:36 PM EST BUN Routine 08/28/2023 4:36 PM EST CREATININE Routine 08/28/2023 4:36 PM EST HEPATIC FUNCTION PANEL Routine 08/28/2023 4:36 PM EST documented in this encounter Results * Due to [place] [employer] law, this organization might not be sharing negative HIV tests. * BUN (08/28/2023 4:36 PM EST) BUN 13 6 - 20 mg/dL 08/28/2023 5:19 PM EST [facility] Blood Structure of peripheral vein / Unknown 08/28/2023 4:36 PM EST 08/28/2023 5:04 PM EST us Marycruz Martinez MD LAB BLOOD ORDERABLES Final Res ult [facility] [address] [place] [address] [address] [place] [address], [place] [phone] * Creatinine (08/28/2023 4:36 PM EST) Creatinine 0.55 0.50 - 1.12 mg/dL 08/28/2023 5:19 PM EST [facility] eGFR >90 >=60 mL/min/1. 73m2 08/28/2023 5:19 PM EST [facility] Comment:The estimated glomer ular filtration [...] LAB BLOOD ORDERABLES Final Res ult [facility] [address] [place] [address] [address] [place] [address], * (ABNORMAL) CBC Auto Differential (08/28/2023 4:36 PM EST) WBC 11.9(H) 4.8 - 10.8 10*3/uL 08/28/2023 6:41 PM EST [facility] RBC 4.17(L) 4.20 - 5.40 10*6/uL 08/28/2023 6:41 PM EST [facility] Hemoglobin 8.5(L) 11.7 - 15.5 g/dL 08/28/2023 6:41 PM EST [facility] Hematocrit 30.4(L) 35.7 - 45.8 % 08/28/2023 6:41 PM EST [facility] MCV 72.9(L) 81.0 - 99.0 fL 08/28/2023 6:41 PM EST [facility] MCH 20.4(L) 26.0 - 34.0 pg 08/28/2023 6:41 PM EST [facility] MCHC 28.0(L) 29.0 - 36.0 g/dL 08/28/2023 6:41 PM EST [facility] RDW Standard Deviation 52.5(H) 36.4 - 46.3 fL 08/28/2023 6:41 PM EST [facility] RDW 19.9(H) 11.0 - 15.0 % 08/28/2023 6:41 PM EST [facility] Platelets 448(H) 140 - 440 10*3/uL 08/28/2023 6:41 PM EST [facility] MPV 10.0 7.6 - 11.6 fL 08/28/2023 6:41 PM EST [facility] Segs % 53 50 - 75 % 08/28/2023 6:41 PM EST [facility] Immature Grans % 0.2 0.0 - 0.9 % 08/28/2023 6:41 PM EST [facility] Lymphocyte % 37 20 - 44 % 08/28/2023 6:41 PM EST [facility] Monocyte % 6 0 - 14 % 08/28/2023 6:41 PM EST [facility] Eosinophil % 3 0 - 5 % 08/28/2023 6:41 PM EST [facility] Basophil % 1 0 - 2 % 08/28/2023 6:41 PM EST [facility] Segs # 6.3 1.8 - 7.7 / L 08/28/2023 6:41 PM EST [facility] Immature Grans # 0.02 0.00 - 0.03 10*3/uL 08/28/2023 6:41 PM EST [facility] Lymphocyte # 4.39 1.00 - 4.75 10*3/uL 08/28/2023 6:41 PM EST [facility] Monocyte # 0.68 0.00 - 6.00 10*3/uL 08/28/2023 6:41 PM EST [facility] Eosinophil # 0.40 0 - 0.8 10*3/uL 08/28/2023 6:41 PM EST [facility] Basophil # 0.07 0.00 - 0.20 10*3/uL 08/28/2023 6:41 PM EST [facility] nRBC % 0.0 0 - 0 /100 WBCs 08/28/2023 6:41 PM EST [facility] nRBC # 0.00 0.00 - 0.13 10*3/uL 08/28/2023 6:41 PM EST [facility] Blood Structure of peripheral vein / Unknown 08/28/2023 4:36 PM EST 08/28/2023 6:33 PM EST Marycruz Martinez MD LAB BLOOD ORDERABLES Final Res ult [facility] [address] [place] [address] [address] [place] [address], [place] [phone] * (ABNORMAL) Hepatic Function Panel (08/28/2023 4:36 PM EST) Total Protein 6.1(L) 6.6 - 8.7 g/dL 08/28/2023 5:19 PM EST [facility] Albumin 3.5 3.5 - 5.0 g/dL 08/28/2023 5:19 PM EST [facility] Globulin, Total 2.6 2.1 - 4.2 g/dL 08/28/2023 5:19 PM EST [facility] Albumin Globulin Ratio 1.3 08/28/2023 5:19 PM EST [facility] Bilirubin, Total 0.1(L) 0.2 - 1.2 mg/dL 08/28/2023 5:19 PM EST [facility] Bilirubin, Direct 0.0 <=0.3 mg/dL 08/28/2023 5:19 PM EST [facility] Alkaline Phosphatase 162(H) 40 - 129 U/L 08/28/2023 5:19 PM EST [facility] AST 13 0 - 33 U/L 08/28/2023 5:19 PM EST [facility] ALT 17 <=33 U/L 08/28/2023 5:19 PM EST [facility] Bilirubin, Indirect 0.10 <=0.70 mg/dL 08/28/2023 5:19 PM EST [facility] Blood Structure of peripheral vein / Unknown 08/28/2023 4:36 PM EST 08/28/2023 5:04 PM EST us Marycruz Martinez MD LAB BLOOD ORDERABLES Final Res ult [facility] [address] [facility] [address] [place] [address], documented in this encounter Visit Diagnoses Diagnosis Post-traumatic stress disorder, unspecified documented in this encounter Additional Health Concerns Infection Onset Date Last Indicated Resolved Time Multidrug resistant organisms MRSA 12/19/20182018 VRE Enterococcus 01/13/2019 01/13/2019 documented as of this encounter Care Teams Code Enforcement Supervisor Relationship Specialty Start Date End Date Ila Elder NP [address] [place] [address] PCP - General Family Medicine 03/27/24 documented as of this encounter
--- OUTSIDE RECORDS SUMMARY | 2025-05-26 13:45 | XMS_ITS | Encounter Summary ---
Author Organization [facility] Address [address] [place] [address] Phone Care Team Providers Care Print Binding And Finishing Worker Name Role Phone Marycruz Martinez MD Primary Care Provider [phone] Unknown, Unknown Primary Care Provider Deepthi Rodriguez MANAGER KNOWLEDGE Primary Care Provid er Ila Elder PRIMARY CARE MD Primary Care Provide r Encounter Details Date Type Department Care Team (Late st Contact Info) Description 08/17/2022 Procedure Pass [facility] [address] [place] [phone] Social History Tobacco Use Types Packs/Day [...] DEPARTMENT OF UROLOGY [address], [address] [place] [address] Krista Sullivan MD [address] [facility] [address]th [place] [address] [email or web address] 06/29/2025 10:00 AM EDT Telemedicine [facility] Orthopedics at [address] [address] Cassy Melendez PA-C [address] [place] [address] [email or web address] 07/08/2025 Procedure Pass [facility] Periop [address] [place] [address] 07/08/2025 10:47 AM EDT Hospital Encounter [facility] [address] [address] James Minaya MD [address] [place] [address] [email or web address] 07/08/2025 10:47 AM EDT - 07/08/2025 2:58 PM EDT Surgery [facility] [address] [address] James Minaya MD [address] [place] [address] [email or web address] RT TIBIA REMOVAL HARDWARE KNEE 07/28/2025 12:00 PM EDT Office Visit [facility] Department of Orthopaedics [address] [place] [address] James Minaya MD [address] [place] [address] [email or web address] 08/03/2025 10:00 AM EST Telemedicine [facility] Orthopedics at [address] [address] Cassy Melendez PA-C [address] [place] [address] [email or web address] 08/16/2025 Procedure Pass [facility] Periop [address] [place] [address] 08/16/2025 11:20 AM EST Hospital Encounter [facility] [address] [address] James Minaya MD [address] [place] [address] [email or web address] 08/16/2025 11:20 AM EST - 08/16/2025 2:40 PM EST Surgery [facility] Periop [address] [place] [address] Jamse Minaya MD [address] [place] [address] [email or web address] RT ARTHROPLASTY TOTAL KNEE 09/15/2025 12:00 PM EST Office Visit [facility] Department of Orthopaedics [address] [place] [address] James Minaya MD [address] [place] [address] [email or web address] Scheduled Procedures Name Priority Associated Diagnoses Date/Ti [...] documented as of this encounter Care Teams Print Binding And Finishing Worker Relationship Specialty Start Date End Date Marycruz Martinez MD [address] [place] [phone] PCP - General Family Medicine 08/03/21 11/21/23 Unknown, Unknown, PCP - General 12/24/23 01/20/24 Deepthi Parada CNP [address] [place] [address], 2nd [place] [address] [email or web address] PCP - General Family Medicine 01/21/24 03/01/24 Ila Elder, SAMANTA [address] [place] [address] PCP - General 03/02/24 Chika Tovar CNP Nurse Practitioner 08/10/22 documented as of this encounter Additional Source Comments The information contained in this document represents components of the legal health record. It is not the complete legal health record.[facility]
--- OUTSIDE RECORDS SUMMARY | 2025-05-26 13:45 | XMS_ITS | Encounter Summary ---
Author Organization [employer] [facility] Address [facility] [employer] [facility] [address] [place] [address] Phone Care Team Providers Care Business Office Associate Name Role Phone Unknown, Unknown Primary Care Provider Deepthi Rodriguez ACCOUNT INSTALLATION SPECIALIST Primary Care Provid er Ila Elder CLAY TEMPERER Primary Care Provide r Encounter Details Date Type Department Care Team (Late st Contact Info) Description 12/04/2023 Ancillary Orders [facility] Department of Orthopaedics [address] [place] [address] Reji Guardado MD [address] [place] [address] [email or web address] Pain (Primary Dx) Social History Tobacco Use [...] PM EDT Office Visit DEPARTMENT OF UROLOGY [address] [place] [address] [address] [place] [address] Krista Sullivan MD [address] [place] [address] [email or web address] 06/29/2025 10:00 AM EDT Telemedicine [facility] Orthopedics at [address] [address] Cassy Melendez PA-C [address] [place] [phone] [email or web address] 07/08/2025 Procedure Pass [facility] Periop [address] [place] [address] 07/08/2025 10:47 AM EDT Hospital Encounter [facility] Periop [address] [place] [address] James Minaya MD [address] [place] [phone] [email or web address] 07/08/2025 10:47 AM EDT - 07/08/2025 2:58 PM EDT Surgery [facility] Periop [address] [place] [address] James Minaya MD [address] [place] [address] [email or web address] RT TIBIA REMOVAL HARDWARE KNEE 07/28/2025 12:00 PM EDT Office Visit [facility] Department of Orthopaedics [address] [place] [address] James Minaya MD [address] [place] [address] [email or web address] 08/03/2025 10:00 AM EST Telemedicine [facility] Orthopedics at [address] [address] Cassy Melendez PA-C [address] [place] [phone] [email or web address] 08/16/2025 Procedure Pass [facility] Periop [address] [place] [address] 08/16/2025 11:20 AM EST Hospital Encounter [facility] Periop [address] [place] [address] James Minaya MD [address] [place] [address] [email or web address] 08/16/2025 11:20 AM EST - 08/16/2025 2:40 PM EST Surgery [facility] Periop [address] [place] [address] James Minaya MD [address] [place] [phone] [email or web address] RT ARTHROPLASTY TOTAL KNEE 09/15/2025 12:00 PM EST Office Visit [facility] Department of Orthopaedics [address] [place] [address] James Minaya MD [address] [place] [address] [email or web address] Scheduled Procedures Name Priority Associated Diagnoses [...] for this examination in Epic: Pain COMPARISON: None FINDINGS: Dedicated views left [...] osteoarthritis. 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 07/21/2024 1:22 AM EDT documented as of this encounter Care Teams Business Office Associate Relationship Specialty Start Date End Date Unknown, Unknown, PCP - General 12/24/23 01/20/24 Deepthi Parada CNP [address] [place] [address], 2[address] [place] [address] [email or web address] PCP - General Family Medicine 01/21/24 03/01/24 Ila Elder NP [address] [place] [address] PCP - General 03/02/24 Chika Tovar CNP Nurse Practitioner 08/10/22 documented as of this encounter Additional Source Comments The information contained in this document represents components of the legal health record. It is not the complete legal health record.[facility]
--- OUTSIDE RECORDS SUMMARY | 2025-05-26 13:45 | XMS_ITS | Encounter Summary ---
Author Organization [facility] Address [address] [place] [address] Care Team Providers Care Business Solutions Consultant Name Role Phone Marycruz Martinez MD Primary Care Provider Deepthi Parada ADMISSIONS GATE ATTENDANT Primary Care Provide r Encounter Details Date Type Department Care Team (Late st Contact Info) Description 02/13/2021 Professional Billing [facility] Podiatry [address] [place] [phone] Steve Mahmood DPM [address] [place] [address] Social History Tobacco Use Types Packs/Day Years [...] on filedocumented in this encounter Care Teams Business Solutions Consultant Relationship Specialty Start Date End Date Marycruz Martinez MD [id number] [place] [address] PCP - General Family Medicine 10/05/20 11/21/23 Deepthi Parada NP [facility], [address] [place] [address] PCP - General Family Medicine 11/22/23 documented as of this encounter
--- OUTSIDE RECORDS SUMMARY | 2025-05-26 13:45 | XMS_ITS | Encounter Summary ---
Author Organization [facility] Address [address] [place] [address] Care Team Providers Care Ware Tester Name Role Phone Ila Elder SAMANTA Primary Care Provider [phone] Encounter Details Date Type Department Care Team (Late st Contact Info) Description 08/14/2023 Lab Requisition [facility] Lab [address] [place] [address] Marycruz Martinez MD [address] [place] [address] Encounter for general adult medical examination without [...] file Not on file Not on file lotus notes administrator Not on file Not on file Not on file documented as of this encounter Plan of Treatment Not on file documented as of this encounter Procedures * Due to [facility] law, this organization might not be [...] in this encounter Results * Due to [facility] law, this organization might not be sharing negative HIV tests. * (ABNORMAL) Hepatic Function Panel (08/14/2023 3:38 PM EST) Total Protein 6.2(L) 6.6 - 8.7 g/dL 08/14/2023 4:31 PM EST [facility] Albumin 3.8 3.5 - 5.0 g/dL 08/14/2023 4:31 PM EST [facility] Globulin, Total 2.4 2.1 - 4.2 g/dL 08/14/2023 4:31 PM EST [facility] Albumin Globulin Ratio 1.6 08/14/2023 4:31 PM EST [facility] Bilirubin, Total 0.1(L) 0.2 - 1.2 mg/dL 08/14/2023 4:31 PM EST [facility] Bilirubin, Direct 0.0 <=0.3 mg/dL 08/14/2023 4:31 PM EST [facility] Alkaline Phosphatase 177(H) 40 - 129 U/L 08/14/2023 4:31 PM EST [facility] AST 21 0 - 33 U/L 08/14/2023 4:31 PM EST [facility] ALT 25 <=33 U/L 08/14/2023 4:31 PM EST [facility] Bilirubin, Indirect 0.10 <=0.70 mg/dL 08/14/2023 4:31 PM EST [facility] Blood Structure of peripheral vein / Unknown 08/14/2023 3:38 PM EST 08/14/2023 3:39 PM EST us Marycruz Martinez MD LAB BLOOD ORDERABLES Final Res ult Performing Organization Address [facility] Co de Phone Number [facility] [address] [place] [address], [place] [phone] * Creatinine (08/14/2023 3:38 PM EST) Creatinine 0.63 0.50 - 1.12 mg/dL 08/14/2023 4:23 PM EST [facility] eGFR >90 >=60 mL/min/1. 73m2 08/14/2023 4:23 PM EST [facility] Comment:The estimated glomer ular filtration [...] ORDERABLES Final Res ult Performing Organization Address [facility]/ZIP Co de Phone Number [facility] [address] [place] [address], [place] [phone] * BUN (08/14/2023 3:38 PM EST) BUN 12 6 - 20 mg/dL 08/14/2023 4:23 PM EST [facility] Blood Structure of peripheral vein / Unknown 08/14/2023 3:38 PM EST 08/14/2023 3:39 PM EST Marycruz Martinez MD LAB BLOOD ORDERABLES Final Res ult [facility] [address] [place] [address], [place] [phone] * (ABNORMAL) CBC Auto Differential (08/14/2023 3:38 PM EST) Pathologist [facility] WBC 10.9(H) 4.8 - 10.8 10*3/uL 08/14/2023 3:50 PM EST [facility] RBC 4.39 4.20 - 5.40 10*6/uL 08/14/2023 3:50 PM EST [facility] Hemoglobin 8.9(L) 11.7 - 15.5 g/dL 08/14/2023 3:50 PM EST [facility] Hematocrit 31.9(L) 35.7 - 45.8 % 08/14/2023 3:50 PM EST [facility] MCV 72.7(L) 81.0 - 99.0 fL 08/14/2023 3:50 PM EST [facility] MCH 20.3(L) 26.0 - 34.0 pg 08/14/2023 3:50 PM EST [facility] MCHC 27.9(L) 29.0 - 36.0 g/dL 08/14/2023 3:50 PM EST [facility] RDW Standard Deviation 51.8(H) 36.4 - 46.3 fL 08/14/2023 3:50 PM EST [facility] RDW 19.7(H) 11.0 - 15.0 % 08/14/2023 3:50 PM EST [facility] Platelets 586(H) 140 - 440 10*3/uL 08/14/2023 3:50 PM EST [facility] MPV 9.5 7.6 - 11.6 fL 08/14/2023 3:50 PM EST [facility] Segs % 53 50 - 75 % 08/14/2023 3:50 PM EST [facility] Immature Grans % 0.3 0.0 - 0.9 % 08/14/2023 3:50 PM EST [facility] Segs # 5.8 1.8 - 7.7 / L 08/14/2023 3:50 PM EST [facility] Immature Grans # 0.03 0.00 - 0.03 10*3/uL 08/14/2023 3:50 PM EST [facility] nRBC % 0.0 0 - 0 /100 WBCs 08/14/2023 3:50 PM EST [facility] nRBC # 0.00 0.00 - 0.13 10*3/uL 08/14/2023 3:50 PM EST [facility] Lymphocyte % 37 20 - 44 % 08/14/2023 3:50 PM EST [facility] Lymphocyte # 4.01 1.00 - 4.75 10*3/uL 08/14/2023 3:50 PM EST [facility] Monocyte % 5 0 - 14 % 08/14/2023 3:50 PM EST [facility] Eosinophil % 4 0 - 5 % 08/14/2023 3:50 PM EST [facility] Basophil % 1 0 - 2 % 08/14/2023 3:50 PM EST [facility] Monocyte # 0.53 0.00 - 6.00 10*3/uL 08/14/2023 3:50 PM EST [facility] Eosinophil # 0.45 0 - 0.8 10*3/uL 08/14/2023 3:50 PM EST [facility] Basophil # 0.08 0.00 - 0.20 10*3/uL 08/14/2023 3:50 PM EST [facility] Blood Structure of peripheral vein / Unknown 08/14/2023 3:38 PM EST 08/14/2023 3:39 PM EST us Marycruz Martinez MD LAB BLOOD ORDERABLES Final Res ult [facility] [address] [place] [address], [place] [phone] documented in this encounter Visit Diagnoses Diagnosis Encounter for general adult medical examination without abnormal findings documented in this encounter Additional Health Concerns Infection Onset Date Last Indicated Resolved Time 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
--- OUTSIDE RECORDS SUMMARY | 2025-05-26 13:45 | XMS_ITS | Encounter Summary ---
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 law, this organization might not be sharing negative HIV tests. Procedure Name Priority Date/Time Associated Diagnosis Comments CBC AUTO DIFFERENTIAL Routine 08/21/2023 12:55 PM EST BUN Routine 08/21/2023 12:55 PM EST CREATININE Routine 08/21/2023 12:55 PM EST HEPATIC FUNCTION PANEL Routine 08/21/2023 12:55 PM EST documented in this encounter Results * Due to [facility] law, this organization might not be sharing negative HIV tests. * (ABNORMAL) Hepatic Function Panel (08/21/2023 12:55 PM EST) Total Protein 6.1(L) 6.6 - 8.7 g/dL 08/21/2023 5:38 PM EST [facility] Albumin 3.4(L) 3.5 - 5.0 g/dL 08/21/2023 5:38 PM EST [facility] Globulin, Total 2.7 2.1 - 4.2 g/dL 08/21/2023 5:38 PM EST [facility] Albumin Globulin Ratio 1.3 08/21/2023 5:38 PM EST [facility] Bilirubin, Total 0.1(L) 0.2 - 1.2 mg/dL 08/21/2023 5:38 PM EST [facility] Bilirubin, Direct 0.0 <=0.3 mg/dL 08/21/2023 5:38 PM EST [facility] Alkaline Phosphatase 160(H) 40 - 129 U/L 08/21/2023 5:38 PM EST [facility] AST 16 0 - 33 U/L 08/21/2023 5:38 PM EST [facility] ALT 18 <=33 U/L 08/21/2023 5:38 PM EST [facility] Bilirubin, Indirect 0.10 <=0.70 mg/dL 08/21/2023 5:38 PM EST [facility] Blood Structure of peripheral vein / Unknown 08/21/2023 12:55 PM EST 08/21/2023 4:44 PM EST us Marycruz Martinez MD LAB BLOOD ORDERABLES Final Res ult Performing Organization Address [facility] Co de Phone Number [facility] [address] [address], [place] [phone] * Creatinine (08/21/2023 12:55 PM EST) Creatinine 0.54 0.50 - 1.12 mg/dL 08/21/2023 5:38 PM EST [facility] eGFR >90 >=60 mL/min/1. 73m2 08/21/2023 5:38 PM EST [facility] Comment:The estimated glomer ular filtration [...] ORDERABLES Final Res ult Performing Organization Address [facility]/ZIP Co de Phone Number [facility] [address] [address], [place] [phone] * BUN (08/21/2023 12:55 PM EST) BUN 12 6 - 20 mg/dL 08/21/2023 5:38 PM EST [facility] Blood Structure of peripheral vein / Unknown 08/21/2023 12:55 PM EST 08/21/2023 4:44 PM EST us Marycruz Martinez MD LAB BLOOD ORDERABLES Final Res ult [facility] [address] [place] [address], [place] [phone] * (ABNORMAL) CBC Auto Differential (08/21/2023 12:55 PM EST) WBC 10.6 4.8 - 10.8 10*3/uL 08/21/2023 5:15 PM EST [facility] RBC 4.15(L) 4.20 - 5.40 10*6/uL 08/21/2023 5:15 PM EST [facility] Hemoglobin 8.5(L) 11.7 - 15.5 g/dL 08/21/2023 5:15 PM EST [facility] Hematocrit 30.2(L) 35.7 - 45.8 % 08/21/2023 5:15 PM EST [facility] MCV 72.8(L) 81.0 - 99.0 fL 08/21/2023 5:15 PM EST [facility] MCH 20.5(L) 26.0 - 34.0 pg 08/21/2023 5:15 PM EST [facility] MCHC 28.1(L) 29.0 - 36.0 g/dL 08/21/2023 5:15 PM EST [facility] RDW Standard Deviation 51.4(H) 36.4 - 46.3 fL 08/21/2023 5:15 PM EST [facility] RDW 19.9(H) 11.0 - 15.0 % 08/21/2023 5:15 PM EST [facility] Platelets 462(H) 140 - 440 10*3/uL 08/21/2023 5:15 PM EST [facility] MPV 10.2 7.6 - 11.6 fL 08/21/2023 5:15 PM EST [facility] Segs % 50 50 - 75 % 08/21/2023 5:15 PM EST [facility] Immature Grans % 0.2 0.0 - 0.9 % 08/21/2023 5:15 PM EST [facility] Segs # 5.3 1.8 - 7.7 / L 08/21/2023 5:15 PM EST [facility] Immature Grans # 0.02 0.00 - 0.03 10*3/uL 08/21/2023 5:15 PM EST [facility] nRBC % 0.0 0 - 0 /100 WBCs 08/21/2023 5:15 PM EST [facility] nRBC # 0.00 0.00 - 0.13 10*3/uL 08/21/2023 5:15 PM EST [facility] Lymphocyte % 39 20 - 44 % 08/21/2023 5:15 PM EST [facility] Lymphocyte # 4.16 1.00 - 4.75 10*3/uL 08/21/2023 5:15 PM EST [facility] Monocyte % 6 0 - 14 % 08/21/2023 5:15 PM EST [facility] Eosinophil % 4 0 - 5 % 08/21/2023 5:15 PM EST [facility] Basophil % 1 0 - 2 % 08/21/2023 5:15 PM EST [facility] Monocyte # 0.67 0.00 - 6.00 10*3/uL 08/21/2023 5:15 PM EST [facility] Eosinophil # 0.38 0 - 0.8 10*3/uL 08/21/2023 5:15 PM EST [facility] Basophil # 0.08 0.00 - 0.20 10*3/uL 08/21/2023 5:15 PM EST [facility] Blood Structure of peripheral vein / Unknown 08/21/2023 12:55 PM EST 08/21/2023 4:44 PM EST us Marycruz Martinez MD LAB BLOOD ORDERABLES Final Res ult [facility] [address] [place] [address], documented in this encounter Visit Diagnoses Diagnosis Encounter for general adult medical examination without abnormal findings documented in this encounter Additional Health Concerns Infection Onset Date Last Indicated Resolved Time 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
--- OUTSIDE RECORDS SUMMARY | 2025-05-26 13:45 | XMS_ITS | Continuity of Care Document ---
Author Organization [facility] Address [address] [place] [address] Care Team Providers Care Slitter Processed Film Name Role Phone Deepthi Parada Aliza ENGL[place] Primary Care Provide r Encounters Date Type Department Care Team Description 05/28/2024 1:20 PM EDT Office Visit [facility] [address] [place] [phone] Saad Mahmood DPM Ingrowing toenail (Primary Dx) 12/25/2023 11:40 AM EDT Office Visit [facility] [address] [place] [address] Saad Mahmood DPM Painful orthopaedic hardware (HCC) [T84.84XA] (Primary Dx) 12/18/2023 Orders Only [facility] Podiatry [address] [place] [phone] Ranjan Perez DPM Medications 12/18/2023 Telephone [facility] [address] [place] [phone] Saad Mahmood DPM VNA Communication 12/16/2023 Telephone [facility] [address] [place] [address] Saad Mahmood DPM Post Op 12/13/2023 Professional Billing [facility] [address] [place] [address] Saad Mahmood DPM Painful orthopaedic hardware (HCC) [T84.84XA] 12/13/2023 Minor Procedure/Test NON FC [address] [address] [facility], Unknown Provider 12/12/2023 Consult (Initial) NON FC [address] [address], Unknown Provider 12/11/2023 Minor Procedure/Test NON FC [address] [address], Unknown Provider 12/10/2023 Consult (Initial) NON FC [address] [address] Lenard Cho DPM 12/10/2023 ER NON FC [address] [address], Unknown Provider 12/10/2023 Hospital/Inpatient NON FC [address] [address] Shaun Holguin Parul, MD Dislocation of other internal joint prosthesis, initial encounter; Acute respiratory failure with hypoxia; Hypotension, unspecified; Body mass index (BMI) 40.0-44.9, adult; Iron deficiency anemia, unspecified; Morbid (severe) obesity due to excess calories; Influenza due to other identified influenza virus with other respiratory manifestations; Polyneuropathy, unspecified; Anxiety disorder, unspecified; Fibromyalgia; Personal history of Methicillin resistant Staphylococcus aureus infection; Non-pressure chronic ulcer of other part of right foot with unspecified severity; Surgical operation with implant of artificial internal device as the cause of abnormal reaction of the patient, or of later complication, without mention of misadventure at the time of the procedure Discharge Disposition: Discharged to home or self care (routine discharge) 12/10/2023 Telephone [facility] [address] [place] [address] Saad Mahmood DPM Procedure Follow Up 12/10/2023 Telephone [facility] [address] [place] [address] Saad Mahmood DPM Foot Pain 12/05/2023 1:45 PM EST [facility] [address] [place] [address] Chronic pain in right foot 12/05/2023 12:50 PM EST Office Visit [facility] [address] [place] [address] Saad Mahmood DPM Chronic pain in right foot (Primary Dx); Painful orthopaedic hardware 09/11/2023 3:00 PM EST Office Visit [facility] [address] [place] [address] Saad Mahmood DPM Hallux malleus of right foot (Primary Dx); Painful orthopaedic hardware 09/03/2023 12:15 PM EST [facility] [address] [place] [address] Pain of toe of right foot 08/27/2023 Telephone [facility] [address] [place] [address] Saad Mahmood DPM Appointment 07/03/2023 Refill [facility] Urology [address] [facility] [address] [place] [address] Suly Martinez TUGGER OPERATOR Refill Request 06/28/2023 Refill [facility] U[facility] [address] [facility] [address] [place] [address] Suly Martinez NP E-prescribing Refill Request 11/08/2022 Telephone [facility] Orthopedic Surgery [address] [facility] [address] [place] [address] Tristan Gonzales MD 11/06/2022 Telephone [facility] Orthopedic Surgery [address] [facility] [address] [place] [address] Tristan Gonzales MD Other ; Error 11/05/2022 Telephone [facility] Orthopedic Surgery [address] [facility] [address] [place] [address] Tristan Gonzales MD Return Call 10/17/2022 1:20 PM EST Office Visit [facility] Podiatry [address] [place] [address] Saad Mahmood, DPSuzanne Ingrowing toenail (Primary Dx); Pain of toe of right foot 10/10/2022 Consult (Initial) CARDI UNSPECIFIED Edouard Lowe 10/08/2022 Telephone [facility] Orthopedic Surgery [address] [facility] [address] [place] [address] Tristan Gonzales MD Imm/Inj 07/09/2022 Refill [facility] Urology [address] [facility] [address] [place] [address] Suly Martinez NP E-prescribing Refill Request 06/13/2022 Telephone [facility] Orthopedic Surgery [address] [facility] [address] [place] [address] Antonio Leigh MD Appointment 06/12/2022 Telephone [facility] Neurology [address] [facility] [address] [place] [address] Benny Foley MD Results (MRI ) 05/24/2022 10:00 AM EDT Radiology [facility] Magnetic Resonance Imaging [address] [place] [address] Paresthesia; Weakness of right upper extremity; Gait abnormality; Family history of MS (multiple sclerosis); Urgency of urination; White matter abnormality on MRI of brain 05/16/2022 Telephone [facility] Neurology [address] [facility] [address] [place] [address] Benny Foley MD Results (Labs ) 05/15/2022 Orders Only [facility] Neurology [address] [facility] [address] [place] [address] Benny Foley MD 05/14/2022 Telephone [facility] [address] [place] [address] Benny Foley MD Labs/orders (Creatinine Order for Radiology with Contrast) 05/10/2022 Orders Only [facility] Neurology [address] [facility] [address] [place] [address] Benny Foley MD 05/08/2022 3:00 PM EDT Office Visit [facility] Podiatry [address] [place] [address] Saad Mahmood DPM Ingrowing toenail (Primary Dx) 05/07/2022 12:40 PM EDT Minor Procedure/Test [facility] Orthopedic Surgery [address] [address] Tristan Gonzales MD Sacroiliac joint dysfunction (Primary Dx); Enthesopathy of sacroiliac joint 04/24/2022 Telephone [facility] Neurology [address] [facility] [address] [place] [address] Benny Foley MD Results (MRI) 04/24/2022 Orders Only [facility] Neurology [address] [facility] [address] [place] [address] Benny Foley MD 04/18/2022 Telephone [facility] Orthopedic Surgery-Entrance C [address] [place] [address] Tristan Gonzales MD Patient Questions 04/14/2022 2:00 PM EDT Radiology [facility] Magnetic Resonance Imaging [address] [place] [address] Paresthesia; Weakness of right upper extremity; Gait abnormality; Family history of MS (multiple sclerosis); Urgency of urination 04/09/2022 Telephone [facility] Orthopedic Surgery [address] [address] Tristan Gonzales MD Prior Authorization Request 04/09/2022 2:40 PM EDT Minor Procedure/Test [facility] Orthopedic Surgery [address] [facility] [address] [place] [address] Tristan Gonzales MD Primary osteoarthritis of both knees (Primary Dx); Sacroiliac joint dysfunction; Enthesopathy of sacroiliac joint 03/28/2022 3:10 PM EDT Office Visit [facility] [address] [address] Saad Mahmood DPM Ingrowing toenail (Primary Dx) 03/26/20[facility] [address] [address] Saad Mahmood DPM Patient Questions 03/26/2022 Telephone [facility] Orthopedic Surgery [address] [address] Tristan Gonzales MD Appointment (Appointment reminder) 03/20/2022 3:40 PM EDT Office Visit [address] [address] Saad Mahmood DPM Ingrowing toenail (Primary Dx) 03/20/2022 12:45 PM EDT Consult (Initial) [facility] Neurology [address] [facility] [address] [place] [address] Benny Foley MD Paresthesia (Primary Dx); Weakness of right upper extremity; Gait abnormality; Family history of MS (multiple sclerosis); Urgency of urination; White matter abnormality on MRI of brain 03/19/[address] [address] [employer] 03/08/2022 Telephone [facility] Orthopedic Surgery [address] [facility] [address] [place] [address] Tristan Gonzales MD Prior Authorization Request ; Appointment 03/07/2022 11:40 AM EDT Office Visit [facility] Orthopedic Surgery [address] [facility] [address] [place] [address] Tristan Gonzales MD Primary osteoarthritis of both knees (Primary Dx) 02/13/2022 1:00 PM EDT Office Visit [facility]iat[facility] [address] [place] [address] Saad Mahmood DPM Ingrowing toenail (Primary Dx) 01/18/2022 Telephone [facility] Orthopedic Surgery [address] [address] Tristan Gonzales MD FYI 01/09/2022 11:40 AM EDT Minor Procedure/Test [facility] Orthopedic Surgery [address] [facility] [address] [place] [address] Tristan Gonzales MD Sacroiliac joint dysfunction (Primary Dx); Enthesopathy of sacroiliac joint 01/02/2022 Telephone [facility] Orthopedic Surgery [address] [address] Tristan Gonzales MD Prior Authorization Request ; Appointment 01/02/2022 1:40 PM EDT Office Visit [facility] Orthopedic Surgery [address] [facility] [address] [place] [address] Tristan Gonzales MD Primary osteoarthritis of both knees (Primary Dx); Sacroiliac joint dysfunction; Whiplash injuries, sequela 12/13/2021 1:15 PM EDT Radiology [facility] Xray [address] [address] Right shoulder pain, unspecified chronicity 12/13/2021 1:30 PM EDT Consult (Initial) [facility] Orthopedic Surgery [address] [facility] [address] [place] [address] Remberto Ballard MD Rotator cuff strain, right, initial encounter (Primary Dx); Chronic neck pain 11/02/2021 1:00 PM EST Minor Procedure/Test [facility] Orthopedic Surgery-Entrance C [address] [place] [address] Tristan Gonzales MD Cervical radiculitis (Primary Dx) 10/09/2021 1:20 PM EST Office Visit [facility] Podiatry [address] [place] [address] Saad Mahmood, DPSuzanne Ingrowing toenail (Primary Dx) 09/20/2021 Telephone [facility] Orthopedic Surgery [address] [address] Tristan Gonzales MD Prior Authorization Request 09/20/2021 10:20 AM EST Office Visit [facility] Orthopedic Surgery [address] [address] Tristan Gonzales MD Cervical radiculitis (Primary Dx); Chronic neck pain; Foraminal stenosis of cervical region 09/04/2021 Orders Only [address] [address] [facility], Un Prov 08/04/2021 Consult (Initial) CARDI UNSPECIFIED Edouard Lowe 07/31/2021 Telephone [facility] Orthopedic Surgery [address] [place] [address] Tristan Gonzales MD Patient Questions 07/22/2021 1:15 PM EDT Radiology [facility] Magnetic Resonance Imaging [address] [place] [address] Chronic neck pain 07/21/2021 Refill [facility] Urology [address] [facility] [address] [place] [address] Suly Martinez NP E-prescribing Refill Request 06/26/2021 11:40 AM EDT Minor Procedure/Test [facility] Orthopedic Surgery [address] [facility] [address] [place] [address] Tristan Gonzales MD Cervical radiculitis (Primary Dx); Chronic neck pain 04/21/2021 2:00 PM EDT Minor Procedure/Test [facility] Neurology [address] [facility] [address] [place] [address] Aamir Dorman MD Cervical radiculopathy (Primary Dx) 04/19/2021 1:30 PM EDT Nutrition [facility]. Nutrition [address] [place] [phone] LDN CDE Morbid obesity (Primary Dx) 04/18/2021 2:15 PM EDT Radiology [facility] X-Ray [address] [place] [address] 04/18/2021 1:20 PM EDT Office Visit [facility] Podiatry [address] [place] [phone] Saad Mahmood DPM Ingrowing toenail (Primary Dx) 03/01/2021 4:45 PM EDT Radiology [facility] X-Ray [address] [place] [address] 03/01/2021 Travel 03/01/2021 4:30 PM EDT Office Visit [facility] Podiatry [address] [place] [address] Saad Mahmood DPM Hallux valgus of right foot (Primary Dx) 02/20/2021 Orders Only [facility] Nutrition [address] [place] [address] Jose Martinez MD 02/20/2021 4:00 PM EDT Nutrition [facility] Nutrition [address] [place] [address] Morbid obesity with body mass index (BMI) of 40.0 to 49.9 (Primary Dx) 02/15/2021 12:15 PM EDT Radiology [facility] X-Ray [address] [place] [address] 02/15/2021 Travel 02/15/2021 11:50 AM EDT [facility] [address] [place] [address] Saad Mahmood, MARCIA Hallux valgus of right foot (Primary Dx) 02/13/2021 Professional Billing [facility] Podiatry [address] [place] [address] Saad Mahmood DPM Hallux valgus of right foot 02/13/2021 Professional Billing [facility] Podiatry [address] [place] [phone] Saad Mahmood DPM 02/10/2021 [facility] [address] Saad Mahmood DPM Hallux valgus of right foot 02/09/2021 Surgery/Major Procedure [address] [address] Saad Mahmood DPM 02/07/2021 Orders Only [facility] MISCELLANEOUS [phone] Jose Martinez MD 02/01/2021 Orders Only [facility] Cardiology [address] [place] [address] [address] [place] [address] Jany Dickerson MD 02/01/2021 Orders Only [facility] Pre-Admission Testing [address] [place] [address] Sheron Blunt NP 02/01/2021 Travel 02/01/2021 2:20 PM EDT Office Visit [facility] Pre-Admission Testing [address] [place] [address] Sheron Blunt NP Preoperative examination (Primary Dx); Hallux valgus (acquired), right foot; Hypothyroidism; Sleep apnea, unspecified type; Hyperglycemia; BMI 45.0-49.9, adult; Gastroesophageal reflux disease without esophagitis; Chronic superficial gastritis without bleeding; History of MRSA infection; Mood altered 01/20/2021 Travel 01/20/2021 1:30 PM EDT Consult (Initial) [facility] Orthopedic Surgery [address] [facility] [address] [place] [address] Aaron Barrios MD Rupture of left patellar tendon, initial encounter (Primary Dx) 01/17/2021 Travel 01/17/2021 1:05 PM EDT Minor Procedure/Test [facility] Orthopedic Surgery [address] [address] Tristan Gonzales MD Primary osteoarthritis of both knees (Primary Dx) 01/16/2021 Travel 01/16/2021 1:25 PM EDT Minor Procedure/Test [facility] Orthopedic Surgery [address] [address] Tristan Gonzales MD Myalgia (Primary Dx); Cervical radiculitis; Chronic neck pain 12/27/2020 1:45 PM EDT Radiology [facility] Xray [address] [address] Back pain, unspecified back location, unspecified back pain laterality, unspecified chronicity 12/27/2020 Orders Only [facility] Orthopedic Surgery [address] [address] Arie Wilson MD 12/27/2020 Telephone [facility] Orthopedic Surgery [address] [address] Tristan Gonzales MD Prior Authorization Request 12/27/2020 Travel 12/27/2020 12:45 PM EDT Consult (Initial) [facility] Orthopedic Surgery [address] [address] Arie Wilson MD Cervical radiculopathy (Primary Dx); Whiplash injury to neck, sequela; S/P shoulder surgery 12/09/2020 2:45 PM EST Radiology [facility] Xray [address] [facility] [address] [place] [address] Pain in both knees, unspecified chronicity; Right shoulder pain, unspecified chronicity 12/09/2020 2:45 PM EST Consult (Initial) [facility] Orthopedic Surgery [address] [facility] [address] [place] [address] Yuli Campo PA Primary osteoarthritis of left knee (Primary Dx); Primary osteoarthritis of both knees; Post-traumatic osteoarthritis of both knees; Strain of right rotator cuff capsule, initial encounter 12/07/2020 Orders Only [facility] Orthopedic Surgery [address] [facility] [address] [place] [address] Yuli Campo PA 12/07/2020 Orders Only [facility] Orthopedic Surgery [address] [address] Yuli Campo PA 11/22/2020 Telephone [facility] Orthopedic Surgery [address] [facility] [address] [place] [address] Tristan Gonzales MD Prior Authorization Request 11/22/2020 Travel 11/22/2020 Telephone [facility]. Podiatry [address] [place] [address] Saad Mahmood DPM FYI 11/22/2020 1:45 PM EST Minor Procedure/Test [facility] Orthopedic Surgery [address] [facility] [address] [place] [address] Tristan Gonzales MD Primary osteoarthritis of left knee (Primary Dx) 11/16/2020 Telephone [facility]. Podiatry [address] [place] [address] Saad Mahmood DPM Surgery Cancellation 11/07/2020 Travel 10/24/2020 Telephone [facility] Urology [address] [facility] [address] [place] [address] Suly Martinez NP No Show 10/11/2020 [facility] [address] [place] [address] Unknown 10/05/2020 Telephone [facility] Orthopedic Surgery [address] [address] Tristan Gonzales MD Prior Authorization Request 10/05/2020 11:30 AM EST Radiology [facility] Xray [address] [address] 10/05/2020 Travel 10/05/2020 11:00 AM EST Office Visit [facility] Orthopedic Surgery [address] [address] Tristan Gonzales MD Primary osteoarthritis of both knees (Primary Dx); Pain in joint of right shoulder 08/17/2020 Telephone CALL CENTER [address] [address] Prasanna Zaragoza MD Return Call 08/15/2020 Telephone [facility]. Podiatry [address] [place] [address] Saad Mahmood DPM Patient Questions 08/05/2020 Telephone [facility] Urology [address] [place] [address] [address] [place] [address] Suly Martinez TUGGER OPERATOR Results 08/04/2020 Travel 08/04/2020 1:00 PM EST Radiology [facility] [address] [place] [address] 06/23/2020 Travel 06/14/2020 Travel 06/14/2020 2:30 PM EDT Radiology [facility] Xray [address] [address] Pain in both knees, unspecified chronicity 06/14/2020 2:45 PM EDT Consult (Initial) [facility] Orthopedic Surgery [address] [address] Prasanna Zaragoza MD Primary osteoarthritis of both knees (Primary Dx) 06/13/2020 Orders Only [facility] Orthopedic Surgery [address] [facility] [address] [place] [address] Prasanna Zaragoza MD 06/10/2020 Travel 06/10/2020 11:15 AM EDT Consult (Initial) [facility] Urology [address] [facility] [address] [place] [address] Suly Martinez NP Urinary urgency (Primary Dx); Urinary frequency; Urge incontinence 06/01/2020 4:00 PM EDT Radiology [facility] X-Ray [address] [place] [address] Right foot pain 06/01/2020 Travel 06/01/2020 3:40 PM EDT Consult (Initial) [facility] Podiatry [address] [place] [address] Saad Mahmood DPM Acquired hallux valgus of right foot (Primary Dx) 05/16/2020 Orders Only [facility] Podiatry [address] [place] [address] Saad Mahmood DPM 04/23/2019 10:15 AM EDT Consult (Initial) [facility] Orthopedic Surgery [address] [facility] [address] [place] [address] Prasanna Zaragoza MD Primary osteoarthritis of left knee (Primary Dx); MRSA infection; Quadriceps muscle rupture, left, sequela 04/20/2019 Orders Only [facility] Orthopedic Surgery [address] [facility] [address] [place] [address] Prasanna Zaragoza MD 04/18/2016 9:30 AM EDT Office Visit [place] [employer]VERTISING ACCOUNT EXECUT[place] [id number] Concetta Rois CRNP Surveillance for control, intrauterine device (Primary Dx); Possible , not confirmed 02/29/2016 10:30 AM EDT Office Visit [facility] ADVERTISING ACCOUNT EXECUTIVE [address] [facility] [address] [place] [address] Concetta Rios CRNP Encounter for insertion of intrauterine contraceptive device (Primary Dx); examination or test, unconfirmed 12/30/2015 8:00 AM EDT Office Visit [place] [employer]VERTISING ACCOUNT EXECUTIVE [address] [place] [address] Concetta Rios CRNP General counseling and advice for contraceptive management (Primary Dx); Breast cancer screening 08/17/2015 Flowsheet (Clinical) [facility] ADVERTISING ACCOUNT EXECUTIVE [address] [facility] [address] [place] [address] Provider, Unknown 04/13/2015 Telephone [place] [employer]OUNT EXECUTIVE [address] [place] [address] Concetta Rios CRNP Kleister, Denise TUGGER OPERATOR 01/14/2015 Telephone [place] [employer]VERT[employer] ACCOUNT EXECUTIVE [address] [place] [address] Concetta Rios CRNP Kleister, Denise TUGGER OPERATOR ; Vaginal Problem 10/22/2014 2:30 PM EST Office Visit [place] ADVERTISING ACCOUNT EXECUTIVE [address] [place] [address] Concetta Rios CRNP Encounter for routine gynecological examination (Primary Dx); Screening for malignant neoplasm of cervix 07/05/2014 11:00 AM EDT Office Visit [facility] Orthopedic Surgery [address] [facility] [address] [place] [address] Aamir Layne MD Instability of joint (Primary Dx) 07/02/2014 Telephone [facility] Orthopedics 123 [facility] [address] [place] [address] Aamir Layne MD Patient Questions 05/27/2014 Telephone [facility] Orthopedic Surgery [address] [facility] [address] [place] [address] Aamir Layne MD Other (dr layne) 05/12/2014 10:30 AM EDT Office Visit [facility] Orthopedic Surgery [address] [facility] [address] [place] [address] Aamir Layne MD Internal derangement of knee joint (Primary Dx) 03/10/2014 10:00 AM EDT Office Visit [facility] Orthopedic Surgery [address] [address] Aamir Layne MD Sprain and strain of knee and leg (Primary Dx) 02/18/2014 Telephone [facility] Orthopedic Surgery [address] [address] Aamir Layne MD Patient Questions 01/19/2014 Telephone [facility] Orthopedic Surgery [address] [address] Aamir Layne MD Labs/orders (Xi) 01/04/2014 2:15 PM EDT Office Visit [facility] Orthopedic Surgery [address] [address] Aamir Layne MD Sprain and strain of knee and leg (Primary Dx) 12/25/2013 Telephone [facility] Orthopedic Surgery [address] [address] Aamir Layne MD Patient Questions 11/23/2013 10:30 AM EST Office Visit [facility] Orthopedic Surgery [address] [address] Aamir Layne MD Sprain and strain of knee and leg (Primary Dx) 11/17/2013 Telephone [facility] Surgery [address] [address] Aamir Layne MD Patient Questions (Xi) 11/03/2013 Telephone [facility] Orthopedic Surgery [address] [address] Aamir Layne MD Letter/form Request (xi) 10/19/2013 Telephone [facility] Orthopedics [address] [place] [phone] Aamir Layne MD Patient Questions 10/19/2013 11:15 AM EST Office Visit [facility] Orthopedic Surgery [address] [facility] [address] [place] [address] Aamir Layne MD Sprain and strain of knee and leg (Primary Dx) 09/22/2013 11:00 AM EST Office Visit [facility] Orthopedic Surgery [address] [address] Aamir Layne MD Sprain and strain of knee and leg (Primary Dx) 09/15/2013 Telephone [facility] Orthopedic [facility] [address] [address] Aamir Layne MD Patient Questions 09/04/2013 Telephone [facility] [address] [address] Aamir Layne MD Patient Questions 08/31/2013 Telephone [facility] [address] [address] Aamir Layne MD Patient Questions 08/24/2013 2:15 PM EST Office Visit [facility] Orthopedic Surgery [address] [phone] Elver Crook PA Patellar tendon rupture (Primary Dx) 08/20/2013 Telephone [facility] [address] [address] Aamir Layne MD Other (Dr. Layne) 08/15/2013 Orders Only NON FC [facility] [address] [place] [address] [facility], Unknown Provider 08/14/2013 Minor Procedure/Test NON FC [facility] [address] [place] [address] Aamir Layne MD 08/12/2013 Telephone [facility] [address] [address] Aamir Layne MD Patient Questions 08/10/2013 Telephone [facility] [address] [address] Aamir Layne MD ER F/U 08/09/[address] [facility] [address] [place] [address] [facility], Emergency Rm Provider 08/09/2013 Hospital/Inpatient NON FC [facility] [address] [place] [address] Aamir Layne MD 08/05/2013 Telephone [facility] Orthopedic Surgery [address] [place] [phone] Aamir Layne MD Appointment (Dr. Layne) 08/04/2013 Letter/Form 300 [facility] Magnetic Resonance Imaging [address] [place] [phone] 08/04/2013 12:15 PM EST Radiology [address] [place] [address] [facility] [address] [place] [phone] Sprain and strain of knee and leg 08/03/2013 3:15 PM EST Office Visit [facility] Orthopedic Surgery [address] [place] [phone] Aamir Layne MD Sprain and strain of knee and leg (Primary Dx) 07/27/2013 Minor Procedure/Test NON FC [facility] [address] [place] [address] Aamir Layne MD 07/13/2013 Telephone [facility] Orthopedic Surgery [address] [place] [phone] Aamir Layne MD Patient Questions 07/10/2013 Telephone [facility] Orthopedic Surgery [address] [place] [phone] Aamir Layne MD Patient Questions 07/06/2013 Telephone [facility] Orthopedic Surgery [address] [place] [phone] Aamir Layne MD Letter/form Request (dr layne) 06/29/2013 10:45 AM EDT Office Visit [facility] Orthopedic Surgery [address] [place] [phone] Elver Crook PA Rupture patellar tendon (Primary Dx) 06/26/2013 Telephone [facility] Orthopedic Surgery [address] [place] [phone] Aamir Layne MD [facility] Communication (Dr. Layne) 06/18/2013 Orders Only NON FC [facility] [address] [place], [place] [address], Unknown Provider 06/17/2013 [facility] [address] [address] Aamir Layne MD 06/17/2013 Hospital/Inpatient NON FC SA [address] [address], Unknown Provider 06/17/2013 Hospital/Inpatient NON FC SA [address] [address], Unknown Provider 06/17/2013 Hospital/Inpatient NON FC [address] [address], Unknown Provider 06/17/2013 Minor Procedure/Test NON FC [address] [address] Aamir Layne MD 06/15/2013 1:30 PM EDT Consult (Initial) [facility] [address] [place] [phone] Aamir Layne MD Sprain and strain of knee and leg (Primary Dx) 06/09/2013 Telephone [facility] Orthopedic Surgery [address] [place] [phone] Aamir Layne MD Letter/form Request (Dr. Layne) 06/09/2013 11:00 AM EDT Office Visit [facility] Orthopedic Surgery [address] [place] [phone] Ariel Barcenas PA S/P arthroscopy of left knee (Primary Dx); Tear of lateral cartilage or meniscus of knee, current; Left knee DJD; ACL tear 06/02/2013 Minor Procedure/Test NON FC [facility] [address] [address] Aamir Layne MD 06/02/2013 Minor Procedure/Test NON FC [address] [address] Aamir Layne MD 05/19/2013 1:15 PM EDT Office Visit [facility] Pre-Admission Testing [address] [place] [address] [facility] [address] [place] [address] Konrad Barros MD Preoperative examination (Primary Dx); OA (osteoarthritis) of knee; Hypothyroidism; Obesity; Bipolar disorder; Allergic rhinitis; Sleep apnea; Congenital hip dysplasia 05/12/2013 1:45 PM EDT Consult (Initial) [facility] [address] [facility] [address] [place] [address] Aamir Layne MD Osteoarthritis of knee (Primary Dx); Rupture of anterior cruciate ligament; Tear of lateral cartilage or meniscus of knee, current 04/17/2013 Telephone [facility] [address] [facility] [address] [place] [phone] Aamir Layne MD Error 04/13/2013 Telephone [facility] [address] [facility] [address] [place] [phone] Ariel Barcenas PA Patient Questions 04/10/2013 Telephone [facility] [address] [address] Aamir Layne MD Patient Questions 04/10/2013 3:00 PM EDT Consult (Initial) [facility] [address] [phone] Ariel Barcenas PA ACL tear (Primary Dx); Tear of lateral cartilage or meniscus of knee, current; Left knee DJD 03/25/2013 Telephone [facility] [address] [facility] [address] [place] [phone] Sydni Issa MD Cancellation 03/20/2013 Telephone [facility] Orthopedic Surgery [address] [facility] [address] [place] [phone] New Downing PA Appointment 02/25/2013 Telephone [facility] Surgery [address] [facility] [address] [place] [phone] Sydni Issa MD Patient Questions (FABIANA) 02/19/2013 3:00 PM EDT Consult (Initial) [facility] Orth[facility] Surgery [address] [facility] [address] [place] [address] Sydni Issa MD Sacroiliitis (Primary Dx); Unsteady gait 07/06/2005 Orders Only [facility] [address] [place], [address] Provider, [place] Unknown Allergies Active Allergy Reactions Criticality Noted [...] Take 40 mg by mouth Active Multiple Vitamins-Minera ls (Multiple Vitamins/Womens ) Tab Take 1 tablet by mouth 1 (one) time each day Active diphenhydrAMINE (BENADRYL) 25 MG capsule Take 25 mg by mouth every 6 (six) hours if needed for itching Active hydrOXYzine HCl (ATARAX) 25 MG tablet 1 Active Trulicity 1.5 MG/0.5ML Solution Pen-injector 1 Active Semaglutide,0.2 5 or 0.5MG/DOS, (Ozempic, 0.25 or 0.5 MG/DOSE,) 2 MG/1.5ML Solution Pen-injector Ozempic 0.25 mg or 0.5 mg (2 mg/1.5 mL) subcutaneous pen injector INJECT 0.5 MG EVERY WEEK BY SUBCUTANEOUS ROUTE IN THE MORNING FOR 56 DAYS. Active Foot Care Products [facility] Please evaluate for gait training at home partial weight bearing right foot in an equalizer boot. (T84.84XA) Painful orthopaedic hardware (HCC) [T84.84XA] (M79.671, G89.29) Chronic pain in right foot. 1 each 4 Active Active Problems Problem Noted Date [...] suicidal, homicidal ideation. -Continue home meds Immunizations Immunization Administration Dates Next Due Influenza (SEASONAL) - [...] grandmother Social History Smoking Status as of 05/26/2025 Tobacco Use Types Packs/Day Years Used Date [...] 52 05/07/2022 12:33 PM EDT Temperature 36.1 C (97 F) 05/07/2022 12:33 PM EDT Respiratory Rate 14 05/19/2013 12:56 PM EDT Oxygen Saturation - - Inhaled Oxygen Concentration - - Weight 124 kg (273 lb) 02/01/2021 2:13 PM EDT Height 162.6 cm (5' 4 ) 02/01/2021 2:13 PM EDT Body Mass Index 46.86 02/01/2021 2:13 PM EDT Plan of Treatment Not on file Procedures * Due to [place] state law, this organization might not be [...] BRAIN W AND W/O CONTR (DX: ABNL AIRCRAFT PNEUDRAULIC SYSTEMS MECHANIC FUNCTION, R/O MULT SCLEROSIS) (<1 MONTH) Routine [...] 3:16 PM EDT Results * Due to [place] state law, this organization might not be sharing negative HIV tests. * (ABNORMAL) GLUCOSE POINT OF CARE (12/17/2023 7:48 AM EDT) Only the most recent of23 resultswithin the time period is included. Glucose (Capillary Blood) 126(H) 70 - 105 mg/dL [facility] 12/17/2023 7:48 AM EDT 12/17/2023 7:48 AM EDT us Shaun Holguin LABORATORY Final Result [facility] [address] [place] [address] * (ABNORMAL) RESPIRATORY VIRUS COVID-19 FLU A+B RSV PCR (12/16/2023 1:31 AM EDT) SARS-COV-2 RNA Negative Negative [facility] Influenza A Positive(A) Negative [facility] Influenza B Negative Negative [facility] Respiratory syncytial virus RNA Negative Negative [facility] 12/16/2023 1:31 AM EDT 12/16/2023 1:33 AM EDT us Tasha Smith NP LABORATORY Final Result [facility] [address] [place] [address] * CHEST, PORTABLE INTRAOPERATIVE (12/16/2023 1:10 AM EDT) RADRPT Patient Name: JANEE BEY Location: [place] [address]; [address] [address]- Radiology ACCESSION EXAM DATE/TIME PROCEDURE ORDERING STATUS PROVIDER [id number] 12/16/2023 XR Chest 1 JH CEO NA, Auth 02 01:18 EDT View Portable TASHA (Verified) Reason For Exam (XR Chest 1 View Portable) Respiratory Failure Acute Report CHEST RADIOGRAPH, ONE VIEW TECHNIQUE: AP upright portable at 0104 hours on 12/16/2023. INDICATION: Respiratory failure; right toe infection. COMPARISON: Series of chest radiograph dating back to February 27, 2020, most recently June 10, 2021. FINDINGS: TUBES, LINES AND DEVICES: The right humeral hardware is partially imaged and redemonstrated. HEART AND MEDIASTINUM: The heart is normal in size. Upper mediastinum is within normal limits. LUNGS: The lungs are well inflated. No focal consolidation. The pulmonary vasculature is mildly prominent. PLEURA: No pneumothorax or pleural effusion. OSSEOUS STRUCTURES AND SOFT TISSUES: No acute osseous abnormality. The rightward thoracic curvature is grossly unchanged Unremarkable overlying soft tissue and visualized upper abdomen. IMPRESSION: 1.No acute cardiopulmonary process. 2.Grossly unchanged rightward thoracic curvature. vice president quality: Cory Brannon MD (Attending review by Dr. Ariel Kenyon M.D. I have personally reviewed the study and agree with the reported findings. READING SITE: [facility]) Final Report Dictated: 12/16/2023 8:43 am Dictated By: CORY BRANNON MD Electronic Signature: 12/16/2023 8:57 am Signed By: ARIEL KENYON MD Admitting: ANALY VASQUEZ MD Consulting: ROBI BERNARD MD, DPM, [facility] RAD Anatomical Region Laterality Modality Other 12/16/2023 1:10 AM EDT us Tasha Smith TUGGER OPERATOR [facility] Final Result * CPK (12/13/2023 5:45 AM EDT) CPK 65 24 - 173 U/L [facility] 12/13/2023 5:45 AM EDT 12/13/2023 6:02 AM EDT us Unknown Provider [facility] LABORATORY Final Resul t [facility] [address] [place] [address] * PROCEDURE NOTE (12/13/2023) Narrative 12/13/2023 Ordered by an unspecified provider. Procedure Note [facility], Unknown Provider - 12/13/2023 10:08 AM EDT DATE/TIME NOTE CREATED: 12/13/2023 10:07:03 DATE/TIME OF PROCEDURE: Procedure: Peripheral IV Insertion Indication: IV Access Complications: None A 20 gauge peripheral IV was inserted into left FA. There was a briskblood return and the IV was flushed with NS. A sterile Tegaderm was applied tothe site. Notified RN caring for the patient us Unknown Provider [facility] PROCEDURE NON-FC (HIWAY) Fi nal Result * CULTURE ANAEROBIC (12/11/2023 5:34 PM EDT) Only the most recent of2 resultswithin the time period is included. ANAEROBIC CULT Patient Name: JANEE BEY Location: [place] [address]; [facility] Maitre D'(s): [address] [place] [id number]- Ordering Physician: YEIMY WIGGINS MD Microbiology Procedure: Anaerobic Culture [*1] Source: Tissue Body Site: Toe Right Collected 12/11/2023 17:34 Received 12/11/2023 17:45 Date/Time: EDT Date/Time: EDT Start Date/Time: 12/11/2023 17:45 Free Text Source: Great r. toe EDT FINAL REPORTS Final Report [] Verified Date/Time: 12/15/2023 09:02 EDT No Anaerobes Isolated after 4 days PRELIMINARY REPORTS Preliminary Report [] Verified Date/Time: 12/13/2023 09:07 EDT Culture in progress Performing Locations *1: This test was performed at: [facility], [address] [place] [address], [phone], , Legend: A = Abnormal, H = High, L = Low, ! = Critical, f = Footnote, r = Refere = Corrected, I = Interpretation [facility] 12/11/2023 5:34 PM EDT 12/11/2023 5:45 PM EDT us Unknown Provider [facility] LABORATORY Final Resul t [facility] [address] [place] [address] * CULTURE TISSUE (12/11/2023 5:33 PM EDT) TISSUE CULTURE Patient Name: JANEE BEY Location: [place] [address]; [facility] Maitre D'(s): [address] [place] [phone]- Ordering Physician: YEIMY WIGGINS MD Microbiology Procedure: Tissue Culture [*1] Source: Tissue Body Site: Toe Right Collected 12/11/2023 17:33 Received 12/11/2023 17:46 Date/Time: EDT Date/Time: EDT Start Date/Time: 12/11/2023 17:47 Free Text Source: great r. toe EDT FINAL REPORTS Final Report [] Verified Date/Time: 12/15/2023 09:02 EDT Light growth of Corynebacterium species PRELIMINARY REPORTS Preliminary Report [] Verified Date/Time: 12/13/2023 08:36 EDT Light growth of Corynebacterium species Preliminary Report [] Verified Date/Time: 12/12/2023 10:57 EDT Culture in progress STAINS GS [] Verified Date/Time: 12/11/2023 18:23 EDT Few White Blood Cells No bacteria seen Performing Locations *1: This test was performed at: [facility], [address] [place] [address], [phone], , Legend: A = Abnormal, H = High, L = Low, ! = Critical, f = Footnote, r = Refere = Corrected, I = Interpretation [facility] 12/11/2023 5:33 PM EDT 12/11/2023 5:46 PM EDT us Unknown Provider [facility] LABORATORY Final Resul t [facility] [address] [place] [address] * WOUND CULTURE (12/11/2023 5:32 PM EDT) WOUND CULTURE Patient Name: JANEE BEY Location: [place] [address]; [facility]; [facility] Maitre D'(s): [address] [place] [address]- Ordering Physician: WIGGINS MD, YEIMY Microbiology Procedure: Wound Culture [*1] Source: Wound Body Site: Toe Right Collected 12/11/2023 17:32 Received 12/11/2023 17:41 Date/Time: EDT Date/Time: EDT Start Date/Time: 12/11/2023 17:41 Free Text Source: Great r. toe EDT FINAL REPORTS Final Report [] Verified Date/Time: 12/15/2023 09:04 EDT Light growth of Corynebacterium species Rare growth of Coagulase negative Staphylococcus PRELIMINARY REPORTS Preliminary Report [] Verified Date/Time: 12/15/2023 08:00 EDT Light growth of Corynebacterium species Rare growth of Coagulase negative Staphylococcus Preliminary Report [] Verified Date/Time: 12/13/2023 08:34 EDT Light growth of Corynebacterium species Preliminary Report [] Verified Date/Time: 12/12/2023 10:57 EDT Culture in progress STAINS GS [] Verified Date/Time: 12/11/2023 18:21 EDT No White Blood Cells seen. No bacteria seen Performing Locations *1: This test was performed at: [facility], [address] [place] [address], [phone], , Legend: A = Abnormal, H = High, L = Low, ! = Critical, f = Footnote, r = Refere = Corrected, I = Interpretation [facility] 12/11/2023 5:32 PM EDT 12/11/2023 5:41 PM EDT us Unknown Provider [facility] LABORATORY Final Resul t [facility] [address] [place] [address] * FOOT 3 VIEW - RIGHT (12/11/2023 4:25 PM EDT) RADRPT Patient Name: JANEE BEY Location: [address] [address]- Radiology ACCESSION EXAM DATE/TIME PROCEDURE ORDERING STATUS PROVIDER [id number] 12/11/2023 XR Foot RILEY ADAIR, Auth 54 16:32 EDT Complete Right NEILDMichelle (Verified) Reason For Exam (XR Foot Complete Right) Injury Report FOOT, 3 VIEW REASON FOR EXAM: Infection TECHNIQUE: 3 views of the right foot [...] Postoperative changes as noted above. Reading Site: [facility] Final Report Dictated: 12/11/2023 6:20 pm Dictated By: LIAT BARRIOS MD Electronic Signature: 12/11/2023 6:24 pm Signed By: LIAT BARRIOS MD Admitting: ANALY VASQUEZ MD Consulting: JOANA ADAIR, ROBI MAHMOOD DPM, [facility] RAD Anatomical Region Laterality Modality Other 12/11/2023 4:25 PM EDT Lenard Cho DPM [facility] Final Result * (ABNORMAL) PROTHROMBIN TIME (12/11/2023 7:26 AM EDT) PT 10.1 9.1 - 12.0 sec [facility] INR 1.0(L) 2.0 - 3.5 [facility] Comment: INR reference interval applies to patients on anticoagulant therapy. Suggested INR therapeutic range for oral anticoagulant therapy: (Stabilized anticoagulated patients) Routine Therapy: 2.0-3.0 Recurrent Myocardial Infarction or Mechanical Prosthetic Valves: 2.5-3.5 12/11/2023 7:26 AM EDT 12/11/2023 7:59 AM EDT us Unknown Provider [facility] LABORATORY Final Resul t Performing Organization Address City/[facility] Co de Phone Number [facility] [address] [place] [address] * (ABNORMAL) CBC (12/11/2023 7:26 AM EDT) Leukocytes^correc herber for nucleated erythrocytes 10.7 3.9 - 11.0 x10(3)/[facility] RBC 4.82 3.70 - 5.10 million/mc L [facility] Hemoglobin 10.0(L) 11.5 - 12.5 g/dL [facility] Hematocrit 34.9 34.0 - 44.0 % [facility] MCV 72(L) 80 - 100 fL [facility] MCH 21(L) 27 - 33 pg [facility] MCHC 29(L) 31 - 36 g/dL [facility] RDW 49.4(H) 39.0 - 46.0 fL [facility] Erythrocyte distribution width (RBC) 49 [facility] Erythrocyte distribution width (RBC) 18(H) 12 - 14 % [facility] PLT 485(H) 150 - 450 x10(3)/[facility] Platelet mean volume 9.2 7.0 - 11.0 fL [facility] 12/11/2023 7:26 AM EDT 12/11/2023 8:03 AM EDT us Unknown Provider [facility] LABORATORY Final Resul t Performing Organization Address City/[facility]/ZIP Co de Phone Number [facility] [address] [place] [address] * THYROID STIMULATING HORMONE (12/11/2023 7:26 AM EDT) TSH 4.450 0.450 - 4.500 uU/mL [facility] Comment: Thyroid [place]: If the TSH is normal, no additional testing is performed unless individually ordered. 12/11/2023 7:26 AM EDT 12/11/2023 7:59 AM EDT us Unknown Provider [facility] LABORATORY Final Resul t Performing Organization Address City/[facility]/ZIP Co de Phone Number [facility] [address] [place] [address] * HEMOGLOBIN A1C (12/11/2023 7:26 AM EDT) Hemoglobin A1C 5.5 4.8 - 5.9 % [facility] Comment: Diabetic Adult: <7.0% Healthy Adult: 4.8-5.9% Estimated Average Glucose 111 mg/dL [facility] 12/11/2023 7:26 AM EDT 12/11/2023 8:03 AM EDT us Unknown Provider [facility] LABORATORY Final Resul t Performing Organization Address City/[facility] Co de Phone Number [facility] [address] [place] [address] * (ABNORMAL) COMPREHENSIVE METABOLIC PANEL (12/11/2023 7:26 AM EDT) Sodium 138 134 - 144 mEq/L [facility] Potassium 4.0 3.6 - 5.6 mEq/L [facility] Chloride 102 96 - 109 mEq/L [facility] Carbon dioxide 29 20 - 32 mEq/L [facility] Glucose 96 65 - 99 mg/dL [facility] Urea Nitrogen Blood (BUN) 13 5 - 26 mg/dL [facility] Creatinine 0.64 0.50 - 1.50 mg/dL [facility] Anion gap 7.0(L) 8.0 - 15.0 [facility] BUN/Creatinine Ratio 20 8 - 27 [facility] Protein Total (Serum) 6.7 6.0 - 8.5 g/dL [facility] Albumin 3.7 3.5 - 5.5 g/dL [facility] Calcium 8.7 8.3 - 10.0 mg/dL [facility] Bilirubin Total <0.2 0.1 - 1.2 mg/dL [facility] Comment: Premature Full Term Cord <2.0 <2.0 0-1d <8.0 <8.0 1-2d <12.0 <8.0 3-5d <16.0 <12.0 5-10d <2.0 0.2-1.0 >10d <2.0 0.2-1.0 Alkaline phosphatase 115 25 - 150 U/L [facility] AST (SGOT) 9 0 - 40 U/L [facility] ALT (SGPT) 9 0 - 32 U/L [facility] Globulin 3.0 1.5 - 4.5 g/dL [facility] Osmolality 286 275 - 305 mmol/kg [facility] Albumin/Globulin 1.2 1.1 - 2.5 [facility] Calcium 9 mg/dL [facility] EGFR CKD-EPI >90 >=90 mL/min/1.7 3m2 [facility] 12/11/2023 7:26 AM EDT 12/11/2023 7:59 AM EDT us Unknown Provider [facility] LABORATORY Final Resul t [facility] [address] [place] [address] * PROCEDURE NOTE (12/11/2023) Narrative 12/11/2023 Ordered by an unspecified provider. Procedure Note [facility], Unknown Provider - 12/11/2023 11:52 AM EDT [...] caring for the patient. us Unknown Provider [facility] PROCEDURE NON-FC (HIWAY) Fi nal Result * UNSPECIFIED MAJOR PROCEDURE (12/11/2023) Narrative Procedure Note Saad Mahmood DPM - 05/26/2025 9:19 AM EDT DATE/TIME NOTE CREATED: 12/11/2023 16:24:05 PROCEDURE(S) PERFORMED: Procedure Modifier RT FOOT REMOVAL HARDWARE PROCEDURE DATE AND START TIME: '12/11/23 15:36' PRIMARY SURGEON(S): SAAD BAUER DPM ASSISTED BY: Lenard Cho DPM PGY2 ANESTHESIOLOGIST/RESIDENT CARE ASSISTANT/AA: Provider Provider Role KIRA LEBLANC MD Anesthesiologist BINTA DOMINGUEZ CRNA Certified Registered Nurse Occupational Physician ANESTHESIA TYPE: 'MAC' PRE-OPERATIVE DIAGNOSIS: Infected exposed hardware, right foot POST-OPERATIVE DIAGNOSIS: Infected exposed hardware, right foot DESCRIPTION OF PROCEDURE(S): The patient was brought into the OR and placed on the OR table in asupine position. A safety pause was then taken to verify the patient, site and procedure selection. Following sedation via MAC anesthesia, localanesthesia was placed in the right foot in an ankle block fashion using 20mL of 1% lidocaine plain and 0.5% Marcaine plain in a 1:1 ration. A pneumaticankle tourniquet was placed on the right ankle and inflated to 250mmHg for 14 minutes. The right foot was then scrubbed, prepped and draped in theusual aseptic manner. A final timeout was performed. Attention was drawn to the right foot first interspace where acannulated OsteoMed screw was found protruding. Using a hemostat, the screw was mechanically twisted until it was removed and passed off the field. Adeep tissue culture was then taken and sent to pathology and microbiology for culture and gram stain. The wound was then flushed with copious saline.Once complete, the wound was closed with 3-0 nylon and packed with 1/2 inch iodoform packing. The foot was then washed with a saline soaked Ray-Shelly followed by a dry Ray-Shelly. The wound was then covered with Xeroform, followed by gauze, Kerlix andace wrap. The patient was awakened from anesthesia without incident. Shewas awake and alert with all vital signs stable and vascular status intact tothe right foot. The patient was then transferred to the PACU and then back toher room on the floor where she is resting comfortably. FINDING(S): None. COMPLICATIONS: None. SPECIMENS/TISSUES REMOVED: Description Spec/Cult # Test Requested Site Disposition Comments RIGHT GREAT TOE CULTURE 1 Aerobic/Wound Culture and Anaerobic Toe Right Laboratory RIGHT GREAT TOE, DEEP WOUND CULTURE RIGHT GREAT TOE ABCESS CULTURE 2 Aerobic/Wound Culture and Anaerobic Toe Right Laboratory RIGHT GREAT TOE ABCESS CULTURE, DEEP WOUND CULTURE BLOOD LOSS: 5cc PATIENT CONDITION: _ Good _ Stable _ Guarded _ Poor/Unstable Lenard Cho DPM PROCEDURES Final Result * XRAY FOOT COMPLETE MIN [...] unchanged in position from the previous exam. 2. Lucency surrounding tibial side arthrodesis screw of 1st MTP arthrodesis consistent with loosening, unchanged in position and without migration when compared to the previous exam. 3. [...] little toe, notpresent on the previous exam. us Saad Jessi Verdugoe DPM IMG XRAY NO CONTRAST ORDERAB LES Final Result * MRI CERVICAL SPINE W AND W/O CONTRAST FC (05/24/2022 10:40 AM EDT) Anatomical Region Laterality Modality Spine Magnetic Resonan ce 05/24/2022 2:59 PM EDT Narrative 05/24/2022 2:59 PM EDT CONTRAST: 11 mL MULTIHANCE MR cervical spine with and without gadolinium Comparison: MR WY SD - CERVICAL SPINE WO CONTRAST MRI - 07/22/2021 01:19 PM EDT Findings: No acute findings on limited view of the intracranial contents. No cervical fluid collections or masses. Mass-effect on the cervical spinal cord at multiple levels. No significant cord signal abnormality. Vertebral alignment is within normal limits. No acute fractures or pathologic bone lesions. C2-C3: Mild uncovertebral joint proliferation. Mild facet osteoarthritis. No significant central canal narrowing. Minimal neural foraminal narrowing. No significant change. C3-C4: Large disc osteophyte complex, predominating on the left. Moderate mass-effect on the cervical spinal cord. Mild facet osteoarthritis. Moderate narrowing of bilateral neural foramina. No gross interval change. C4-C5: Large disc osteophyte complex with moderate mass-effect on the cervical spinal cord. Cord diameter reduced to approximately 5 mm. Mild facet osteoarthritis. Moderate stenosis of bilateral neural foramina. No significant change. C5-C6: Moderate disc osteophyte complex with mild mass-effect on the cervical spinal cord. Moderate bilateral neural foraminal narrowing. C6-C7: 5 mm left paracentral disc protrusion with mild mass-effect on the cervical spinal cord. Mild narrowing of the left neural foramen. No significant change. C7-T1: No significant central canal or neural foraminal stenosis. IMPRESSION: 1. Severe multilevel spondylosis with significant mass-effect on the cervical spinal cord at multiple levels. This is most pronounced at the C4-C5 level where cord diameter is reduced to 5 mm in AP dimension. Multilevel neural foraminal stenosis also noted. No significant change since the prior study. 2. 5 mm left paracentral disc protrusion at C6-C7 without change. Procedure Note Veena Gray MD - 05/24/2022 CONTRAST: 11 mL MULTIHANCE MR cervical spine with and without gadolinium Comparison: MR WY SD - CERVICAL SPINE WO CONTRAST MRI [...] levels. This is most pronounced at the C4-J7qlakm where cord diameter is reduced to 5 mm in AP dimension. Multilevel neural foraminal stenosis also noted. No significant change since the priorstudy. 2. 5 mm left paracentral disc protrusion at C6-C7 without change. us Benny Foley MD IMG MR WITH CONTRAS [...] 2:13 AM EDT Narrative Resulting Agency Comment [id number] Benny Foley MD LAB SAME DAY RESULT Final Result [facility] [address] [place] [address] * (ABNORMAL) BASIC METABOLIC PANEL WITH (GFR) (05/15/2022 1:30 PM EDT) Only the most recent of3 resultswithin the time period is included. Pathologist [facility] [place] Glucose 58(L) 65 - 99 mg/dL [facility] [...] needs for GFR calculation. Resulting Agency Comment [id number] us Benny Foley MD LABORATORY Fin al Result [facility] [address] [place] [address] * MRI BRAIN W AND W/O CONTR (DX: ABNL AIRCRAFT PNEUDRAULIC SYSTEMS MECHANIC FUNCTION, R/O MULT SCLEROSIS R94.09/ 794.00) (<1 [...] adjacent to the temporal horn. This demonstrates enhancement upon administration of contrast. No additional white matter lesion or abnormal focus of enhancement. Orbital contents are unremarkable. The sinuses and mastoid air cells are clear. No focal bone lesion. IMPRESSION: 1. Solitary enhancing 4 mm focus of T2 hyperintensity within the deep white matter immediately adjacent to the left temporal horn. This could represent a solitary focus of active demyelination, sequela of recent migraine or small vascular malformation. Recommend follow-up evaluation. Procedure Note Veena Gray MD [...] migraine orsmall vascular malformation. Recommend follow-up evaluation. Benny Foley MD IMG MR WITH CONTRAS [...] CHEST 2 VIEWS (09/04/2021 1:33 PM EST) [facility] RADIOLOGY REPORT DEPARTMENT OF RADIOLOGY ------ Patient: JANEE BEY Unit #: [id number] Ordering MD: DAJA GIBBS MD : 1970 Procedure: Chest 2 Views Age: 51 Location: C.XRAY Exam Date: 09/04/21 Status: [facility] Room/Bed: Primary MD: JOSE MARTINEZ MD Patient Order: [id number] Additional Copy: DAJA GIBBS MD, TAMMY E MD CHEST FRONTAL AND LATERAL: INDICATION: Acute bronchitis. COMPARISON: November 02, 2020. FINDINGS: There is soft tissue attenuation artifact from the chest wall over the lower lung coley, which slightly limits evaluation on the frontal view. Lungs: The lungs are well inflated. No consolidation is seen. Lateral view best demonstrates subsegmental linear atelectasis or scarring projecting over the middle lobes, new compared to November 02, 2020. Pleura: There is no evidence for pleural effusion or pneumothorax. Mediastinum: Tortuous aorta is again noted. Heart: The heart size is mildly prominent. Osseous Structures: Extra convex thoracic scoliosis is again noted. Internal fixation hardware in the proximal right humerus is partially imaged. Additional Findings: None. IMPRESSION: No radiographic evidence for pneumonia. POI: ROBIN Mujica ELECTRONICALLY SIGNED BY: CHASE HOWELL MD 09/04/2021 1:35 PM [facility] Anatomical Region Laterality Modality Other 09/04/2021 1:33 PM EST Narrative 09/04/2021 1:38 PM EST Reason for Study/History: Acute bronchitis. TEST(S) PROCESSED BY [facility] Daja Gibbs MD IMAGING-[facility] Final Result * MRI CERVICAL SPINE W/O CONTRAST FC (07/22/2021 1:53 PM EDT) Anatomical Region Laterality Modality Spine Magnetic Resonan ce 07/23/2021 8:48 PM EDT Narrative 07/23/2021 8:48 PM EDT CONTRAST: MR cervical spine without gadolinium. Comparison: CR WY - SPINE CERVICAL-AP / LAT XRAY - 12/27/2020 01:51 PM EDT . Findings: There is motion artifact degrading all sequences. Alignment unremarkable. No acute fracture or pathologic bone lesion. No mass or fluid collection. No cervical cord signal abnormalities. Moderate to severe multilevel disc and facet disease. Narrow AP diameter throughout the cervical canal, no greater than 10 mm. This suggests congenital spinal stenosis. C2-C3: Mild bilateral [...] MR cervical spine without gadolinium. Comparison: CR WY - SPINE CERVICAL-AP / LAT XRAY - [...] (EMG/NCS) FOR NEUROLOGY DEPT USE ONLY (04/21/2021) Aamir Dorman MD PROCEDURES Final Result * UNSPECIFIED MAJOR PROCEDURE (02/09/2021) Saad Mahmood DPM PROCEDURES Final Result * SARS COV 2 RNA(COVID 19), QUALITATIVE NAAT (02/07/2021 1:03 PM EDT) SARS-COV-2 RNA NOT DETECTED NOT DETECTED [facility] Comment: A Not Detected (negative) test result for this test means that SARS- CoV-2 RNA was not present in the specimen above the limit of detection. A negative result does not rule out the possibility of COVID-19 and should not be used as the sole basis for treatment or patient management decisions. If COVID-19 is still suspected, based on exposure [...] providers and patients using the following websites: https://www.[employer].com/home/Covid-19/HCP/[facility]/fact- sheet.html https://www.[employer]/home/Covid-19/Patients/ [facility]/fact-sheet.html This test has been authorized by the FDA under an Emergency Use Authorization (EUA) for use by authorized laboratories. Due to the current public health emergency, [employer] is receiving a high volume of samples [...] including collection of an additional specimen. Methodology: Nucleic Acid Amplification Test (NAAT) includes RT-PCR or TMA Additional information about COVID-19 can be found at the [employer] website: www.[employer].com/Covid19. Anterior Nares 02/07/2021 1: 03 PM EDT 02/07/2021 9:55 PM EDT Narrative Resulting Agency Comment [id number] Jose Martinez MD LABORATORY Final Result Performing Organization Address [facility]/ZIP Co de Phone Number [facility] [address] [place] [address] * EKG-TO BE READ & BILLED BY [...] PM EDT 02/01/2021 8:17 PM EDT Sheron Blnut NP CARDIOVASCULAR-WITH INBSKT RTG Final Result Performing Organization Address [facility] Co de Phone Number [facility] EKG SYSTEM * (ABNORMAL) HEMOGLOBIN A1C [...] 10:52 PM EDT Narrative Resulting Agency Comment [id number] Sheron Blunt NP LABORATORY Final Result Performing Organization Address [facility] Co de Phone Number [facility] [address] [place] [address] * MRSA CULTURE SCREEN, NASAL ONLY (02/01/2021 3:54 PM EDT) Methicillin Resistant Staphylococcus Aureus Screen SEE NOTE [facility] Comment: MRSA CULTURE SCREEN Micro Number: [id number] Test Status: Final Specimen Source: NOT GIVEN Specimen Quality: Adequate Result: No methicillin resistant Staphylococcus aureus (MRSA) isolated. 02/01/2021 3:54 PM EDT 02/01/2021 10:04 PM EDT Narrative Resulting Agency Comment [id number] Sheron Blunt LABORATORY Final Result Performing Organization Address [facility] de Phone Number [facility] [address] [place] [address] * XRAY SPINE, CERVICAL; 3 VIEWS OR [...] definite healing fracture involving the clavicle. Yuli Campo TARYN IMG XRAY NO CONTRAST ORDERAB LES Final [...] fracture noted. Findings arevery similar to 06/14/2020. Yuli Campo PA IMG XRAY NO CONTRAST ORDERAB LES Final [...] through head of the proximal right humerus. Healed chronic fracture deformity of the humeral neck. Mild inferior subluxation of the humeral head on the Grashey view. This normal alignment on the external view. Mild widening of glenohumeral joint. Acromioclavicular joint space is preserved. Mild spurring involving the superior acromion and inferior [...] mm in thickness. There is an intrauterine device in good position within the endometrial canal of the body of the uterus. There is a nabothian cyst The right ovary measures 2.9 x 2.5 x 3.1 cm. The left ovary is not visualized. There is normal Doppler color and spectral waveform arterial and venous flow to the right ovary. No adnexal mass [...] device in good position. us Suly Martinez NP IMG US ORDERABLES Final Result * XRAY [...] at the anterior tibial tubercle for tenodesis. Mild to moderate medial joint space narrowing. Lateral joint space mildly widened. Patellofemoral joint space is preserved for positioning. Mild osteophytosis involving the anterior femoral ridges. Small heterotopic bone formation along the anterior surface of the distal femoral metadiaphysis with a bony excrescence measuring 15 mm in length and 4.5 mm in thickness underneath the articular surfaces upper patellar pole. Hardware is intact. Neck for acute fracture. No suspicious bony lesions. No significant detected joint effusion. RIGHT: Lateral fixation plate and multiple screws traversing the proximal tibial metaphysis. Severe lateral joint space narrowing. 10 mm of lateral tibiofemoral subluxation. Widening in the medial joint space with genu [...] compartment withlateral tibial subluxation and genu valgus. us Prasanna Zaragoza MD IMG XRAY NO CONTRAST [...] metatarsal fracture. 3. Mild dorsal midfoot DJD. Saad Mahmood DPM IMG XRAY NO CONTRAST ORDERAB LES Final Result * TEST, URINE - STATION (04/18/2016 9:46 AM EDT) Only the most recent of2 resultswithin the time period is included. HCG, Qualitative, Urine neg Neg Urine specimen (specimen) 04/18/2016 9:46 AM EDT Concetta Gabriel [facility] Final Resul t * SUREPATH FPGS PAP AND HR HPV DNA (10/22/2014) Clinical information NONE GIVEN [facility] Comment:{CLINICAL INFORMATIO N: {[id number]) Date last menstrual period [id number] [facility] Comment:{LMP: {[id number]) Date of previous PAP smear ? LAST PAP [facility] Comment:{PREV. PAP: {[id number]) Date of previous biopsy NONE GIVEN [facility] Comment:{PREV. BX: {[id number]) Specimen source (Cvx/Vag) Cervix, Endocervix [facility] Comment:{SOURCE: {[id number]) Statement of Adequacy (Cvx/Vag) Satisfactory for evaluation. Endocervical/singh sformation zone component present. [facility] Comment:{STATEMENT OF ADEQUA CY: {[id number]) Cytology, Pap Smear Negative for intraepithelial lesion or malignancy. [facility] Comment:{INTERPRETATION/RESU LT: {[id number]) Cytology study comment (Cvx/Vag) This Pap test has been evaluated with computer assisted technology. [facility] Comment:{COMMENT: {[id number]) Pricing Specialist (Cvx/Vag) MSM, CT(ASCP) [facility] Comment:{QA CONSULTANT: { [id number]) Pricing Specialist (Cvx/Vag) LP, CT(ASCP) [facility] Comment:{REVIEW CYTOTECHNOLO GIST: {[id number]) HPV MRNA E6/E7 Not Detected Not Detected [facility] Comment: {HPV mRNA E6/E7, SUREPATH VIAL {[id number]) This test was performed using the APTIMA HPV Assay ([employer] This assay detects E6/E7 viral messenger RNA (mRNA) from 14 high-risk HPV types (16,18,31,33,35,39,45,51,52,56,58,59,66,68). The analytical performance characteristics of this assay, when used to test [facility] specimens, have been determined by [employer] 10/22/2014 10/23/2014 4:0 1 AM EST us Concetta WALKER PATHOLOGY-INTERFACED Final Result [facility] [address] [place] [address] * (ABNORMAL) CBC W/O DIFFERENTIAL (08/16/2013 6:33 AM EST) Only the most recent of4 resultswithin the time period is included. WHITE BLOOD COUNT 14.4(H) 3.9 - 11.0 x1000/uL [facility] RBC 2.99(L) 3.70 - 5.10 mil/ul [facility] Hemoglobin 8.2(L) 11.5 - 15.0 g/dL [facility] HCT (HEMATOCRIT) 26.4(L) 34.0 - 44.0 % [facility] MCV 88 80 - 100 fL [facility] MCH 27 27 - 33 pg [facility] MCHC 31 31 - 36 g/dL [facility] RDW 15.3(H) 11.4 - 14.4 % [facility] PLATELETS 264 150 - 450 x1000/uL [facility] 08/16/2013 6:33 AM EST 08/16/2013 6:33 AM EST us Unknown Provider [facility] LABORATORY Final Resul t Performing Organization Address City/[facility]/ZIP Co de Phone Number [facility] [address] [place] [address] * (ABNORMAL) BASIC METABOLIC PANEL (08/16/2013 6:33 AM EST) Only the most recent of4 resultswithin the time period is included. Glucose 116(H) 65 - 99 mg/dL [facility] BUN 11 5 - 26 mg/dL [facility] CREATININE 0.55 0.5 - 1.5 mg/dL [facility] BUN/Creatinine Ratio 20 8 - 27 [facility] GLOM FILT RATE, EST 114.9 >59 mL/min [facility] IF -FLORES N 133.1 >59 mL/min [facility] SODIUM 139 134 - 144 mEq/L [facility] POTASSIUM 4.2 3.5 - 5.5 mEq/L [facility] CHLORIDE 105 96 - 109 mEq/L [facility] CARBON DIOXIDE 28 20 - 32 mEq/L [facility] ANION GAP 6.0(L) 8 - 12 [facility] CALCIUM 8.3(L) 8.7 - 10.2 mg/dL [facility] Comment: Effective 08/13/2013, please note that the reference range for this procedure has change. 08/16/2013 6:33 AM EST 08/16/2013 6:33 AM EST us Unknown Provider [facility] LABORATORY Final Resul t Performing Organization Address City/[facility]/ZIP Co de Phone Number [facility] [address] [place] [address] * BLOOD TYPE AND ANTIBODY SCREEN (08/14/2013 9:28 AM EST) BLOOD GROUP ABO B [facility] RH-(D) Positive [facility] ANTIBODY SCREEN Negative [facility] 08/14/2013 9:28 AM EST 08/14/2013 9:28 AM EST us Aamir Layne MD LABORATORY Final Result Performing Organization Address [facility] Co de Phone Number [facility] [address] [place] [address] * HCG (QUALITATIVE) (08/14/2013 6:05 AM EST) HCG, Qualitative NEGATIVE [facility] 08/14/2013 6:05 AM EST 08/14/2013 6:05 AM EST us Aamir Layne MD LABORATORY Final Result Performing Organization Address City/[facility]/ZIP Co de Phone Number [facility] [address] [place] [address] * UNSPECIFIED MAJOR PROCEDURE (08/14/2013) Narrative Transcriptions [...] patellar tendon reconstructions. SURGEON: Aamir Layne M.D. EXECUTIVE VP: TARYN Mcgovern. ANESTHESIA: General. DESCRIPTION OF PROCEDURE: [...] posterior tibial tendon allograft was thendirected in dnclxy-sx-axaxn fashion through these two bone tunnels. The [...] #2 FiberWire suture was woven in modified Nicole fashion through the proximal end of the [...] tibial tubercle. The allograft was directed in ckmcyj-ls-zjtbd fashion through these two bone tunnels. With [...] 12:54 P TT: 5:17 P Doc #: [id number] cc: Ann Castillo MD Aamir Layne MD PROCEDURES Final Result * KNEE, 1 OR 2 VWS - RIGHT (08/09/2013 6:19 PM EST) RADIOLOGY REPORT [facility] Department of Radiology [address] [place] [address], [address] Name: JANEE MARTIN : [birth year] Date of Service: 08/09/13 1753 Acct Number: [id number] Order Number: [id number] Location: [facility] Report Number: [id number] Service: ADM Nicho/MED Requesting Physician: Yung Menchaca Category: RADIOLOGY [facility] Exam: KNEE 1 OR 2 VIEWS Right Signs/Symptoms: Pain;Injury Report Status: Signed Study: Right knee, two views. Indication: Pain, injury. Comparison: None. Findings: The the patella is high riding but intact. Soft tissue swelling/edema noted inferior to the patella in the region of the patellar tendon in the region of the insertion of the patellar tendon on the patella. No bony fracture identified. Impression: Patella edy with soft tissue abnormality in the region of the patellar tendon at the insertion on the patella with question of tendinous injury/tear. MRI would be more sensitive for internal derangement of the knee. No bony fracture identified. HOSPITAL EDUCATOR: Salty Fisher M.D. Interpreting Resident: Salty Fisher Date/Time of Dictation: 08/09/131818 Approved Electronically By/Date: Aaron Barajas 08/10/13 0739 [facility] Department of Radiology [address] [place] [address], [id number] [facility] Anatomical Region Laterality Modality Other 08/09/2013 6:19 PM EST Narrative 08/10/2013 7:39 AM EST Reason for Study/History: Department of Radiology TEST(S) PROCESSED BY [facility] XRAY Blaise Nikolai [facility] Final Result * MRI KNEE W/O CONTRAST - LEFT FC (08/04/2013 12:34 PM EST) BI-RADS CODE [facility] [facility] (CLIA# [id number]) Anatomical Region Laterality Modality LOWER EXTREMITY Magnetic [...] tendon, left knee. SURGEON: Aamir Layne M.D. EXECUTIVE VP: Monica Chaudhary ANESTHESIA: General. DESCRIPTION OF PROCEDURE: [...] end of the tendon in a modified Marlin fashion with the suture ends exiting through [...] 6:21 P TT: 6:31 P Doc #: [id number] cc: Ann Castillo MD Aamir Layne MD [...] lateral femoral condyle. SURGEON: Aamir Layne M.D. EXECUTIVE VP: Monica Shaw ANESTHESIA: General. DESCRIPTION OF PROCEDURE: [...] 8:54 A TT: 9:47 A Doc #: [id number] cc: Ann Castillo MD us Aamir Layne MD PROCEDURES Final Result * THYROID CASCADING REFLEX (05/19/2013 1:16 PM EDT) TSH 4.31 mIU/L [facility] Comment: {TSH {[id number]) Reference Range > or = 20 Years 0.40-4.50 Ranges First trimester 0.26-2.66 Second trimester 0.55-2.73 Third trimester 0.43-2.91 INTERPRETATION SEE NOTE [facility] Comment: {INTERPRETATION {[id number]) TSH within normal range. Consistent with euthyroid patient. Interference from heterophilic antibodies (more common) or autoantibody (less common) should be considered when the TSH value does not fit the clinical picture. TSH with HAMA Treatment (test code 67399) or TSH Antibody (test code 43647) may help identify such interferences. 05/19/2013 1:16 PM EDT 05/19/2013 10:06 PM EDT Narrative Resulting Agency Comment [id number] us Konrad Barros MD LABORATORY Final Result [facility] [address] [place] [address] * HIP UNILATERAL 2 VIEW - RIGH (04/10/2013 3:23 PM EDT) RADIOLOGY REPORT [facility] Department of Radiology [address] [place] [address], [address] Name: JANEE MARTIN : 70 Date of Service: 04/10/13 1516 Acct Number: [id number] Order Number: [id number] Location: [facility] Report Number: [id number] Service: REG REF/ Requesting Physician: Ariel Barcenas ([facility]) Category: ORTHOPEDIC RADIOLOGY [facility] Exam: HIP UNILAT 2 VIEWS Right Signs/Symptoms: RIGHT HIP PAIN Report Status: Signed Right hip: Two views. Indication: Pain. No fracture, dislocation or other bone or joint abnormality is seen. The soft tissues are normal. Impression: No bony abnormality. Interpreting Resident: Date/Time of Dictation: 04/10/13 1523 Approved Electronically By/Date: Erick Saldaña 04/10/13 1523 [facility] Department of Radiology [address] [place] [address], [address] [facility] Anatomical Region Laterality Modality Other 04/10/2013 3:23 PM EDT Narrative 04/10/2013 3:23 PM EDT Reason for Study/History: Department of Radiology TEST(S) PROCESSED BY [facility] XRAY Ariel CENTENO [facility] Final Result * MAMMO BILATERAL ROUTINE (07/06/2005 3:16 PM EDT) RADIOLOGY REPORT [address] [address] __ DIAGNOSTIC IMAGING Name: MARIO WELLER Acct Num: [id number] Age: 35 MR Num: [id number] : 1970 Sex: F Phone Num: [phone] Film Num: [id number] Stay Type: O/P Room: Admit Phys:PINGETON D Ordering Phys: Admit Date:07/06/05 Discharge Date: 07/06/05 Unsigned Transcriptions are Preliminary reports and do not represent medical or legal documents. __ MAMMO BILATERAL ROUTINE [id number] COMPLETE:07/06/05 15:16 ANDREW ==>MAMMO ORDER<== COMPLETE:07/06/05 15:16 ANDREW REASON FOR PROCEDURE: CYSTIC DISEASE Reviewed and Electronically Signed by: Andrzej Vazquez MD Radiologist Tx date: 07/07/05 09:49 Tx by: PD Signing Phys: CSS ROUTINE MAMMOGRAM. This is a baseline study. Moderate stromal density lowers the sensitivity of mammography. No dominant mass or calcification suggestive of malignancy is seen. No architectural distortion or skin thickening is seen. IMPRESSION: NO EVIDENCE OF MALIGNANCY. BIRADS CATEGORY 1 NEGAT LUPE MAMMOGRAM. REGULAR FOLLOW UP. Dictating Phys: Esther VAZQUEZ M.D. Copy for: File copy printer # [id number] Copy for: RAJNI KEN MD Copy for: 848 MEDICA L RECORDS [facility] (CLIA# [id number]) Anatomical Region Laterality Modality Other 07/06/2005 3:16 PM EDT Narrative 07/06/2005 3:16 PM EDT Ordered by JESUS MANUEL URBAN Reason for Study/History: CYSTIC DISEASE Test(s) processed by : Johana Maynard Johana Unknown Provider [facility] Final R esult Visit Diagnoses Diagnosis Start [...] Other abnormal glucose 02/01/2021 BMI 45.0-49.9, adult ([facility]) Body Mass Index 45.0-49.9, adult 02/01/2021 Gastroesophageal [...] mass index (BMI) of 40.0 to 49.9 ([facility]) 02/20/2021 Hallux valgus of right foot 03/01/2021 Ingrowing toenail Ingrowing nail 04/18/2021 Morbid obesity (HCC) Morbid obesity 04/19/2021 Cervical radiculopathy Brachial neuritis [...] Ingrowing toenail Ingrowing nail 05/28/2024 Care Teams Slitter Processed Film Relationship Specialty Start Date End Date Deepthi Parada NP [facility], [facility] [address] [place] [address] PCP - General Family Medicine 11/22/23
== END 2025-05-26 14:09 | disposition home or self-care (01) ==
LOC: HO.ENCR 13:09
PROVIDERS: PCP Nurse Practitioner Family; Visit Provider Student in an Organized Health Care Education/Training Program
DX: E89.0 Postprocedural hypothyroidism (principal); E04.2 Nontoxic multinodular goiter; E66.813 Obesity, class 3; E66.01 Morbid (severe) obesity due to excess calories; Z68.41 Body mass index [BMI] 40.0-44.9, adult; R73.03 Prediabetes
CPT/HCPCS: 99214

== ENCOUNTER → 2025-05-26 13:08 | Outpatient (BNVA) | payer OTHER, SELFPAY | PROVIDERS: PCP Nurse Practitioner Family; Visit Provider Student in an Organized Health Care Education/Training Program | DX: E89.0 Postprocedural hypothyroidism (principal); E04.2 Nontoxic multinodular goiter; R73.03 Prediabetes; E66.813 Obesity, class 3; Z68.42 Body mass index [BMI] 45.0-49.9, adult | CPT/HCPCS: 99212 ==